=== PATIENT | male | born 1955 | race Caucasian/White ===

== ENCOUNTER → 2020-05-09 13:16 | Outpatient (BNVA) | payer MEDICARE, SELFPAY | PROVIDERS: Visit Provider Surgery Vascular Surgery | DX: L97.529 Non-pressure chronic ulcer of other part of left foot with unspecified severity (principal); Z89.412 Acquired absence of left great toe | CPT/HCPCS: 99213 ==

== ENCOUNTER → 2020-06-06 09:49 | Outpatient (BNVA) | payer MEDICARE, SELFPAY | PROVIDERS: PCP Internal Medicine Geriatric Medicine; Visit Provider Surgery Vascular Surgery | DX: L97.529 Non-pressure chronic ulcer of other part of left foot with unspecified severity (principal) | CPT/HCPCS: 99212 ==

== ENCOUNTER 2020-06-21 12:52 | Outpatient (RCR) | payer MEDICARE, SELFPAY | END 2020-08-01 15:04 | disposition home or self-care (01) | LOC: HO.WCC 12:52 | PROVIDERS: PCP Internal Medicine Geriatric Medicine; Visit Provider Physician Assistant | DX: E11.621 Type 2 diabetes mellitus with foot ulcer (principal); E11.51 Type 2 diabetes mellitus with diabetic peripheral angiopathy without gangrene; L97.522 Non-pressure chronic ulcer of other part of left foot with fat layer exposed; E11.69 Type 2 diabetes mellitus with other specified complication; E11.40 Type 2 diabetes mellitus with diabetic neuropathy, unspecified; M86.8X7 Other osteomyelitis, ankle and foot; R60.9 Edema, unspecified; L84 Corns and callosities; I10 Essential (primary) hypertension; F17.210 Nicotine dependence, cigarettes, uncomplicated; Z79.4 Long term (current) use of insulin; Z89.421 Acquired absence of other right toe(s); Z89.422 Acquired absence of other left toe(s) | CPT/HCPCS: 11042; 97597; 99212; 99213 ==

== ENCOUNTER 2020-07-23 09:00 | Outpatient (REF) | payer MEDICARE, SELFPAY ==
--- NOTE | 2020-07-23 09:21 | XR_ITS ---
EXAMINATION: XR FOOT, LEFT CLINICAL INFORMATION: Left foot wound COMPARISON: Previous x-ray November and January 2020 and MRI January 2020 TECHNIQUE: AP, lateral, and oblique views of the left foot. FINDINGS: There is loss of the first metatarsal head and distal shaft. It is uncertain whether this is post operative. There is osteopenia and cortical thickening and irregularity of the remaining most distal first metatarsal shaft questionable for osteomyelitis. No fracture or dislocation is seen. There is high attenuation seen in the soft tissues over the plantar medial foot, question related to overlying surgical dressing. No radiopaque soft tissue foreign body or air collection is seen. XR/XR foot LT min 3V IMPRESSION: Absent first metatarsal head being and osteopenia and irregularity of the remaining distal shaft of the first metatarsal bone questionable for osteomyelitis.
[2020-07-23 09:31] LABS: MANUAL DIFF FLAG NO
[2020-07-23 09:34] LABS: Basophils Absolute Auto 0.1 X10*3/uL (0.0-0.2); Basophils Percent Auto 0.5 % (0-2); Eosinophils Absolute Auto 0.2 X10*3/uL (0.0-0.4); Eosinophils Percent Auto 1.3 % (0-4); Hematocrit 41.4 % (42-52); Hemoglobin 12.8 g/dl (14.0-18.0); Imm Gran Abs Auto 0.24 X10*3/uL (0.00-0.03); Imm Gran Pct Auto 1.6 % (0.0-0.4); Lymphocytes Absolute Auto 2.1 X10*3/uL (1.2-4.9); Lymphocytes Percent Auto 13.8 % (20-40); Mean Corpuscular HGB Conc 30.9 g/dl (31.0-36.0); Mean Corpuscular Hemoglobin 25.8 pg (27.0-33.0); Mean Corpuscular Volume 83.5 fL (80-98); Mean Platelet Volume 10.9 fL (9.4-12.4); Monocytes Absolute Auto 0.7 X10*3/uL (0.1-1.2); Monocytes Percent Auto 4.4 % (2-11); Neutrophils Absolute Auto 11.9 X10*3/uL (2.0-8.3); Neutrophils Percent Auto 78.4 % (45-73); Platelet Count 327 X10*3/uL (160-400); Red Blood Count 4.96 X10*6/uL (4.60-5.80); Red Cell Distribution Width 14.7 % (11.0-16.0); White Blood Count 15.1 X10*3/uL (4.8-10.8)
[2020-07-23 10:08] LABS: Anion Gap 13 (12-20); Blood Urea Nitrogen 35 mg/dL (9-16); C Reactive Protein 0.17 mg/dL (< or = 0.50); Calcium 9.2 mg/dL (8.4-10.2); Carbon Dioxide 24 mmol/L (22-29); Chloride 104 mmol/L (96-108); Estimated Glomerular Filt Rate 56; Glucose Fasting 233 mg/dL (60-99); Potassium 5.2 mmol/l (3.3-5.1); Sodium 136 mmol/L (135-145)
[2020-07-23 10:30] LABS: Erythrocyte Sedimentation Rate 14 MM/HR (0-15)
== END 2020-07-23 09:01 | disposition home or self-care (01) ==
LOC: HO.LAB 09:00
PROVIDERS: PCP Internal Medicine Geriatric Medicine; Visit Provider Physician Assistant
DX: I73.9 Peripheral vascular disease, unspecified (principal); L97.529 Non-pressure chronic ulcer of other part of left foot with unspecified severity
CPT/HCPCS: 36415; 73630; 80048; 84134; 85025; 85652; 86140

== ENCOUNTER → 2020-07-30 13:03 | Outpatient (BNVA) | payer MEDICARE, SELFPAY | PROVIDERS: PCP Internal Medicine Geriatric Medicine; Visit Provider Surgery Vascular Surgery | DX: I73.9 Peripheral vascular disease, unspecified (principal); Z89.412 Acquired absence of left great toe | CPT/HCPCS: 99212 ==

== ENCOUNTER 2020-10-02 10:47 | Outpatient (REF) | payer MEDICARE, SELFPAY ==
--- NOTE | ~2020-10-02 | US_ITS ---
EXAMINATION: NONINVASIVE ASSESSMENT OF THE ARTERIES OF BOTH LOWER EXTREMITIES WITH PVR EXAM AND BILATERAL LOWER EXTREMITY DUPLE CLINICAL INFORMATION: Peripheral vascular disease. History of right iliac stent. TECHNIQUE: Ankle pulse volume recordings, ankle pressure measurements and ankle brachial indices were obtained of the lower extremity arterial system bilaterally in addition to duplex Doppler techniques with wave form analysis and measurement of velocities in the common femoral, profunda femoral, superficial femoral, popliteal and tibial arteries. The study was performed only at rest. COMPARISON: Previous exam most recent August 2017 FINDINGS: a) AT REST: RIGHT LE. The right ankle-brachial index is: 0.92 2. Right ankle pressure: Decreased. 3. Right ankle PVR waveform: Dampened 4. Right direct duplex Doppler findings: There is evidence of atherosclerotic disease with vessel wall calcification. * Common femoral artery: 131 cm/s, Diastolic flow reversal: Yes * Superficial femoral artery (proximal, mid, distal): 119, 156 and 219 cm/s, Diastolic flow reversal: Yes proximally and no intravenous and distal SFA with biphasic waveform. * Popliteal artery: 97 cm/s, Diastolic flow reversal: No. Biphasic. * Posterior tibial artery: 80 cm/s, Diastolic flow reversal: No. Biphasic. LEFT LE. The left ankle-brachial index is: 0.99 2. Left ankle pressure: Normal 3. Left ankle PVR waveform: Normal 4. Left direct duplex Doppler findings: There is evidence of atherosclerotic disease with vessel wall calcification. * Common femoral artery: 175 cm/s, Diastolic flow reversal: Yes * Superficial femoral artery (proximal, mid, distal): 186, 138 and 142 cm/s, Diastolic flow reversal: No. Biphasic. * Popliteal artery: 119 cm/s, Diastolic flow reversal: No. Biphasic. * Posterior tibial artery: 81 cm/s, Diastolic flow reversal: Yes JOSE ROBERTO Reference: * >0.97-1.25 = normal - no significant arterial disease * 0.75-0.96 = mild peripheral arterial disease * 0.5-0.74 = moderate peripheral arterial disease * <0.50 = severe peripheral arterial disease US/US JOSE ROBERTO complete IMPRESSION: Right: The right JOSE ROBERTO is 0.92 suggestive of mild obstructive atherosclerotic disease. There is no evidence of hemodynamically significant stenosis. There are biphasic waveform seen in the SFA, popliteal and posterior tibial arteries. There are decreased ankle pressures and dampened PVR waveforms. Left: The left JOSE ROBERTO is 0.99 which is normal. There is no evidence of hemodynamically significant stenosis. There are biphasic waveforms in the left superficial femoral and popliteal arteries.
--- NOTE | ~2020-10-02 | US_ITS ---
EXAMINATION: US RETROPERITONEAL LIMITED (AORTA) CLINICAL INFORMATION: Peripheral vascular disease. COMPARISON: None TECHNIQUE: Ponce-scale, color Doppler and spectral Doppler evaluation of the abdominal aorta. FINDINGS: The aorta is normal. The measurements of the aorta in maximum AP and transverse dimensions respectively are as follows: Proximal: 2.1 x 2.5 cm. Mid: 1.9 x 2.4 cm. Distal: 2.3 x 2.1 cm. PSV: 1 3 cm/s. The measurements of the common iliac arteries in maximum AP and TRV dimensions are as follows: Right Common Iliac Artery: 0.9 x 0.8 cm. Left Common Iliac Artery: 0.9 x 1.1 cm. US/US aorta IMPRESSION: Normal caliber abdominal aorta and common iliac arteries. No aneurysm seen..
== END 2020-10-02 10:48 | disposition home or self-care (01) ==
LOC: HO.US 10:47
PROVIDERS: Visit Provider Surgery Vascular Surgery
DX: I73.9 Peripheral vascular disease, unspecified (principal); I65.29 Occlusion and stenosis of unspecified carotid artery
CPT/HCPCS: 76775; 93923; 93925

== ENCOUNTER → 2020-10-15 14:04 | Outpatient (BNVA) | payer MEDICARE, SELFPAY | PROVIDERS: PCP Internal Medicine Geriatric Medicine; Visit Provider Surgery Vascular Surgery | DX: I73.9 Peripheral vascular disease, unspecified (principal) | CPT/HCPCS: 99212 ==

== ENCOUNTER 2020-12-28 11:01 | Emergency (ER) | payer MEDICARE, SELFPAY ==
[2020-12-28 11:11] VITALS: BP 167/88; PULSE 84; RESP 17; TEMP 36; O2SAT 99; BMI 30.2
--- NOTE | 2020-12-28 11:38 | ED_ITS ---
HPI - Extremity Problem General Chief complaint: Extremity Injury, Lower Stated complaint: BLISTER ON R FOOT Time Seen by Provider: 12/28/20 11:26 Source: patient Mode of arrival: ambulatory Limitations: no limitations History of Present Illness HPI Narrative: 65 y/o male with history of diabetes PAD, s/p left great tow amputtion 01/2020 and debridement 03/2020, s/p right TMA in 2004 who presents with a new blood blister to the stump of his right foot. He denies trauma. He noticed the blister this morning when he saw some dark red material draining from it. He denies picking at it himself. He denies any injuries. He denies redness, warmth, pain or fevers. He has not had any recent problems with his right foot and his left foot remains stable. He follows with Dr. Mc and is well known to the [facility]. Complaint: other (blister on right TMA site) Onset (ago): unknown Location: right and lower extremity Radiation: none Associated symptoms: denies other symptoms Related Data Home Medications Medication Instructions Recorded Confirmed aspirin 81 mg tablet,delayed 81 mg PO DAILY 04/27/20 release atorvastatin 80 mg tablet 80 mg PO DAILY 04/27/20 hydrochlorothiazide 25 mg tablet 25 mg PO QAM 04/27/20 insulin aspart U-100 100 unit/mL 1 sliding scale dose SUBCUT 04/27/20 subcutaneous cartridge USEASDIRECTD lisinopril 40 mg tablet 40 mg PO DAILY 04/27/20 metformin 1,000 mg tablet 1,000 mg PO DAILY 04/27/20 Allergies Allergy/AdvReac Type Severity Reaction Status Date / Time No Known Allergies Allergy Verified 10/15/20 14:05 [No Known Allergies*] Review of Systems Review of Systems: Constitutional: No Fever, No Chills Gastrointestinal: No Nausea, No Vomiting Musculoskeletal: No joint pain, No Myalgias Skin: No Skin Lesions, No rash Neuro: No Weakness, No Numbness Heme/Lymph: No Bruising, No Lymphadenopathy PMFSH Past Medical History Attestation statement: The following information was validated with the patient. Medical History (Updated 12/28/20 @ 11:47 by NAHED Ayala) Diabetes Surgical History Amputated great toe of left foot (01/09/20) History of transmetatarsal amputation of right foot (~2004) Status post debridement (03/04/20) Social History Social History Advance Directives: No Advance Directives Information Provided: No Physical Exam Vital Signs: Vital Signs: Last Vital Signs Temp 96.8 F 12/28/20 11:11 Pulse 84 12/28/20 11:11 Resp 17 12/28/20 11:11 BP 167/88 H 12/28/20 11:11 Pulse Ox 99 12/28/20 11:11 Body Mass Index 30.2 Appearance: Alert. Oriented X3. No acute distress. HEENT: normal inspection CVS: Normal heart rate and rhythm. Pulses normal. Respiratory: No respiratory distress. Skin: Skin warm and dry. Normal skin color. Normal skin turgor. No rashes. Extremities: right foot s/p TMS with 1.5 cm palpable blister, small open area without any drainage, no warmth, no erythema, no tenderness, no foul odor. callus formation on the stump. left foot s/p great toe and metatarsal amputation, no open areas, no erythema, warmth, tenderness. Neuro: Oriented X 3. No motor deficit. No sensory deficit. Course Course Course Narrative: 65 y/o male presenting with blood blister to right TMA site. No known trauma. No signs of infection at this time, no cellulitis on exam. Will treat topically with Bacitracin and local wound care. Patient counseled on signs and symptoms of infection and is encouraged to f/u at the [facility] for close monitoring. Case was d/w Dr. Alvarado. Patient is stable for discharge. Discharge Plan Discharge Clinical Impression: Blister Patient Disposition: Home, Self-Care Instructions: Blister (ED) Additional Instructions: There are no signs of infection at this time. Recommend topical wound care with Bacitracin ointment two times per day. Keep area clean and covered. Monitor closely for signs of infection including redness, warmth, swelling, pain or drainage of pus. If you develop any of these, come back to the ER right away for evaluation. Follow up wtih your doctor and Dr. Mc as scheduled. Recommend following up with the Wound Center. Referrals: [facility] [Outside] - 2 days
== END 2020-12-28 11:55 | disposition home or self-care (01) ==
PROVIDERS: Emergency Provider Emergency Medicine Emergency Medical Services; PCP Internal Medicine Geriatric Medicine
DX: S90.821A Blister (nonthermal), right foot, initial encounter (principal); M79.671 Pain in right foot; X58.XXXA Exposure to other specified factors, initial encounter; Y93.9 Activity, unspecified; Y92.9 Unspecified place or not applicable; Y99.9 Unspecified external cause status; Z79.899 Other long term (current) drug therapy; Z79.82 Long term (current) use of aspirin
CPT/HCPCS: 99283

== ENCOUNTER 2021-01-03 12:41 | Outpatient (RCR) | payer MEDICARE, SELFPAY | END 2021-01-22 13:20 | disposition home or self-care (01) | LOC: HO.WCC 12:41 | PROVIDERS: Visit Provider Physician Assistant | DX: E11.621 Type 2 diabetes mellitus with foot ulcer (principal); L97.511 Non-pressure chronic ulcer of other part of right foot limited to breakdown of skin; E11.51 Type 2 diabetes mellitus with diabetic peripheral angiopathy without gangrene; E11.40 Type 2 diabetes mellitus with diabetic neuropathy, unspecified; F17.210 Nicotine dependence, cigarettes, uncomplicated; Z89.421 Acquired absence of other right toe(s); Z71.6 Tobacco abuse counseling; Z79.4 Long term (current) use of insulin; L84 Corns and callosities | CPT/HCPCS: 97597; 99212 ==

== ENCOUNTER 2021-02-07 10:21 | Inpatient (IN) | payer MEDICARE, SELFPAY ==
--- NOTE | ~2021-02-07 | US_ITS ---
EXAMINATION: NONINVASIVE ASSESSMENT OF THE ARTERIES OF BOTH LOWER EXTREMITIES WITH PVR EXAM AND BILATERAL LOWER EXTREMITY DUPLEX CLINICAL INFORMATION: Nonhealing ulcer right foot or ankle TECHNIQUE: Ankle pulse volume recordings, ankle pressure measurements and ankle brachial indices were obtained of the lower extremity arterial system bilaterally in addition to duplex Doppler techniques with wave form analysis and measurement of velocities in the common femoral, profunda femoral, superficial femoral, popliteal and tibial arteries. The study was performed only at rest. COMPARISON: None previous exam September 2020 FINDINGS: a) AT REST: RIGHT LE. The right ankle-brachial index is: Not obtainable due to surgical dressing 2. Right ankle pressure: Slightly decreased 3. Right ankle PVR waveform: Slightly dampened 4. Right direct duplex Doppler findings: There is atherosclerotic disease with vessel wall calcification. * Common femoral artery: 147 cm/s, Diastolic flow reversal: Yes * Superficial femoral artery (proximal, mid, distal): 124, 143 and 149 cm/s, Diastolic flow reversal: No * Popliteal artery: 101 cm/s, Diastolic flow reversal: No * Posterior tibial artery: 147 cm/s, Diastolic flow reversal: Yes LEFT LE. The left ankle-brachial index is: 0.76 2. Left ankle pressure: Slightly decreased. 3. Left ankle PVR waveform: Slightly dampened. 4. Left direct duplex Doppler findings: There is atherosclerotic disease with vessel wall calcification. * Common femoral artery: 173 cm/s, Diastolic flow reversal: No * Superficial femoral artery (proximal, mid, distal): 136, 127 and 153 cm/s, Diastolic flow reversal: No * Popliteal artery: 163 cm/s, Diastolic flow reversal: Yes * Posterior tibial artery: 107 cm/s, Diastolic flow reversal: Yes JOSE ROBERTO Reference: * >0.97-1.25 = normal - no significant arterial disease * 0.75-0.96 = mild peripheral arterial disease * 0.5-0.74 = moderate peripheral arterial disease * <0.50 = severe peripheral arterial disease US/US JOSE ROBERTO complete IMPRESSION: Right: Ankle-brachial index could not be obtained. There is diffuse atherosclerotic disease, biphasic waveforms and increased peak systolic velocities suggestive of mild stenosis. Left: Diffuse atherosclerotic disease, borderline ankle brachial index, biphasic waveforms and increased peak systolic velocities suggestive of mild stenosis.
--- NOTE | ~2021-02-07 | MR_ITS ---
EXAMINATION: MR FOOT WITHOUT AND WITH CONTRAST, RIGHT CLINICAL INFORMATION: Diabetic foot infection, evaluate for osteomyelitis. COMPARISON: X-ray of the right foot 02/07/2021 TECHNIQUE: MRI of the right foot was performed before and after contrast. Contrast dose 10 mL of Gadavist given intravenously. FINDINGS: The examination is limited because of image-degrading motion artifact. As seen on radiographs are postoperative changes with amputation at the level of the metatarsals. SECOND, THIRD AND FOURTH DIGITS: There is abnormal decreased T1 and heterogeneous T2 signal without contrast enhancement in the soft tissues overlying the distal ends of the remaining 3rd and 4th metatarsals. The overlying surface/skin demonstrates irregularity probably reflecting ulceration. This area measures 3.2 cm transverse, 1.4 cm AP, and extends 3 cm proximal to distal. There is some very mild increased signal involving most of the 4th metatarsal on the T2-weighted sequences beginning at the proximal metaphysis and extending to the end of the bone. There is no corresponding abnormal signal on the T1-weighted sequence. There is only minimal enhancement of the very tip of the bone. There is no irregularity of the end of the bone. There is minimal increased T2 signal along the tip of the remaining 4th metatarsal without concomitant enhancement or abnormal signal on the T1-weighted sequence. No definite abnormal signal within the distal end of the 2nd metatarsal. The signal of the remaining bones and joints is unremarkable. ADDITIONAL FINDINGS: There is generalized abnormal signal with some enhancement in the dorsal subcutaneous soft tissues of the foot compatible with a combination of edema and cellulitis. There is mild abnormal signal with minimal enhancement of the muscles compatible with denervation myositis given the additional fatty atrophy and fatty infiltration of the muscles diffusely. The visualized tendons appear intact. MR/MR foot RT wo/w con IMPRESSION: Postsurgical changes related to amputation at the level of the metatarsals. Diffuse signal abnormality throughout the subcutaneous soft tissues of the foot compatible with a combination of edema and cellulitis. There is additional localized fluid surrounding the distal ends of the 2nd, 3rd and 4th metatarsals with some peripheral enhancement likely reflecting an abscess. There is also some mild abnormal signal and minimal enhancement within the 3rd metatarsal, nonspecific. This could reflect some reactive edema but remains suspicious for osteomyelitis given the overlying soft tissue abnormality and its overall appearance. Minimal abnormality of the distal end of the remaining 4th metatarsal equivocal for osteomyelitis. This may simply reflect some minimal reactive edema related to the overlying inflammatory process. However, subtle osteomyelitis of the very tip of the bone cannot be excluded. No evidence for osteomyelitis of the remaining 2nd metatarsal.
--- NOTE | ~2021-02-07 | XR_ITS ---
EXAMINATION: XR FOOT, RIGHT CLINICAL INFORMATION: Drainage and redness. Question osteomyelitis. COMPARISON: Previous right foot x-ray June 2019 and MRI June 2019 TECHNIQUE: AP, lateral, and oblique views of the right foot. FINDINGS: There are postsurgical changes following transmetatarsal amputation. This appears similar to 2019 exam. There is a cortical irregularity of the medial navicular bone. This is similar to June 2019 exam. No evidence of fracture, dislocation or osteomyelitis is seen. There is soft tissue swelling and air in the soft tissues at the amputation site. Soft tissues are otherwise unremarkable. XR/XR foot RT 2V IMPRESSION: Stable exam from June 2019. No fracture or x-ray evidence of osteomyelitis.
[2021-02-07 10:48] VITALS: BP 184/78; PULSE 80; RESP 20; TEMP 36.8; O2SAT 100; BMI 31.4
--- NOTE | 2021-02-07 10:55 | PC.NURSE ---
Pt alert and oriented x3, lscta. BP high 180s. Pt reports blister on r foot opened up, yellowish discharge with foul odor reported by pt. R toe amputation done approximately 1 year ago. Pt type 2 diabetic, dc'd from wound clinic 3 wks ago. Pt on baby aspirin.
[2021-02-07 11:00] VITALS: BP 184/78; PULSE 77; RESP 20; TEMP 36.8; O2SAT 100
--- NOTE | 2021-02-07 11:20 | ED.WOUNDLAC ---
HPI - Wound/Laceration General Chief Complaint: Wound/Laceration Stated Complaint: R FOOT INFECTION Time Seen by Provider: 02/07/21 10:46 Source: patient Mode of arrival: ambulatory Limitations: no limitations History of Present Illness HPI narrative: 65 yo male with past medical history of IDDM, PAD, h/o transmetatarsal amputation of right foot, left great toe amputation secondary to osteo here with complaints of right foot swelling, redness and drainage noted from an opened wound x 2 days. Patient tells me had had wound on the foot which closed after being followed at wound care. Had a blister that opened and was seen here 12/25 and then followed back up with wound care for several weeks till closure. Patient noted two days ago an open area on the foot. Since then increasing redness, swelling and drainage from the site. No fevers/chills. BG 150-160's which is normal per patient. Denies pain but has neuropathy at baseline so unable to quantify. Related Data Home Medications Medication Instructions Recorded Confirmed aspirin 81 mg tablet,delayed 81 mg PO DAILY 04/27/20 02/07/21 release atorvastatin 80 mg tablet 80 mg PO BEDTIME 04/27/20 02/07/21 hydrochlorothiazide 25 mg tablet 25 mg PO QAM 04/27/20 02/07/21 lisinopril 40 mg tablet 40 mg PO DAILY 04/27/20 02/07/21 aspirin 81 mg PO DAILY 02/07/21 02/07/21 atorvastatin 1 tab PO BEDTIME 02/07/21 02/07/21 hydrochlorothiazide 1 tab PO DAILY 02/07/21 02/07/21 insulin NPH and regular human 20 unit SUBCUT BEDTIME 02/07/21 02/07/21 [Novolin 70-30 FlexPen U-100] insulin NPH and regular human 30 unit SUBCUT DAILY 02/07/21 02/07/21 [Novolin 70-30 FlexPen U-100] lisinopril 1 tab PO DAILY 02/07/21 02/07/21 metformin 2 tab PO BID 02/07/21 02/07/21 Allergies Allergy/AdvReac Type Severity Reaction Status Date / Time No Known Allergies Allergy Verified 10/15/20 14:05 [No Known Allergies*] Review of Systems Review of Systems: Yes all other systems are reviewed and are negative Constitutional: Constitutional: Reports no additional constitutional complaints, Denies body ache(s), Denies chills, Denies fever(s), Denies headache(s) and Denies weakness Eyes: Eyes: Reports no additional eye complaints and Denies change in vision ENT: Reports system reviewed and no additional complaints, except as documented, Denies dizziness, Denies headache(s), Denies nasal congestion, Denies nasal discharge and Denies neck pain Cardiovascular: Cardiovascular: Reports no additional cardiovascular complaints, Denies chest pain, Denies leg edema and Denies dyspnea Respiratory: Respiratory: Reports no additional respiratory complaints, Denies cough and Denies dyspnea Gastrointestinal: Gastrointestinal: Reports no additional gastrointestinal complaints, Denies abdominal pain, Denies diarrhea, Denies nausea and Denies vomiting Genitourinary: Genitourinary: Denies urinary incontinence Musculoskeletal: Musculoskeletal: Reports no additional musculoskeletal complaints, Denies back pain, Denies arthralgias, Denies joint swelling, Denies neck pain, Denies numbness and Denies tingling Integumentary/Breasts: Skin/Breast: Reports system reviewed and no additional complaints, except as docu, Reports swelling, Reports erythema and Denies rash Neurologic: Reports system reviewed and no additional complaints, except as documented, Denies Abnormal speech present, Denies dizziness, Denies headache(s), Denies numbness, Denies tingling and Denies weakness PMFSH Past Medical History Attestation statement: The following information was validated with the patient. Source: old records reviewed and nursing notes reviewed Medical History Diabetes Surgical History Amputated great toe of left foot (01/09/20) History of transmetatarsal amputation of right foot (~2004) Status post debridement (03/04/20) Social History Social History Advance Directives: No Advance Directives Information Provided: No Physical Exam Vital Signs: Vital Signs: Last Vital Signs Temp 98.3 F 02/07/21 11:00 Pulse 77 02/07/21 11:00 Resp 20 02/07/21 11:00 BP 184/78 H 02/07/21 11:00 Pulse Ox 100 02/07/21 11:00 Body Mass Index 31.4 Const: General: cooperative, healthy appearing, comfortable and no acute distress Orientation/consciousness: patient oriented x3 Limitations: no limitations HENMT: Head: Yes normal to inspection Ears: hearing grossly normal bilaterally General nose exam: Normal external nose present Face and sinus: Yes normal facial exam Mouth: Normal oral and palatal mucosa present Throat: Yes posterior oropharynx normal Eyes: General: appearance normal, both eyes and all related structures Pupils: Equal, round and reactive pupils present Neck: Neck: Yes normal visual inspection Chest: Chest palpation & inspection: normal inspection of the chest Resp: Effort & Inspection: normal respiratory effort Auscultation: clear to auscultation bilaterally Cardio: Rate: regular rate Rhythm: regular rhythm Peripheral pulses: Peripheral pulses 2+ throughout GI: Inspection: Yes normal to inspection Palpation (GI): Soft to palpation and nontender Auscultation: normal bowel sounds Back/Spine/Pelvis: Thoracic/Lumbar Spine: thoracic and lumbar spine normal to inspection Skin: Other: No tenderness. Pitting edema over the dorsal foot. Doppler DP and PT pulses noted. Able to express some clear drainage from the wound site. General skin exam: no rashes or lesions noted Neuro: General: patient oriented x3, no focal motor deficits and normal sensation to monofilament Cranial nerves: Yes Equal, round and reactive pupils present Cognition (Neuro): normal cognition Speech: No Abnormal speech present Gait exam (Neuro): Normal gait present Motor exam (neuro): 5/5 motor strength present throughout Extrem: General: Yes normal to inspection Course Course Course Narrative: 65 yo male with past medical history of IDDM, PAD here with open wound to site with redness, swelling, clear drainage x several days. No fevers/chills. Will check labs blood including blood cultures, lactic acid, x-ray right foot, IV antibiotics. -elevated lactic acid with leukocytosis. Added vancomycin and normal saline bolus. Will need admission. X-ray does not show osteomyelitis. 1300-Discussed with Dr Toledo who accepted admission. MDM - Wound/Laceration Medical Records Attestation: I reviewed the patient's medical records. Lab Data Attestation: I reviewed the patient's lab results. Result diagrams: 02/07/21 11:32 02/07/21 11:32 Labs: Lab Results 07/04/2202/07/21 02/07/21 Range/Units 11:29 11:32 11:32 WBC 15.0 H (4.8-10.8) X10*3/uL RBC 4.59 L (4.60-5.80) X10*6/uL Hgb 12.0 L (14.0-18.0) g/dl Hct 37.5 L (42-52) % MCV 81.7 (80-98) fL MCH 26.1 L (27.0-33.0) pg MCHC 32.0 (31.0-36.0) g/dl RDW 15.4 (11.0-16.0) % Plt Count 246 (160-400) X10*3/uL MPV 11.2 (9.4-12.4) fL Immature Gran % (Auto) 1.1 H (0.0-0.4) % Neut % (Auto) 83.1 H (45-73) % Lymph % (Auto) 10.1 L (20-40) % [place] % (Auto) 4.5 (2-11) % Eos % (Auto) 0.9 (0-4) % Baso % (Auto) 0.3 (0-2) % Lymph # (Auto) 1.5 (1.2-4.9) X10*3/uL [place] # (Auto) 0.7 (0.1-1.2) X10*3/uL Eos # (Auto) 0.1 (0.0-0.4) X10*3/uL Baso # (Auto) 0.1 (0.0-0.2) X10*3/uL Abs Immat Gran (auto) 0.16 H (0.00-0.03) X10*3/uL Absolute Neuts (auto) 12.5 H (2.0-8.3) X10*3/uL Absolute Nucleated RBC 0.000 (0.0-0.012) X10*3/uL Nucleated RBC % (auto) 0.0 (0.0-0.2) /100WBC ESR 39 H (0-15) MM/HR Sodium (135-145) mmol/L Potassium (3.3-5.1) mmol/L Chloride (96-108) mmol/L Carbon Dioxide (22-29) mmol/L Anion Gap (12-20) BUN (9-16) mg/dL Creatinine (0.5-1.4) mg/dL Estim Creat Clear Calc Estimated GFR Random Glucose (60-115) mg/dL Lactic Acid (0.5-2.0) mmol/L Calcium (8.4-10.2) mg/dL Total Bilirubin (0.0-1.0) mg/dL Direct Bilirubin (0.0-0.5) mg/dL AST (5-37) U/L ALT (0-40) U/L Alkaline Phosphatase (39-117) U/L C-Reactive Protein (< or = 0.50) mg/dL Total Protein (6.5-8.0) g/dL Albumin (3.5-5.0) g/dL COVID-19 (CEFERINO) Negative (Negative) COVID-19 Clin Com See Note 02/07/21 02/07/21 Range/Units 11:32 11:32 WBC (4.8-10.8) X10*3/uL RBC (4.60-5.80) X10*6/uL Hgb (14.0-18.0) g/dl Hct (42-52) % MCV (80-98) fL MCH (27.0-33.0) pg MCHC (31.0-36.0) g/dl RDW (11.0-16.0) % Plt Count (160-400) X10*3/uL MPV (9.4-12.4) fL Immature Gran % (Auto) (0.0-0.4) % Neut % (Auto) (45-73) % Lymph % (Auto) (20-40) % [place] % (Auto) (2-11) % Eos % (Auto) (0-4) % Baso % (Auto) (0-2) % Lymph # (Auto) (1.2-4.9) X10*3/uL [place] # (Auto) (0.1-1.2) X10*3/uL Eos # (Auto) (0.0-0.4) X10*3/uL Baso # (Auto) (0.0-0.2) X10*3/uL Abs Immat Gran (auto) (0.00-0.03) X10*3/uL Absolute Neuts (auto) (2.0-8.3) X10*3/uL Absolute Nucleated RBC (0.0-0.012) X10*3/uL Nucleated RBC % (auto) (0.0-0.2) /100WBC ESR (0-15) MM/HR Sodium 134 L (135-145) mmol/L Potassium 4.7 (3.3-5.1) mmol/L Chloride 102 (96-108) mmol/L Carbon Dioxide 22 (22-29) mmol/L Anion Gap 15 (12-20) BUN 19 H (9-16) mg/dL Creatinine 1.28 (0.5-1.4) mg/dL Estim Creat Clear Calc 74.2 Estimated GFR 56 Random Glucose 368 H* (60-115) mg/dL Lactic Acid 2.4 H* (0.5-2.0) mmol/L Calcium 9.0 (8.4-10.2) mg/dL Total Bilirubin 0.6 (0.0-1.0) mg/dL Direct Bilirubin 0.3 (0.0-0.5) mg/dL AST 9 (5-37) U/L ALT 12 (0-40) U/L Alkaline Phosphatase 96 (39-117) U/L C-Reactive Protein 10.47 H (< or = 0.50) mg/dL Total Protein 7.0 (6.5-8.0) g/dL Albumin 3.9 (3.5-5.0) g/dL COVID-19 (CEFERINO) (Negative) COVID-19 Clin Com Imaging Data right foot xray: Attestation: I personally reviewed and interpreted this imaging study as follows: Radiologist's impression: EXAMINATION: XR FOOT, RIGHT CLINICAL INFORMATION: Drainage and redness. Question osteomyelitis. COMPARISON: Previous right foot x-ray June 2019 and MRI June 2019 TECHNIQUE: AP, lateral, and oblique views of the right foot. FINDINGS: There are postsurgical changes following transmetatarsal amputation. This appears similar to 2019 exam. There is a cortical irregularity of the medial navicular bone. This is similar to June 2019 exam. No evidence of fracture, dislocation or osteomyelitis is seen. There is soft tissue swelling and air in the soft tissues at the amputation site. Soft tissues are otherwise unremarkable. XR/XR foot RT 2V IMPRESSION: Stable exam from June 2019. No fracture or x-ray evidence of osteomyelitis. Discharge Plan Discharge Clinical Impression: Foot ulcer, right, Leukocytosis, Acute hyperglycemia, Elevated lactic acid level Patient Disposition: Admitted As Inpatient
[2021-02-07 11:41] LABS: MANUAL DIFF FLAG NO
[2021-02-07 11:44] LABS: Basophils Absolute Auto 0.1 X10*3/uL (0.0-0.2); Basophils Percent Auto 0.3 % (0-2); Eosinophils Absolute Auto 0.1 X10*3/uL (0.0-0.4); Eosinophils Percent Auto 0.9 % (0-4); Hematocrit 37.5 % (42-52); Imm Gran Abs Auto 0.16 X10*3/uL (0.00-0.03); Imm Gran Pct Auto 1.1 % (0.0-0.4); Lymphocytes Absolute Auto 1.5 X10*3/uL (1.2-4.9); Lymphocytes Percent Auto 10.1 % (20-40); Mean Corpuscular Hemoglobin 26.1 pg (27.0-33.0); Mean Corpuscular Volume 81.7 fL (80-98); Mean Platelet Volume 11.2 fL (9.4-12.4); Monocytes Absolute Auto 0.7 X10*3/uL (0.1-1.2); Monocytes Percent Auto 4.5 % (2-11); Neutrophils Absolute Auto 12.5 X10*3/uL (2.0-8.3); Neutrophils Percent Auto 83.1 % (45-73); Platelet Count 246 X10*3/uL (160-400); Red Blood Count 4.59 X10*6/uL (4.60-5.80); Red Cell Distribution Width 15.4 % (11.0-16.0)
[2021-02-07] MEDS: Piperacillin Sodium/Tazobactam 3.375 GM in 0.9 % Sodium Chloride 50 ML IV ×3 (11:45→23:37)
--- NOTE | 2021-02-07 11:55 | HE.PHANOTE ---
Pharmacy has completed the medication reconciliation. Patient reports taking Novolin 70/30, 30 units in the morning and 20 units in the evening, although no claim history and per pharmacy patient hasnt filled medication.
[2021-02-07 12:01] LABS: COVID-19 Test Negative (Negative); IDNOW Serial# 9DD0AD1C
[2021-02-07 12:05] LABS: Lactic Acid 2.4 mmol/L (0.5-2.0)
--- NOTE | 2021-02-07 12:08 | PC.NURSE ---
Pt to xray Lactic 2.4, provider notified.
[2021-02-07 12:31] LABS: Erythrocyte Sedimentation Rate 39 MM/HR (0-15)
[2021-02-07 12:45] LABS: Alanine Aminotransferase 12 U/L (0-40); Albumin Level 3.9 g/dL (3.5-5.0); Alkaline Phosphatase 96 U/L (39-117); Anion Gap 15 (12-20); Aspartate Amino Transferase 9 U/L (5-37); Bilirubin Direct 0.3 mg/dL (0.0-0.5); Bilirubin Total 0.6 mg/dL (0.0-1.0); Blood Urea Nitrogen 19 mg/dL (9-16); C Reactive Protein 10.47 mg/dL (< or = 0.50); Carbon Dioxide 22 mmol/L (22-29); Chloride 102 mmol/L (96-108); Creatinine Clr Calc Pharmacy 74.2; Estimated Glomerular Filt Rate 56; Glucose Random 368 mg/dL (60-115); Potassium 4.7 mmol/L (3.3-5.1); Sodium 134 mmol/L (135-145)
[2021-02-07] MEDS: Insulin Regular, Human 100 UNIT/ML 3 ML VIAL IVPUSH (13:15)
[2021-02-07] MEDS: 0.9 % Sodium Chloride 1,000 ML 999 ML IV (13:18)
--- NOTE | 2021-02-07 13:37 | P.HPHOSP_ITS ---
History of Present Illness Date of Service: 02/07/21 Chief Complaint: drainage from R foot This is a 65-year-old male with a past medical history of hypertension, diabetes, active smoker, PAD, prior diabetic foot infections with amputations in the bilateral lower extremities who presents to the hospital with a 1 day history of drainage from the amputation site of his right lower extremity. Patient reports that about 6 weeks ago he had a blood blister for which he followed up with wound care for the next several weeks at which point in that had healed. He reports that on the day of arrival to the emergency room, he noted that he had some drainage on his sock which was milky in color and foul smelling. He also noticed that his amputation site was slightly more red and so he presented to the emergency room. He denied any pain in the right lower extremity, although he reports a lack of sensation due to his known neuropathy. In regards to his amputation history, he reports that he had his right-sided TMA completed about 18 years ago with left-sided amputations more recently in 2019. he denies any fevers or chills. In the emergency room he underwent basic workup which included a CBC that re vealed a WBC count of 15,000 with 16 bands. Chemistry revealed hyperglycemia with sugar of 368 and a lactic acidosis of 2.4. CRP was elevated at 10.4 and ESR was 39. an x-ray of the foot was checked which did not show any acute fractures or x-ray evidence of osteomyelitis. He had blood cultures drawn and was given broad-spectrum IV antibiotics in the form of IV vancomycin and Zosyn along with intravenous fluids and subsequently admission was requested. Review of Systems Review of Systems: General - denies fevers or chills, denies weakness or fatigue HEENT -denies blurred vision, denies headache, denies sore throat Cardiovascular - denies chest pain or palpitations, denies edema Respiratory - denies shortness of breath, coughing, wheezing Gastrointestinal - denies abdominal pain, nausea, vomiting, diarrhea - denies flank pain, denies dysuria, denies frequency or urgency Musculoskeletal - +right foot drainage, +redness, +swelling Neurological - denies any focal weakness or numbness Skin, denies any bruising or redness Psychiatric - denies any suicidal ideation, hallucinations, homicidal ideation Endocrinology - denies intolerance to hot / cold temperatures [facility] Medical History (Updated 02/07/21 @ 13:49 by Miguel Angel Toledo MD) Diabetes Hyperlipidemia PAD (peripheral artery disease) Surgical History Amputated great toe of left foot (01/09/20) History of transmetatarsal amputation of right foot (~2004) Status post debridement (03/04/20) Social History (Updated 02/07/21 @ 13:50 by Miguel Angel Toledo MD) Alcohol intake: never Patient Tobacco Use Status: Current everyday Tobacco user Use of substances other than those prescribed or required for medical reasons: No Advance Directives: No Advance Directives Information Provided: No Meds Allergies Allergy/AdvReac Type Severity Reaction Status Date / Time No Known Allergies Allergy Verified 10/15/20 14:05 [No Known Allergies*] Active Medications: Current Medications Generic Name Dose Route Start Last Admin Trade Name Freq PRN Reason Stop Dose Admin Acetaminophen 650 mg 02/07/21 13:23 Acetaminophen 325 Mg Tablet PO Q6H PRN Pain, Mild (Pain Scale 1-3) Enoxaparin Sodium 40 mg 02/07/21 13:30 Enoxaparin Sodium 40 Mg/0.4 Ml Syringe SUBCUT Q24H CHET Vancomycin HCl 1,000 mg/ 535 mls @ 267.5 mls/hr 02/07/21 12:13 Vancomycin HCl 750 mg/ Sodium IV 02/07/21 14:12 Chloride ONCE ONE Pharmacy Consult 1 each 02/07/21 11:18 Consult Rx Perform Med Rec MISCELLANE ONCE PRN Consult order Pharmacy Consult 1 each 02/07/21 12:13 Consult Rx Vancomycin Dosing MISCELLANE DAILY PRN Consult order Sodium Chloride 3 ml 02/07/21 16:00 0.9 % Sodium Chloride Flush 3 Ml Syringe IVFLUSH QSHIFT [facility] Home Medications Medication Instructions Recorded Confirmed Last Taken Type aspirin 81 mg tablet,delayed 81 mg PO DAILY 04/27/20 02/07/21 02/06/21 History release atorvastatin 80 mg tablet 80 mg PO BEDTIME 04/27/20 02/07/21 02/06/21 History hydrochlorothiazide 25 mg tablet 25 mg PO QAM 04/27/20 02/07/21 02/06/21 History lisinopril 40 mg tablet 40 mg PO DAILY 04/27/20 02/07/2102/06/21 History aspirin 81 mg PO DAILY 02/07/21 02/07/21 02/06/21 History atorvastatin 1 tab PO BEDTIME 02/07/21 02/07/21 02/06/21 History hydrochlorothiazide 1 tab PO DAILY 02/07/21 02/07/21 02/06/21 History insulin NPH and regular human 20 unit SUBCUT BEDTIME 02/07/21 02/07/21 02/07/21 History [Novolin 70-30 FlexPen U-100] insulin NPH and regular human 30 unit SUBCUT DAILY 02/07/21 02/07/21 02/06/21 History [Novolin 70-30 FlexPen U-100] lisinopril 1 tab PO DAILY 02/07/21 02/07/21 02/06/21 History metformin 2 tab PO BID 02/07/21 02/07/21 02/06/21 History Physical Exam Vital Signs and Narrative: Vital Signs: Last Vital Signs Temp 98.3 F 02/07/21 11:00 Pulse 77 02/07/21 11:00 Resp 20 02/07/21 11:00 BP 184/78 H 02/07/21 11:00 Pulse Ox 100 02/07/21 11:00 Body Mass Index 31.4 Const: Other: Constitutional - Awake and Alert, No apparent distress Eyes - PERRLA, EOMI Cardiovascular - S1S2, RRR, No edema Respiratory - Normal lung expansion, Normal respiratory effort, No respiratory distress, CTA bilaterally Gastrointestinal - NT / ND; +BS; No rebound or guarding - No CVA tenderness Extremities - no calf tenderness bilaterally, no swelling Musculoskeletal - Normal inspection, normal ROM Skin - Warm/Dry, see pictures below Neurological - Alert & oriented x3, No focal deficit Psychological - Appropriate affect Skin: Other: Results Labs CBC and Chem 7: 02/07/21 11:32 02/07/21 11:32 Labs: Laboratory Results - last 24 hr 02/07/21 02/07/21 02/07/21 11:29 11:32 11:32 MCV 81.7 MCH 26.1 L MCHC 32.0 RDW 15.4 Plt Count 246 MPV 11.2 Immature Gran % (Auto) 1.1 H Neut % (Auto) 83.1 H Lymph % (Auto) 10.1 L [place] % (Auto) 4.5 Eos % (Auto) 0.9 Baso % (Auto) 0.3 Lymph # (Auto) 1.5 [place] # (Auto) 0.7 Eos # (Auto) 0.1 Baso # (Auto) 0.1 Abs Immat Gran (auto) 0.16 H Absolute Neuts (auto) 12.5 H Absolute Nucleated RBC 0.000 Nucleated RBC % (auto) 0.0 ESR 39 H Anion Gap Estim Creat Clear Calc Estimated GFR Random Glucose Lactic Acid Calcium Total Bilirubin Direct Bilirubin AST ALT Alkaline Phosphatase C-Reactive Protein Total Protein Albumin COVID-19 (CEFERINO) Negative COVID-19 Clin Com See Note 02/07/21 02/07/21 11:32 11:32 MCV MCH MCHC RDW Plt Count MPV Immature Gran % (Auto) Neut % (Auto) Lymph % (Auto) [place] % (Auto) Eos % (Auto) Baso % (Auto) Lymph # (Auto) [place] # (Auto) Eos # (Auto) Baso # (Auto) Abs Immat Gran (auto) Absolute Neuts (auto) Absolute Nucleated RBC Nucleated RBC % (auto) ESR Anion Gap 15 Estim Creat Clear Calc 74.2 Estimated GFR 56 Random Glucose 368 H* Lactic Acid 2.4 H* Calcium 9.0 Total Bilirubin 0.6 Direct Bilirubin 0.3 AST 9 ALT 12 Alkaline Phosphatase 96 C-Reactive Protein 10.47 H Total Protein 7.0 Albumin 3.9 COVID-19 (CEFERINO) COVID-19 Clin Com Imaging Radiologist's Impressions: Impressions Foot X-Ray 02/07/21 11:17 IMPRESSION: Stable exam from June 2019. No fracture or x-ray evidence of osteomyelitis. Assessment and Plan (1) HTN (hypertension) with goal to be determined: Status: Acute (2) PAD (peripheral artery disease): Status: Acute (3) Foot ulcer, right: Status: Acute (4) Diabetes: Status: Acute This is a 65 yo male with a past medical history of diabetes, PAD status post multiple amputations, hyperlipidemia, active tobacco use who presents to the hospital with a 1 day history of drainage from his right lower extremity, TMA amputation site. His presentation is consistent with cellulitis with concern over deeper infection at the TMA amputation site. He will be admitted f or IV antibiotics and further workup. 1. Diabetic foot infection at the site of right TMA amputation Small monitor drainage noted. The region is indurated but do not feel any definitive fluctuation. ESR and CRP are elevated, however x-ray without any bony abnormalities. Will check MRI of the foot Will involve vascular surgery who is familiar with him as well as Infectious Disease In the meantime continue IV vancomycin and Zosyn Monitor renal function while on antibiotics Patient does not have sepsis at this time 2. uncontrolled diabetes mellitus Patient is on Novolin 70/30 (50units total) at home, will convert to Lantus and sliding scale hold metformin 3. Uncontrolled htn missed his home meds this AM, will give him them now 4. Lactic acidosis not due to severe sepsis maybe related to metformin 5. HLD statin 6. PAD vascular surgery as above cotinue asa / statin smoking cessation has been encouraged 7. Tobacco Use Patch Full Code DVT pptx, Lovenox Quality Stroke Does the patient have a stroke diagnosis?: No VTE Prior VTE?: No VTE Risk Level:: Medical - moderate - high VTE Device Contraindication: Treatment Not Indicated VTE Drug Contraindication: N/A - Med Ordered
[2021-02-07 13:40] LABS: Reflex Lactate? Lactic Acid Added
[2021-02-07] MEDS: vancomycin HCL 1,000 MG, vancomycin HCL 750 MG in 0.9 % Sodium Chloride 500 ML 267.5 MG IV (13:48)
[2021-02-07] MEDS: Enoxaparin Sodium 40 MG/0.4 ML SYRINGE SUBCUT (13:48)
[2021-02-07] MEDS: hydroCHLOROthiazide 25 MG TABLET PO (13:59)
[2021-02-07] MEDS: Nicotine 14 MG PATCH.TD24 TRANSDERMA (13:59)
--- NOTE | 2021-02-07 14:40 | PC.NURSE ---
Meds given as documented, Pt pending admission. In MRI at this time.
--- NOTE | 2021-02-07 14:47 | ECG_ITS ---
Test Reason : WOUND Blood Pressure : / mmHG Vent. Rate : 068 BPM Atrial Rate : 068 BPM P-R Int : 158 ms QRS Dur : 122 ms QT Int : 408 ms P-R-T Axes : -09 -39 020 degrees QTc Int : 433 ms Sinus rhythm with Premature atrial complexes Left axis deviation Right bundle branch block Abnormal ECG When compared with ECG of 11-DEC-2019 13:20, Premature atrial complexes are now Present Referred By: Aubrie Black Electronically Signed By:NEREIDA WOLFF
--- NOTE | 2021-02-07 15:00 | PC.NURSE ---
Pt to MRI, Vancomysin infusion stopped.
--- NOTE | 2021-02-07 15:25 | PC.NURSE ---
Report given to receiving nurse DEVIN Hernández.
[2021-02-07 15:54] VITALS: BP 154/62; PULSE 63; RESP 15; TEMP 36.4; O2SAT 99
[2021-02-07] MEDS: lisinopriL 40 MG TABLET PO (16:04)
--- NOTE | 2021-02-07 16:23 | PC.NURSE ---
Wound assessment completed today. Patient has a chronic diabetic TMA ulcer measuring 0.9 x 0.5 x0.4. Silver alginate was placed into wound, covered with gauze and roll gauze. No other skin issues were noted.
[2021-02-07 16:41] LABS: Glucose, Whole Blood 177 mg/dL (60-115)
[2021-02-07] MEDS: Insulin Lispro 100 UNIT/ML 3 ML VIAL SUBCUT ×2 (16:45→20:35)
[2021-02-07] MEDS: Insulin Glargine,Hum.rec.anlog 100 UNIT/ML 10 ML VIAL 20 UNIT SUBCUT (16:45)
[2021-02-07] MEDS: 0.9 % Sodium Chloride Flush 3 ML SYRINGE IVFLUSH ×2 (17:34→23:38)
[2021-02-07 19:41] VITALS: BP 142/66; PULSE 58; RESP 15; TEMP 36.3; O2SAT 97
[2021-02-07 20:26] LABS: Glucose, Whole Blood 203 mg/dL (60-115)
[2021-02-07] MEDS: Atorvastatin Calcium 80 MG TABLET PO (20:35)
[2021-02-07 23:50] VITALS: BP 120/57; PULSE 61; RESP 18; TEMP 36.2; O2SAT 96
[2021-02-08 03:39] VITALS: BP 118/61; PULSE 69; RESP 18; TEMP 36.2; O2SAT 96
[2021-02-08] MEDS: Piperacillin Sodium/Tazobactam 3.375 GM in 0.9 % Sodium Chloride 50 ML IV ×4 (05:47→23:55)
[2021-02-08 07:36] LABS: Hematocrit 35.3 % (42-52); Hemoglobin 11.2 g/dl (14.0-18.0); Mean Corpuscular HGB Conc 31.7 g/dl (31.0-36.0); Mean Corpuscular Volume 82.1 fL (80-98); Mean Platelet Volume 11.3 fL (9.4-12.4); Platelet Count 243 X10*3/uL (160-400); Red Cell Distribution Width 15.2 % (11.0-16.0); White Blood Count 10.5 X10*3/uL (4.8-10.8)
[2021-02-08 07:37] LABS: Anion Gap 14 (12-20); Blood Urea Nitrogen 14 mg/dL (9-16); Calcium 8.7 mg/dL (8.4-10.2); Carbon Dioxide 23 mmol/L (22-29); Chloride 106 mmol/L (96-108); Creatinine Clr Calc Pharmacy 81.2; Estimated Glomerular Filt Rate > 60; Glucose Random 183 mg/dL (60-115); Potassium 5.1 mmol/L (3.3-5.1); Sodium 138 mmol/L (135-145)
[2021-02-08 07:51] VITALS: BP 153/68; PULSE 62; RESP 18; TEMP 36.6; O2SAT 98
[2021-02-08 07:57] LABS: Glucose, Whole Blood 198 mg/dL (60-115)
[2021-02-08] MEDS: Aspirin Enteric Coated 81 MG TABLET.DR PO (08:44)
[2021-02-08] MEDS: Insulin Lispro 100 UNIT/ML 3 ML VIAL SUBCUT ×4 (08:44→20:42)
[2021-02-08] MEDS: lisinopriL 40 MG TABLET PO (08:44)
[2021-02-08] MEDS: hydroCHLOROthiazide 25 MG TABLET PO (08:44)
[2021-02-08] MEDS: 0.9 % Sodium Chloride Flush 3 ML SYRINGE IVFLUSH ×3 (08:45→23:54)
--- NOTE | 2021-02-08 10:45 | MHC.CM.PN ---
CM MET WITH PT AND WHO WAS AT BEDSIDE. PT REPORTS HE LIVES WITH HIS , HIS DAUGHTER AND HIS GRAND DAUGHTER. PT REPORTS HE IS FULLY INDEPENDENT, USES NO DME AND HAS NO SERVICES. PT CONFIRMS HIS PCP IS SARBJIT CHANCE. PT DOES NOT HAVE A HCP AND DECLINES TO COMPLETE ONE TODAY. [facility] DELIVERED [facility] IS HOME WITH NO SERVICES TO TRANSPORT
[2021-02-08 11:21] VITALS: BP 149/69; PULSE 58; RESP 18; TEMP 36.2; O2SAT 96
[2021-02-08 11:38] LABS: Glucose, Whole Blood 281 mg/dL (60-115)
[2021-02-08] MEDS: Enoxaparin Sodium 40 MG/0.4 ML SYRINGE SUBCUT (11:55)
--- NOTE | 2021-02-08 13:43 | P.PNIM_ITS ---
Subjective Subjective Date of Service: 02/08/21 Interval History: Feeling better denies pain, no acute issues overnight no fevers, no chills. ROS General no headache, no dizziness, no fever chills. CVS no chest pain, no palpitation. Respiratory no cough, no sob. Gastrointestinal no nausea, no vomiting, no abdominal pain Physical Exam Vital Signs: Vital Signs: Last Vital Signs Temp 97.2 F 02/08/21 11:21 Pulse 58 02/08/21 11:21 Resp 18 02/08/21 11:21 BP 149/69 H 02/08/21 11:21 Pulse Ox 96 02/08/21 11:21 Body Mass Index 31.4 General resting comfortably in no acute distress. Neck no JVD. CVS regular rate rhythm, Respiratory lungs clear to auscultation, no respiratory distress, no wheeze, no rhonchi. Gastrointestinal abdomen soft, nontender, bowel sounds audible Extremities right foot BKA, thick callus below incision on plantar surface, no in duration no drainage noted, significant improvement in redness present on dorsum of foot Neuro nonfocal Skin no rash Objective Data Current Medications Generic Name Dose Route Start Last Admin Trade Name Freq PRN Reason Stop Dose Admin Acetaminophen 650 mg 02/07/21 13:23 Acetaminophen 325 Mg Tablet PO Q6H PRN Pain, Mild (Pain Scale 1-3) Aspirin 81 mg 02/08/21 09:00 02/08/21 08:44 Aspirin Enteric Coated 81 Mg Tablet. PO 81 mg DAILY CHET Administration Atorvastatin Calcium 80 mg 02/07/21 21:00 02/07/21 20:35 Atorvastatin Calcium 80 Mg Tablet PO 80 mg BEDTIME CHET Administration Enoxaparin Sodium 40 mg 02/07/21 13:30 02/08/21 11:55 Enoxaparin Sodium 40 Mg/0.4 Ml Syringe SUBCUT 40 mg Q24H CHET Administration Hydrochlorothiazide 25 mg 02/07/21 13:45 02/08/21 08:44 Hydrochlorothiazide 25 Mg Tablet PO 25 mg DAILY CHET Administration Protocol Piperacillin Sod/Tazobactam 50 mls @ 100 mls/hr 02/07/21 18:00 02/08/21 12:49 Sod 3.375 gm/ Sodium Chloride IV Infused Q6H CHET Infusion Vancomycin HCl 1,000 mg/ 535 mls @ 267.5 mls/hr 02/08/21 14:00 Vancomycin HCl 750 mg/ Sodium IV Chloride Q24H [facility] Insulin Human Lispro 0 unit 02/07/21 16:30 02/08/21 11:55 Insulin Lispro 100 Unit/Ml 3 Ml Vial SUBCUT 6 unit QIDACHS [facility] Administration Protocol Lisinopril 40 mg 02/07/21 14:00 02/08/21 08:44 Lisinopril 40 Mg Tablet PO 40 mg DAILY [facility] Administration Protocol Pharmacy Consult 1 each 02/07/21 11:18 Consult Rx Perform Med Rec MISCELLANE ONCE PRN Consult order Pharmacy Consult 1 each 02/07/21 13:34 Consult Rx Vancomycin Dosing MISCELLANE DAILY PRN Consult order Sodium Chloride 3 ml 02/07/21 16:00 02/08/21 08:45 0.9 % Sodium Chloride Flush 3 Ml Syringe IVFLUSH 3 ml QSHIFT [facility] Administration Labs CBC & Chem 7: 02/08/21 06:20 02/08/21 06:20 Labs: Laboratory Results - last 24 hr 02/07/21 02/07/21 02/07/21 16:33 16:51 20:21 WBC RBC Hgb Hct MCV MCH MCHC RDW Plt Count MPV Absolute Nucleated RBC Nucleated RBC % (auto) Sodium Potassium Chloride Carbon Dioxide Anion Gap BUN Creatinine Estim Creat Clear Calc Estimated GFR POC Glucose 177 H 203 H Random Glucose Lactic Acid Fup @ 2Hr 1.0 Calcium 02/08/21 02/08/21 02/08/21 06:20 06:20 07:50 WBC 10.5 RBC 4.30 L Hgb 11.2 L Hct 35.3 L MCV 82.1 MCH 26.0 L MCHC 31.7 RDW 15.2 Plt Count 243 MPV 11.3 Absolute Nucleated RBC 0.000 Nucleated RBC % (auto) 0.0 Sodium 138 Potassium 5.1 Chloride 106 Carbon Dioxide 23 Anion Gap 14 BUN 14 Creatinine 1.17 Estim Creat Clear Calc 81.2 Estimated GFR > 60 POC Glucose 198 H Random Glucose 183 H D Lactic Acid Fup @ 2Hr Calcium 8.7 02/08/21 11:20 WBC RBC Hgb Hct MCV MCH MCHC RDW Plt Count MPV Absolute Nucleated RBC Nucleated RBC % (auto) Sodium Potassium Chloride Carbon Dioxide Anion Gap BUN Creatinine Estim Creat Clear Calc Estimated GFR POC Glucose 281 H Random Glucose Lactic Acid Fup @ 2Hr Calcium Microbiology Microbiology Results: Microbiology 02/07/21 11:35 Blood Culture - Preliminary Blood - Venous No growth after 24 hours. 02/07/21 11:38 Blood Culture - Preliminary Blood - Venous No growth after 24 hours. Quality Stroke Does the patient have a stroke diagnosis?: No VTE Prior VTE?: No VTE Risk Level:: Medical - moderate - high VTE Device Contraindication: Treatment Not Indicated VTE Drug Contraindication: N/A - Med Ordered Assessment and Plan (1) Foot ulcer, right: Status: Acute (2) Leukocytosis: Status: Acute (3) HTN (hypertension) with goal to be determined: Status: Acute (4) PAD (peripheral artery disease): Status: Acute (5) Acute hyperglycemia: Status: Acute (6) Elevated lactic acid level: Status: Acute (7) Diabetes: Status: Acute Assessment and Plan: 65 yo male with a past medical history of diabetes, PAD status post multiple amputations, hyperlipidemia, active tobacco use who presents to the hospital with a 1 day history of drainage from his right lower extremity, TMA amputation site. His presentation is consistent with cellulitis with concern over deeper infection at the TMA amputation site. He will be admitted for IV antibiotics and further workup. 1. Diabetic foot infection at the site of right TMA amputation No pain, no fevers , WBC normalized , no drainage noted, no fluctuation noted to have dry thick callus. The region is indurated but do not feel any definitive fluctuation. ESR and CRP are elevated, MRI foot concerning for osteomyelitis and abscess but clinically no evidence of abscess Await vascular surgery and Infectious Disease input ,continue IV vancomycin and Zosyn day 2, blood cultures x2 preliminary report no growth, follow Vanco level Monitor renal function while on antibiotics 2. uncontrolled diabetes mellitus Blood sugar less than 200, continue Lantus and insulin sliding scale hold metformin, at home patient is on Novolin 70/30 (50units total) at home 3. Uncontrolled htn by BP better controlled continue home medication hydrochlorothiazide and lisinopril 4. Lactic acidosis not due to severe sepsis maybe related to metformin, resolved 5. HLD Continue statin 6. PAD cotinue asa / statin smoking cessation has been encouraged, await vascular surgery in 7. Tobacco Use Counseling done Full Code DVT pptx, Lovenox
[2021-02-08] MEDS: vancomycin HCL 1,000 MG, vancomycin HCL 750 MG in 0.9 % Sodium Chloride 500 ML 267.5 MG IV (15:25)
[2021-02-08 15:28] VITALS: BP 153/74; PULSE 63; RESP 17; TEMP 36.4; O2SAT 97
[2021-02-08 16:03] LABS: Glucose, Whole Blood 239 mg/dL (60-115)
[2021-02-08 19:18] VITALS: BP 105/56; PULSE 58; RESP 16; TEMP 36.2; O2SAT 97
[2021-02-08 20:24] LABS: Glucose, Whole Blood 255 mg/dL (60-115)
[2021-02-08] MEDS: Atorvastatin Calcium 80 MG TABLET PO (20:42)
--- NOTE | 2021-02-08 22:23 | W.PM.IDCN ---
History of Present Illness Data of Consult Service Date: 02/08/21 Requesting physician: Reza Ball Primary Care Provider: MD LA NENA Bryant Reason for consult: foot infection He presents to hospital with right foot discomfort. He mentions he had blood blister about a month ago on December 25 He did see [facility] and area closed. He has not seen Dr Mc but is seeing him. He has had IV antibiotics for foot infection about a year ago. He has had transmetataral amputation right foot and left great toe amputation. He has MRI right third and fourth metatarsal. He has no fever or chills Review of Systems Review of Systems: Yes all other systems are reviewed and are negative PMFSH Past Medical History Medical History Diabetes Hyperlipidemia PAD (peripheral artery disease) Family History Family history: reviewed and not pertinent Surgical History Surgical History Amputated great toe of left foot (01/09/20) History of transmetatarsal amputation of right foot (~2004) Status post debridement (03/04/20) Social History Social History Household Members: Spouse Housing: Apartment Do you presently have visiting nurse or other home services: No Alcohol intake: never Patient Tobacco Use Status: Current everyday Tobacco user Tobacco use type: Cigarette Cigarette Packs Per Day: 0.5 Cigarettes Per Day: 10.0 Years Smoked: 50 Second Hand Smoke Exposure: No Current occupational status: disabled Meds Allergies Allergy/AdvReac Type Severity Reaction Status Date / Time No Known Allergies Allergy Verified 10/15/20 14:05 [No Known Allergies*] Active Medications: Current Medications Generic Name Dose Route Start Last Admin Trade Name Freq PRN Reason Stop Dose Admin Acetaminophen 650 mg 02/07/21 13:23 Acetaminophen 325 Mg Tablet PO Q6H PRN Pain, Mild (Pain Scale 1-3) Aspirin 81 mg 02/08/21 09:00 02/08/21 08:44 Aspirin Enteric Coated 81 Mg Tablet. PO 81 mg DAILY CHET Administration Atorvastatin Calcium 80 mg 02/07/21 21:00 02/08/21 20:42 Atorvastatin Calcium 80 Mg Tablet PO 80 mg BEDTIME CHET Administration Enoxaparin Sodium 40 mg 02/07/21 13:30 02/08/21 11:55 Enoxaparin Sodium 40 Mg/0.4 Ml Syringe SUBCUT 40 mg Q24H CHET Administration Hydrochlorothiazide 25 mg 02/07/21 13:45 02/08/21 08:44 Hydrochlorothiazide 25 Mg Tablet PO 25 mg DAILY CHET Administration Protocol Piperacillin Sod/Tazobactam 50 mls @ 100 mls/hr 02/07/21 18:00 02/08/21 18:24 Sod 3.375 gm/ Sodium Chloride IV Infused Q6H CHET Infusion Vancomycin HCl 1,000 mg/ 535 mls @ 267.5 mls/hr 02/08/21 14:00 02/08/21 17:48 Vancomycin HCl 750 mg/ Sodium IV Infused Chloride Q24H CHET Infusion Insulin Human Lispro 0 unit 02/07/21 16:30 02/08/21 20:42 Insulin Lispro 100 Unit/Ml 3 Ml Vial SUBCUT 6 unit QIDACHS [facility] Administration Protocol Lisinopril 40 mg 02/07/21 14:00 02/08/21 08:44 Lisinopril 40 Mg Tablet PO 40 mg DAILY CHET Administration Protocol Pharmacy Consult 1 each 02/07/21 11:18 Consult Rx Perform Med Rec MISCELLANE ONCE PRN Consult order Pharmacy Consult 1 each 02/07/21 13:34 Consult Rx Vancomycin Dosing MISCELLANE DAILY PRN Consult order Sodium Chloride 3 ml 02/07/21 16:00 02/08/21 15:25 0.9 % Sodium Chloride Flush 3 Ml Syringe IVFLUSH 3 ml QSHIFT [facility] Administration Home Medications Medication Instructions Recorded Confirmed Last Taken Type aspirin 81 mg tablet,delayed 81 mg PO DAILY 04/27/20 02/07/21 02/06/21 History release atorvastatin 80 mg tablet 80 mg PO BEDTIME 04/27/20 02/07/21 02/06/21 History hydrochlorothiazide 25 mg tablet 25 mg PO QAM 04/27/20 02/07/21 02/06/21 History lisinopril 40 mg tablet 40 mg PO DAILY 04/27/20 02/07/21 02/06/21 History aspirin 81 mg PO DAILY 02/07/21 02/07/21 02/06/21 History atorvastatin 1 tab PO BEDTIME 02/07/21 02/07/21 02/06/21 History hydrochlorothiazide 1 tab PO DAILY 02/07/21 02/07/21 02/06/21 History insulin NPH and regular human 20 unit SUBCUT BEDTIME 02/07/21 02/07/21 02/07/21 History [Novolin 70-30 FlexPen U-100] insulin NPH and regular human 30 unit SUBCUT DAILY 02/07/21 02/07/21 02/06/21 History [Novolin 70-30 FlexPen U-100] lisinopril 1 tab PO DAILY 02/07/21 02/07/21 02/06/21 History metformin 2 tab PO BID 02/07/21 02/07/21 02/06/21 History Physical Exam Vital Signs: Vital Signs: Last Vital Signs Temp 97.1 F 02/08/21 19:18 Pulse 58 02/08/21 19:18 Resp 16 02/08/21 19:18 BP 105/56 L 02/08/21 19:18 Pulse Ox 97 02/08/21 19:18 Body Mass Index 31.4 Const: General: cooperative HENMT: Head: Yes normal to inspection Mouth: Normal oral and palatal mucosa present Resp: Effort & Inspection: normal respiratory effort Cardio: Rate: regular rate Rhythm: regular rhythm GI: Palpation (GI): Soft to palpation and nontender Skin: General skin exam: no rashes or lesions noted Extrem: Other: no drainage at this time,crusty area base foot Results Labs CBC & Chem 7: 02/08/21 06:20 02/08/21 06:20 Labs: Short CBC 02/08/21 Range/Units 06:20 WBC 10.5 (4.8-10.8) X10*3/uL Hgb 11.2 L (14.0-18.0) g/dl Hct 35.3 L (42-52) % Plt Count 243 (160-400) X10*3/uL BMP 02/08/21 06:20 Sodium 138 Potassium 5.1 Chloride 106 Carbon Dioxide 23 BUN 14 Creatinine 1.17 Calcium 8.7 Microbiology Microbiology Results: Microbiology 02/07/21 11:35 Blood - Venous Blood Culture - Preliminary No growth after 24 hours. 02/07/21 11:38 Blood - Venous Blood Culture - Preliminary No growth after 24 hours. Assessment and Plan (1) Foot ulcer, right: Status: Acute There is likely recrudescence of osteomyelitis Staph and strep may be common infections Would continue antibiotics Would give IV Ertapenem if no MRSA and Vancomycin if MRSA 4-6 weeks IV recurrent osteomyelitis If patient declines IV then po Doxycycline two to three months (2) Leukocytosis: Status: Acute
[2021-02-08 23:13] VITALS: BP 142/71; PULSE 57; RESP 15; TEMP 36.6; O2SAT 97
[2021-02-09 04:00] VITALS: BP 152/60; PULSE 70; RESP 18; TEMP 36.7; O2SAT 96
[2021-02-09] MEDS: Piperacillin Sodium/Tazobactam 3.375 GM in 0.9 % Sodium Chloride 50 ML IV ×4 (06:44→23:41)
[2021-02-09 07:11] VITALS: BP 168/77; PULSE 62; RESP 17; TEMP 36.4; O2SAT 95
[2021-02-09 07:18] LABS: Glucose, Whole Blood 269 mg/dL (60-115)
[2021-02-09] MEDS: Insulin Lispro 100 UNIT/ML 3 ML VIAL SUBCUT ×4 (08:00→21:45)
[2021-02-09] MEDS: lisinopriL 40 MG TABLET PO (08:01)
[2021-02-09] MEDS: Aspirin Enteric Coated 81 MG TABLET.DR PO (08:01)
[2021-02-09] MEDS: hydroCHLOROthiazide 25 MG TABLET PO (08:01)
[2021-02-09] MEDS: 0.9 % Sodium Chloride Flush 3 ML SYRINGE IVFLUSH ×3 (08:03→23:01)
[2021-02-09 11:25] LABS: Glucose, Whole Blood 279 mg/dL (60-115)
[2021-02-09 11:41] VITALS: BP 129/64; PULSE 52; TEMP 36; O2SAT 98
--- NOTE | 2021-02-09 11:59 | HO.PM.IMPN ---
Subjective Subjective Date of Service: 02/09/21 Interval History: Offers no acute complaints denies pain, no fever, no chills. ROS General no headache, no dizziness, no fever chills. CVS no chest pain, no palpitation. Respiratory no cough, no sob. Gastrointestinal no nausea, no vomiting, no abdominal pain Physical Exam Vital Signs: Vital Signs: Last Vital Signs Temp 96.8 F 02/09/21 11:41 Pulse 52 02/09/21 11:41 Resp 17 02/09/21 07:11 BP 129/64 02/09/21 11:41 Pulse Ox 98 02/09/21 11:41 Body Mass Index 31.4 General resting comfortably,no acute distress. Neck no JVD. CVS regular rate rhythm, Respiratory lungs clear to auscultation, no respiratory distress, no wheeze, no rhonchi. Gastrointestinal abdomen soft, nontender, bowel sounds audible Extremities right foot TMA, thick callus below incision on plantar surface, no induration, no drainage noted, significant improvement in redness present on dorsum of foot Neuro nonfocal Skin no rash Objective Data Current Medications Generic Name Dose Route Start Last Admin Trade Name Freq PRN Reason Stop Dose Admin Acetaminophen 650 mg 02/07/21 13:23 Acetaminophen 325 Mg Tablet PO Q6H PRN Pain, Mild (Pain Scale 1-3) Aspirin 81 mg 02/08/21 09:00 02/09/21 08:01 Aspirin Enteric Coated 81 Mg Tablet. PO 81 mg DAILY CHET Administration Atorvastatin Calcium 80 mg 02/07/21 21:00 02/08/21 20:42 Atorvastatin Calcium 80 Mg Tablet PO 80 mg BEDTIME CHET Administration Enoxaparin Sodium 40 mg 02/07/21 13:30 02/08/21 11:55 Enoxaparin Sodium 40 Mg/0.4 Ml Syringe SUBCUT 40 mg Q24H CHET Administration Hydrochlorothiazide 25 mg 02/07/21 13:45 02/09/21 08:01 Hydrochlorothiazide 25 Mg Tablet PO 25 mg DAILY CHET Administration Protocol Piperacillin Sod/Tazobactam 50 mls @ 100 mls/hr 02/07/21 18:00 02/09/21 11:56 Sod 3.375 gm/ Sodium Chloride IV Infused Q6H CHET Infusion Vancomycin HCl 1,000 mg/ 535 mls @ 267.5 mls/hr 02/08/21 14:00 02/08/21 17:48 Vancomycin HCl 750 mg/ Sodium IV Infused Chloride Q24H CHET Infusion Insulin Human Lispro 0 unit 02/07/21 16:30 02/09/21 11:44 Insulin Lispro 100 Unit/Ml 3 Ml Vial SUBCUT 6 unit QIDACHS COUNT [facility]CLUDES [facility] Administration Protocol Lisinopril 40 mg 02/07/21 14:00 02/09/21 08:01 Lisinopril 40 Mg Tablet PO 40 mg DAILY COUNT INCLUDES THE [facility] Administration Protocol Pharmacy Consult 1 each 02/07/21 11:18 Consult Rx Perform Med Rec MISCELLANE ONCE PRN Consult order Pharmacy Consult 1 each 02/07/21 13:34 Consult Rx Vancomycin Dosing MISCELLANE DAILY PRN Consult order Sodium Chloride 3 ml 02/07/21 16:00 02/09/21 08:03 0.9 % Sodium Chloride Flush 3 Ml Syringe IVFLUSH 3 ml QSHIFT COUNT INCLUDES THE [facility] Administration Labs CBC & Chem 7: 02/08/21 06:20 02/08/21 06:20 Labs: Laboratory Results - last 24 hr 02/08/21 02/08/21 02/09/21 15:57 20:09 07:06 POC Glucose 239 H 255 H 269 H 02/09/21 11:11 POC Glucose 279 H Microbiology Microbiology Results: Microbiology 02/07/21 11:35 Blood Culture - Preliminary Blood - Venous No growth after 24 hours. 02/07/21 11:38 Blood Culture - Preliminary Blood - Venous No growth after 24 hours. Quality Stroke Does the patient have a stroke diagnosis?: No VTE Prior VTE?: No VTE Risk Level:: Medical - moderate - high VTE Device Contraindication: Treatment Not Indicated VTE Drug Contraindication: N/A - Med Ordered Assessment and Plan (1) Cellulitis: Status: Acute (2) Foot ulcer, right: Status: Acute (3) Elevated lactic acid level: Status: Acute (4) HTN (hypertension) with goal to be determined: Status: Acute (5) PAD (peripheral artery disease): Status: Acute (6) Acute hyperglycemia: Status: Acute (7) Diabetes: Status: Acute Assessment and Plan: 65 yo male with a past medical history of diabetes, PAD status post multiple amputations, hyperlipidemia, active tobacco use who presents to the hospital with a 1 day history of drainage from his right lower extremity, TMA amputation site. His presentation is consistent with cellulitis with concern over deeper infection at the TMA amputation site. He will be admitted for IV antibiotics and further workup. 1. Diabetic foot infection at the site of right TMA amputation No pain, no fevers , WBC normalized , no drainage noted, no fluctuation noted, have dry thick callus. ESR and CRP are elevated, MRI foot concerning for osteomyelitis 3rd and 4th metatarsal and abscess but clinically no evidence of abscess Patient seen by ID she recommend IV ertapenem for 4-6 weeks if no MRSA and IV vancomycin if MRSA and if patient declines IV then she recommend by mouth doxycycline for 2-3 months Will continue IV vancomycin and Zosyn day 3, blood cultures x2 preliminary report no growth, Vanco level 8.6 dosage will be adjusted Monitor renal function while on antibiotics,Await vascular surgery input, repeat CRP and ESR at a.m. 2. uncontrolled diabetes mellitus Blood sugar elevated today 279, add Lantus and cont. insulin sliding scale,at home patient is on Novolin 70/30 (50units total) and metformin 3. Uncontrolled htn on admission, BP better controlled today continue home medication hydrochlorothiazide and lisinopril 4. Lactic acidosis not due to severe sepsis maybe related to metformin, resolved 5. HLD Continue statin 6. PAD cotinue asa / statin smoking cessation has been encouraged, 7. Tobacco Use Counseling done Full Code DVT pptx, Lovenox
[2021-02-09] MEDS: Enoxaparin Sodium 40 MG/0.4 ML SYRINGE SUBCUT (12:46)
[2021-02-09 13:58] LABS: Vancomycin Trough 8.6 mcg/mL (10.0-20.0)
[2021-02-09] MEDS: vancomycin HCL 1,000 MG, vancomycin HCL 750 MG in 0.9 % Sodium Chloride 500 ML 267.5 MG IV (14:14)
[2021-02-09 15:37] VITALS: BP 142/67; PULSE 53; RESP 16; TEMP 36.6; O2SAT 99
[2021-02-09 16:30] LABS: Glucose, Whole Blood 185 mg/dL (60-115)
[2021-02-09 19:17] VITALS: BP 149/72; PULSE 52; RESP 14; TEMP 36.6; O2SAT 98
[2021-02-09 20:35] LABS: Glucose, Whole Blood 265 mg/dL (60-115)
[2021-02-09] MEDS: Insulin Glargine,Hum.rec.anlog 100 UNIT/ML 10 ML VIAL 15 UNIT SUBCUT (21:45)
[2021-02-09] MEDS: Atorvastatin Calcium 80 MG TABLET PO (21:45)
[2021-02-09 23:25] VITALS: BP 168/73; PULSE 50; RESP 16; TEMP 36; O2SAT 96
[2021-02-10] MEDS: vancomycin HCL 1,000 MG in 0.9 % Sodium Chloride 250 ML 270 MG IV (02:04)
[2021-02-10 03:19] VITALS: BP 137/63; PULSE 58; RESP 18; TEMP 36.6; O2SAT 98
[2021-02-10] MEDS: Piperacillin Sodium/Tazobactam 3.375 GM in 0.9 % Sodium Chloride 50 ML IV (05:15)
[2021-02-10 07:15] LABS: Anion Gap 15 (12-20); Blood Urea Nitrogen 16 mg/dL (9-16); Carbon Dioxide 25 mmol/L (22-29); Chloride 104 mmol/L (96-108); Creatinine Clr Calc Pharmacy 77.2; Estimated Glomerular Filt Rate 59; Glucose Random 239 mg/dL (60-115); Potassium 5.2 mmol/L (3.3-5.1); Sodium 139 mmol/L (135-145)
[2021-02-10 07:21] VITALS: BP 156/79; PULSE 56; RESP 18; TEMP 36.1; O2SAT 98
[2021-02-10 07:30] LABS: Glucose, Whole Blood 246 mg/dL (60-115)
[2021-02-10 08:03] LABS: Erythrocyte Sedimentation Rate 34 MM/HR (0-15)
[2021-02-10] MEDS: Insulin Lispro 100 UNIT/ML 3 ML VIAL SUBCUT ×4 (09:03→21:08)
[2021-02-10] MEDS: hydroCHLOROthiazide 25 MG TABLET PO (09:04)
[2021-02-10] MEDS: lisinopriL 40 MG TABLET PO (09:04)
[2021-02-10] MEDS: 0.9 % Sodium Chloride Flush 3 ML SYRINGE IVFLUSH ×3 (09:05→21:09)
--- NOTE | 2021-02-10 10:16 | HO.PICC ---
PICC Line Insertion NPICC Diagnosis: LOWER EXTREMITY DIABETIC WOUND Indication: NURSING HOME IV ANTIBIOTICS Pertinent Labs: REVIEWED Technique: Following informed consent including risks, benefits and alternatives and using sterile technique including cap and mask, sterile gown, glove and drape, the RIGHT arm was prepped and draped in the usual sterile fashion of full barrier technique with CHG. Following completion of [place] Protocol the skin and soft tissues were anesthetized with 1% Lidocaine plain. Using ultrasound guidance, CEPHALIC vein access was obtained IN SINGLE ATTEMPT BY THIS RN. Over an 0.018 wire through peel-away sheath, a 4[employer], SINGLE LUMEN, PASV PICC line was positioned. Catheter length is 41 CM internal length, 0 CM external length, for a total trimmed length of 41 CM. The procedure was performed in [facility]. Tip verification was performed by Arnel Craven with Alexei 3CG. Tip located in SVC. Ultrasound was used to document vein patency and for needle entry. A formal ultrasound picture and cardiac rhythm strip was recorded. Vascular Quality Control Scientist has released the line for use and it is currently dressed with a StatLock, Tegaderm, and CHG disc. Verification has been performed for blood return and line patency. Arm Circumference: 34 CM Equipment: TransLattice POWERPICC SOLO Catheter Type: SINGLE LUMEN, 4-[employer], PASV Lot #: [id number]
[2021-02-10 11:03] VITALS: BP 155/70; PULSE 66; RESP 20; TEMP 36.6; O2SAT 97
--- NOTE | 2021-02-10 11:11 | PC.NURSE ---
Skin/Wound assessment completed today. Right foot diabetic foot ulcer with small purulent drainage. Cleaned with Normal saline, silver alginate tucked into wound, covered with gauze and gauze roll.
[2021-02-10 11:24] LABS: Glucose, Whole Blood 308 mg/dL (60-115)
--- NOTE | 2021-02-10 11:27 | MHC.CM.PN ---
PER PHYSICIAN ROUNDS, PATIENT WILL REQUIRE 6 WEEKS OF IV ERTAPENEM. PATIENT AGREEABLE TO [facility] (HE HAD IN THE PAST AND LIKED THIS AGENCY) ONCE PRESCRIPTION IS RECEIVED, INFUSION AGENCY TO BE REFERRED TO. PATIENT AND FAMILY AGREEABLE TO PLAN.
[2021-02-10] MEDS: 0.9 % Sodium Chloride Flush 10 ML SYRINGE 5 ML IVFLUSH ×3 (12:08→21:09)
[2021-02-10] MEDS: Enoxaparin Sodium 40 MG/0.4 ML SYRINGE SUBCUT (12:09)
[2021-02-10 13:01] LABS: Estimated Average Glucose 223 mg/dL; Hemoglobin A1c % 9.4 %
[2021-02-10] MEDS: Ertapenem Sodium 1 GM in 0.9 % Sodium Chloride 50 ML IV (13:02)
--- NOTE | 2021-02-10 13:08 | PM.CNGS ---
History of Present Illness Consult details Consult date: 02/10/21 Reason for consult: wound care Narrative: Very pleasant 65-year-old gentleman well known to me for an prior right-sided transmetatarsal amputation. It had gone on to heal. He had developed a significant callus. He had actually [facility]. It became somewhat painful and there was some drainage which brought him into the hospital. Was subsequently worked up. He now presents to us for vascular evaluation. Review of Systems Review of Systems: Yes all other systems are reviewed and are negative Constitutional: Constitutional: Reports no additional constitutional complaints ENT: Reports Normal hearing present Cardiovascular: Cardiovascular: Denies chest pain, Denies chest pain at rest, Denies chest pain with activity and Denies pedal edema Respiratory: Respiratory: Denies cough Gastrointestinal: Gastrointestinal: Denies abdominal pain Musculoskeletal: Musculoskeletal: Denies abnormal gait, Denies muscle cramps and Denies radiating pain into limb Integumentary/Breasts: Skin/Breast: Denies skin ulcer and Denies wounds Neurologic: Reports Normal hearing present and Denies abnormal gait Psychiatric: Psychiatric: Reports no additional psychiatric complaints [facility] Past Medical History Medical History Diabetes Hyperlipidemia PAD (peripheral artery disease) Family History Family history: reviewed and not pertinent Surgical History Surgical History Amputated great toe of left foot (01/09/20) History of transmetatarsal amputation of right foot (~2004) Status post debridement (03/04/20) Social History Social History Household Members: Spouse Housing: Apartment Do you presently have visiting nurse or other home services: No Alcohol intake: never Patient Tobacco Use Status: Current everyday Tobacco user Tobacco use type: Cigarette Cigarette Packs Per Day: 0.5 Cigarettes Per Day: 10.0 Years Smoked: 50 Second Hand Smoke Exposure: No Current occupational status: disabled Meds Allergies Allergy/AdvReac Type Severity Reaction Status Date / Time No Known Allergies Allergy Verified 10/15/20 14:05 [No Known Allergies*] Active Medications: Current Medications Generic Name Dose Route Start Last Admin Trade Name Freq PRN Reason Stop Dose Admin Acetaminophen 650 mg 02/07/21 13:23 Acetaminophen 325 Mg Tablet PO Q6H PRN Pain, Mild (Pain Scale 1-3) Aspirin 81 mg 02/08/21 09:00 02/10/21 09:05 Aspirin Enteric Coated 81 Mg Tablet. PO Not Given DAILY CHET Atorvastatin Calcium 80 mg 02/07/21 21:00 02/09/21 21:45 Atorvastatin Calcium 80 Mg Tablet PO 80 mg BEDTIME CHET Administration Enoxaparin Sodium 40 mg 02/07/21 13:30 02/10/21 12:09 Enoxaparin Sodium 40 Mg/0.4 Ml Syringe SUBCUT 40 mg Q24H CHET Administration Hydrochlorothiazide 25 mg 02/07/21 13:45 02/10/21 09:04 Hydrochlorothiazide 25 Mg Tablet PO 25 mg DAILY [facility] Administration Protocol Ertapenem 1 gm/ Sodium 50 mls @ 100 mls/hr 02/10/21 13:00 02/10/21 13:02 Chloride IV 02/10/21 13:29 100 mls/hr ONCE ONE Administration Insulin Glargine 20 unit 02/10/21 21:00 Insulin Glargine,Hum.Rec.Anlog 100 Unit/Ml 10 Ml Vial SUBCUT BEDTIME [facility] Insulin Human Lispro 0 unit 02/07/21 16:30 02/10/21 12:08 Insulin Lispro 100 Unit/Ml 3 Ml Vial SUBCUT 8 unit QIDACHS [facility] Administration Protocol Lisinopril 40 mg 02/07/21 14:00 02/10/21 09:04 Lisinopril 40 Mg Tablet PO 40 mg DAILY [facility] Administration Protocol Pharmacy Consult 1 each 02/07/21 11:18 Consult Rx Perform Med Rec MISCELLANE ONCE PRN Consult order Pharmacy Consult 1 each 02/07/21 13:34 Consult Rx Vancomycin Dosing MISCELLANE DAILY PRN Consult order Sodium Chloride 3 ml 02/07/21 16:00 02/10/21 09:05 0.9 % Sodium Chloride Flush 3 Ml Syringe IVFLUSH 3 ml QSHIFT [facility]T Administration Sodium Chloride 5 ml 02/10/21 10:45 02/10/21 12:08 0.9 % Sodium Chloride Flush 10 Ml Syringe IVFLUSH 5 ml TID [facility] Administration Home Medications Medication Instructions Recorded Confirmed Last Taken Type aspirin 81 mg tablet,delayed 81 mg PO DAILY 04/27/20 02/07/21 02/06/21 History release atorvastatin 80 mg tablet 80 mg PO BEDTIME 04/27/20 02/07/21 02/06/21 History hydrochlorothiazide 25 mg tablet 25 mg PO QAM 04/27/20 02/07/21 02/06/21 History lisinopril 40 mg tablet 40 mg PO DAILY 04/27/20 02/07/21 02/06/21 History aspirin 81 mg PO DAILY 02/07/21 02/07/21 02/06/21 History atorvastatin 1 tab PO BEDTIME 02/07/21 02/07/21 02/06/21 History hydrochlorothiazide 1 tab PO DAILY 02/07/21 02/07/21 02/06/21 History insulin NPH and regular human 20 unit SUBCUT BEDTIME 02/07/21 02/07/21 02/07/21 History [Novolin 70-30 FlexPen U-100] insulin NPH and regular human 30 unit SUBCUT DAILY 02/07/21 02/07/21 02/06/21 History [Novolin 70-30 FlexPen U-100] lisinopril 1 tab PO DAILY 02/07/21 02/07/21 02/06/21 History metformin 2 tab PO BID 02/07/21 02/07/21 02/06/21 History Physical Exam Vital Signs: Vital Signs: Last Vital Signs Temp 97.8 F 02/10/21 11:03 Pulse 66 02/10/21 11:03 Resp 20 02/10/21 11:03 BP 155/70 H 02/10/21 11:03 Pulse Ox 97 02/10/21 11:03 Body Mass Index 31.4 Const: General: cooperative, healthy appearing and comfortable Orientation/consciousness: oriented to person, oriented to place and oriented to time HENMT: Head: Yes normal to inspection Neck: Neck: Yes normal visual inspection Carotids: no bruits Chest: Chest palpation & inspection: normal inspection of the chest Resp: Effort & Inspection: normal respiratory effort and able to speak in complete sentences Auscultation: clear to auscultation bilaterally, no crackles, no rales, no rhonchi and no wheezes Cardio: Rate: regular rate Rhythm: regular rhythm Heart sounds: S1 normal heart sound present and S2 normal heart sound present Bruits: no carotid bruits Peripheral pulses: Peripheral pulses 2+ throughout GI: Inspection: Yes normal to inspection Skin: Wounds: amputation site (Healed) and wounds noted (Plantar aspect trans met amp opening with dry callus.) Hair: normal Neuro: General: oriented to person, oriented to place and oriented to time Cranial nerves: Yes CN's II-XII intact bilaterally and Yes Normal hearing present Cognition (Neuro): normal cognition Motor exam (neuro): 5/5 motor strength present throughout Extrem: Other: venous exam: No significant superficial varicosities or spider telangiectasias, minimal edema General: No clubbing, No cyanosis and No edema Psych: Appearance: grossly normal Mental Status: mental status grossly normal Speech and movement: Normal speech and movement present Results Labs Result diagrams: 02/08/21 06:20 02/10/21 06:15 Labs: Abnormal lab results 02/09/21 02/09/21 02/09/21 Range/Units 13:03 16:25 20:24 ESR (0-15) MM/HR Potassium (3.3-5.1) mmol/L POC Glucose 185 H 265 H (60-115) mg/dL Random Glucose (60-115) mg/dL C-Reactive Protein (< or = 0.50) mg/dL Vancomycin Trough 8.6 L (10.0-20.0) mcg/mL 02/10/21 02/10/21 02/10/21 Range/Units 06:15 06:15 07:22 ESR 34 H (0-15) MM/HR Potassium 5.2 H (3.3-5.1) mmol/L POC Glucose 246 H (60-115) mg/dL Random Glucose 239 H (60-115) mg/dL C-Reactive Protein 3.10 H (< or = 0.50) mg/dL Vancomycin Trough (10.0-20.0) mcg/mL 02/10/21 Range/Units 11:06 ESR (0-15) MM/HR Potassium (3.3-5.1) mmol/L POC Glucose 308 H (60-115) mg/dL Random Glucose (60-115) mg/dL C-Reactive Protein (< or = 0.50) mg/dL Vancomycin Trough (10.0-20.0) mcg/mL BMP 02/10/21 06:15 Sodium 139 Potassium 5.2 H Chloride 104 Carbon Dioxide 25 BUN 16 Creatinine 1.23 Calcium 9.0 All other labs normal. Assessment and Plan (1) PAD (peripheral artery disease): Status: Acute In short Giovanni has a nonhealing right foot diabetic ulcer. Callus was removed. It appears that he has a pretty good granulation bed. Prior noninvasive arterial testing demonstrated reasonable blood flow all the way down to the foot. Most recent testing has not been performed as of yet. PICC line has been inserted. Stable my from my perspective for discharge. He can follow up with me as an outpatient in approximately 2 weeks time. Procedures Date of Service Date of Service: 02/10/21
--- NOTE | 2021-02-10 14:43 | P.PNIM_ITS ---
Subjective Subjective Date of Service: 02/10/21 Interval History: no pain at site of osteomyelitis but he has dense neuropathy no fever no abd discomfort had PICC line today Physical Exam Vital Signs: Vital Signs: Last Vital Signs Temp 97.8 F 02/10/21 11:03 Pulse 66 02/10/21 11:03 Resp 20 02/10/21 11:03 BP 155/70 H 02/10/21 11:03 Pulse Ox 97 02/10/21 11:03 Body Mass Index 31.4 Gen: in no acute distress HEENT: sclera anicteric, moist mucus membranes Neck: supple Lungs: clear to auscultation bilaterally Heart: regular rate and rhythm, no murmurs Abd: soft, non-tender, non-distended Ext: no edema, s/p R TMA with moderate erythema on dorsum Skin: warm/well-perfused Neuro: alert and oriented x3, dense neuropathy below knees Psych: appropriate affect Objective Data Current Medications Generic Name Dose Route Start Last Admin Trade Name Freq PRN Reason Stop Dose Admin Acetaminophen 650 mg 02/07/21 13:23 Acetaminophen 325 Mg Tablet PO Q6H PRN Pain, Mild (Pain Scale 1-3) Aspirin 81 mg 02/08/21 09:00 02/10/21 09:05 Aspirin Enteric Coated 81 Mg Tablet. PO Not Given DAILY [facility] Atorvastatin Calcium 80 mg 02/07/21 21:00 02/09/21 21:45 Atorvastatin Calcium 80 Mg Tablet PO 80 mg BEDTIME [facility] Administration Enoxaparin Sodium 40 mg 02/07/21 13:30 02/10/21 12:09 Enoxaparin Sodium 40 Mg/0.4 Ml Syringe SUBCUT 40 mg Q24H [facility]T Administration Hydrochlorothiazide 25 mg 02/07/21 13:45 02/10/21 09:04 Hydrochlorothiazide 25 Mg Tablet PO 25 mg DAILY [facility] Administration Protocol Insulin Glargine 20 unit 02/10/21 21:00 Insulin Glargine,Hum.Rec.Anlog 100 Unit/Ml 10 Ml Vial SUBCUT BEDTIME [facility] Insulin Human Lispro 0 unit 02/07/21 16:30 02/10/21 12:08 Insulin Lispro 100 Unit/Ml 3 Ml Vial SUBCUT 8 unit QIDACHS [facility] Administration Protocol Lisinopril 40 mg 02/07/21 14:00 02/10/21 09:04 Lisinopril 40 Mg Tablet PO 40 mg DAILY [facility] Administration Protocol Pharmacy Consult 1 each 02/07/21 11:18 Consult Rx Perform Med Rec MISCELLANE ONCE PRN Consult order Pharmacy Consult 1 each 02/07/21 13:34 Consult Rx Vancomycin Dosing MISCELLANE DAILY PRN Consult order Sodium Chloride 3 ml 02/07/21 16:00 02/10/21 13:47 0.9 % Sodium Chloride Flush 3 Ml Syringe IVFLUSH 3 ml QSHIFT [facility] Administration Sodium Chloride 5 ml 02/10/21 10:45 02/10/21 13:44 0.9 % Sodium Chloride Flush 10 Ml Syringe IVFLUSH 5 ml TID CHET Administration Labs CBC & Chem 7: 02/08/21 06:20 02/10/21 06:15 Labs: Laboratory Results - last 24 hr 02/09/21 02/09/21 02/10/21 16:25 20:24 06:15 ESR 34 H Sodium Potassium Chloride Carbon Dioxide Anion Gap BUN Creatinine Estim Creat Clear Calc Estimated GFR POC Glucose 185 H 265 H Random Glucose Estimat Average Glucose Hemoglobin A1c % Calcium C-Reactive Protein 02/10/21 02/10/21 02/10/21 06:15 06:15 07:22 ESR Sodium 139 Potassium 5.2 H Chloride 104 Carbon Dioxide 25 Anion Gap 15 BUN 16 Creatinine 1.23 Estim Creat Clear Calc 77.2 Estimated GFR 59 POC Glucose 246 H Random Glucose 239 H Estimat Average Glucose 223 Hemoglobin A1c % 9.4 Calcium 9.0 C-Reactive Protein 3.10 H 02/10/21 11:06 ESR Sodium Potassium Chloride Carbon Dioxide Anion Gap BUN Creatinine Estim Creat Clear Calc Estimated GFR POC Glucose 308 H Random Glucose Estimat Average Glucose Hemoglobin A1c % Calcium C-Reactive Protein Microbiology Microbiology Results: Microbiology 02/07/21 11:35 Blood Culture - Preliminary Blood - Venous No growth after 48 hours. 02/07/21 11:38 Blood Culture - Preliminary Blood - Venous No growth after 48 hours. Quality Stroke Does the patient have a stroke diagnosis?: No VTE Prior VTE?: No VTE Risk Level:: Medical - moderate - high VTE Device Contraindication: Treatment Not Indicated VTE Drug Contraindication: N/A - Med Ordered Assessment and Plan (1) Cellulitis: Status: Acute (2) Foot ulcer, right: Status: Acute (3) Elevated lactic acid level: Status: Acute (4) HTN (hypertension) with goal to be determined: Status: Acute (5) PAD (peripheral artery disease): Status: Acute (6) Acute hyperglycemia: Status: Acute (7) Diabetes: Status: Acute Assessment and Plan: hospital d#4 65yo M with DM2, PAD, multiple amputations, HLD, tobacco abuse p/w 1d of drainage from R TMA amputation site admitted for DM foot infection, found to have osteomyelitis # DM foot infection/osteomyelitis - MRI concerning for osteomyelitis 3rd and 4th metatarsal and abscess but clinically no evidence of abscess - ID consulted- IV ertapenem x6wk (no MRSA from blood culture) end date 03/19/21 - Vasc Surg consulted- callus removed, good granulation bed present, prior noninvasive arterial testing demonstrated reasonable blood flow all the way down to the foot, f/u in 2 wk, repeat Dppler pending # DM2, A1c 9.4 - increase basal/bolus insulin, on 70/30 + MTF at home # lactic acidosis - not due to sepsis, may be due to MTF [discontinued] # HTN - continue lisinopril/HCTZ # hyperK - very mild, recheck BMP in am, continue lisinopril for now # HLD - continue statin # PAD - continue statin + ASA # tobacco abuse - cessation encouraged # VTE ppx - LMWH # dispo - anticipate home with [facility] tomorrow
--- NOTE | 2021-02-10 15:02 | MHC.CM.PN ---
PRESCRIPTION FAXED TO [facility] WITH [facility] OF Wednesday02/11/21
[2021-02-10 15:29] VITALS: BP 115/61; PULSE 55; RESP 14; TEMP 36.1; O2SAT 98
[2021-02-10 18:15] LABS: Glucose, Whole Blood 293 mg/dL (60-115)
[2021-02-10 19:27] VITALS: BP 148/65; PULSE 58; RESP 20; TEMP 36.1; O2SAT 96
[2021-02-10 20:47] LABS: Glucose, Whole Blood 291 mg/dL (60-115)
[2021-02-10] MEDS: Atorvastatin Calcium 80 MG TABLET PO (21:05)
[2021-02-10] MEDS: Insulin Glargine,Hum.rec.anlog 100 UNIT/ML 10 ML VIAL 20 UNIT SUBCUT (21:08)
[2021-02-11] VITALS: BP 125/62; PULSE 62; RESP 15; TEMP 36.9; O2SAT 97
[2021-02-11 01:25] LABS: Vancomycin Trough 10.3 mcg/mL (10.0-20.0)
[2021-02-11 04:00] VITALS: BP 151/72; PULSE 66; RESP 16; TEMP 36.1; O2SAT 98
[2021-02-11 06:45] LABS: Anion Gap 15 (12-20); Blood Urea Nitrogen 17 mg/dL (9-16); Calcium 8.8 mg/dL (8.4-10.2); Carbon Dioxide 24 mmol/L (22-29); Chloride 103 mmol/L (96-108); Creatinine Clr Calc Pharmacy 81.2; Estimated Glomerular Filt Rate > 60; Glucose Random 253 mg/dL (60-115); Potassium 4.6 mmol/L (3.3-5.1); Sodium 137 mmol/L (135-145)
[2021-02-11 07:32] VITALS: BP 144/71; PULSE 56; RESP 16; TEMP 36.3; O2SAT 97
[2021-02-11 07:40] LABS: Glucose, Whole Blood 250 mg/dL (60-115)
[2021-02-11] MEDS: Insulin Lispro 100 UNIT/ML 3 ML VIAL SUBCUT ×2 (08:29→12:10)
[2021-02-11] MEDS: Aspirin Enteric Coated 81 MG TABLET.DR PO (08:30)
[2021-02-11] MEDS: lisinopriL 40 MG TABLET PO (08:30)
[2021-02-11] MEDS: hydroCHLOROthiazide 25 MG TABLET PO (08:30)
[2021-02-11] MEDS: 0.9 % Sodium Chloride Flush 10 ML SYRINGE 5 ML IVFLUSH ×3 (08:30→16:04)
[2021-02-11] MEDS: 0.9 % Sodium Chloride Flush 3 ML SYRINGE IVFLUSH (08:30)
[2021-02-11 11:25] LABS: Glucose, Whole Blood 341 mg/dL (60-115)
[2021-02-11 11:54] VITALS: BP 118/65; PULSE 65; RESP 19; TEMP 36.2; O2SAT 98
[2021-02-11] MEDS: levoFLOXacin 500 MG TABLET PO (13:27)
[2021-02-11] MEDS: Ertapenem Sodium 1 GM in 0.9 % Sodium Chloride 50 ML IV (13:27)
--- NOTE | 2021-02-11 13:51 | MHC.CM.PN ---
NEW PLAN: IV VANCO 750 MG Q12H FOR 38 DAYS. [facility] REFERRALS UPDATED
--- NOTE | 2021-02-11 14:07 | HO.VASCPN ---
Subjective Subjective Date of Service: 02/11/21 Patient reports: no new complaints and feels better Interval history: Very pleasant 65-year-old gentleman for follow-up for nonhealing right lower extremity ulcer. He has been doing relatively well. No issues overnight. He has been receiving IV antibiotics in the hospital. He has had his noninvasive arterial testing yesterday. Physical Exam Vital Signs: Vital Signs: Last Vital Signs Temp 97.1 F 02/11/21 11:54 Pulse 65 02/11/21 11:54 Resp 19 02/11/21 11:54 BP 118/65 02/11/21 11:54 Pulse Ox 98 02/11/21 11:54 Body Mass Index 31.4 Const: General: cooperative, healthy appearing and no acute distress Orientation/consciousness: oriented to person, oriented to place and oriented to time HENMT: Head: Yes normal to inspection Neck: Carotids: no bruits Chest: Chest palpation & inspection: normal inspection of the chest Resp: Effort & Inspection: normal respiratory effort and able to speak in complete sentences Auscultation: clear to auscultation bilaterally Cardio: Rate: regular rate Heart sounds: S1 normal heart sound present and S2 normal heart sound present GI: Inspection: Yes normal to inspection Skin: General skin exam: no rashes or lesions noted Wounds: wounds noted (Right foot plantar aspect) Neuro: General: oriented to person, oriented to place, oriented to time and CN's II-XI intact bilaterally Extrem: General: Yes normal to inspection, Yes full ROM and Yes no clubbing, cyanosis or edema Psych: Appearance: grossly normal and well kempt Speech and movement: Normal speech and movement present Affect: normal affect Progress Note: A&P Assessment and plan (1) Foot ulcer, right: Status: Acute Assessment and Plan: In short patient has nonhealing right lower extremity ulcer. From an arterial perspective it appears that he has reasonable flow. Callus was removed from the wound yesterday continue with local wound care. Once the antibiotics situation is sorted out the patient is stable from my perspective for discharge. Thank you for allowing us to assist in this patient's care. If there are any questions or concerns please do not hesitate to contact us. Fall Risk Details Current Medications: Current Medications Generic Name Dose Route Start Last Admin Trade Name Freq PRN Reason Stop Dose Admin Acetaminophen 650 mg 02/07/21 13:23 Acetaminophen 325 Mg Tablet PO Q6H PRN Pain, Mild (Pain Scale 1-3) Aspirin 81 mg 02/08/21 09:00 02/11/21 08:30 Aspirin Enteric Coated 81 Mg Tablet.Dr PO 81 mg DAILY [facility] Administration Atorvastatin Calcium 80 mg 02/07/21 21:00 02/10/21 21:05 Atorvastatin Calcium 80 Mg Tablet PO 80 mg BEDTIME [facility] Administration Enoxaparin Sodium 40 mg 02/07/21 13:30 02/11/21 12:11 Enoxaparin Sodium 40 Mg/0.4 Ml Syringe SUBCUT Not Given Q24H [facility] Hydrochlorothiazide 25 mg 02/07/21 13:45 02/11/21 08:30 Hydrochlorothiazide 25 Mg Tablet PO 25 mg DAILY REPLACED BY [facility] Administration Protocol Vancomycin HCl 750 mg/ Sodium 265 mls @ 265 mls/hr 02/11/21 14:00 Chloride IV Q12H [facility]T Insulin Glargine 20 unit 02/10/21 21:00 02/10/21 21:08 Insulin Glargine,Hum.Rec.Anlog 100 Unit/Ml 10 Ml Vial SUBCUT 20 unit BEDTIME [facility] Administration Insulin Human Lispro 0 unit 02/07/21 16:30 02/11/21 12:10 Insulin Lispro 100 Unit/Ml 3 Ml Vial SUBCUT 8 unit QIDACHS REPLACED BY [facility] Administration Protocol Levofloxacin 500 mg 02/11/21 13:15 02/11/21 13:27 Levofloxacin 500 Mg Tablet PO 500 mg Q24H [facility]T Administration Lisinopril 40 mg 02/07/21 14:00 02/11/21 08:30 Lisinopril 40 Mg Tablet PO 40 mg DAILY [facility] Administration Protocol Pharmacy Consult 1 each 02/07/21 11:18 Consult Rx Perform Med Rec MISCELLANE ONCE PRN Consult order Pharmacy Consult 1 each 02/07/21 13:34 Consult Rx Vancomycin Dosing MISCELLANE DAILY PRN Consult order Pharmacy Consult 1 each 02/11/21 13:03 Consult Rx Vancomycin Dosing MISCELLANE DAILY PRN Consult order Sodium Chloride 3 ml 02/07/21 16:00 02/11/21 08:30 0.9 % Sodium Chloride Flush 3 Ml Syringe IVFLUSH 3 ml QSHIFT [facility] Administration Sodium Chloride 5 ml 02/10/21 10:45 02/11/21 08:30 0.9 % Sodium Chloride Flush 10 Ml Syringe IVFLUSH 5 ml TID CHET Administration Time Spent With Patient Time: Total time spent is greater than 50% in coordination of care (as documented) at patient's floor/unit and/or counseling patient: Time with patient: 15 - 24 minutes Procedures Date of Service Date of Service: 02/11/21 Quality Stroke Does the patient have a stroke diagnosis?: No VTE Prior VTE?: No VTE Risk Level:: Medical - moderate - high VTE Device Contraindication: Treatment Not Indicated VTE Drug Contraindication: N/A - Med Ordered
--- NOTE | 2021-02-11 14:15 | MHC.CM.PN ---
PATIENT IS DC TO HOME TODAY. HE WILL BE FOLLOWED BY [facility] HAS INFORMED PATIENT AND OF [id number] COSTS. PATIENT STATES THAT HE DOES NOT QUALIFY FOR [employer] AND HE DOES NOT KNOW HOW MUCH HE WILL HAVE TO PAY FOR MEDICARE PART D.
[2021-02-11] MEDS: vancomycin HCL 750 MG in 0.9 % Sodium Chloride 250 ML 265 MG IV (14:19)
--- NOTE | 2021-02-11 14:24 | PM.IDPN ---
Subjective Subjective Date of Service: 02/11/21 Critical Care Time (minutes): 15 Comment: Ertapenem is not covered by insurance, He has no complaints Objective Data Labs CBC & Chem 7: 02/08/21 06:20 02/11/21 05:48 Labs: Laboratory Results - last 24 hr 02/10/21 02/10/21 02/11/21 18:11 20:41 00:50 Sodium Potassium Chloride Carbon Dioxide Anion Gap BUN Creatinine Estim Creat Clear Calc Estimated GFR POC Glucose 293 H 291 H Random Glucose Calcium Vancomycin Trough 10.3 02/11/21 02/11/21 02/11/21 05:48 07:34 11:05 Sodium 137 Potassium 4.6 Chloride 103 Carbon Dioxide 24 Anion Gap 15 BUN 17 H Creatinine 1.17 Estim Creat Clear Calc 81.2 Estimated GFR > 60 POC Glucose 250 H 341 H Random Glucose 253 H Calcium 8.8 Vancomycin Trough Microbiology Microbiology Results: Microbiology 02/07/21 11:35 Blood - Venous Blood Culture - Preliminary No growth after 48 hours. 02/07/21 11:38 Blood - Venous Blood Culture - Preliminary No growth after 48 hours. Physical Exam Vital Signs: Vital Signs: Last Vital Signs Temp 97.1 F 02/11/21 11:54 Pulse 65 02/11/21 11:54 Resp 19 02/11/21 11:54 BP 118/65 02/11/21 11:54 Pulse Ox 98 02/11/21 11:54 Body Mass Index 31.4 Const: General: cooperative HENMT: Head: Yes normal to inspection Mouth: Normal oral and palatal mucosa present Resp: Effort & Inspection: normal respiratory effort Cardio: Rate: regular rate Rhythm: regular rhythm GI: Palpation (GI): Soft to palpation and nontender Extrem: Other: no cellulitis General: Yes normal to inspection Assessment and Plan Assessment and plan (1) Ulcer of left foot: Problem details: He has osteomyelitis,no organism Status: Acute (2) Diabetes: Problem details: Would give IV Vancomycin for six weeks,trough and creatinine weekly Can give po Levaquin as well Status: Acute Time Spent With Patient Time: Total time spent is greater than 50% in coordination of care (as documented) at patient's floor/unit and/or counseling patient: Time with patient: 15 - 24 minutes
--- NOTE | 2021-02-11 14:29 | W.MHC.F2F ---
Service Date Service Date: 02/11/21 Encounter Date of encounter: 02/11/21 Reasons for Services Signs and symptoms assessed: administration of IV antibiotics med management WOUND CARE Reason for detention: wound care, administration of IV, SQ, or IM injection, central line care, diabetic teaching, medication management and teach disease management Reason for physical therapy: home safety and mobility, therapeutic exercises, restore joint function, gait/transfer training, ADL training and energy conservation MD Overseeing Care: Noel Name Homebound: Leaving the home is medically contraindicated at this time without the asist of a device and/or another person due th the listed conditions above and below. Reason homebound: unsteady gait / fall risk, immunosuppression / infection risk, weakness related to hospital stay and other (long-term IV ABX) Homebound supporting statement: Wound care instructions: Alginate to right amputation wound, Cover with 4x4 and kerlix To be changed daily Certification: Based on the above findings, I certify that this patient is confined to the home and needs intermittent detention care, physical therapy and/or speech therapy, or continues to need occupational therapy. The patient is under my care, and I have initiated the establishment of the plan of care. The patient will be followed by a physician who will periodically review the plan of care.
--- NOTE | 2021-02-11 14:41 | MHC.CM.PN ---
IMM 02/11 IN CHART.
--- NOTE | 2021-02-11 15:07 | P.DS_ITS ---
DS: Providers Provider Date of Service: 02/11/21 Date of admission: 02/07/21 13:13 Primary care physician: Noel Cedeno MD Consults: 02/07/21 13:24 Consult to Infectious Diseases Routine Consulting Provider: Melissa Florence Reason for consultation: diabetic foot infection Consult to Vascular Surgery Routine Consulting Provider: Michel Mc Reason for consultation: diabetic foot infection, PAD DS: Diagnosis Discharge Diagnosis (1) Diabetic foot ulcer with osteomyelitis: Status: Acute (2) PAD (peripheral artery disease): Status: Acute (3) Elevated lactic acid level: Status: Acute (4) Tobacco use disorder: Status: Acute (5) Type 2 diabetes mellitus: Status: Acute DS: Medications Discharge Medications Home Medications: Home Medications Medication Instructions Recorded Confirmed aspirin 81 mg tablet,delayed 81 mg PO DAILY 04/27/20 02/07/21 release atorvastatin 80 mg tablet 80 mg PO BEDTIME 04/27/20 02/07/21 hydrochlorothiazide 25 mg tablet 25 mg PO QAM 04/27/20 02/07/21 lisinopril 40 mg tablet 40 mg PO DAILY 04/27/20 02/07/21 Novolin 70-30 FlexPen U-100 20 unit SUBCUT BEDTIME 02/07/21 02/07/21 Novolin 70-30 FlexPen U-100 30 unit SUBCUT DAILY 02/07/21 02/07/21 atorvastatin 1 tab PO BEDTIME 02/07/21 02/07/21 lisinopril 1 tab PO DAILY 02/07/21 02/07/21 Previous Rx's Medication Instructions Recorded sodium chloride 0.9 % (flush) 5 ml IVFLUSH TID #114 ea 02/10/21 [Normal Saline Flush] aspirin 81 mg PO DAILY #1 tab 02/11/21 hydrochlorothiazide 25 mg PO DAILY #1 tab 02/11/21 levofloxacin 500 mg PO Q24H #38 tab 02/11/21 vancomycin in 0.9 % sodium chl 750 mg IV Q12H #76 ea 02/11/21 DS: Summary Hospital Course Hospital Course: from admission H+P by hospitalist Miguel Angel Toledo, 02/07/21: This is a 65-year-old male with a past medical history of hypertension, diabetes, active smoker, PAD, prior diabetic foot infections with amputations in the bilateral lower extremities who presents to the hospital with a 1 day history of drainage from the amputation site of his right lower extremity. Patient reports that about 6 weeks ago he had a blood blister for which he followed up with wound care for the next several weeks at which point in that had healed. He reports that on the day of arrival to the emergency room, he no elida that he had some drainage on his sock which was milky in color and foul smelling. He also noticed that his amputation site was slightly more red and so he presented to the emergency room. He denied any pain in the right lower extremity, although he reports a lack of sensation due to his known neuropathy. In regards to his amputation history, he reports that he had his right-sided TMA completed about 18 years ago with left-sided amputations more recently in 2019. he denies any fevers or chills. In the emergency room he underwent basic workup which included a CBC that revealed a WBC count of 15,000 with 16 bands. Chemistry revealed hyperglycemia with sugar of 368 and a lactic acidosis of 2.4. CRP was elevated at 10.4 and ESR was 39. an x-ray of the foot was checked which did not show any acute fractures or x-ray evidence of osteomyelitis. He had blood cultures drawn and was given broad-spectrum IV antibiotics in the form of IV vancomycin and Zosyn along with intravenous fluids and subsequently admission was requested. The patient was admitted to the medical/surgical floor and started on broad- spectrum IV antibiotic therapy with vancomycin and piperacillin/tazobactam. MRI demonstrated osteomyelitis of the 3rd and 4th metatarsal with concern for abscess, but clinically there was no evidence of an abscess. Rather, there was large overlying callus that was removed with drainage of serous fluid; underlying this was healthy granulation tissue. Blood cultures were negative. A PICC line was placed. Initial plan was for discharge home with 6 weeks of IV ertapenem; however, the [id number] cost to the patient was prohibitive. Instead, he was sent home on 6 weeks of IV vancomycin with oral levofloxacin. Noninvasive arterial testing demonstrated mild stenosis but reasonable blood flow all the way down to the foot. He was discharged home with VNA services for antibiotic administration and PT and should follow up with his primary care doctor in 1 week and with the vascular surgeon and the infectious disease specialist in 2 weeks. Weekly labs while on IV vancomycin are to be drawn (CBCd, CRP, ESR, BMP, and vancomycin trough with goal of 10-20). Lactic acidosis was possibly due to metformin, as he was not septic; metformin was discontinued. The importance of good glycemic control and tobacco cessation was counseled, though the patient declined pharmacotherapy for tobacco abuse. Time spent discussing smoking cessation with patient: 3 to 10 minutes Time Spent with Patient Time attestation: Total time spent providing and/or coordinating discharge services: 50 Discharge coordination time: Greater than 30 minutes Quality: Stroke Does the patient have a stroke diagnosis?: No Physical Exam Vital Signs: Vital Signs: Last Vital Signs Temp 97.1 F 02/11/21 11:54 Pulse 65 02/11/21 11:54 Resp 19 02/11/21 11:54 BP 118/65 02/11/21 11:54 Pulse Ox 98 02/11/21 11:54 Body Mass Index 31.4 Gen: in no acute distress HEENT: sclera anicteric, moist mucus membranes Neck: supple Lungs: clear to auscultation bilaterally Heart: regular rate and rhythm, no murmurs Abd: soft, non-tender, non-distended Ext: no edema, s/p R TMA with moderate erythema on dorsum, plantar ulcer with callus removed with healthy granulation tissue exposed, RUE PICC with no signs of infection Skin: warm/well-perfused Neuro: alert and oriented x3, dense neuropathy below knees Psych: appropriate affect DS: Data Data Completed and Pending Completed studies during hospitalization [Text1]: Laboratory Results WBC 10.5 X10*3/uL (4.8-10.8) 02/08/21 06:20 RBC 4.30 X10*6/uL (4.60-5.80) L 02/08/21 06:20 Hgb 11.2 g/dl (14.0-18.0) L 02/08/21 06:20 Hct 35.3 % (42-52) L 02/08/21 06:20 MCV 82.1 fL (80-98) 02/08/21 06:20 MCH 26.0 pg (27.0-33.0) L 02/08/21 06:20 MCHC 31.7 g/dl (31.0-36.0) 02/08/21 06:20 RDW 15.2 % (11.0-16.0) 02/08/21 06:20 Plt Count 243 X10*3/uL (160-400) 02/08/21 06:20 MPV 11.3 fL (9.4-12.4) 02/08/21 06:20 Immature Gran % (Auto) 1.1 % (0.0-0.4) H 02/07/21 11:32 Neut % (Auto) 83.1 % (45-73) H 02/07/21 11:32 Lymph % (Auto) 10.1 % (20-40) L 02/07/21 11:32 Mccone % (Auto) 4.5 % (2-11) 02/07/21 11:32 Eos % (Auto) 0.9 % (0-4) 02/07/21 11:32 Baso % (Auto) 0.3 % (0-2) 02/07/21 11:32 Lymph # (Auto) 1.5 X10*3/uL (1.2-4.9) 02/07/21 11:32 Mccone # (Auto) 0.7 X10*3/uL (0.1-1.2) 02/07/21 11:32 Eos # (Auto) 0.1 X10*3/uL (0.0-0.4) 02/07/21 11:32 Baso # (Auto) 0.1 X10*3/uL (0.0-0.2) 02/07/21 11:32 Abs Immat Gran (auto) 0.16 X10*3/uL (0.00-0.03) H 02/07/21 11:32 Absolute Neuts (auto) 12.5 X10*3/uL (2.0-8.3) H 02/07/21 11:32 Absolute Nucleated RBC 0.000 X10*3/uL (0.0-0.012) 02/08/21 06:20 Nucleated RBC % (auto) 0.0 /100WBC (0.0-0.2) 02/08/21 06:20 ESR 34 MM/HR (0-15) H 02/10/21 06:15 Sodium 137 mmol/L (135-145) 02/11/21 05:48 Potassium 4.6 mmol/L (3.3-5.1) 02/11/21 05:48 Chloride 103 mmol/L (96-108) 02/11/21 05:48 Carbon Dioxide 24 mmol/L (22-29) 02/11/21 05:48 Anion Gap 15 (12-20) 02/11/21 05:48 BUN 17 mg/dL (9-16) H 02/11/21 05:48 Creatinine 1.17 mg/dL (0.5-1.4) 02/11/21 05:48 Estim Creat Clear Calc 81.2 02/11/21 05:48 Estimated GFR > 60 02/11/21 05:48 POC Glucose 341 mg/dL (60-115) H 02/11/21 11:05 Random Glucose 253 mg/dL (60-115) H 02/11/21 05:48 Estimat Average Glucose 223 mg/dL 02/10/21 06:15 Hemoglobin A1c % 9.4 % 02/10/21 06:15 Lactic Acid 2.4 mmol/L (0.5-2.0) H* 02/07/21 11:32 Lactic Acid Fup @ 2Hr 1.0 mmol/L (0.5-2.0) 02/07/21 16:51 Calcium 8.8 mg/dL (8.4-10.2) 02/11/21 05:48 Total Bilirubin 0.6 mg/dL (0.0-1.0) 02/07/21 11:32 Direct Bilirubin 0.3 mg/dL (0.0-0.5) 02/07/21 11:32 AST 9 U/L (5-37) 02/07/21 11:32 ALT 12 U/L (0-40) 02/07/21 11:32 Alkaline Phosphatase 96 U/L (39-117) 02/07/21 11:32 C-Reactive Protein 3.10 mg/dL (< or = 0.50) H 02/10/21 06:15 Total Protein 7.0 g/dL (6.5-8.0) 02/07/21 11:32 Albumin 3.9 g/dL (3.5-5.0) 02/07/21 11:32 Vancomycin Trough 10.3 mcg/mL (10.0-20.0) 02/11/21 00:50 COVID-19 (CEFERINO) Negative (Negative) 02/07/21 11:29 COVID-19 Clin Com See Note 02/07/21 11:29 Impressions Foot X-Ray 02/07/21 11:17 IMPRESSION: Stable exam from June 2019. No fracture or x-ray evidence of osteomyelitis. Foot MRI 02/07/21 15:30 IMPRESSION: Postsurgical changes related to amputation at the level of the metatarsals. Diffuse signal abnormality throughout the subcutaneous soft tissues of the foot compatible with a combination of edema and cellulitis. There is additional localized fluid surrounding the distal ends of the 2nd, 3rd and 4th metatarsals with some peripheral enhancement likely reflecting an abscess. There is also some mild abnormal signal and minimal enhancement within the 3rd metatarsal, nonspecific. This could reflect some reactive edema but remains suspicious for osteomyelitis given the overlying soft tissue abnormality and its overall appearance. Minimal abnormality of the distal end of the remaining 4th metatarsal equivocal for osteomyelitis. This may simply reflect some minimal reactive edema related to the overlying inflammatory process. However, subtle osteomyelitis of the very tip of the bone cannot be excluded. No evidence for osteomyelitis of the remaining 2nd metatarsal. Duplex Scan Lower Extremity Artery 02/10/21 07:55 IMPRESSION: Right: Ankle-brachial index could not be obtained. There is diffuse atherosclerotic disease, biphasic waveforms and increased peak systolic velocities suggestive of mild stenosis. Left: Diffuse atherosclerotic disease, borderline ankle brachial index, biphasic waveforms and increased peak systolic velocities suggestive of mild stenosis. Abd US [id number] 02/10/21 16:48 IMPRESSION: Right: Ankle-brachial index could not be obtained. There is diffuse atherosclerotic disease, biphasic waveforms and increased peak systolic velocities suggestive of mild stenosis. Left: Diffuse atherosclerotic disease, borderline ankle brachial index, biphasic waveforms and increased peak systolic velocities suggestive of mild stenosis. Discharge Plan Discharge Patient Disposition: Home Health Service Discharge Diagnosis: DM foot infection/osteomyelitis peripheral arterial disease lactic acidosis possibly due to metformin type 2 diabetes mellitus, A1c 9.4 tobacco abuse Referrals: [facility] [Outside] - 1 Week Melissa Florence MD [Physician] - 1 Week Michel Mc MD [Physician] - 1 Week Noel Cedeno MD [Primary Care Provider] - 1 Week Discharge Medications: New sodium chloride 0.9 % (flush) [Normal Saline Flush] Syringe 5 ml IVFLUSH TID Qty: 114 RF: 0 levofloxacin 500 mg Tablet 500 mg PO Q24H Qty: 38 RF: 0 vancomycin in 0.9 % sodium chl 750 mg/150 mL piggyback 750 mg IV Q12H Qty: 76 RF: 0 aspirin 81 mg Tablet,Delayed Release (Dr/Ec) 81 mg PO DAILY Qty: 1 RF: 0 hydrochlorothiazide 25 mg Tablet 25 mg PO DAILY Qty: 1 RF: 0 Continued Novolin 70-30 FlexPen U-100 100 unit/mL (70-30) Insulin Pen 20 unit SUBCUT BEDTIME RF: 0 Novolin 70-30 FlexPen U-100 100 unit/mL (70-30) Insulin Pen 30 unit SUBCUT DAILY RF: 0 atorvastatin 80 mg tablet 1 tab PO BEDTIME RF: 0 lisinopril 40 mg tablet 1 tab PO DAILY RF: 0 Discontinued metformin 500 mg tablet extended release 24 hr 2 tab PO BID RF: 0 aspirin 81 mg Tablet,Delayed Release (Dr/Ec) 81 mg PO DAILY RF: 0 hydrochlorothiazide 25 mg tablet 1 tab PO DAILY RF: 0 Discharge Orders: Discharge Order (Routine); Ordered 02/11/21 Ordered By: Juan Pablo Chan Diet: diabetic diet Activity on Discharge: As tolerated Stand Alone Forms: Patient Portal Discharge page Activity Restrictions/Additional Instructions: Please place alginate to right amputation wound cover with 4 x 4 and Kerlix. To be changed daily. Weekly labs while on IV vancomycin: CBC with differential BMP CRP ESR vancomycin trough level, goal 10-20 Care Plan Goals: cure of osteomyelitis avoidance of further complications of diabetes Health Concerns: DM foot infection/osteomyelitis peripheral arterial disease lactic acidosis possibly due to metformin type 2 diabetes mellitus, A1c 9.4 tobacco abuse Plan of Treatment: IV vancomycin 750 mg q12h until 03/21/21 (dose adjusted to trough 10-20) PO levofloxacin 500 mg daily until 03/21/21 follow up with Collin Mc and Ludivina in 2 weeks; follow up with your primary care doctor in 1 week stop metformin, as it may have caused lactic acidosis stop smoking; it may take multiple attempts to succesfully quit Assessment: as above Patient Instructions: Osteomyelitis (DC), How to Care for Your PICC (Peripherally Inserted Central Catheter) (DC)
[2021-02-11 15:27] VITALS: BP 125/63; PULSE 55; RESP 16; TEMP 36.1; O2SAT 97
== END 2021-02-11 16:48 | disposition home health service (06) | DRG 565 ==
LOC: HO.ED 13:09 → HO.EDOVER 14:12 → HO.S3 14:55
PROVIDERS: Hospitalist; Nurse Practitioner Family; Admitting Provider Family Medicine; Emergency Provider Emergency Medicine; PCP Internal Medicine Geriatric Medicine; Visit Provider Family Medicine
DX: T87.43 Infection of amputation stump, right lower extremity (principal); E87.2 Acidosis; M86.9 Osteomyelitis, unspecified; I10 Essential (primary) hypertension; F17.210 Nicotine dependence, cigarettes, uncomplicated; E11.65 Type 2 diabetes mellitus with hyperglycemia; Z71.6 Tobacco abuse counseling; E78.5 Hyperlipidemia, unspecified; E11.51 Type 2 diabetes mellitus with diabetic peripheral angiopathy without gangrene; E11.69 Type 2 diabetes mellitus with other specified complication; E87.5 Hyperkalemia; E11.621 Type 2 diabetes mellitus with foot ulcer; L97.519 Non-pressure chronic ulcer of other part of right foot with unspecified severity; Z20.822 Contact with and (suspected) exposure to COVID-19; Z79.4 Long term (current) use of insulin; Z79.82 Long term (current) use of aspirin; Z79.899 Other long term (current) drug therapy
CPT/HCPCS: 36415; 36573; 73620; 73720; 80048; 80076; 80202; 82947; 83036; 83605; 85025; 85027; 85652; 86140; 87040; 87635; 93005; 93923; 93925; 99284; A9585; C1751; J1335; J1650; J2543; J3370

== ENCOUNTER → 2021-02-25 14:15 | Outpatient (BNVA) | payer MEDICARE, SELFPAY | PROVIDERS: PCP Internal Medicine Geriatric Medicine; Visit Provider Surgery Vascular Surgery | DX: I73.9 Peripheral vascular disease, unspecified (principal) | CPT/HCPCS: 99212 ==

== ENCOUNTER → 2021-03-20 11:28 | Outpatient (BNVA) | payer MEDICARE, SELFPAY | PROVIDERS: PCP Internal Medicine Geriatric Medicine; Visit Provider Surgery Vascular Surgery | DX: I73.9 Peripheral vascular disease, unspecified (principal); L97.519 Non-pressure chronic ulcer of other part of right foot with unspecified severity; E11.65 Type 2 diabetes mellitus with hyperglycemia; E11.69 Type 2 diabetes mellitus with other specified complication; E11.621 Type 2 diabetes mellitus with foot ulcer; M86.9 Osteomyelitis, unspecified; I10 Essential (primary) hypertension; E78.5 Hyperlipidemia, unspecified; D72.829 Elevated white blood cell count, unspecified; F17.210 Nicotine dependence, cigarettes, uncomplicated; Z89.412 Acquired absence of left great toe; Z89.431 Acquired absence of right foot | CPT/HCPCS: 99212 ==

== ENCOUNTER → 2021-04-17 10:43 | Outpatient (BNVA) | payer MEDICARE, SELFPAY | PROVIDERS: PCP Internal Medicine Geriatric Medicine; Visit Provider Surgery Vascular Surgery | DX: E11.621 Type 2 diabetes mellitus with foot ulcer (principal); L97.429 Non-pressure chronic ulcer of left heel and midfoot with unspecified severity; E11.65 Type 2 diabetes mellitus with hyperglycemia; E11.69 Type 2 diabetes mellitus with other specified complication; M86.9 Osteomyelitis, unspecified; F17.210 Nicotine dependence, cigarettes, uncomplicated; Z89.412 Acquired absence of left great toe; Z89.431 Acquired absence of right foot | CPT/HCPCS: 99212 ==

== ENCOUNTER → 2021-05-06 09:33 | Outpatient (BNVA) | payer MEDICARE, SELFPAY | PROVIDERS: PCP Internal Medicine Geriatric Medicine; Visit Provider Surgery Vascular Surgery | DX: I73.9 Peripheral vascular disease, unspecified (principal) | CPT/HCPCS: 99212 ==

== ENCOUNTER → 2021-07-01 10:02 | Outpatient (BNVA) | payer MEDICARE, SELFPAY | PROVIDERS: PCP Internal Medicine Geriatric Medicine; Visit Provider Surgery Vascular Surgery | DX: I73.9 Peripheral vascular disease, unspecified (principal); E11.65 Type 2 diabetes mellitus with hyperglycemia; F17.210 Nicotine dependence, cigarettes, uncomplicated; Z89.412 Acquired absence of left great toe; Z89.431 Acquired absence of right foot | CPT/HCPCS: 99212 ==

== ENCOUNTER → 2021-07-22 09:07 | Outpatient (BNVA) | payer MEDICARE, SELFPAY | PROVIDERS: PCP Internal Medicine Geriatric Medicine; Visit Provider Surgery Vascular Surgery | DX: E11.22 Type 2 diabetes mellitus with diabetic chronic kidney disease (principal); I73.9 Peripheral vascular disease, unspecified; L97.519 Non-pressure chronic ulcer of other part of right foot with unspecified severity; F17.210 Nicotine dependence, cigarettes, uncomplicated | CPT/HCPCS: 99212 ==

== ENCOUNTER → 2021-08-26 09:20 | Outpatient (BNVA) | payer MEDICARE, SELFPAY | PROVIDERS: PCP Internal Medicine Geriatric Medicine; Visit Provider Surgery Vascular Surgery | DX: Z47.81 Encounter for orthopedic aftercare following surgical amputation (principal); E11.51 Type 2 diabetes mellitus with diabetic peripheral angiopathy without gangrene; L84 Corns and callosities; Z89.412 Acquired absence of left great toe | CPT/HCPCS: 99212 ==

== ENCOUNTER 2021-11-03 12:39 | Outpatient (REF) | payer MEDICARE, SELFPAY ==
--- NOTE | ~2021-11-03 | US_ITS ---
EXAMINATION: US NONINVASIVE ASSESSMENT OF THE ARTERIES OF BOTH LOWER EXTREMITIES WITH PVR EXAM AND BILATERAL LOWER EXTREMITY DUPLEX CLINICAL INFORMATION: Peripheral vascular disease. TECHNIQUE: Ankle pulse volume recordings, ankle pressure measurements and ankle brachial indices were obtained of the lower extremity arterial system bilaterally. Additionally, duplex Doppler techniques were used with wave form analysis and measurement of velocities in the common femoral, profunda femoral, superficial femoral, popliteal and tibial arteries. The study was performed only at rest. COMPARISON: JOSE ROBERTO and duplex on 10/02/2020. FINDINGS: ANKLE-BRACHIAL INDEX: Right: 0.91 Left: 0.96. PVR WAVEFORM: Right: normal. Left: normal. DIRECT DUPLEX DOPPLER FINDINGS: RIGHT LEG: Common femoral artery: 150 cm/s, diastolic flow reversal: Yes. Profunda femoris artery: 118 cm/s, diastolic flow reversal: Yes. Superficial femoral artery (proximal): 167 cm/s, diastolic flow reversal: Yes. Superficial femoral artery (mid): 160 cm/s, diastolic flow reversal: Yes. Superficial femoral artery (distal): 190 cm/s, diastolic flow reversal: Yes. Popliteal artery: 85 cm/s, diastolic flow reversal: Yes. Posterior tibial artery: 82.1cm/s, diastolic flow reversal: Yes. Peroneal artery: 106cm/s, diastolic flow reversal: Yes. LEFT LEG: Common femoral artery: 173 cm/s, diastolic flow reversal: Yes. Profunda femoris artery: 99.8 cm/s, diastolic flow reversal: No. Superficial femoral artery (proximal): 116 cm/s, diastolic flow reversal: Yes. Superficial femoral artery (mid): 144 cm/s, diastolic flow reversal: Yes. Superficial femoral artery (distal): 112 cm/s, diastolic flow reversal: Yes. Popliteal artery: 112 cm/s, diastolic flow reversal: Yes. Posterior tibial artery: 100cm/s, diastolic flow reversal: No. Peroneal artery: 114cm/s, diastolic flow reversal: Yes. US/US JOSE ROBERTO complete IMPRESSION: RIGHT LEG: JOSE ROBERTO is 0.91 consistent with mild peripheral arterial disease. No hemodynamically significant lesions identified on duplex. LEFT LEG: JOSE ROBERTO 0.96 consistent with mild peripheral arterial disease. No hemodynamically significant lesions identified on duplex.
--- NOTE | ~2021-11-03 | US_ITS ---
EXAMINATION: US NONINVASIVE ASSESSMENT OF THE ARTERIES OF BOTH LOWER EXTREMITIES WITH PVR EXAM AND BILATERAL LOWER EXTREMITY DUPLEX CLINICAL INFORMATION: Peripheral vascular disease. TECHNIQUE: Ankle pulse volume recordings, ankle pressure measurements and ankle brachial indices were obtained of the lower extremity arterial system bilaterally. Additionally, duplex Doppler techniques were used with wave form analysis and measurement of velocities in the common femoral, profunda femoral, superficial femoral, popliteal and tibial arteries. The study was performed only at rest. COMPARISON: JOSE ROBERTO and duplex on 10/02/2020. FINDINGS: ANKLE-BRACHIAL INDEX: Right: 0.91 Left: 0.96. PVR WAVEFORM: Right: normal. Left: normal. DIRECT DUPLEX DOPPLER FINDINGS: RIGHT LEG: Common femoral artery: 150 cm/s, diastolic flow reversal: Yes. Profunda femoris artery: 118 cm/s, diastolic flow reversal: Yes. Superficial femoral artery (proximal): 167 cm/s, diastolic flow reversal: Yes. Superficial femoral artery (mid): 160 cm/s, diastolic flow reversal: Yes. Superficial femoral artery (distal): 190 cm/s, diastolic flow reversal: Yes. Popliteal artery: 85 cm/s, diastolic flow reversal: Yes. Posterior tibial artery: 82.1cm/s, diastolic flow reversal: Yes. Peroneal artery: 106cm/s, diastolic flow reversal: Yes. LEFT LEG: Common femoral artery: 173 cm/s, diastolic flow reversal: Yes. Profunda femoris artery: 99.8 cm/s, diastolic flow reversal: No. Superficial femoral artery (proximal): 116 cm/s, diastolic flow reversal: Yes. Superficial femoral artery (mid): 144 cm/s, diastolic flow reversal: Yes. Superficial femoral artery (distal): 112 cm/s, diastolic flow reversal: Yes. Popliteal artery: 112 cm/s, diastolic flow reversal: Yes. Posterior tibial artery: 100cm/s, diastolic flow reversal: No. Peroneal artery: 114cm/s, diastolic flow reversal: Yes. US/US arterial duplex LE BI IMPRESSION: RIGHT LEG: JOSE ROBERTO is 0.91 consistent with mild peripheral arterial disease. No hemodynamically significant lesions identified on duplex. LEFT LEG: JOSE ROBERTO 0.96 consistent with mild peripheral arterial disease. No hemodynamically significant lesions identified on duplex.
== END 2021-11-03 12:40 | disposition home or self-care (01) ==
LOC: HO.US 12:39
PROVIDERS: PCP Internal Medicine Geriatric Medicine; Visit Provider Surgery Vascular Surgery
DX: I73.9 Peripheral vascular disease, unspecified (principal)
CPT/HCPCS: 93923; 93925

== ENCOUNTER → 2021-11-11 10:47 | Outpatient (BNVA) | payer MEDICARE, SELFPAY | PROVIDERS: PCP Internal Medicine Geriatric Medicine; Visit Provider Surgery Vascular Surgery | DX: I73.9 Peripheral vascular disease, unspecified (principal) | CPT/HCPCS: 99212 ==

== ENCOUNTER 2022-02-26 12:02 | Emergency (ER) | payer MEDICARE, SELFPAY ==
--- NOTE | ~2022-02-26 | XR_ITS ---
EXAMINATION: XR FOOT, LEFT CLINICAL INFORMATION: Nonhealing ulcer. COMPARISON: 07/23/2020 TECHNIQUE: 3 views of the left foot. FINDINGS: There appears to be superficial tissue ulceration plantar to region of first tarsometatarsal joint. The lateral view shows no evidence of deep soft tissue gas. Compared to 07/23/2020, interval development of findings of Charcot arthropathy with collapse of the midfoot arch and displacement of bones. The 1st - 3rd metatarsals are laterally dislocated. Also, the fourth and fifth metatarsals appear to be laterally displaced. There is subarticular sclerosis and ossific debris along the disorganized Lisfranc joint. There is osseous spurring at the base of the great toe metatarsal. There are likely a few subchondral cysts along the tarsometatarsal joints. No suspicious bone erosion or aggressive periostitis. There is a relatively smooth tapering of the distal first metatarsal, status post amputation of the digit distal to the level of metatarsal neck. Alignment is normal at 2nd - 5th metatarsophalangeal and interphalangeal joints. XR/XR foot LT min 3V IMPRESSION: * Soft tissue ulcer is seen in plantar tissues (plantar to the region of the first tarsometatarsal joint). * No overt radiographic evidence of osteomyelitis. * Interval development of Charcot arthropathy along the disorganized Lisfranc joint. There is a homolateral pattern of lateral displacement of metatarsals along this joint.
[2022-02-26 13:06] VITALS: BP 181/92; PULSE 91; RESP 18; TEMP 36.9; O2SAT 99; BMI 30.2
[2022-02-26 13:16] LABS: MANUAL DIFF FLAG NO
[2022-02-26 13:18] LABS: Basophils Absolute Auto 0.1 X10*3/uL (0.0-0.2); Basophils Percent Auto 0.4 % (0-2); Eosinophils Absolute Auto 0.1 X10*3/uL (0.0-0.4); Eosinophils Percent Auto 0.6 % (0-4); Hematocrit 44.5 % (42.0-52.0); Hemoglobin 14.2 g/dl (14.0-18.0); Imm Gran Abs Auto 0.12 X10*3/uL (0.00-0.03); Imm Gran Pct Auto 0.9 % (0.0-0.4); Lymphocytes Absolute Auto 1.7 X10*3/uL (1.2-4.9); Lymphocytes Percent Auto 12.7 % (20-40); Mean Corpuscular HGB Conc 31.9 g/dl (31.0-36.0); Mean Corpuscular Hemoglobin 26.5 pg (27.0-33.0); Mean Corpuscular Volume 83.2 fL (80.0-98.0); Mean Platelet Volume 11.2 fL (9.4-12.4); Monocytes Absolute Auto 0.8 X10*3/uL (0.1-1.2); Monocytes Percent Auto 5.6 % (2-11); Neutrophils Absolute Auto 10.7 x10*3/uL (2.0-8.3); Neutrophils Percent Auto 79.8 % (45-73); Platelet Count 280 X10*3/uL (160-400); Red Blood Count 5.35 X10*6/uL (4.60-5.80); Red Cell Distribution Width 14.6 % (11.0-16.0); White Blood Count 13.4 X10*3/uL (4.8-10.8)
[2022-02-26 13:38] LABS: Anion Gap 17 (12-20); Blood Urea Nitrogen 17 mg/dL (9-16); Calcium 9.2 mg/dL (8.4-10.2); Carbon Dioxide 22 mmol/L (22-29); Chloride 104 mmol/L (96-108); Creatinine Clr Calc Pharmacy 77.5; Estimated Glomerular Filt Rate > 60; Glucose Random 219 mg/dL (60-115); Potassium 4.7 mmol/L (3.3-5.1); Sodium 138 mmol/L (135-145)
--- NOTE | 2022-02-26 16:27 | ED.EXTPRO ---
HPI - Extremity Problem General Chief complaint: Skin/Abscess/Foreign Body Stated complaint: sore on bottom of l foot Time Seen by Provider: 02/26/22 15:27 Source: patient Mode of arrival: ambulatory History of Present Illness HPI Narrative: 67-year-old male with history of diabetes presents with nonhealing ulcer with a foul odor to the left plantar area of his foot he denies any associated fever, chills. Related Data Home Medications Medication Instructions Recorded Confirmed aspirin 81 mg tablet,delayed 81 mg PO DAILY 04/27/20 02/07/21 release (Adult Aspirin Regimen) atorvastatin 80 mg tablet 80 mg PO BEDTIME 04/27/20 02/07/21 hydrochlorothiazide 25 mg tablet 25 mg PO QAM 04/27/20 02/07/21 lisinopril 40 mg tablet 40 mg PO DAILY 04/27/20 02/07/21 atorvastatin 80 mg tablet 1 tab PO BEDTIME 02/07/21 02/07/21 insulin NPH-regular 70-30 U-100 20 unit subcut BEDTIME 02/07/21 02/07/21 insulin 100 unit/mL subcutaneous pen (Novolin 70-30 FlexPen U-100 Insulin) insulin NPH-regular 70-30 U-100 30 unit subcut DAILY 02/07/21 02/07/21 insulin 100 unit/mL subcutaneous pen (Novolin 70-30 FlexPen U-100 Insulin) lisinopril 40 mg tablet 1 tab PO DAILY 02/07/21 02/07/21 amlodipine 5 mg tablet 5 mg PO DAILY 08/26/21 Previous Rx's Medication Instructions Recorded sodium chloride 0.9 % (flush) 5 ml IVFLUSH TID #114 ea 02/10/21 (Normal Saline Flush 0.9 % injection syringe) aspirin 81 mg tablet,delayed 81 mg PO DAILY #1 tab 02/11/21 release hydrochlorothiazide 25 mg tablet 25 mg PO DAILY #1 tab 02/11/21 levofloxacin 500 mg tablet 500 mg PO Q24H #38 tabs 02/11/21 vancomycin 750 mg/150 mL in 0.9% 750 mg (150 mL) IV Q12H #76 ea 02/11/21 sodium chloride intravenous piggyback cephalexin 500 mg capsule 500 mg PO BID 7 days #14 caps 02/26/22 doxycycline hyclate 100 mg tablet 100 mg PO BID 7 days #14 tabs 02/26/22 Allergies Allergy/AdvReac Type Severity Reaction Status Date / Time No Known Allergies Allergy Verified 11/11/21 10:55 [No Known Allergies*] Review of Systems Review of Systems: Pertinent positives and negatives as stated in HPI 10 point review of systems is otherwise negative. [facility] Past Medical History Source: nursing notes reviewed Medical History Acute hyperglycemia Cellulitis Diabetes Elevated lactic acid level Foot ulcer, right HTN (hypertension) with goal to be determined Hyperlipidemia Leukocytosis PAD (peripheral artery disease) Ulcer of left foot Surgical History Amputated great toe of left foot (01/09/20) History of transmetatarsal amputation of right foot (~2004) Status post debridement (03/04/20) Social History Social History Household Members: Spouse Housing: Apartment Do you presently have visiting nurse or other home services: No Alcohol intake: never Patient Tobacco Use Status: Current everyday Tobacco user Tobacco use type: Cigarette Cigarette Packs Per Day: 0.5 Cigarettes Per Day: 10.0 Years Smoked: 50 Second Hand Smoke Exposure: No Advance Directives: No Advance Directives Information Provided: No Current occupational status: disabled Physical Exam Vital Signs: Vital Signs: Last Vital Signs Temp 98.4 F 02/26/22 13:06 Pulse 91 02/26/22 13:06 Resp 18 02/26/22 13:06 BP 181/92 H 02/26/22 13:06 Pulse Ox 99 02/26/22 13:06 O2 Del Method 02/26/22 13:06 BMI result Body Mass Index 30.2 VITAL SIGNS: Reviewed. GENERAL: Well developed, well nourished, in no acute distress. HEAD: Normocephalic/atraumatic EYES: PERRLA, EOMI \ EARS: Ext canals without abnormality\ OROPHARYNX: no oral lesions noted, posterior pharynx clear\ LUNGS: Normal breath sounds. No adventitious sounds or accessory muscle use. SpO2<99> CARDIOVASCULAR: Regular rate and rhythm without noted murmurs, no JVD or lower extremity edema. ABDOMEN: Soft, non-tender, non-distended with bowel sounds. MUSCULOSKELETAL: No tenderness, deformities, or effusions noted on gross inspection. EXTREMITIES: No cyanosis, clubbing or edema; LEFT FOOT: Well-circumscribed 2 cm nonhealing ulcer to the plantar surface of the left foot, stigmata of prior surgery, minimal drainage from the wound without surrounding erythema or induration. SKIN: Inspection of the skin reveals no rashes NEUROLOGIC: Alert and oriented x 4. Strength and sensation to light touch were grossly intact x 4. Course Course Course Narrative: 67-year-old male with history and clinical presentation concerning for possible OM even though patient does not have fever chills on review of all investigations there is a leukocytosis. Review of all investigations consistent with left foot infection and imaging in CRP not consistent with OM. Patient has no systemic symptoms and was provided with antibiotics as well as a referral to follow-up with the [facility]. All results discussed with him at bedside and he fully acknowledges the plan for follow-up with the wound care center as well as the course of antibiotics. MDM - Extremity (Nontraumatic) Lab Data Result diagrams: 02/26/22 13:11 02/26/22 13:11 Labs: Lab Results 02/26/22 02/26/22 02/26/22 Range/Units 13:11 13:11 16:43 WBC 13.4 H (4.8-10.8) X10*3/uL RBC 5.35 (4.60-5.80) X10*6/uL Hgb 14.2 (14.0-18.0) g/dl Hct 44.5 (42.0-52.0) % MCV 83.2 (80.0-98.0) fL MCH 26.5 L (27.0-33.0) pg MCHC 31.9 (31.0-36.0) g/dl RDW 14.6 (11.0-16.0) % Plt Count 280 (160-400) X10*3/uL MPV 11.2 (9.4-12.4) fL Immature Gran % (Auto) 0.9 H (0.0-0.4) % Neut % (Auto) 79.8 H (45-73) % Lymph % (Auto) 12.7 L (20-40) % Taylor % (Auto) 5.6 (2-11) % Eos % (Auto) 0.6 (0-4) % Baso % (Auto) 0.4 (0-2) % Lymph # (Auto) 1.7 (1.2-4.9) X10*3/uL Taylor # (Auto) 0.8 (0.1-1.2) X10*3/uL Eos # (Auto) 0.1 (0.0-0.4) X10*3/uL Baso # (Auto) 0.1 (0.0-0.2) X10*3/uL Abs Immat Gran (auto) 0.12 H (0.00-0.03) X10*3/uL Absolute Neuts (auto) 10.7 H (2.0-8.3) x10*3/uL Absolute Nucleated RBC 0.000 (0.0-0.012) X10*3/uL Nucleated RBC % (auto) 0.0 (0.0-0.2) /100WBC Sodium 138 (135-145) mmol/L Potassium 4.7 (3.3-5.1) mmol/L Chloride 104 (96-108) mmol/L Carbon Dioxide 22 (22-29) mmol/L Anion Gap 17 (12-20) BUN 17 H (9-16) mg/dL Creatinine 1.17 (0.5-1.4) mg/dL Estim Creat Clear Calc 77.5 Estimated GFR > 60 Random Glucose 219 H (60-115) mg/dL Lactic Acid 1.1 (0.5-2.0) mmol/L Calcium 9.2 (8.4-10.2) mg/dL C-Reactive Protein 1.62 H (< or = 0.50) mg/dL Discharge Plan Discharge Clinical Impression: Diabetic foot ulcer Patient Disposition: Home, Self-Care Instructions: Diabetic Foot Ulcers (ED), Chronic Wounds (ED) Additional Instructions: 1. Resume all home medications. 2. Complete the entire course of antibiotics as prescribed. 3. You have been provided with a referral to follow-up with [place] [facility] 4. Follow-up with your primary care provider. Return to the ER for worsening symptoms. Prescriptions: New doxycycline hyclate 100 mg tablet 100 mg PO BID 7 Days Qty: 14 0RF cephalexin 500 mg capsule 500 mg PO BID 7 Days Qty: 14 0RF No Action Novolin 70-30 FlexPen U-100 100 unit/mL (70-30) Insulin Pen 20 unit SUBCUT BEDTIME Novolin 70-30 FlexPen U-100 100 unit/mL (70-30) Insulin Pen 30 unit SUBCUT DAILY atorvastatin 80 mg tablet 1 tab PO BEDTIME lisinopril 40 mg tablet 1 tab PO DAILY sodium chloride 0.9 % (flush) [Normal Saline Flush] Syringe 5 ml IVFLUSH TID Qty: 114 0RF levofloxacin 500 mg Tablet 500 mg PO Q24H Qty: 38 0RF Rx Instructions: end date 03/21/21 vancomycin in 0.9 % sodium chl 750 mg/150 mL piggyback 750 mg IV Q12H Qty: 76 0RF Rx Instructions: end date 03/21/21 aspirin 81 mg Tablet,Delayed Release (Dr/Ec) 81 mg PO DAILY Qty: 1 0RF hydrochlorothiazide 25 mg Tablet 25 mg PO DAILY Qty: 1 0RF Protocol: Hold for SBP< HOLD for SBP < : 90 aspirin [Adult Aspirin Regimen] 81 mg tablet,delayed release (DR/EC) 81 mg PO DAILY atorvastatin 80 mg tablet 80 mg PO BEDTIME hydrochlorothiazide 25 mg tablet 25 mg PO QAM lisinopril 40 mg tablet 40 mg PO DAILY amlodipine 5 mg tablet 5 mg PO DAILY Referrals: Name,MD Noel [Primary Care Provider] - [facility] [place] [facility] [Outside]
[2022-02-26 17:18] LABS: Lactic Acid 1.1 mmol/L (0.5-2.0)
[2022-02-26 18:17] LABS: C Reactive Protein 1.62 mg/dL (< or = 0.50)
[2022-02-26] MEDS: cephALEXin 500 MG CAPSULE PO (18:47)
== END 2022-02-26 19:03 | disposition home or self-care (01) ==
PROVIDERS: Emergency Provider Student in an Organized Health Care Education/Training Program; PCP Internal Medicine Geriatric Medicine
DX: E11.621 Type 2 diabetes mellitus with foot ulcer (principal); Z79.4 Long term (current) use of insulin; Z79.899 Other long term (current) drug therapy; F17.210 Nicotine dependence, cigarettes, uncomplicated; Z71.6 Tobacco abuse counseling
CPT/HCPCS: 36415; 73630; 80048; 83605; 85025; 86140; 87040; 87147; 87205; 99282

== ENCOUNTER 2022-03-05 08:45 | Outpatient (RCR) | payer MEDICARE, SELFPAY ==
--- NOTE | ~2022-03-05 | XR_ITS ---
EXAMINATION: XR CHEST CLINICAL INFORMATION: Preprocedure COMPARISON: June 21, 2022 TECHNIQUE: PA and lateral views of the chest FINDINGS: No significant abnormality is noted involving the heart, lungs, mediastinum, bony thorax or soft tissues. Left upper extremity PICC line in place. XR/XR chest 2V IMPRESSION: No acute disease.
[2022-07-16 10:33] LABS: Erythrocyte Sedimentation Rate 27 MM/HR (0-15)
[2022-07-16 11:54] LABS: Estimated Average Glucose 160 mg/dL; Hemoglobin A1c % 7.2 %
[2022-07-16 13:01] LABS: Anion Gap 14 (12-20); Blood Urea Nitrogen 12 mg/dL (9-16); C Reactive Protein 1.55 mg/dL (< or = 0.50); Calcium 8.7 mg/dL (8.4-10.2); Carbon Dioxide 27 mmol/L (22-29); Chloride 103 mmol/L (96-108); Estimated Glomerular Filt Rate > 60; Glucose Random 244 mg/dL (60-115); Potassium 4.7 mmol/L (3.3-5.1); Sodium 139 mmol/L (135-145)
== END 2022-09-02 16:00 | disposition home or self-care (01) ==
LOC: HO.WCC 08:45
PROVIDERS: PCP Internal Medicine Geriatric Medicine; Visit Provider Surgery
DX: E11.621 Type 2 diabetes mellitus with foot ulcer (principal); L97.425 Non-pressure chronic ulcer of left heel and midfoot with muscle involvement without evidence of necrosis; E11.610 Type 2 diabetes mellitus with diabetic neuropathic arthropathy; Z89.421 Acquired absence of other right toe(s)
CPT/HCPCS: 11042; 11043; 36415; 71046; 80048; 83036; 84134; 85652; 86140; 87071; 87077; 87186; 87205; 97597; 99212

== ENCOUNTER 2022-03-05 09:59 | Outpatient (REF) | payer MEDICARE, SELFPAY ==
[2022-03-05 10:13] LABS: MANUAL DIFF FLAG NO
[2022-03-05 10:19] LABS: Basophils Absolute Auto 0.1 X10*3/uL (0.0-0.2); Basophils Percent Auto 0.5 % (0-2); Eosinophils Absolute Auto 0.2 X10*3/uL (0.0-0.4); Hematocrit 43.7 % (42.0-52.0); Hemoglobin 13.7 g/dl (14.0-18.0); Imm Gran Abs Auto 0.21 X10*3/uL (0.00-0.03); Imm Gran Pct Auto 1.4 % (0.0-0.4); Lymphocytes Absolute Auto 2.2 X10*3/uL (1.2-4.9); Lymphocytes Percent Auto 14.1 % (20-40); Mean Corpuscular HGB Conc 31.4 g/dl (31.0-36.0); Mean Corpuscular Hemoglobin 26.3 pg (27.0-33.0); Mean Platelet Volume 10.6 fL (9.4-12.4); Monocytes Absolute Auto 0.6 X10*3/uL (0.1-1.2); Monocytes Percent Auto 3.8 % (2-11); Neutrophils Absolute Auto 12.1 x10*3/uL (2.0-8.3); Neutrophils Percent Auto 79.2 % (45-73); Platelet Count 342 X10*3/uL (160-400); Red Cell Distribution Width 14.5 % (11.0-16.0); White Blood Count 15.3 X10*3/uL (4.8-10.8)
[2022-03-05 10:46] LABS: C Reactive Protein 0.52 mg/dL (< or = 0.50)
[2022-03-05 10:47] LABS: Estimated Average Glucose 177 mg/dL; Hemoglobin A1c % 7.8 %
[2022-03-05 11:04] LABS: Erythrocyte Sedimentation Rate 19 MM/HR (0-15)
== END 2022-03-05 10:00 | disposition home or self-care (01) ==
LOC: HO.LAB 09:59
PROVIDERS: PCP Internal Medicine Geriatric Medicine; Visit Provider Surgery
DX: L97.511 Non-pressure chronic ulcer of other part of right foot limited to breakdown of skin (principal)
CPT/HCPCS: 36415; 83036; 84134; 85025; 85652; 86140

== ENCOUNTER 2022-06-21 15:10 | Inpatient (IN) | payer MEDICARE, SELFPAY ==
[2022-06-21] VITALS (8 sets, daily range): BP systolic 97–121; BP diastolic 47–59; PULSE 61–110; RESP 13–20; TEMP 36.4–36.6; O2SAT 93–99; BMI 30.2
--- NOTE | ~2022-06-21 | XR_ITS ---
EXAMINATION: XR FOOT, LEFT CLINICAL INFORMATION: Wound, rule out osteomyelitis COMPARISON: Left foot radiographs 02/26/2022 TECHNIQUE: AP, lateral, and oblique views of the left foot. FINDINGS: Status post prior partial amputation of the first ray, unchanged. Deep soft tissue ulcer underlying the medial plantar aspect of the midfoot approximating the underlying bone. No definite interval osseous destruction or periosteal reaction. There is unchanged malalignment dislocation of the tarsometatarsal joints with some fragmentation of bone sclerosis consistent with sequela of neuropathic arthropathy. Pronounced soft tissue swelling containing bubbles of gas along the medial dorsal aspect of the foot and ankle. XR/XR foot LT 2V IMPRESSION: 1. Deep soft tissue ulcer along the medial plantar aspect of the midfoot approximating the underlying bone. No definite radiographic evidence of advanced acute osteomyelitis. 2. Marked soft tissue swelling with bubbles of gas along the medial aspect of the mid foot and ankle suspicious for gas-forming infection and possible fluid collection/abscess. Correlate clinically. 3. 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 4. Status post partial amputation of the first ray, unchanged.
--- NOTE | ~2022-06-21 | XR_ITS ---
EXAMINATION: XR CHEST CLINICAL INFORMATION: Dizziness. COMPARISON: 01/11/2020 chest radiograph. TECHNIQUE: Single view of the chest was obtained. FINDINGS: Mild linear markings are seen in the lower lung alvarez. The upper lung alvarez are clear. The heart and mediastinal structures are unremarkable. XR/XR chest 1V IMPRESSION: Mild bilateral lower lung linear atelectasis versus scarring. No acute cardiopulmonary process.
--- NOTE | ~2022-06-21 | CT_ITS ---
EXAMINATION: CT HEAD WITHOUT CONTRAST CLINICAL INFORMATION: Off balance. Dizziness. COMPARISON: None. TECHNIQUE: Contiguous axial imaging was performed from the skull base to vertex without intravenous administration of contrast. Coronal and sagittal reformatted images are performed at the CT scanner. [This CT examination was performed using dose optimization techniques as appropriate, variously including the following: *Automated exposure control *Adjustment of mA and/or kV according to patient size (this includes techniques or standardized protocols for targeted exams where dose is matched to indication/reason for exam; i.e. extremities or head) *Use of iterative reconstruction technique] DLP: 649 mGy-cm. FINDINGS: There is no evidence of acute intracranial hemorrhage or territorial infarction. No abnormal mass-effect or midline shift is seen. [place] to white matter differentiation is well preserved. No extra-axial fluid collections are identified. There is generalized global volume loss. There is mild prominence of the ventricles and the sulci . There is mild hypodensity of the periventricular white matter due to chronic small vessel ischemic disease. There are vascular calcifications of the internal carotid arteries bilaterally. There is no osseous abnormality. The mastoid air cells and visualized portions of the paranasal sinuses are well-aerated. CT/CT head/brain wo IV con IMPRESSION: No acute intracranial pathology.
--- NOTE | 2022-06-21 15:12 | ECG_ITS ---
Test Reason : DIZZINESS Blood Pressure : / mmHG Vent. Rate : 093 BPM Atrial Rate : 093 BPM P-R Int : 124 ms QRS Dur : 126 ms QT Int : 406 ms P-R-T Axes : -11 -35 016 degrees QTc Int : 504 ms Sinus rhythm with Premature atrial complexes Left axis deviation Right bundle branch block Abnormal ECG When compared with ECG of 07-FEB-2021 11:28, Heart rate has increased Referred By: Silvia Jacobsen Electronically Signed By:ALEKSANDRA GONZALEZ MD
--- NOTE | 2022-06-21 15:12 | ED.DIZZY ---
HPI - Dizziness General Chief Complaint: Dizziness Stated Complaint: dizziness, unable to walk Time Seen by Provider: 06/21/22 15:35 Related Data Home Medications Medication Instructions Recorded Confirmed atorvastatin 80 mg tablet 80 mg PO BEDTIME 04/27/20 06/21/22 lisinopril 40 mg tablet 40 mg PO DAILY 04/27/20 06/21/22 insulin NPH-regular 70-30 U-100 20 unit subcut BEDTIME 02/07/21 06/21/22 insulin 100 unit/mL subcutaneous pen (Novolin 70-30 FlexPen U-100 Insulin) insulin NPH-regular 70-30 U-100 30 unit subcut DAILY 02/07/21 06/21/22 insulin 100 unit/mL subcutaneous pen (Novolin 70-30 FlexPen U-100 Insulin) metformin 500 mg tablet,extended 2 tab PO BID 06/21/22 06/21/22 release 24 hr verapamil 40 mg tablet 1 tab PO TID 06/21/22 06/21/22 Previous Rx's Medication Instructions Recorded aspirin 81 mg tablet,delayed 81 mg PO DAILY #1 tab 02/11/21 release Allergies Allergy/AdvReac Type Severity Reaction Status Date / Time No Known Allergies Allergy Verified 06/21/22 15:16 [No Known Allergies*] [facility] Past Medical History Medical History Acute hyperglycemia Cellulitis Diabetes Elevated lactic acid level Foot ulcer, right HTN (hypertension) with goal to be determined Hyperlipidemia Leukocytosis PAD (peripheral artery disease) Ulcer of left foot Surgical History Amputated great toe of left foot (01/09/20) History of transmetatarsal amputation of right foot (~2004) Status post debridement (03/04/20) Social History Social History Household Members: Spouse Housing: Apartment Do you presently have visiting nurse or other home services: No Alcohol intake: never Patient Tobacco Use Status: Current everyday Tobacco user Tobacco use type: Cigarette Cigarette Packs Per Day: 0.5 Cigarettes Per Day: 10.0 Years Smoked: 50 Smoked in Last 30 Days: Yes Second Hand Smoke Exposure: No Use of substances other than those prescribed or required for medical reasons: No Advance Directives: No Advance Directives Information Provided: No Current occupational status: disabled Physical Exam Vital Signs: Vital Signs: Last Vital Signs Temp 97.8 F 06/21/22 15:16 Pulse 64 06/21/22 20:26 Resp 13 06/21/22 20:26 BP 103/48 L 06/21/22 20:29 Pulse Ox 93 06/21/22 20:26 O2 Del Method 06/21/22 20:26 BMI result Body Mass Index 30.2 Medications Administered Generic Name Dose Route Start Last Admin Trade Name Kurt PRN Reason Stop Dose Admin Heparin Sodium/Sodium Chloride 25,000 unit in 250 mls @ 0 mls/hr 06/21/22 18:45 06/21/22 20:21 Heparin Sodium,Porcine/1/2ns IVCONT 10 units/kg/hr .Q0M CHET 10.66 mls/hr Administration Protocol Per Protocol Piperacillin Sod/Tazobactam 50 mls @ 100 mls/hr 06/21/22 22:00 06/21/22 20:59 Sod 3.375 gm/ Sodium Chloride IV 100 mls/hr Q6H CHET Administration Insulin Human Lispro 0 unit 06/21/22 21:00 06/21/22 20:48 Insulin Lispro 100 Unit/Ml 3 Ml Vial SUBCUT 4 unit QIDACHS [facility] Administration Protocol Discontinued Medications Generic Name Dose Route Start Last Admin Trade Name Kurt PRN Reason Stop Dose Admin Aspirin 324 mg 06/21/22 18:28 06/21/22 18:38 Aspirin 81 Mg Tab.Chew PO 06/21/22 18:29 324 mg ONCE ONE Administration Heparin Sodium (Porcine) 4,000 unit 06/21/22 18:32 06/21/22 20:34 Heparin Sodium,Porcine 5,000 Unit/Ml Vial IVPUSH 06/21/22 18:33 4,000 unit ONCE ONE Administration Sodium Chloride 1,000 mls @ 999 mls/hr 06/21/22 15:15 06/21/22 17:15 Ns IV 06/21/22 16:15 Infused .Q1H1M CHET Infusion Piperacillin Sod/Tazobactam 50 mls @ 100 mls/hr 06/21/22 15:56 06/21/22 17:15 Sod 3.375 gm/ Sodium Chloride IV 06/21/22 16:25 Infused ONCE ONE Infusion Vancomycin HCl 2,000 mg in 520 mls @ 260 mls/hr 06/21/22 15:56 06/21/22 18:55 Vancomycin/Ns IV 06/21/22 17:55 Infused ONCE ONE Infusion Sodium Chloride 2,340 mls @ 2,340 mls/hr 06/21/22 16:08 06/21/22 18:37 Ns 30 ml/kg infuse over 1 hr (2340 ml) 06/21/22 17:07 Infused IV Infusion .Q1H STA Insulin Human Regular 10 unit 06/21/22 17:22 06/21/22 18:36 Insulin Regular, Human 100 Unit/Ml 3 Ml Vial IVPUSH 06/21/22 17:23 10 unit ONCE ONE Administration MDM - Dizziness MDM Narrative Medical decision making narrative: RME--67-year-old male with a past medical history of diabetes on insulin, ulcer, HTN, HLD, PAD, presenting to the ED complaining of feeling dizzy / off-balance, unable to ambulate x 3 days. States just returned from hunting in [place], has been incontinent due to being unable to get to the bathroom. Reports decreased p.o. intake. Admits to similar symptoms in the past with hypoglycemia. Patient pulled out of vehicle in triage, diaphoretic, abdomen soft/nontender, no focal deficits EKG, labs, UA, CXR, head CT, IVF ordered in triage POC 364 Medical Records Attestation: I reviewed the patient's medical records. Lab Data Attestation: I reviewed the patient's lab results. Result diagrams: 06/21/22 15:43 06/21/22 15:43 Labs: Lab Results 06/21/22 06/21/22 06/21/22 Range/Units 15:21 15:43 15:43 WBC 10.6 (4.8-10.8) X10*3/uL RBC 4.52 L (4.60-5.80) X10*6/uL Hgb 11.2 L (14.0-18.0) g/dl Hct 35.5 L (42.0-52.0) % MCV 78.5 L (80.0-98.0) fL MCH 24.8 L (27.0-33.0) pg MCHC 31.5 (31.0-36.0) g/dl RDW 15.4 (11.0-16.0) % Plt Count 326 (160-400) X10*3/uL MPV 10.8 (9.4-12.4) fL Immature Gran % (Auto) 0.6 H (0.0-0.4) % Neut % (Auto) 89.7 H (45-73) % Lymph % (Auto) 4.6 L (20-40) % Rains % (Auto) 4.9 (2-11) % Eos % (Auto) 0.0 (0-4) % Baso % (Auto) 0.2 (0-2) % Lymph # (Auto) 0.5 L (1.2-4.9) X10*3/uL Rains # (Auto) 0.5 (0.1-1.2) X10*3/uL Eos # (Auto) 0.0 (0.0-0.4) X10*3/uL Baso # (Auto) 0.0 (0.0-0.2) X10*3/uL Abs Immat Gran (auto) 0.06 H (0.00-0.03) X10*3/uL Absolute Neuts (auto) 9.5 H (2.0-8.3) x10*3/uL Absolute Nucleated RBC 0.000 (0.0-0.012) X10*3/uL Nucleated RBC % (auto) 0.0 (0.0-0.2) /100WBC PT (10.0-13.1) SEC INR (0.9-1.1) APTT (26.0-36.4) SEC Sodium 132 L (135-145) mmol/L Potassium 4.5 (3.3-5.1) mmol/L Chloride 99 (96-108) mmol/L Carbon Dioxide 19 L (22-29) mmol/L Anion Gap 19 (12-20) BUN 28 H (9-16) mg/dL Creatinine 1.75 H (0.5-1.4) mg/dL Estim Creat Clear Calc 51.8 Estimated GFR 39 POC Glucose 364 H* (60-115) mg/dL Random Glucose 446 H* (60-115) mg/dL Lactic Acid (0.5-2.0) mmol/L Lactic Acid F/U @ 2Hr (0.5-2.0) mmol/L Calcium 8.7 (8.4-10.2) mg/dL Magnesium 1.6 (1.6-2.6) mg/dL Total Bilirubin 0.8 (0.0-1.0) mg/dL Direct Bilirubin 0.4 (0.0-0.5) mg/dL AST 76 H (5-37) U/L ALT 52 H (0-40) U/L Alkaline Phosphatase 136 H (39-117) U/L Total Creatine Kinase (38-174) U/L Troponin I High Sens (<3.5-35.0) ng/L Total Protein 6.7 (6.5-8.0) g/dL Albumin 3.1 L (3.5-5.0) g/dL Ethyl Alcohol mg/dL Acetone, Qual (Negative) Influenza Type A (PCR) (Negative) Influenza Type B (PCR) (Negative) RSV RNA Qual (PCR) (Negative) SARS-CoV-2 RNA (RT-PCR) (Negative) 06/21/22 06/21/22 06/21/22 Range/Units 15:43 15:43 15:43 WBC (4.8-10.8) X10*3/uL RBC (4.60-5.80) X10*6/uL Hgb (14.0-18.0) g/dl Hct (42.0-52.0) % MCV (80.0-98.0) fL MCH (27.0-33.0) pg MCHC (31.0-36.0) g/dl RDW (11.0-16.0) % Plt Count (160-400) X10*3/uL MPV (9.4-12.4) fL Immature Gran % (Auto) (0.0-0.4) % Neut % (Auto) (45-73) % Lymph % (Auto) (20-40) % Rains % (Auto) (2-11) % Eos % (Auto) (0-4) % Baso % (Auto) (0-2) % Lymph # (Auto) (1.2-4.9) X10*3/uL Rains # (Auto) (0.1-1.2) X10*3/uL Eos # (Auto) (0.0-0.4) X10*3/uL Baso # (Auto) (0.0-0.2) X10*3/uL Abs Immat Gran (auto) (0.00-0.03) X10*3/uL Absolute Neuts (auto) (2.0-8.3) x10*3/uL Absolute Nucleated RBC (0.0-0.012) X10*3/uL Nucleated RBC % (auto) (0.0-0.2) /100WBC PT (10.0-13.1) SEC INR (0.9-1.1) APTT (26.0-36.4) SEC Sodium (135-145) mmol/L Potassium (3.3-5.1) mmol/L Chloride (96-108) mmol/L Carbon Dioxide (22-29) mmol/L Anion Gap (12-20) BUN (9-16) mg/dL Creatinine (0.5-1.4) mg/dL Estim Creat Clear Calc Estimated GFR POC Glucose (60-115) mg/dL Random Glucose (60-115) mg/dL Lactic Acid 4.1 H* (0.5-2.0) mmol/L Lactic Acid F/U @ 2Hr (0.5-2.0) mmol/L Calcium (8.4-10.2) mg/dL Magnesium (1.6-2.6) mg/dL Total Bilirubin (0.0-1.0) mg/dL Direct Bilirubin (0.0-0.5) mg/dL AST (5-37) U/L ALT (0-40) U/L Alkaline Phosphatase (39-117) U/L Total Creatine Kinase 598 H (38-174) U/L Troponin I High Sens > 3600.0 H* (<3.5-35.0) ng/L Total Protein (6.5-8.0) g/dL Albumin (3.5-5.0) g/dL Ethyl Alcohol < 10 mg/dL Acetone, Qual (Negative) Influenza Type A (PCR) (Negative) Influenza Type B (PCR) (Negative) RSV RNA Qual (PCR) (Negative) SARS-CoV-2 RNA (RT-PCR) (Negative) 06/21/22 06/21/2222 Range/Units 15:57 16:00 18:27 WBC (4.8-10.8) X10*3/uL RBC (4.60-5.80) X10*6/uL Hgb (14.0-18.0) g/dl Hct (42.0-52.0) % MCV (80.0-98.0) fL MCH (27.0-33.0) pg MCHC (31.0-36.0) g/dl RDW (11.0-16.0) % Plt Count (160-400) X10*3/uL MPV (9.4-12.4) fL Immature Gran % (Auto) (0.0-0.4) % Neut % (Auto) (45-73) % Lymph % (Auto) (20-40) % Rains % (Auto) (2-11) % Eos % (Auto) (0-4) % Baso % (Auto) (0-2) % Lymph # (Auto) (1.2-4.9) X10*3/uL Rains # (Auto) (0.1-1.2) X10*3/uL Eos # (Auto) (0.0-0.4) X10*3/uL Baso # (Auto) (0.0-0.2) X10*3/uL Abs Immat Gran (auto) (0.00-0.03) X10*3/uL Absolute Neuts (auto) (2.0-8.3) x10*3/uL Absolute Nucleated RBC (0.0-0.012) X10*3/uL Nucleated RBC % (auto) (0.0-0.2) /100WBC PT (10.0-13.1) SEC INR (0.9-1.1) APTT (26.0-36.4) SEC Sodium (135-145) mmol/L Potassium (3.3-5.1) mmol/L Chloride (96-108) mmol/L Carbon Dioxide (22-29) mmol/L Anion Gap (12-20) BUN (9-16) mg/dL Creatinine (0.5-1.4) mg/dL Estim Creat Clear Calc Estimated GFR POC Glucose (60-115) mg/dL Random Glucose (60-115) mg/dL Lactic Acid (0.5-2.0) mmol/L Lactic Acid F/U @ 2Hr 1.0 (0.5-2.0) mmol/L Calcium (8.4-10.2) mg/dL Magnesium (1.6-2.6) mg/dL Total Bilirubin (0.0-1.0) mg/dL Direct Bilirubin (0.0-0.5) mg/dL AST (5-37) U/L ALT (0-40) U/L Alkaline Phosphatase (39-117) U/L Total Creatine Kinase (38-174) U/L Troponin I High Sens (<3.5-35.0) ng/L Total Protein (6.5-8.0) g/dL Albumin (3.5-5.0) g/dL Ethyl Alcohol mg/dL Acetone, Qual Negative (Negative) Influenza Type A (PCR) NEGATIVE (Negative) Influenza Type B (PCR) NEGATIVE (Negative) RSV RNA Qual (PCR) NEGATIVE (Negative) SARS-CoV-2 RNA (RT-PCR) NEGATIVE (Negative) 06/21/22 06/21/22 06/21/22 Range/Units 18:27 18:31 18:40 WBC (4.8-10.8) X10*3/uL RBC (4.60-5.80) X10*6/uL Hgb (14.0-18.0) g/dl Hct (42.0-52.0) % MCV (80.0-98.0) fL MCH (27.0-33.0) pg MCHC (31.0-36.0) g/dl RDW (11.0-16.0) % Plt Count (160-400) X10*3/uL MPV (9.4-12.4) fL Immature Gran % (Auto) (0.0-0.4) % Neut % (Auto) (45-73) % Lymph % (Auto) (20-40) % Rains % (Auto) (2-11) % Eos % (Auto) (0-4) % Baso % (Auto) (0-2) % Lymph # (Auto) (1.2-4.9) X10*3/uL Rains # (Auto) (0.1-1.2) X10*3/uL Eos # (Auto) (0.0-0.4) X10*3/uL Baso # (Auto) (0.0-0.2) X10*3/uL Abs Immat Gran (auto) (0.00-0.03) X10*3/uL Absolute Neuts (auto) (2.0-8.3) x10*3/uL Absolute Nucleated RBC (0.0-0.012) X10*3/uL Nucleated RBC % (auto) (0.0-0.2) /100WBC PT 13.4 H (10.0-13.1) SEC INR 1.2 H (0.9-1.1) APTT 27.3 (26.0-36.4) SEC Sodium (135-145) mmol/L Potassium (3.3-5.1) mmol/L Chloride (96-108) mmol/L Carbon Dioxide (22-29) mmol/L Anion Gap (12-20) BUN (9-16) mg/dL Creatinine (0.5-1.4) mg/dL Estim Creat Clear Calc Estimated GFR POC Glucose 359 H* (60-115) mg/dL Random Glucose (60-115) mg/dL Lactic Acid (0.5-2.0) mmol/L Lactic Acid F/U @ 2Hr (0.5-2.0) mmol/L Calcium (8.4-10.2) mg/dL Magnesium (1.6-2.6) mg/dL Total Bilirubin (0.0-1.0) mg/dL Direct Bilirubin (0.0-0.5) mg/dL AST (5-37) U/L ALT (0-40) U/L Alkaline Phosphatase (39-117) U/L Total Creatine Kinase (38-174) U/L Troponin I High Sens > 3600.0 H* (<3.5-35.0) ng/L Total Protein (6.5-8.0) g/dL Albumin (3.5-5.0) g/dL Ethyl Alcohol mg/dL Acetone, Qual (Negative) Influenza Type A (PCR) (Negative) Influenza Type B (PCR) (Negative) RSV RNA Qual (PCR) (Negative) SARS-CoV-2 RNA (RT-PCR) (Negative) Discharge Plan Discharge Clinical Impression: Diabetic foot ulcer with osteomyelitis, Microcytic anemia, Acute hyperglycemia, SUMIT (acute kidney injury), Elevated lactic acid level, Non-ST elevation [place] (NSTEMI), Rhabdomyolysis Patient Disposition: Admitted As Inpatient
[2022-06-21 15:27] LABS: Glucose, Whole Blood 364 mg/dL (60-115)
[2022-06-21 15:50] LABS: MANUAL DIFF FLAG NO
[2022-06-21 15:53] LABS: Basophils Percent Auto 0.2 % (0-2); Hematocrit 35.5 % (42.0-52.0); Hemoglobin 11.2 g/dl (14.0-18.0); Imm Gran Abs Auto 0.06 X10*3/uL (0.00-0.03); Imm Gran Pct Auto 0.6 % (0.0-0.4); Lymphocytes Absolute Auto 0.5 X10*3/uL (1.2-4.9); Lymphocytes Percent Auto 4.6 % (20-40); Mean Corpuscular HGB Conc 31.5 g/dl (31.0-36.0); Mean Corpuscular Hemoglobin 24.8 pg (27.0-33.0); Mean Corpuscular Volume 78.5 fL (80.0-98.0); Mean Platelet Volume 10.8 fL (9.4-12.4); Monocytes Absolute Auto 0.5 X10*3/uL (0.1-1.2); Monocytes Percent Auto 4.9 % (2-11); Neutrophils Absolute Auto 9.5 x10*3/uL (2.0-8.3); Neutrophils Percent Auto 89.7 % (45-73); Platelet Count 326 X10*3/uL (160-400); Red Blood Count 4.52 X10*6/uL (4.60-5.80); Red Cell Distribution Width 15.4 % (11.0-16.0); White Blood Count 10.6 X10*3/uL (4.8-10.8)
--- NOTE | 2022-06-21 16:08 | ED_ITS ---
HPI - Dizziness General Chief Complaint: Dizziness Stated Complaint: dizziness, unable to walk Time Seen by Provider: 06/21/22 15:35 Source: patient Mode of arrival: wheelchair Limitations: no limitations History of Present Illness HPI Narrative: 67-year-old male with history of type 2 diabetes, peripheral artery disease, chronic left foot wound with osteomyelitis in the past here with complaints of feeling lightheaded for the last 3 days with chills and tactile temps. No shortness of breath, chest pain, abdominal pain, vomiting, diarrhea, urinary symptoms, abdominal pain. Patient does report left foot wound which he has been seen by wound care. Patient reports he has chronic neuropathy and so has no sensation on left foot. Related Data Home Medications Medication Instructions Recorded Confirmed atorvastatin 80 mg tablet 80 mg PO BEDTIME 04/27/20 06/21/22 lisinopril 40 mg tablet 40 mg PO DAILY 04/27/20 06/21/22 insulin NPH-regular 70-30 U-100 20 unit subcut BEDTIME 02/07/21 06/21/22 insulin 100 unit/mL subcutaneous pen (Novolin 70-30 FlexPen U-100 Insulin) insulin NPH-regular 70-30 U-100 30 unit subcut DAILY 02/07/21 06/21/22 insulin 100 unit/mL subcutaneous pen (Novolin 70-30 FlexPen U-100 Insulin) metformin 500 mg tablet,extended 2 tab PO BID 06/21/22 06/21/22 release 24 hr verapamil 40 mg tablet 1 tab PO TID 06/21/22 06/21/22 Previous Rx's Medication Instructions Recorded aspirin 81 mg tablet,delayed 81 mg PO DAILY #1 tab 02/11/21 release Allergies Allergy/AdvReac Type Severity Reaction Status Date / Time No Known Allergies Allergy Verified 06/21/22 15:16 [No Known Allergies*] Review of Systems Review of Systems: Yes all other systems are reviewed and are negative Constitutional: Constitutional: Reports no additional constitutional complaints, Denies body ache(s), Reports chills, Reports fever(s), Denies headache(s) and Denies weakness Eyes: Eyes: Reports no additional eye complaints and Denies change in vision ENT: Reports system reviewed and no additional complaints, except as documented, Reports dizziness, Denies headache(s), Denies nasal congestion, Denies nasal discharge and Denies neck pain Cardiovascular: Cardiovascular: Reports no additional cardiovascular complaints, Denies chest pain, Denies leg edema and Denies dyspnea Respiratory: Respiratory: Reports no additional respiratory complaints, Denies cough and Denies dyspnea Gastrointestinal: Gastrointestinal: Reports no additional gastrointestinal complaints, Denies abdominal pain, Denies diarrhea, Denies nausea and Denies vomiting Genitourinary: Genitourinary: Denies urinary incontinence Musculoskeletal: Musculoskeletal: Reports no additional musculoskeletal complaints, Denies back pain, Denies arthralgias, Denies joint swelling, Denies neck pain, Denies numbness and Denies tingling Integumentary/Breasts: Skin/Breast: Reports system reviewed and no additional complaints, except as docu and Denies rash Neurologic: Reports system reviewed and no additional complaints, except as documented, Denies Abnormal speech present, Reports dizziness, Denies headache(s), Denies numbness, Denies tingling and Denies weakness PMFSH Past Medical History Attestation statement: The following information was validated with the patient. Source: old records reviewed and nursing notes reviewed Medical History Acute hyperglycemia Cellulitis Diabetes Elevated lactic acid level Foot ulcer, right HTN (hypertension) with goal to be determined Hyperlipidemia Leukocytosis PAD (peripheral artery disease) Ulcer of left foot Surgical History Amputated great toe of left foot (01/09/20) History of transmetatarsal amputation of right foot (~2004) Status post debridement (03/04/20) Social History Social History Household Members: Spouse Housing: Apartment Do you presently have visiting nurse or other home services: No Alcohol intake: never Patient Tobacco Use Status: Current everyday Tobacco user Tobacco use type: Cigarette Cigarette Packs Per Day: 0.5 Cigarettes Per Day: 10.0 Years Smoked: 50 Smoked in Last 30 Days: Yes Second Hand Smoke Exposure: No Use of substances other than those prescribed or required for medical reasons: No Advance Directives: No Advance Directives Information Provided: No Current occupational status: disabled Physical Exam Vital Signs: Vital Signs: Last Vital Signs Temp 97.8 F 06/21/22 15:16 Pulse 77 06/21/22 18:40 Resp 18 11/20/22 18:40 BP 121/49 L 06/21/22 18:40 Pulse Ox 99 06/21/22 18:40 O2 Del Method 06/21/22 18:40 BMI result Body Mass Index 30.2 Const: General: cooperative, healthy appearing, comfortable and no acute distress Orientation/consciousness: patient oriented x3 Limitations: no limitations HEENT: Head: Yes normal to inspection Ears: hearing grossly normal bilaterally General nose exam: Normal external nose present Face and sinus: Yes normal facial exam Mouth: Normal oral and palatal mucosa present Throat: Yes posterior oropharynx normal Eyes: General: appearance normal, both eyes and all related structures Pupils: Equal, round and reactive pupils present Neck: Neck: Yes normal visual inspection Chest: Chest palpation & inspection: normal inspection of the chest Resp: Effort & Inspection: normal respiratory effort Auscultation: clear to auscultation bilaterally Cardio: Rate: regular rate Rhythm: regular rhythm Peripheral pulses: Peripheral pulses 2+ throughout GI: Inspection: Yes normal to inspection Palpation (GI): Soft to palpation and nontender Auscultation: normal bowel sounds Back/Spine/Pelvis: Thoracic/Lumbar Spine: thoracic and lumbar spine normal to inspection Skin: General skin exam: no rashes or lesions noted Neuro: General: patient oriented x3, moves all extremities, no focal motor deficits and normal sensation to monofilament Cranial nerves: Yes CN's II-XII intact bilaterally, Yes Equal, round and reactive pupils present, Yes Bilaterally intact EOM present, Yes Nystagmus not present, Yes Normal facial strength present and Yes Midline tongue present Cognition (Neuro): normal cognition Speech: No Abnormal speech present Gait exam (Neuro): Normal gait present Motor exam (neuro): 5/5 motor strength present throughout Sensory Exam: Normal double simultaneous stimulation for sensation Extrem: Other: General: Yes normal to inspection Course Course Course Narrative: 1611-lactic 4.1. BP with MAPs >65. Patient is obese. [place] body weight of 78 kg use. Normal saline 30 cc/kilos ordered Reevaluation(s) Reevaluation #1: Patient's troponin is greater than 3000. His EKG shows no ischemic changes. He has no chest pain. He is complaining of feeling dizzy and lightheaded his blood pressure is 100/50. ?secondary to hypotension. Will add cpk. d/w with cards. Reviewed labs which showed microcytic anemia, SUMIT, hyperglycemia, mild rhabdomyolysis. X-ray of chest is negative for pneumonia. X-ray of left foot shows no clear osteomyelitis but marked soft tissue swelling with bubbles of gas along the medial aspect of the mid foot and ankle. Did consider nec fasc infection but less likely with chronic wound which is when gradually getting worse over the last few weeks. CT head shows no acute finding. Patient likely has osteomyelitis and will need admission for IV antibiotics an MRI to confirm. Reevaluation #2: 1900-Spoke to medicine who accepted admission Consultations Consultation #1: 1840-spoke to Cardiology Dr García who reviewed EKGs. Likely secondary to sepsis. Recommend trend troponins and EKGs. Will initiate heparin gtt Medications Administered Discontinued Medications Generic Name Dose Route Start Last Admin Trade Name Freq PRN Reason Stop Dose Admin Aspirin 324 mg 06/21/22 18:28 06/21/22 18:38 Aspirin 81 Mg Tab.Chew PO 06/21/22 18:29 324 mg ONCE ONE Administration Sodium Chloride 1,000 mls @ 999 mls/hr 06/21/22 15:15 06/21/22 17:15 Ns IV 06/21/22 16:15 Infused .Q1H1M CHET Infusion Piperacillin Sod/Tazobactam 50 mls @ 100 mls/hr 06/21/22 15:56 06/21/22 17:15 Sod 3.375 gm/ Sodium Chloride IV 06/21/22 16:25 Infused ONCE ONE Infusion Vancomycin HCl 2,000 mg in 520 mls @ 260 mls/hr 06/21/22 15:56 06/21/22 16:55 Vancomycin/Ns IV 06/21/22 17:55 260 mls/hr ONCE ONE Administration Sodium Chloride 2,340 mls @ 2,340 mls/hr 06/21/22 16:08 06/21/22 18:37 Ns 30 ml/kg infuse over 1 hr (2340 ml) 06/21/22 17:07 Infused IV Infusion .Q1H STA Insulin Human Regular 10 unit 06/21/22 17:22 06/21/22 18:36 Insulin Regular, Human 100 Unit/Ml 3 Ml Vial IVPUSH 06/21/22 17:23 10 unit ONCE ONE Administration MDM - Dizziness MDM Narrative Medical decision making narrative: 67-year-old male with history of diabetes, peripheral artery disease, previous osteomyelitis of the left foot here with complaints dizziness for the last 3 days described as feeling lightheaded with tactile temps and chills. Patient also with chronic left foot wound. On arrival patient has a left foot wound with significant drainage, erythema, warmth. Will need labs, blood cultures and lactic acid, x-ray, COVID screen At this time infection suspected. Antibiotics ordered. Medical Records Attestation: I reviewed the patient's medical records. Lab Data Attestation: I reviewed the patient's lab results. Result diagrams: 06/21/22 15:43 06/21/22 15:43 Labs: Lab Results 06/21/22 06/21/22 06/21/22 Range/Units 15:21 15:43 15:43 WBC 10.6 (4.8-10.8) X10*3/uL RBC 4.52 L (4.60-5.80) X10*6/uL Hgb 11.2 L (14.0-18.0) g/dl Hct 35.5 L (42.0-52.0) % MCV 78.5 L (80.0-98.0) fL MCH 24.8 L (27.0-33.0) pg MCHC 31.5 (31.0-36.0) g/dl RDW 15.4 (11.0-16.0) % Plt Count 326 (160-400) X10*3/uL MPV 10.8 (9.4-12.4) fL Immature Gran % (Auto) 0.6 H (0.0-0.4) % Neut % (Auto) 89.7 H (45-73) % Lymph % (Auto) 4.6 L (20-40) % [place] % (Auto) 4.9 (2-11) % Eos % (Auto) 0.0 (0-4) % Baso % (Auto) 0.2 (0-2) % Lymph # (Auto) 0.5 L (1.2-4.9) X10*3/uL [place] # (Auto) 0.5 (0.1-1.2) X10*3/uL Eos # (Auto) 0.0 (0.0-0.4) X10*3/uL Baso # (Auto) 0.0 (0.0-0.2) X10*3/uL Abs Immat Gran (auto) 0.06 H (0.00-0.03) X10*3/uL Absolute Neuts (auto) 9.5 H (2.0-8.3) x10*3/uL Absolute Nucleated RBC 0.000 (0.0-0.012) X10*3/uL Nucleated RBC % (auto) 0.0 (0.0-0.2) /100WBC PT (10.0-13.1) SEC INR (0.9-1.1) APTT (26.0-36.4) SEC Sodium 132 L (135-145) mmol/L Potassium 4.5 (3.3-5.1) mmol/L Chloride 99 (96-108) mmol/L Carbon Dioxide 19 L (22-29) mmol/L Anion Gap 19 (12-20) BUN 28 H (9-16) mg/dL Creatinine 1.75 H (0.5-1.4) mg/dL Estim Creat Clear Calc 51.8 Estimated GFR 39 POC Glucose 364 H* (60-115) mg/dL Random Glucose 446 H* (60-115) mg/dL Lactic Acid (0.5-2.0) mmol/L Lactic Acid F/U @ 2Hr (0.5-2.0) mmol/L Calcium 8.7 (8.4-10.2) mg/dL Magnesium 1.6 (1.6-2.6) mg/dL Total Bilirubin 0.8 (0.0-1.0) mg/dL Direct Bilirubin 0.4 (0.0-0.5) mg/dL AST 76 H (5-37) U/L ALT 52 H (0-40) U/L Alkaline Phosphatase 136 H (39-117) U/L Total Creatine Kinase (38-174) U/L Troponin I High Sens (<3.5-35.0) ng/L Total Protein 6.7 (6.5-8.0) g/dL Albumin 3.1 L (3.5-5.0) g/dL Ethyl Alcohol mg/dL Acetone, Qual (Negative) Influenza Type A (PCR) (Negative) Influenza Type B (PCR) (Negative) RSV RNA Qual (PCR) (Negative) SARS-CoV-2 RNA (RT-PCR) (Negative) 06/21/22 06/21/22 06/21/22 Range/Units 15:43 15:43 15:43 WBC (4.8-10.8) X10*3/uL RBC (4.60-5.80) X10*6/uL Hgb (14.0-18.0) g/dl Hct (42.0-52.0) % MCV (80.0-98.0) fL MCH (27.0-33.0) pg MCHC (31.0-36.0) g/dl RDW (11.0-16.0) % Plt Count (160-400) X10*3/uL MPV (9.4-12.4) fL Immature Gran % (Auto) (0.0-0.4) % Neut % (Auto) (45-73) % Lymph % (Auto) (20-40) % [place] % (Auto) (2-11) % Eos % (Auto) (0-4) % Baso % (Auto) (0-2) % Lymph # (Auto) (1.2-4.9) X10*3/uL [place] # (Auto) (0.1-1.2) X10*3/uL Eos # (Auto) (0.0-0.4) X10*3/uL Baso # (Auto) (0.0-0.2) X10*3/uL Abs Immat Gran (auto) (0.00-0.03) X10*3/uL Absolute Neuts (auto) (2.0-8.3) x10*3/uL Absolute Nucleated RBC (0.0-0.012) X10*3/uL Nucleated RBC % (auto) (0.0-0.2) /100WBC PT (10.0-13.1) SEC INR (0.9-1.1) APTT (26.0-36.4) SEC Sodium (135-145) mmol/L Potassium (3.3-5.1) mmol/L Chloride (96-108) mmol/L Carbon Dioxide (22-29) mmol/L Anion Gap (12-20) BUN (9-16) mg/dL Creatinine (0.5-1.4) mg/dL Estim Creat Clear Calc Estimated GFR POC Glucose (60-115) mg/dL Random Glucose (60-115) mg/dL Lactic Acid 4.1 H* (0.5-2.0) mmol/L Lactic Acid F/U @ 2Hr (0.5-2.0) mmol/L Calcium (8.4-10.2) mg/dL Magnesium (1.6-2.6) mg/dL Total Bilirubin (0.0-1.0) mg/dL Direct Bilirubin (0.0-0.5) mg/dL AST (5-37) U/L ALT (0-40) U/L Alkaline Phosphatase (39-117) U/L Total Creatine Kinase 598 H (38-174) U/L Troponin I High Sens > 3600.0 H* (<3.5-35.0) ng/L Total Protein (6.5-8.0) g/dL Albumin (3.5-5.0) g/dL Ethyl Alcohol < 10 mg/dL Acetone, Qual (Negative) Influenza Type A (PCR) (Negative) Influenza Type B (PCR) (Negative) RSV RNA Qual (PCR) (Negative) SARS-CoV-2 RNA (RT-PCR) (Negative) 06/21/22 06/21/22 06/21/22 Range/Units 15:57 16:00 18:27 WBC (4.8-10.8) X10*3/uL RBC (4.60-5.80) X10*6/uL Hgb (14.0-18.0) g/dl Hct (42.0-52.0) % MCV (80.0-98.0) fL MCH (27.0-33.0) pg MCHC (31.0-36.0) g/dl RDW (11.0-16.0) % Plt Count (160-400) X10*3/uL MPV (9.4-12.4) fL Immature Gran % (Auto) (0.0-0.4) % Neut % (Auto) (45-73) % Lymph % (Auto) (20-40) % [place] % (Auto) (2-11) % Eos % (Auto) (0-4) % Baso % (Auto) (0-2) % Lymph # (Auto) (1.2-4.9) X10*3/uL [place] # (Auto) (0.1-1.2) X10*3/uL Eos # (Auto) (0.0-0.4) X10*3/uL Baso # (Auto) (0.0-0.2) X10*3/uL Abs Immat Gran (auto) (0.00-0.03) X10*3/uL Absolute Neuts (auto) (2.0-8.3) x10*3/uL Absolute Nucleated RBC (0.0-0.012) X10*3/uL Nucleated RBC % (auto) (0.0-0.2) /100WBC PT (10.0-13.1) SEC INR (0.9-1.1) APTT (26.0-36.4) SEC Sodium (135-145) mmol/L Potassium (3.3-5.1) mmol/L Chloride (96-108) mmol/L Carbon Dioxide (22-29) mmol/L Anion Gap (12-20) BUN (9-16) mg/dL Creatinine (0.5-1.4) mg/dL Estim Creat Clear Calc Estimated GFR POC Glucose (60-115) mg/dL Random Glucose (60-115) mg/dL Lactic Acid (0.5-2.0) mmol/L Lactic Acid F/U @ 2Hr 1.0 (0.5-2.0) mmol/L Calcium (8.4-10.2) mg/dL Magnesium (1.6-2.6) mg/dL Total Bilirubin (0.0-1.0) mg/dL Direct Bilirubin (0.0-0.5) mg/dL AST (5-37) U/L ALT (0-40) U/L Alkaline Phosphatase (39-117) U/L Total Creatine Kinase (38-174) U/L Troponin I High Sens (<3.5-35.0) ng/L Total Protein (6.5-8.0) g/dL Albumin (3.5-5.0) g/dL Ethyl Alcohol mg/dL Acetone, Qual Negative (Negative) Influenza Type A (PCR) NEGATIVE (Negative) Influenza Type B (PCR) NEGATIVE (Negative) RSV RNA Qual (PCR) NEGATIVE (Negative) SARS-CoV-2 RNA (RT-PCR) NEGATIVE (Negative) 06/21/22 06/21/22 06/21/22 Range/Units 18:27 18:31 18:40 WBC (4.8-10.8) X10*3/uL RBC (4.60-5.80) X10*6/uL Hgb (14.0-18.0) g/dl Hct (42.0-52.0) % MCV (80.0-98.0) fL MCH (27.0-33.0) pg MCHC (31.0-36.0) g/dl RDW (11.0-16.0) % Plt Count (160-400) X10*3/uL MPV (9.4-12.4) fL Immature Gran % (Auto) (0.0-0.4) % Neut % (Auto) (45-73) % Lymph % (Auto) (20-40) % [place] % (Auto) (2-11) % Eos % (Auto) (0-4) % Baso % (Auto) (0-2) % Lymph # (Auto) (1.2-4.9) X10*3/uL [place] # (Auto) (0.1-1.2) X10*3/uL Eos # (Auto) (0.0-0.4) X10*3/uL Baso # (Auto) (0.0-0.2) X10*3/uL Abs Immat Gran (auto) (0.00-0.03) X10*3/uL Absolute Neuts (auto) (2.0-8.3) x10*3/uL Absolute Nucleated RBC (0.0-0.012) X10*3/uL Nucleated RBC % (auto) (0.0-0.2) /100WBC PT 13.4 H (10.0-13.1) SEC INR 1.2 H (0.9-1.1) APTT 27.3 (26.0-36.4) SEC Sodium (135-145) mmol/L Potassium (3.3-5.1) mmol/L Chloride (96-108) mmol/L Carbon Dioxide (22-29) mmol/L Anion Gap (12-20) BUN (9-16) mg/dL Creatinine (0.5-1.4) mg/dL Estim Creat Clear Calc Estimated GFR POC Glucose 359 H* (60-115) mg/dL Random Glucose (60-115) mg/dL Lactic Acid (0.5-2.0) mmol/L Lactic Acid F/U @ 2Hr (0.5-2.0) mmol/L Calcium (8.4-10.2) mg/dL Magnesium (1.6-2.6) mg/dL Total Bilirubin (0.0-1.0) mg/dL Direct Bilirubin (0.0-0.5) mg/dL AST (5-37) U/L ALT (0-40) U/L Alkaline Phosphatase (39-117) U/L Total Creatine Kinase (38-174) U/L Troponin I High Sens > 3600.0 H* (<3.5-35.0) ng/L Total Protein (6.5-8.0) g/dL Albumin (3.5-5.0) g/dL Ethyl Alcohol mg/dL Acetone, Qual (Negative) Influenza Type A (PCR) (Negative) Influenza Type B (PCR) (Negative) RSV RNA Qual (PCR) (Negative) SARS-CoV-2 RNA (RT-PCR) (Negative) Imaging Data Chest x-ray: Attestation: I personally reviewed and interpreted this imaging study as follows: Radiologist's impression: [address] [address] XRay Report Signed Patient: Giovanni Harper MR#: [id number] : 1955 Acct:[id number] Age/Sex: 67 / M ADM Date: 06/21/22 Loc: .ED Attending Dr: Ordering Physician: Silvia Jacobsen Date of Service: 06/21/22 Procedure(s): XR chest 1V Accession Number(s): [id number] cc: Silvia Jacobsen~ EXAMINATION: XR CHEST CLINICAL INFORMATION: Dizziness. COMPARISON: 01/11/2020 chest radiograph. TECHNIQUE: Single view of the chest was obtained. FINDINGS: Mild linear markings are seen in the lower lung alvarez. The upper lung alvarez are clear. The heart and mediastinal structures are unremarkable. XR/XR chest 1V IMPRESSION: Mild bilateral lower lung linear atelectasis versus scarring. No acute cardiopulmonary process. ? foot x-ray: Attestation: I personally reviewed and interpreted this imaging study as follows: Radiologist's impression: Launch?Image [address] [address] XRay Report Signed Patient: Giovanni Harper MR#: [id number] : 1955 Acct:[id number] Age/Sex: 67 / M ADM Date: 06/21/22 Loc: HO.ED Attending Dr: Ordering Physician: Aubrie Black NP Date of Service: 06/21/22 Procedure(s): XR foot LT 2V Accession Number(s): [id number] cc: Aubrie Black NP~ EXAMINATION: XR FOOT, LEFT CLINICAL INFORMATION: Wound, rule out osteomyelitis? COMPARISON: Left foot radiographs 02/26/2022? TECHNIQUE: AP, lateral, and oblique views of the left foot. FINDINGS: Status post prior partial amputation of the first ray, unchanged. Deep soft tissue ulcer underlying the medial plantar aspect of the midfoot approximating the underlying bone. No definite interval osseous destruction or periosteal reaction. There is unchanged malalignment dislocation of the tarsometatarsal joints with some fragmentation of bone sclerosis consistent with sequela of neuropathic arthropathy. Pronounced soft tissue swelling containing bubbles of gas along the medial dorsal aspect of the foot and ankle. XR/XR foot LT 2V IMPRESSION: 1.? Deep soft tissue ulcer along the medial plantar aspect of the midfoot approximating the underlying bone. No definite radiographic evidence of advanced acute osteomyelitis. 2.? Marked soft tissue swelling with bubbles of gas along the medial aspect of the mid foot and ankle suspicious for gas-forming infection and possible fluid collection/abscess. Correlate clinically. 3.? 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 4.? Status post partial amputation of the first ray, unchanged. ? CT scan - head: Attestation: I personally reviewed and interpreted this imaging study as follows: Radiologist's impression: [address] [address] [address] Scan Report Signed Patient: Giovanni Harper MR#: [id number] : 1955 Acct:[id number] Age/Sex: 67 / M ADM Date: 06/21/22 Loc: HO.ED Attending Dr: Ordering Physician: Silvia Jacobsen Date of Service: 06/21/22 Procedure(s): CT head/brain wo IV con Accession Number(s): [id number] cc: Silvia Jacobsen~ EXAMINATION: CT HEAD WITHOUT CONTRAST CLINICAL INFORMATION: Off balance. Dizziness. COMPARISON: None. TECHNIQUE: Contiguous axial imaging was performed from the skull base to vertex without intravenous administration of contrast. Coronal and sagittal reformatted images are performed at the CT scanner. [This CT examination was performed using dose optimization techniques as appropriate, variously including the following: *Automated exposure control *Adjustment of mA and/or kV according to patient size (this includes techniques or standardized protocols for targeted exams where dose is matched to indication/reason for exam; i.e. extremities or head) *Use of iterative reconstruction technique] DLP: 649 mGy-cm. FINDINGS: There is no evidence of acute intracranial hemorrhage or territorial infarction. No abnormal mass-effect or midline shift is seen. [place] to white matter differentiation is well preserved. No extra-axial fluid collections are identified. There is generalized global volume loss. There is mild prominence of the ventricles and the sulci . There is mild hypodensity of the periventricular white matter due to chronic small vessel ischemic disease. There are vascular calcifications of the internal carotid arteries bilaterally. There is no osseous abnormality. The mastoid air cells and visualized portions of the paranasal sinuses are well-aerated. ? CT/CT head/brain wo IV con IMPRESSION: No acute intracranial pathology. ? ECG Data Attestation: I personally reviewed and interpreted this ECG as follows: ECG interpretation date: 06/21/22 ECG interpretation time: 15:40 Interpretation: Sinus rhythm with PACs with rate 93, normal AK, normal QRS, QTC Discharge Plan Discharge Clinical Impression: Diabetic foot ulcer with osteomyelitis, Microcytic anemia, Acute hyperglycemia, SUMIT (acute kidney injury), Elevated lactic acid level, Non-ST elevation [place] (NSTEMI), Rhabdomyolysis Patient Disposition: Admitted As Inpatient
[2022-06-21 16:09] LABS: Lactic Acid 4.1 mmol/L (0.5-2.0)
[2022-06-21 16:10] LABS: Ethanol < 10 mg/dL
[2022-06-21] MEDS: 0.9 % Sodium Chloride 1,000 ML 999 ML IV (16:13)
[2022-06-21] MEDS: Piperacillin Sodium/Tazobactam 3.375 GM in 0.9 % Sodium Chloride 50 ML IV ×2 (16:13→20:59)
[2022-06-21 16:33] LABS: Acetone, serum QL Negative (Negative)
[2022-06-21 16:48] LABS: Influenza A PCR NEGATIVE (Negative); Influenza B PCR NEGATIVE (Negative); Resp Syncy Virus RNA Qual PCR NEGATIVE (Negative); SARS COV2 PCR INHOUSE NEGATIVE (Negative)
[2022-06-21 17:04] LABS: Troponin-I High Sensitivity > 3600.0 ng/L (<3.5-35.0)
[2022-06-21 17:05] LABS: Alanine Aminotransferase 52 U/L (0-40); Albumin Level 3.1 g/dL (3.5-5.0); Alkaline Phosphatase 136 U/L (39-117); Anion Gap 19 (12-20); Aspartate Amino Transferase 76 U/L (5-37); Bilirubin Direct 0.4 mg/dL (0.0-0.5); Bilirubin Total 0.8 mg/dL (0.0-1.0); Blood Urea Nitrogen 28 mg/dL (9-16); Calcium 8.7 mg/dL (8.4-10.2); Carbon Dioxide 19 mmol/L (22-29); Chloride 99 mmol/L (96-108); Creatinine Clr Calc Pharmacy 51.8; Estimated Glomerular Filt Rate 39; Glucose Random 446 mg/dL (60-115); Magnesium 1.6 mg/dL (1.6-2.6); Potassium 4.5 mmol/L (3.3-5.1); Sodium 132 mmol/L (135-145); Total Protein 6.7 g/dL (6.5-8.0)
--- NOTE | 2022-06-21 17:10 | PC.NURSE ---
pt alert and oriented. resting comfortably. denies pain. fluids running and vanco. spouse at bedside. pt has chronic left foot wound with hx of osteaomyelitis. see provider report for photograph
[2022-06-21 17:48] LABS: Reflex Lactate? Lactic Acid Added
--- NOTE | 2022-06-21 18:04 | PHA.MEDREC ---
Pharmacy Consult ? Medication Reconciliation Pharmacy has completed the medication reconciliation Patient states they take Novolin 70-30, although no claim history available. .
[2022-06-21] MEDS: Insulin Regular, Human 100 UNIT/ML 3 ML VIAL 10 UNIT IVPUSH (18:36)
[2022-06-21] MEDS: Aspirin 81 MG TAB.CHEW 324 MG PO (18:38)
--- NOTE | 2022-06-21 18:41 | PC.NURSE ---
pt alert and oriented. gave him aspirin and 10U of regular insulin IV. heparin drip on hold awaiting coags.
[2022-06-21 18:43] LABS: Glucose, Whole Blood 359 mg/dL (60-115)
[2022-06-21 19:08] LABS: INTERNATIONAL NORM RATIO 1.2 (0.9-1.1); Prothrombin Time 13.4 SEC (10.0-13.1)
[2022-06-21 19:09] LABS: Troponin-I High Sensitivity > 3600.0 ng/L (<3.5-35.0)
[2022-06-21 19:11] LABS: Partial Thromboplastin Time 27.3 SEC (26.0-36.4)
[2022-06-21] MEDS: Heparin Sodium,Porcine/1/2NS 25,000 UNIT/250 ML IV.SOLN 10.66 UNIT IVCONT (20:21)
[2022-06-21] MEDS: Heparin Sodium,Porcine 5,000 UNIT/ML VIAL 4000 UNIT IVPUSH (20:34)
[2022-06-21 20:36] LABS: Glucose, Whole Blood 212 mg/dL (60-115)
[2022-06-21] MEDS: Insulin Lispro 100 UNIT/ML 3 ML VIAL SUBCUT (20:48)
--- NOTE | 2022-06-21 21:22 | PM.IMHP ---
History of Present Illness Date of Service: 06/21/22 Chief Complaint: Left foot wound 67-year-old male with past medical history of diabetes, history of osteomyelitis status post amputation of right metatarsals, as well as 1st left metatarsal, HTN, HLD, peripheral vascular disease presents to the hospital with complaints of left foot infection. Patient reports that he has an ulcer at the base of his foot for many months being followed by wound clinic, was seen about 3 weeks ago was told that he is doing well, so [place], he reports that he noticed worsening drainage, and the wound appearing to be infected therefore decided to come to the hospital for evaluation. Patient denies any pain due to neuropathy, he reports clear drainage, reports no fever or chills, no chest pain, no abdominal pain nausea or vomiting, no diarrhea constipation, no urinary symptoms and no lower extremity edema otherwise. On arrival to the ED patient hemodynamically stable with no significant abnormal vitals Labs are significant for WBC count of 10.6, hemoglobin of 11.2, hematocrit 35.5, ESR 74, sodium of 132, creatinine of 1.75 with a baseline of around 1.17, hyperglycemic, and troponin of more than 3600, CRP of 31.38, influenza COVID and RSV negative. Patient denies any chest pain. There is no EKG suggestive of ACS. X-ray shows deep soft tissue ulcer along with medial plantar specks of the midfoot approximating the underlying bone, marked soft tissue swelling and bubbles of gas along the medial aspect of the midfoot and ankle suspicious for gas-forming infection possible fluid collection/abscess Patient was started on IV antibiotics and given heparin GGT and will be admitted for further management Review of Systems Review of Systems: Yes all other systems are reviewed and are negative [facility] Medical History Acute hyperglycemia Cellulitis Diabetes Elevated lactic acid level Foot ulcer, right HTN (hypertension) with goal to be determined Hyperlipidemia Leukocytosis PAD (peripheral artery disease) Ulcer of left foot Surgical History Amputated great toe of left foot (01/09/20) History of transmetatarsal amputation of right foot (~2004) Status post debridement (03/04/20) Social History Household Members: Family Housing: Apartment Do you presently have visiting nurse or other home services: No Alcohol intake: never Patient Tobacco Use Status: Current everyday Tobacco user Tobacco use type: Cigarette Cigarette Packs Per Day: 0.5 Cigarettes Per Day: 10.0 Years Smoked: 50 Smoked in Last 30 Days: Yes Second Hand Smoke Exposure: No Use of substances other than those prescribed or required for medical reasons: No Currently Displaying Signs/Symptoms of Drug Intoxication Withdrawal: No Have you been hit, kicked, punched, or otherwise hurt by someone within the past year? If so, by whom?: No Do you feel safe in your current relationship?: Yes Is there a partner from a previous relationship who is making you feel unsafe now?: No Are you made to feel afraid or neglected: No Advance Directives: No Advance Directives Information Provided: No Do you have thoughts of harming others: None Do you have a plan to hurt others: No Plan Recently lost weight without trying: No Nutrition Risks: No Nutritional Risk Poor oral hygiene: No Current occupational status: disabled [employer] Allergies Allergy/AdvReac Type Severity Reaction Status Date / Time No Known Allergies Allergy Verified 06/21/22 15:16 [No Known Allergies*] Active Medications: Current Medications Acetaminophen (Acetaminophen 325 Mg Tablet) 650 mg PO Q6H PRN PRN Reason: Pain, Mild (Pain Scale 1-3) Dextrose (Dextrose 50 % 25 Gm/50 Ml Syringe) 25 gm IVPUSH Q15M PRN; Protocol PRN Reason: per Hypoglycemia Standing Ord. Docusate Sodium (Docusate Sodium 100 Mg Capsule) 100 mg PO DAILY PRN PRN Reason: Constipation Glucose (Glucose Gel 15 Gm Gel..Gram.) 15 gm PO Q15M PRN; Protocol PRN Reason: per Hypoglycemia Standing Ord. Heparin Sodium (Porcine) (Heparin Sodium,Porcine 5,000 Unit/Ml Vial) 4,300 unit 40 unit/kg (4300 unit) IVPUSH PROTOCOL BOLUS PRN; Protocol PRN Reason: 40 unit/kg - Heparin Protocol Heparin Sodium (Porcine) (Heparin Sodium,Porcine 5,000 Unit/Ml Vial) 8,500 unit 80 unit/kg (8500 unit) IVPUSH PROTOCOL BOLUS PRN; Protocol PRN Reason: 80 unit/kg - Heparin Protocol Heparin Sodium/Sodium Chloride (Heparin Sodium,Porcine/1/2ns) 25,000 unit in 250 mls @ 0 mls/hr IVCONT .Q0M [facility]; Protocol Last Admin: 06/21/22 20:21 Dose: 10 units/kg/hr, 10.66 mls/hr Piperacillin Sod/Tazobactam (Sod 3.375 gm/ Sodium Chloride) 50 mls @ 100 mls/hr IV Q6H [facility] Last Admin: 06/21/22 20:59 Dose: 100 mls/hr Sodium Chloride (Ns) 1,000 mls @ 100 mls/hr IVCONT .Q10H [facility] Vancomycin HCl 1,500 mg/ (Sodium Chloride) 500 mls @ 333.333 mls/hr IV Q24H [facility] Insulin Human Lispro (Insulin Lispro 100 Unit/Ml 3 Ml Vial) 0 unit SUBCUT QIDACHS [facility]; Protocol Last Admin: 06/21/22 20:48 Dose: 4 unit Morphine Sulfate (Morphine Sulfate 2 Mg/Ml Cartridge) 4 mg IVPUSH Q4H PRN; Protocol PRN Reason: Pain, Severe (Pain Scale 7-10) Ondansetron HCl (Ondansetron Hcl 4 Mg/2 Ml Vial) 4 mg IVPUSH Q8H PRN PRN Reason: Nausea and Vomiting Pharmacy Consult (Consult Rx Perform Med Rec) 1 each MISCELLANE ONCE PRN PRN Reason: Consult order Pharmacy Consult (Consult Rx Perform Med Rec) 1 each MISCELLANE ONCE PRN PRN Reason: Consult order Pharmacy Consult (Consult Rx Vancomycin Dosing) 1 each MISCELLANE DAILY PRN PRN Reason: Consult order Sodium Chloride (0.9 % Sodium Chloride Flush 3 Ml Syringe) 3 ml IVFLUSH QSHIFT [facility] Home Medications Medication Instructions Recorded Confirmed Last Taken Type atorvastatin 80 mg tablet 80 mg PO BEDTIME 04/27/20 06/21/22 02/06/21 History lisinopril 40 mg tablet 40 mg PO DAILY 04/27/20 06/21/22 06/21/22 History insulin NPH-regular 70-30 U-100 20 unit subcut BEDTIME 02/07/21 06/21/22 02/07/21 History insulin 100 unit/mL subcutaneous pen (Novolin 70-30 FlexPen U-100 Insulin) insulin NPH-regular 70-30 U-100 30 unit subcut DAILY 02/07/21 06/21/2206/21/22 History insulin 100 unit/mL subcutaneous pen (Novolin 70-30 FlexPen U-100 Insulin) metformin 500 mg tablet,extended 2 tab PO BID 06/21/22 06/21/22 06/21/22 09:00 History release 24 hr verapamil 40 mg tablet 1 tab PO TID 06/21/22 06/21/22 06/21/22 09:00 History Physical Exam Vital Signs and Narrative: Vital Signs: Last Vital Signs Temp 97.8 F 06/21/22 15:16 Pulse 64 06/21/22 20:26 Resp 13 06/21/22 20:26 BP 103/48 L 06/21/22 20:29 Pulse Ox 93 06/21/22 20:26 O2 Del Method 06/21/22 20:26 BMI result Body Mass Index 30.2 Const: General: cooperative and no acute distress Orientation/consciousness: patient oriented x3 Eyes: General: appearance normal, both eyes and all related structures Pupils: Equal, round and reactive pupils present Resp: Effort & Inspection: normal respiratory effort Auscultation: clear to auscultation bilaterally Cardio: Rate: regular rate Rhythm: regular rhythm GI: Palpation (GI): Soft to palpation Auscultation: normal bowel sounds Neuro: General: patient oriented x3 Cranial nerves: Yes Equal, round and reactive pupils present Cognition (Neuro): normal cognition Extrem: Other: Left leg edema, the foot is is in dressing, dressing appears clean, erythema, edema, warmth, as well Amputation of left great toe Right foot amputation of all metatarsals Results Labs CBC and Chem 7: 06/21/22 15:43 06/21/22 15:43 Labs: Laboratory Results - last 24 hr 06/21/22 06/21/22 06/21/22 15:21 15:43 15:43 MCV 78.5 L MCH 24.8 L MCHC 31.5 RDW 15.4 Plt Count 326 MPV 10.8 Immature Gran % (Auto) 0.6 H Neut % (Auto) 89.7 H Lymph % (Auto) 4.6 L [place] % (Auto) 4.9 Eos % (Auto) 0.0 Baso % (Auto) 0.2 Lymph # (Auto) 0.5 L [place] # (Auto) 0.5 Eos # (Auto) 0.0 Baso # (Auto) 0.0 Abs Immat Gran (auto) 0.06 H Absolute Neuts (auto) 9.5 H Absolute Nucleated RBC 0.000 Nucleated RBC % (auto) 0.0 PT INR APTT Anion Gap 19 Estim Creat Clear Calc 51.8 Estimated GFR 39 POC Glucose 364 H* Random Glucose 446 H* Lactic Acid Lactic Acid F/U @ 2Hr Calcium 8.7 Magnesium 1.6 Total Bilirubin 0.8 Direct Bilirubin 0.4 AST 76 H ALT 52 H Alkaline Phosphatase 136 H Total Creatine Kinase Troponin I High Sens Total Protein 6.7 Albumin 3.1 L Ethyl Alcohol Acetone, Qual Influenza Type A (PCR) Influenza Type B (PCR) RSV RNA Qual (PCR) SARS-CoV-2 RNA (RT-PCR) 06/21/22 06/21/22 06/21/22 15:43 15:43 15:43 MCV MCH MCHC RDW Plt Count MPV Immature Gran % (Auto) Neut % (Auto) Lymph % (Auto) [place] % (Auto) Eos % (Auto) Baso % (Auto) Lymph # (Auto) [place] # (Auto) Eos # (Auto) Baso # (Auto) Abs Immat Gran (auto) Absolute Neuts (auto) Absolute Nucleated RBC Nucleated RBC % (auto) PT INR APTT Anion Gap Estim Creat Clear Calc Estimated GFR POC Glucose Random Glucose Lactic Acid 4.1 H* Lactic Acid F/U @ 2Hr Calcium Magnesium Total Bilirubin Direct Bilirubin AST ALT Alkaline Phosphatase Total Creatine Kinase 598 H Troponin I High Sens > 3600.0 H* Total Protein Albumin Ethyl Alcohol < 10 Acetone, Qual Influenza Type A (PCR) Influenza Type B (PCR) RSV RNA Qual (PCR) SARS-CoV-2 RNA (RT-PCR) 06/21/22 06/21/22 06/21/22 15:57 16:00 18:27 MCV MCH MCHC RDW Plt Count MPV Immature Gran % (Auto) Neut % (Auto) Lymph % (Auto) [place] % (Auto) Eos % (Auto) Baso % (Auto) Lymph # (Auto) [place] # (Auto) Eos # (Auto) Baso # (Auto) Abs Immat Gran (auto) Absolute Neuts (auto) Absolute Nucleated RBC Nucleated RBC % (auto) PT INR APTT Anion Gap Estim Creat Clear Calc Estimated GFR POC Glucose Random Glucose Lactic Acid Lactic Acid F/U @ 2Hr 1.0 Calcium Magnesium Total Bilirubin Direct Bilirubin AST ALT Alkaline Phosphatase Total Creatine Kinase Troponin I High Sens Total Protein Albumin Ethyl Alcohol Acetone, Qual Negative Influenza Type A (PCR) NEGATIVE Influenza Type B (PCR) NEGATIVE RSV RNA Qual (PCR) NEGATIVE SARS-CoV-2 RNA (RT-PCR) NEGATIVE 06/21/22 06/21/22 06/21/22 18:27 18:31 18:40 MCV MCH MCHC RDW Plt Count MPV Immature Gran % (Auto) Neut % (Auto) Lymph % (Auto) [place] % (Auto) Eos % (Auto) Baso % (Auto) Lymph # (Auto) [place] # (Auto) Eos # (Auto) Baso # (Auto) Abs Immat Gran (auto) Absolute Neuts (auto) Absolute Nucleated RBC Nucleated RBC % (auto) PT 13.4 H INR 1.2 H APTT 27.3 Anion Gap Estim Creat Clear Calc Estimated GFR POC Glucose 359 H* Random Glucose Lactic Acid Lactic Acid F/U @ 2Hr Calcium Magnesium Total Bilirubin Direct Bilirubin AST ALT Alkaline Phosphatase Total Creatine Kinase Troponin I High Sens > 3600.0 H* Total Protein Albumin Ethyl Alcohol Acetone, Qual Influenza Type A (PCR) Influenza Type B (PCR) RSV RNA Qual (PCR) SARS-CoV-2 RNA (RT-PCR) 06/21/22 20:31 MCV MCH MCHC RDW Plt Count MPV Immature Gran % (Auto) Neut % (Auto) Lymph % (Auto) [place] % (Auto) Eos % (Auto) Baso % (Auto) Lymph # (Auto) [place] # (Auto) Eos # (Auto) Baso # (Auto) Abs Immat Gran (auto) Absolute Neuts (auto) Absolute Nucleated RBC Nucleated RBC % (auto) PT INR APTT Anion Gap Estim Creat Clear Calc Estimated GFR POC Glucose 212 H Random Glucose Lactic Acid Lactic Acid F/U @ 2Hr Calcium Magnesium Total Bilirubin Direct Bilirubin AST ALT Alkaline Phosphatase Total Creatine Kinase Troponin I High Sens Total Protein Albumin Ethyl Alcohol Acetone, Qual Influenza Type A (PCR) Influenza Type B (PCR) RSV RNA Qual (PCR) SARS-CoV-2 RNA (RT-PCR) Imaging Radiologist's Impressions: Impressions Chest X-Ray 06/21/22 15:45 IMPRESSION: Mild bilateral lower lung linear atelectasis versus scarring. No acute cardiopulmonary process. Foot X-Ray 06/21/22 16:45 IMPRESSION: 1. Deep soft tissue ulcer along the medial plantar aspect of the midfoot approximating the underlying bone. No definite radiographic evidence of advanced acute osteomyelitis. 2. Marked soft tissue swelling with bubbles of gas along the medial aspect of the mid foot and ankle suspicious for gas-forming infection and possible fluid collection/abscess. Correlate clinically. 3. 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 4. Status post partial amputation of the first ray, unchanged. Head CT 06/21/22 16:53 IMPRESSION: No acute intracranial pathology. Assessment and Plan (1) Diabetic foot ulcer with osteomyelitis: Status: Acute (2) SUMIT (acute kidney injury): Status: Acute (3) Non-ST elevation CT (NSTEMI): Status: Acute (4) PAD (peripheral artery disease): Status: Acute (5) Type 2 diabetes mellitus: Status: Acute (6) Elevated lactic acid level: Status: Acute (7) Acute hyperglycemia: Status: Acute Plan This is a 67-year-old male with past medical history of diabetes and peripheral vascular disease with history of osteomyelitis presents to the hospital with complaints of left lower extremity wound # left lower extremity diabetic wound infection with possible osteomyelitis - has elevated ESR and CRP, leukocytosis - will treat with IV antibiotics - follow cultures - general surgery as well as Infectious Disease consulted - will obtain MRI for further evaluation of osteomyelitis # elevated troponin - significantly elevated troponin of more than 3600 - no chest pain, no EKG changes - cardiology was consulted felt to be type 2 secondary to above - patient treated with heparin but started having bleeding from the foot, at this time will stop heparin ggt as patient has no chest pain and no EKG changes and has bleeding from the wound, with anticipation possible surgical intervention - further Cardiology recommendation is appreciated # hyperglycemia - likely secondary to poorly controlled diabetes - continue home insulin low-dose sliding scale insulin, diabetic diet # SUMIT - likely prerenal in the setting of acute infection - will treat with IV fluids - follow BMP # hypertension - slightly low BP - hold antihypertensive - vitals q.4 hours DVT prophylaxis: SCDs in anticipation of possible surgical intervention Given patient's [place] for IV antibiotics for diabetic foot ulcer with osteomyelitis patient require minimum 2 night inpatient hospital stay Quality Stroke Does the patient have a stroke diagnosis?: No VTE Prior VTE?: No VTE Risk Level:: Medical - moderate - high VTE Device Contraindication: Treatment Not Indicated VTE Drug Contraindication: N/A - Med Ordered
[2022-06-21 21:48] LABS: C Reactive Protein 31.38 mg/dL (< or = 0.50)
--- NOTE | 2022-06-21 21:53 | PC.NURSE ---
Addendum entered by Mary Kate Begum 06/21/22 22:03: Pt is connected to the monitor and it shows NSR and normal BP. Original Note: Pt is a/o x4, pt has bilateral strength on his hands. Pt has pitting edema +4 on his left foot is red and his toes were amputated. Vanco was given, and heparin drip is running at a 10ml/hr, Aptt was obtain. Pt POC was 212 and 4 u humolog was given. Pt is not able to ambulate and utilizes the urinal.+ skin turgor.
[2022-06-21 22:22] LABS: Erythrocyte Sedimentation Rate 74 MM/HR (0-15)
[2022-06-21 23:50] LABS: Glucose, Whole Blood 186 mg/dL (60-115)
[2022-06-22] VITALS (7 sets, daily range): BP systolic 125–145; BP diastolic 58–74; PULSE 71–77; RESP 18–20; TEMP 36.6–37.3; O2SAT 94–96; BMI 28.0
[2022-06-22] MEDS: 0.9 % Sodium Chloride 1,000 ML 100 ML IVCONT
[2022-06-22 02:41] LABS: PTT Heparin Drip 41.7 SEC (53-77.9)
[2022-06-22] MEDS: Heparin Sodium,Porcine 5,000 UNIT/ML VIAL 4300 UNIT IVPUSH (02:51)
[2022-06-22] MEDS: Piperacillin Sodium/Tazobactam 3.375 GM in 0.9 % Sodium Chloride 50 ML IV ×4 (03:01→21:33)
[2022-06-22] MEDS: Lactated Ringers 1,000 ML 100 ML IVCONT ×2 (06:40→16:56)
--- NOTE | 2022-06-22 07:00 | CA_ITS ---
Transthoracic Echocardiogram Patient (Last, First, Middle): Giovanni Harper P Gender: Male Date of : 1955 Age: 67 Procedure Date: 06/22/2022 Procedure Type: Transthoracic Echocardiogram [place] [facility] [place]: 187.96 cm Weight: 98.88 kg BSA: 2.25 m2 Heart Rate: 77 bpm BP: 140 / 65 mmHg Hotel Server: SB Referring MD: Campbell Quintanilla MD Symptoms: elevated trop Study Quality: Adequate w contrast ECG Rhythm: Sinus Conclusions: - The left ventricular systolic function is mild to moderately decreased. The visually estimated ejection fraction is between 40-45%. - The basal anterior, mid anterior, basal inferoseptal, and basal anteroseptal segments are hypokinetic. - The basal inferior, mid inferior, mid inferoseptal, and mid anteroseptal segments are akinetic. - No obvious valvular pathology seen on this study. Findings Procedure Information Contrast agent, definity, is being given per protocol without apparent complications. Left Ventricle Normal left ventricular cavity size. There is normal left ventricular wall thickness. The left ventricular systolic function is mild to moderately decreased. The visually estimated ejection fraction is between 40-45%. There is evidence of regional wall motion abnormalities. Diastolic function is normal for age. Wall Motion Rest Echo Findings The basal anterior, mid anterior, basal inferoseptal, and basal anteroseptal segments are hypokinetic. The basal inferior, mid inferior, mid inferoseptal, and mid anteroseptal segments are akinetic. Right Ventricle Mildly increased right ventricular cavity size. There is normal right ventricular systolic function. Atria Both atria are normal in size. Aortic Valve The aortic valve was not well visualized. There is no aortic valve stenosis. There is no aortic valve regurgitation. Mitral Valve The mitral valve appears normal. There is no mitral valve regurgitation. There is no mitral valve stenosis. Pulmonic Valve The pulmonic valve is likely normal. Tricuspid Valve There is no tricuspid valve regurgitation. Tricuspid regurgitation envelope is inadequate for calculation of right ventricular systolic pressure. Great Vessels The aortic annulus and sinuses of valsalva are normal in size. Venous The inferior vena cava is normal in size and collapses greater than 50% with inspiration. Pericardium/Pleural There is no evidence of pericardial effusion. Prior Study Comparison No prior study available for comparison. Recommendations, Care & Conclusions No obvious valvular pathology seen on this study. Measurements 2D Linear Measurements IVSd: 0.68 0.6-0.9/0.6-1.0 cm LVIDd: 5.71 3.9-5.3/4.2-5.9 cm LVIDd Index: 2.54 2.4-3.2/2.2-3.1 cm/m2 LVIDs: 4.59 2.0-3.6 cm LVPWd: 0.67 0.7-1.1 cm LA Diam: 4.00 2.7-3.8/3.0-4.0 cm LAIDs Index: 1.78 1.5-2.3 cm/m2 LV Mass: 172.82 67-162/88-224 g LV Mass Index: 76.81 43-95/49-115 g/m2 LVOT Diam: 2.40 3.0+(-)1.3 cm 2D Systolic Function EF 4C: 53.10 >55% EF 2C: 46.90 >55% EF BiP: 48.80 >55% Mitral Valve MV Pk E: 0.76 MV PK A: 0.50 MV Decel Time: 178.00 E/A: 1.50 E'Lateral: 11.10 E'Medial: 5.98 E/E' Med: 12.70 E/E' Lat: 6.80 PHT: 52.00 MVA PHT: 4.23 Decel [place]: 4.26 Aortic Valve AoV Pk [place]ofer: 1.35 AoV Mn Kristofer: 1.08 AoV VTI: 0.32 AoV Pk Grad: 7.00 Aov Mn Grad: 5.00 COURT Cont.VTI: 3.34 LVOT LVOT Pk [place]ofer: 1.15 LVOT Mn Kristofer: 0.74 LVOT VTI: 0.24 LVOT Pk Grad: 5.00 LVOT Mn Grad: 3.00 LVOT Diam: 2.40 LVOT Area: 4.52 Diastolic Function MV Pk E: 0.76 MV Pk A: 0.50 E/A: 1.50 E'Medial: 5.98 E/E' Med: 12.70 E' Laterial: 11.10 E/E' Lat: 6.80 Right Ventricle TAPSE (mm): 24.40 TVS' Kristofer: 11.10 Tricuspid Valve RA Press: 3.00 Great Vessels Aorta Sinus of Valsalva: 3.50 2.0-3.5 cm Updated in Other Vendor System with Status of Final Gab Matamoros MD electronically signed on 06/22/2022 11:19:13 AM with status of Final
[2022-06-22 07:22] LABS: Glucose, Whole Blood 222 mg/dL (60-115)
[2022-06-22 08:23] LABS: Appearance Urine Cloudy; Color Urine Dark Yellow; Glucose Urine UA >=1000 mg/dL (Negative); Leukocyte Esterase Urine Small (1+) (Negative); Nitrite Urine Negative (Negative); PH 5.5 (5.0-9.0); Specific Gravity - Urine >= 1.030 (1.005-1.025); UMIC TRIGGER UA YES; Urine Blood Moderate (2+) (Negative); Urine Ketones Trace mg/dL (Negative); Urine Protein >=1000 (4+) mg/dL (Neg-Trace)
[2022-06-22 08:37] LABS: MANUAL DIFF FLAG NO
[2022-06-22 08:41] LABS: Basophils Percent Auto 0.3 % (0-2); Eosinophils Absolute Auto 0.1 X10*3/uL (0.0-0.4); Eosinophils Percent Auto 0.6 % (0-4); Hematocrit 35.6 % (42.0-52.0); Hemoglobin 10.8 g/dl (14.0-18.0); Lymphocytes Absolute Auto 0.8 X10*3/uL (1.2-4.9); Lymphocytes Percent Auto 8.5 % (20-40); Mean Corpuscular HGB Conc 30.3 g/dl (31.0-36.0); Mean Corpuscular Hemoglobin 24.5 pg (27.0-33.0); Mean Corpuscular Volume 80.7 fL (80.0-98.0); Monocytes Absolute Auto 0.7 X10*3/uL (0.1-1.2); Monocytes Percent Auto 7.5 % (2-11); Neutrophils Absolute Auto 8.1 x10*3/uL (2.0-8.3); Neutrophils Percent Auto 82.1 % (45-73); Platelet Count 303 X10*3/uL (160-400); Red Blood Count 4.41 X10*6/uL (4.60-5.80); Red Cell Distribution Width 15.6 % (11.0-16.0); White Blood Count 9.9 X10*3/uL (4.8-10.8)
[2022-06-22] MEDS: Insulin Lispro 100 UNIT/ML 3 ML VIAL SUBCUT ×4 (08:48→21:34)
[2022-06-22] MEDS: 0.9 % Sodium Chloride Flush 3 ML SYRINGE IVFLUSH ×2 (08:48→16:59)
[2022-06-22] MEDS: Aspirin Enteric Coated 81 MG TABLET.DR PO (08:48)
[2022-06-22 08:49] LABS: Prothrombin Time 11.7 SEC (10.0-13.1)
[2022-06-22 08:50] LABS: Bacteria Urine 1+ (None Seen); Epith (RTE) Cast Present; Granular Casts Urine Present; Hyaline Casts Urine >20 /LPF (0-2); RBC Urine >20 /HPF (0-2); WBC Urine 21-50 /HPF (0-5)
[2022-06-22 08:52] LABS: PTT Heparin Drip 25.1 SEC (53-77.9)
--- NOTE | 2022-06-22 09:00 | P.CONGS_ITS ---
History of Present Illness Consult details Consult date: 06/22/22 Narrative: 67-year-old male with a long history of diabetes and prefer ulcer disease, referred because of a wound infection of the foot. He has had a history of amputation of the big toe in the past. He says he is being followed by Dr. Mc because of peripheral vascular disease. He had some worsening edema and drainag e from the left foot for the past 2-3 weeks so he was brought to the emergency room last night He says he has had no open wound on the area of the medial and plantar aspect of this foot. He has had history of amputation of his the tarsals met right foot as well. He denies any fever or chills. Review of Systems Constitutional: Constitutional: Denies chills and Denies fever(s) Cardiovascular: Cardiovascular: Denies chest pain, Denies dyspnea and Denies dyspnea on exertion Respiratory: Respiratory: Denies cough, Denies dyspnea and Denies dyspnea on exertion Gastrointestinal: Gastrointestinal: Denies hematochezia and Denies change in bowel habits Genitourinary: Genitourinary: Denies hematuria and Denies difficulty urinating Musculoskeletal: Musculoskeletal: Denies back pain and Denies limited range of motion Neurologic: Denies focal weakness and Denies convulsions Psychiatric: Psychiatric: Denies depression and Denies mood swings PMFSH Past Medical History Medical History (Updated 06/25/22 @ 12:01 by James Mendoza DO) Acute hyperglycemia Cellulitis Diabetes Elevated lactic acid level Foot ulcer, right HTN (hypertension) with goal to be determined Hyperlipidemia Leukocytosis PAD (peripheral artery disease) Ulcer of left foot Family History Family History Mother No problems noted. Father No problems noted. Surgical History Surgical History Amputated great toe of left foot (01/09/20) History of transmetatarsal amputation of right foot (~2004) Status post debridement (03/04/20) Social History Social History Household Members: Family Housing: Apartment Do you presently have visiting nurse or other home services: No Alcohol intake: never Patient Tobacco Use Status: Current everyday Tobacco user Tobacco use type: Cigarette Cigarette Packs Per Day: 0.5 Cigarettes Per Day: 10.0 Years Smoked: 50 Smoked in Last 30 Days: Yes Second Hand Smoke Exposure: No Use of substances other than those prescribed or required for medical reasons: No Currently Displaying Signs/Symptoms of Drug Intoxication Withdrawal: No Have you been hit, kicked, punched, or otherwise hurt by someone within the past year? If so, by whom?: No Do you feel safe in your current relationship?: Yes Is there a partner from a previous relationship who is making you feel unsafe now?: No Are you made to feel afraid or neglected: No Advance Directives: No Advance Directives Information Provided: No Do you have thoughts of harming others: None Do you have a plan to hurt others: No Plan Recently lost weight without trying: No Nutrition Risks: No Nutritional Risk Poor oral hygiene: No service: No Current occupational status: retired and disabled Meds Allergies Allergy/AdvReac Type Severity Reaction Status Date / Time No Known Allergies Allergy Verified 06/21/22 15:16 [No Known Allergies*] Active Medications: Current Medications Acetaminophen (Acetaminophen 325 Mg Tablet) 650 mg PO Q6H PRN PRN Reason: Pain, Mild (Pain Scale 1-3) Aspirin (Aspirin Enteric Coated 81 Mg Tablet.Dr) 81 mg PO DAILY [facility] Last Admin: 06/22/22 08:48 Dose: 81 mg Atorvastatin Calcium (Atorvastatin Calcium 80 Mg Tablet) 80 mg PO BEDTIME CHET Dextrose (Dextrose 50 % 25 Gm/50 Ml Syringe) 25 gm IVPUSH Q15M PRN; Protocol PRN Reason: per Hypoglycemia Standing Ord. Docusate Sodium (Docusate Sodium 100 Mg Capsule) 100 mg PO DAILY PRN PRN Reason: Constipation Glucose (Glucose Gel 15 Gm Gel..Gram.) 15 gm PO Q15M PRN; Protocol PRN Reason: per Hypoglycemia Standing Ord. Piperacillin Sod/Tazobactam (Sod 3.375 gm/ Sodium Chloride) 50 mls @ 100 mls/hr IV Q6H [facility] Last Infusion: 06/22/22 04:00 Dose: Infused Vancomycin HCl 1,500 mg/ (Sodium Chloride) 500 mls @ 333.333 mls/hr IV Q24H CHET Lactated Ringer's (Lr) 1,000 mls @ 100 mls/hr IVCONT .Q10H [facility] Last Admin: 06/22/22 06:40 Dose: 100 mls/hr Insulin Glargine (Insulin Glargine,Hum.Rec.Anlog 100 Unit/Ml 10 Ml Vial) 25 unit SUBCUT BEDTIME [facility] Insulin Human Lispro (Insulin Lispro 100 Unit/Ml 3 Ml Vial) 0 unit SUBCUT Q IDACHS [facility]; Protocol Last Admin: 06/22/22 08:48 Dose: 4 unit Insulin Human Lispro (Insulin Lispro 100 Unit/Ml 3 Ml Vial) 0 unit SUBCUT QIDACHS [facility]; Protocol Morphine Sulfate (Morphine Sulfate 2 Mg/Ml Cartridge) 4 mg IVPUSH Q4H PRN; Protocol PRN Reason: Pain, Severe (Pain Scale 7-10) Ondansetron HCl (Ondansetron Hcl 4 Mg/2 Ml Vial) 4 mg IVPUSH Q8H PRN PRN Reason: Nausea and Vomiting Pharmacy Consult (Consult Rx Perform Med Rec) 1 each MISCELLANE ONCE PRN PRN Reason: Consult order Pharmacy Consult (Consult Rx Perform Med Rec) 1 each MISCELLANE ONCE PRN PRN Reason: Consult order Pharmacy Consult (Consult Rx Vancomycin Dosing) 1 each MISCELLANE DAILY PRN PRN Reason: Consult order Sodium Chloride (0.9 % Sodium Chloride Flush 3 Ml Syringe) [facility] Last Admin: 06/22/22 08:48 Dose: 3 ml Home Medications Medication Instructions Recorded Confirmed Last Taken Type atorvastatin 80 mg tablet 80 mg PO BEDTIME 04/27/20 06/21/22 02/06/21 History lisinopril 40 mg tablet 40 mg PO DAILY 04/27/20 06/21/22 06/21/22 History insulin NPH-regular 70-30 U-100 20 unit subcut BEDTIME 02/07/21 06/21/22 02/07/21 History insulin 100 unit/mL subcutaneous pen (Novolin 70-30 FlexPen U-100 Insulin) insulin NPH-regular 70-30 U-100 30 unit subcut DAILY 02/07/21 06/21/22 06/21/22 History insulin 100 unit/mL subcutaneous pen (Novolin 70-30 FlexPen U-100 Insulin) metformin 500 mg tablet,extended 2 tab PO BID 06/21/22 06/21/22 06/21/22 09:00 History release 24 hr verapamil 40 mg tablet 1 tab PO TID 06/21/22 06/21/22 06/21/22 09:00 History Physical Exam Vital Signs: Vital Signs: Last Vital Signs Temp 98.4 F 06/22/22 07:08 Pulse 74 06/22/22 07:08 Resp 20 06/22/22 07:08 BP 140/65 H 06/22/22 07:08 Pulse Ox 96 06/22/22 07:08 O2 Del Method 06/22/22 07:08 BMI result Body Mass Index 28.0 Const: Other: Not toxic looking General: comfortable and no acute distress Orientation/consciousness: patient oriented x3 Neck: Neck: Yes no lymphadenopathy Resp: Auscultation: clear to auscultation bilaterally Cardio: Rhythm: regular rhythm GI: Palpation (GI): Soft to palpation, nontender and no guarding Neuro: General: patient oriented x3 Extrem: Other: Left foot with amputated toe, with swelling and edema of the medial aspect and dorsal aspect, bogginess, and an open wound on the medial aspect measuring about 3 cm in widest diameter, serosanguineous drainage Results Labs Result diagrams: 06/26/22 06:06 06/26/22 06:06 Labs: Abnormal lab results 06/21/22 06/21/22 06/21/22 Range/Units 15:21 15:43 15:43 RBC 4.52 L (4.60-5.80) X10*6/uL Hgb 11.2 L (14.0-18.0) g/dl Hct 35.5 L (42.0-52.0) % MCV 78.5 L (80.0-98.0) fL MCH 24.8 L (27.0-33.0) pg MCHC (31.0-36.0) g/dl Immature Gran % (Auto) 0.6 H (0.0-0.4) % Neut % (Auto) 89.7 H (45-73) % Lymph % (Auto) 4.6 L (20-40) % Lymph # (Auto) 0.5 L (1.2-4.9) X10*3/uL Abs Immat Gran (auto) 0.06 H (0.00-0.03) X10*3/uL Absolute Neuts (auto) 9.5 H (2.0-8.3) x10*3/uL ESR (0-15) MM/HR PT (10.0-13.1) SEC INR (0.9-1.1) aPTT Heparin Protocol (53-77.9) SEC Sodium 132 L (135-145) mmol/L Carbon Dioxide 19 L (22-29) mmol/L BUN 28 H (9-16) mg/dL Creatinine 1.75 H (0.5-1.4) mg/dL POC Glucose 364 H* (60-115) mg/dL Random Glucose 446 H* (60-115) mg/dL Lactic Acid (0.5-2.0) mmol/L AST 76 H (5-37) U/L ALT 52 H (0-40) U/L Alkaline Phosphatase 136 H (39-117) U/L Total Creatine Kinase (38-174) U/L Troponin I High Sens (<3.5-35.0) ng/L C-Reactive Protein 31.38 H (< or = 0.50) mg/dL Albumin 3.1 L (3.5-5.0) g/dL Ur Specific [place] (1.005-1.025) Urine Protein (Neg-Trace) mg/dL Urine Glucose (UA) (Negative) mg/dL Urine Blood (Negative) Ur Leukocyte Esterase (Negative) Urine RBC (0-2) /HPF Urine WBC (0-5) /HPF 06/21/22 06/21/22 06/21/22 Range/Units 15:43 15:43 15:43 RBC (4.60-5.80) X10*6/uL Hgb (14.0-18.0) g/dl Hct (42.0-52.0) % MCV (80.0-98.0) fL MCH (27.0-33.0) pg MCHC (31.0-36.0) g/dl Immature Gran % (Auto) (0.0-0.4) % Neut % (Auto) (45-73) % Lymph % (Auto) (20-40) % Lymph # (Auto) (1.2-4.9) X10*3/uL Abs Immat Gran (auto) (0.00-0.03) X10*3/uL Absolute Neuts (auto) (2.0-8.3) x10*3/uL ESR (0-15) MM/HR PT (10.0-13.1) SEC INR (0.9-1.1) aPTT Heparin Protocol (53-77.9) SEC Sodium (135-145) mmol/L Carbon Dioxide (22-29) mmol/L BUN (9-16) mg/dL Creatinine (0.5-1.4) mg/dL POC Glucose (60-115) mg/dL Random Glucose (60-115) mg/dL Lactic Acid 4.1 H* (0.5-2.0) mmol/L AST (5-37) U/L ALT (0-40) U/L Alkaline Phosphatase (39-117) U/L Total Creatine Kinase 598 H (38-174) U/L Troponin I High Sens > 3600.0 H* (<3.5-35.0) ng/L C-Reactive Protein (< or = 0.50) mg/dL Albumin (3.5-5.0) g/dL Ur Specific [place] (1.005-1.025) Urine Protein (Neg-Trace) mg/dL Urine Glucose (UA) (Negative) mg/dL Urine Blood (Negative) Ur Leukocyte Esterase (Negative) Urine RBC (0-2) /HPF Urine WBC (0-5) /HPF 06/21/22 06/21/22 06/21/22 Range/Units 15:43 18:27 18:31 RBC (4.60-5.80) X10*6/uL Hgb (14.0-18.0) g/dl Hct (42.0-52.0) % MCV (80.0-98.0) fL MCH (27.0-33.0) pg MCHC (31.0-36.0) g/dl Immature Gran % (Auto) (0.0-0.4) % Neut % (Auto) (45-73) % Lymph % (Auto) (20-40) % Lymph # (Auto) (1.2-4.9) X10*3/uL Abs Immat Gran (auto) (0.00-0.03) X10*3/uL Absolute Neuts (auto) (2.0-8.3) x10*3/uL ESR 74 H (0-15) MM/HR PT (10.0-13.1) SEC INR (0.9-1.1) aPTT Heparin Protocol (53-77.9) SEC Sodium (135-145) mmol/L Carbon Dioxide (22-29) mmol/L BUN (9-16) mg/dL Creatinine (0.5-1.4) mg/dL POC Glucose 359 H* (60-115) mg/dL Random Glucose (60-115) mg/dL Lactic Acid (0.5-2.0) mmol/L AST (5-37) U/L ALT (0-40) U/L Alkaline Phosphatase (39-117) U/L Total Creatine Kinase (38-174) U/L Troponin I High Sens > 3600.0 H* (<3.5-35.0) ng/L C-Reactive Protein (< or = 0.50) mg/dL Albumin (3.5-5.0) g/dL Ur Specific [place] (1.005-1.025) Urine Protein (Neg-Trace) mg/dL Urine Glucose (UA) (Negative) mg/dL Urine Blood (Negative) Ur Leukocyte Esterase (Negative) Urine RBC (0-2) /HPF Urine WBC (0-5) /HPF 06/21/22 06/21/22 06/21/22 Range/Units 18:40 20:31 23:36 RBC (4.60-5.80) X10*6/uL Hgb (14.0-18.0) g/dl Hct (42.0-52.0) % MCV (80.0-98.0) fL MCH (27.0-33.0) pg MCHC (31.0-36.0) g/dl Immature Gran % (Auto) (0.0-0.4) % Neut % (Auto) (45-73) % Lymph % (Auto) (20-40) % Lymph # (Auto) (1.2-4.9) X10*3/uL Abs Immat Gran (auto) (0.00-0.03) X10*3/uL Absolute Neuts (auto) (2.0-8.3) x10*3/uL ESR (0-15) MM/HR PT 13.4 H (10.0-13.1) SEC INR 1.2 H (0.9-1.1) aPTT Heparin Protocol (53-77.9) SEC Sodium (135-145) mmol/L Carbon Dioxide (22-29) mmol/L BUN (9-16) mg/dL Creatinine (0.5-1.4) mg/dL POC Glucose 212 H 186 H (60-115) mg/dL Random Glucose (60-115) mg/dL Lactic Acid (0.5-2.0) mmol/L AST (5-37) U/L ALT (0-40) U/L Alkaline Phosphatase (39-117) U/L Total Creatine Kinase (38-174) U/L Troponin I High Sens (<3.5-35.0) ng/L C-Reactive Protein (< or = 0.50) mg/dL Albumin (3.5-5.0) g/dL Ur Specific [place] (1.005-1.025) Urine Protein (Neg-Trace) mg/dL Urine Glucose (UA) (Negative) mg/dL Urine Blood (Negative) Ur Leukocyte Esterase (Negative) Urine RBC (0-2) /HPF Urine WBC (0-5) /HPF 06/22/22 06/22/22 06/22/22 Range/Units 02:23 07:00 07:07 RBC (4.60-5.80) X10*6/uL Hgb (14.0-18.0) g/dl Hct (42.0-52.0) % MCV (80.0-98.0) fL MCH (27.0-33.0) pg MCHC (31.0-36.0) g/dl Immature Gran % (Auto) (0.0-0.4) % Neut % (Auto) (45-73) % Lymph % (Auto) (20-40) % Lymph # (Auto) (1.2-4.9) X10*3/uL Abs Immat Gran (auto) (0.00-0.03) X10*3/uL Absolute Neuts (auto) (2.0-8.3) x10*3/uL ESR (0-15) MM/HR PT (10.0-13.1) SEC INR (0.9-1.1) aPTT Heparin Protocol 41.7 L (53-77.9) SEC Sodium (135-145) mmol/L Carbon Dioxide (22-29) mmol/L BUN (9-16) mg/dL Creatinine (0.5-1.4) mg/dL POC Glucose 222 H (60-115) mg/dL Random Glucose (60-115) mg/dL Lactic Acid (0.5-2.0) mmol/L AST (5-37) U/L ALT (0-40) U/L Alkaline Phosphatase (39-117) U/L Total Creatine Kinase (38-174) U/L Troponin I High Sens (<3.5-35.0) ng/L C-Reactive Protein (< or = 0.50) mg/dL Albumin (3.5-5.0) g/dL Ur Specific [place] >= 1.030 H (1.005-1.025) Urine Protein >=1000 (4+) H (Neg-Trace) mg/dL Urine Glucose (UA) >=1000 H (Negative) mg/dL Urine Blood Moderate (2+) H (Negative) Ur Leukocyte Esterase Small (1+) H (Negative) Urine RBC >20 H (0-2) /HPF Urine WBC 21-50 H (0-5) /HPF 06/22/22 06/22/22 Range/Units 08:09 08:09 RBC 4.41 L (4.60-5.80) X10*6/uL Hgb 10.8 L (14.0-18.0) g/dl Hct 35.6 L (42.0-52.0) % MCV (80.0-98.0) fL MCH 24.5 L (27.0-33.0) pg MCHC 30.3 L (31.0-36.0) g/dl Immature Gran % (Auto) 1.0 H (0.0-0.4) % Neut % (Auto) 82.1 H (45-73) % Lymph % (Auto) 8.5 L (20-40) % Lymph # (Auto) 0.8 L (1.2-4.9) X10*3/uL Abs Immat Gran (auto) 0.10 H (0.00-0.03) X10*3/uL Absolute Neuts (auto) (2.0-8.3) x10*3/uL ESR (0-15) MM/HR PT (10.0-13.1) SEC INR (0.9-1.1) aPTT Heparin Protocol 25.1 L D (53-77.9) SEC Sodium (135-145) mmol/L Carbon Dioxide (22-29) mmol/L BUN (9-16) mg/dL Creatinine (0.5-1.4) mg/dL POC Glucose (60-115) mg/dL Random Glucose (60-115) mg/dL Lactic Acid (0.5-2.0) mmol/L AST (5-37) U/L ALT (0-40) U/L Alkaline Phosphatase (39-117) U/L Total Creatine Kinase (38-174) U/L Troponin I High Sens (<3.5-35.0) ng/L C-Reactive Protein (< or = 0.50) mg/dL Albumin (3.5-5.0) g/dL Ur Specific [place] (1.005-1.025) Urine Protein (Neg-Trace) mg/dL Urine Glucose (UA) (Negative) mg/dL Urine Blood (Negative) Ur Leukocyte Esterase (Negative) Urine RBC (0-2) /HPF Urine WBC (0-5) /HPF Short CBC 06/21/22 06/22/22 Range/Units 15:43 08:09 WBC 10.6 9.9 (4.8-10.8) X10*3/uL Hgb 11.2 L 10.8 L (14.0-18.0) g/dl Hct 35.5 L 35.6 L (42.0-52.0) % Plt Count 326 303 (160-400) X10*3/uL BMP 06/21/22 15:43 Sodium 132 L Potassium 4.5 Chloride 99 Carbon Dioxide 19 L BUN 28 H Creatinine 1.75 H Calcium 8.7 Cardiac Enzymes 06/21/22 Range/Units 15:43 Total Creatine Kinase 598 H (38-174) U/L Liver Function 06/21/22 Range/Units 15:43 Total Bilirubin 0.8 (0.0-1.0) mg/dL Direct Bilirubin 0.4 (0.0-0.5) mg/dL AST 76 H (5-37) U/L ALT 52 H (0-40) U/L Alkaline Phosphatase 136 H (39-117) U/L Albumin 3.1 L (3.5-5.0) g/dL Urine 06/22/22 Range/Units 07:00 Urine Color Dark Yellow Urine Appearance Cloudy Urine pH 5.5 (5.0-9.0) Ur Specific [place] >= 1.030 H (1.005-1.025) Urine Protein >=1000 (4+) H (Neg-Trace) mg/dL Urine Glucose (UA) >=1000 H (Negative) mg/dL All other labs normal. Imaging Additional studies: Laboratory Results WBC 9.9 X10*3/uL (4.8-10.8) 06/22/22 08:09 RBC 4.41 X10*6/uL (4.60-5.80) L 06/22/22 08:09 Hgb 10.8 g/dl (14.0-18.0) L 06/22/22 08:09 Hct 35.6 % (42.0-52.0) L 06/22/22 08:09 MCV 80.7 fL (80.0-98.0) 06/22/22 08:09 MCH 24.5 pg (27.0-33.0) L 06/22/22 08:09 MCHC 30.3 g/dl (31.0-36.0) L 06/22/22 08:09 RDW 15.6 % (11.0-16.0) 06/22/22 08:09 Plt Count 303 X10*3/uL (160-400) 06/22/22 08:09 MPV 11.0 fL (9.4-12.4) 06/22/22 08:09 Immature Gran % (Auto) 1.0 % (0.0-0.4) H 06/22/22 08:09 Neut % (Auto) 82.1 % (45-73) H 06/22/22 08:09 Lymph % (Auto) 8.5 % (20-40) L 06/22/22 08:09 [place] % (Auto) 7.5 % (2-11) 06/22/22 08:09 Eos % (Auto) 0.6 % (0-4) 06/22/22 08:09 Baso % (Auto) 0.3 % (0-2) 06/22/22 08:09 Lymph # (Auto) 0.8 X10*3/uL (1.2-4.9) L 06/22/22 08:09 [place] # (Auto) 0.7 X10*3/uL (0.1-1.2) 06/22/22 08:09 Eos # (Auto) 0.1 X10*3/uL (0.0-0.4) 06/22/22 08:09 Baso # (Auto) 0.0 X10*3/uL (0.0-0.2) 06/22/22 08:09 Abs Immat Gran (auto) 0.10 X10*3/uL (0.00-0.03) H 06/22/22 08:09 Absolute Neuts (auto) 8.1 x10*3/uL (2.0-8.3) 06/22/22 08:09 Absolute Nucleated RBC 0.000 X10*3/uL (0.0-0.012) 06/22/22 08:09 Nucleated RBC % (auto) 0.0 /100WBC (0.0-0.2) 06/22/22 08:09 ESR 74 MM/HR (0-15) H 06/21/22 15:43 PT 11.7 SEC (10.0-13.1) 06/22/22 08:09 PT Cancelled 06/22/22 08:09 INR 1.0 (0.9-1.1) 06/22/22 08:09 INR Cancelled 06/22/22 08:09 APTT 27.3 SEC (26.0-36.4) 06/21/22 18:40 aPTT Heparin Protocol 25.1 SEC (53-77.9) L D 06/22/22 08:09 Sodium 132 mmol/L (135-145) L 06/21/22 15:43 Potassium 4.5 mmol/L (3.3-5.1) 06/21/22 15:43 Chloride 99 mmol/L (96-108) 06/21/22 15:43 Carbon Dioxide 19 mmol/L (22-29) L 06/21/22 15:43 Anion Gap 19 (12-20) 06/21/22 15:43 BUN 28 mg/dL (9-16) H 06/21/22 15:43 Creatinine 1.75 mg/dL (0.5-1.4) H 06/21/22 15:43 Estim Creat Clear Calc 51.8 06/21/22 15:43 Estimated GFR 39 06/21/22 15:43 POC Glucose 222 mg/dL (60-115) H 06/22/22 07:07 Random Glucose 446 mg/dL (60-115) H* 06/21/22 15:43 Lactic Acid 4.1 mmol/L (0.5-2.0) H* 06/21/22 15:43 Lactic Acid F/U @ 2Hr 1.0 mmol/L (0.5-2.0) 06/21/22 18:27 Calcium 8.7 mg/dL (8.4-10.2) 06/21/22 15:43 Magnesium 1.6 mg/dL (1.6-2.6) 06/21/22 15:43 Total Bilirubin 0.8 mg/dL (0.0-1.0) 06/21/22 15:43 Direct Bilirubin 0.4 mg/dL (0.0-0.5) 06/21/22 15:43 AST 76 U/L (5-37) H 06/21/22 15:43 ALT 52 U/L (0-40) H 06/21/22 15:43 Alkaline Phosphatase 136 U/L (39-117) H 06/21/22 15:43 Total Creatine Kinase 598 U/L (38-174) H 06/21/22 15:43 Troponin I High Sens > 3600.0 ng/L (<3.5-35.0) H* 06/21/22 18:27 C-Reactive Protein 31.38 mg/dL (< or = 0.50) H 06/21/22 15:43 Total Protein 6.7 g/dL (6.5-8.0) 06/21/22 15:43 Albumin 3.1 g/dL (3.5-5.0) L 06/21/22 15:43 Urine Color Dark Yellow 06/22/22 07:00 Urine Appearance Cloudy 06/22/22 07:00 Urine pH 5.5 (5.0-9.0) 06/22/22 07:00 Ur Specific [place] >= 1.030 (1.005-1.025) H 06/22/22 07:00 Urine Protein >=1000 (4+) mg/dL (Neg-Trace) H 06/22/22 07:00 Urine Glucose (UA) >=1000 mg/dL (Negative) H 06/22/22 07:00 Urine Ketones Trace mg/dL (Negative) 06/22/22 07:00 Urine Blood Moderate (2+) (Negative) H 06/22/22 07:00 Urine Nitrite Negative (Negative) 06/22/22 07:00 Ur Leukocyte Esterase Small (1+) (Negative) H 06/22/22 07:00 Urine RBC >20 /HPF (0-2) H 06/22/22 07:00 Urine WBC 21-50 /HPF (0-5) H 06/22/22 07:00 Ur Squamous Epith Cells 11-20 /HPF (0-2) 06/22/22 07:00 Urine Bacteria 1+ (None Seen) 06/22/22 07:00 Epithelial Casts Present 06/22/22 07:00 Hyaline Casts >20 /LPF (0-2) 06/22/22 07:00 Granular Casts Present 06/22/22 07:00 Urine Yeast Present 06/22/22 07:00 Ethyl Alcohol < 10 mg/dL 06/21/22 15:43 Acetone, Qual Negative (Negative) 06/21/22 16:00 Influenza Type A (PCR) NEGATIVE (Negative) 06/21/22 15:57 Influenza Type B (PCR) NEGATIVE (Negative) 06/21/22 15:57 RSV RNA Qual (PCR) NEGATIVE (Negative) 06/21/22 15:57 SARS-CoV-2 RNA (RT-PCR) NEGATIVE (Negative) 06/21/22 15:57 Impressions Chest X-Ray 06/21/22 15:45 IMPRESSION: Mild bilateral lower lung linear atelectasis versus scarring. No acute cardiopulmonary process. Foot X-Ray 06/21/22 16:45 IMPRESSION: 1. Deep soft tissue ulcer along the medial plantar aspect of the midfoot approximating the underlying bone. No definite radiographic evidence of advanced acute osteomyelitis. 2. Marked soft tissue swelling with bubbles of gas along the medial aspect of the mid foot and ankle suspicious for gas-forming infection and possible fluid collection/abscess. Correlate clinically. 3. 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 4. Status post partial amputation of the first ray, unchanged. Head CT 06/21/22 16:53 IMPRESSION: No acute intracranial pathology. Assessment and Plan (1) Diabetic foot ulcer with osteomyelitis: Status: Acute He has an open wound on the left foot with swelling on an area adjacent to this dorsally. His x-ray shows a tissue defect on this area along with bubbles of gas but this is likely due to tracking within the planes of the soft tissue rather than an active necrotizing process. I have changes dressings and wrapped the foot with Kerlix roll. I recommend him to be seen by Dr. Mc was been following him over the years.He does have diagnosis of peripheral vascular disease. He is also waiting for an MRI. He is already on empiric IV antibiotics. He looks well and comfortable and is not toxic looking at this time. Procedures Date of Service Date of Service: 06/22/22
--- NOTE | 2022-06-22 09:02 | MHC.CM.PN ---
CM met with Patient at bedside and addressed IMM with him, providing him with the original and placing a copy on the chart. 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 Patient is active with [facility] and weekly visits to [facility]. Home/resume said services is the goal and CM has initiated and will follow for dc planning. PCP is Dr. Noel Cedeno and Patient has received 3 Covid vax.
[2022-06-22 09:12] LABS: Anion Gap 18 (12-20); Blood Urea Nitrogen 25 mg/dL (9-16); Calcium 8.2 mg/dL (8.4-10.2); Carbon Dioxide 19 mmol/L (22-29); Chloride 105 mmol/L (96-108); Estimated Glomerular Filt Rate 52; Glucose Random 226 mg/dL (60-115); Potassium 4.3 mmol/L (3.3-5.1); Sodium 138 mmol/L (135-145)
--- NOTE | 2022-06-22 10:07 | P.CONCA_ITS ---
History of Present Illness History of Present Illness Date of Service: 06/22/22 Chief complaint: Osteomyelitis, elevated trop Narrative: This is a cardiology consultation regarding elevated troponins. Patient denies any history of cardiac issues like coronary artery disease or myocardial infarction or cardiomyopathy or in fact anything cardiac at all. 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 Current admission is for left foot infection. From the cardiac standpoint, routine troponins were checked and they were high and hence we have been consulted. Patient denies any previous cardiac issues like myocardial infarction or coronary disease. He states that he actually walks regularly without issues. He can walk as much as a mi and still does not get chest pains. Not having any cardiac symptoms at this time. Review of Systems Review of Systems: Yes all other systems are reviewed and are negative Constitutional: Constitutional: Reports as per HPI Eyes: Eyes: Reports as per HPI ENT: Reports as per HPI Cardiovascular: Cardiovascular: Reports as per HPI, Denies acrocyanosis, Denies cool extremities, Denies chest pain, Denies leg edema, Denies lightheadedness, Denies palpitations and Denies dyspnea Respiratory: Respiratory: Reports as per HPI, Reports no additional respiratory complaints and Denies dyspnea Gastrointestinal: Gastrointestinal: Reports as per HPI and Reports no additional gastrointestinal complaints Genitourinary: Genitourinary: Reports no additional male genitourinary complaints and Reports as per HPI Musculoskeletal: Musculoskeletal: Reports no additional musculoskeletal complaints and Reports as per HPI Integumentary/Breasts: Skin/Breast: Reports system reviewed and no additional complaints, except as docu Neurologic: Reports system reviewed and no additional complaints, except as documented and Reports as per HPI Psychiatric: Psychiatric: Reports no additional psychiatric complaints and Reports as per HPI Endocrine: Endocrine: Reports no additional endocrine complaints, Reports as per HPI and Denies palpitations Hematologic/Lymphatic: Hematologic/Lymphatic: Reports no additional hematologic/lymphatic complaints and Reports as per HPI Allergic/Immunologic: Allergic/Immunologic: Reports no additional allergic/immunologic complaints and Reports as per HPI [facility] Past Medical History Medical History Acute hyperglycemia Cellulitis Diabetes Elevated lactic acid level Foot ulcer, right HTN (hypertension) with goal to be determined Hyperlipidemia Leukocytosis PAD (peripheral artery disease) Ulcer of left foot Family History Family History Mother No problems noted. Father No problems noted. Surgical History Surgical History Amputated great toe of left foot (01/09/20) History of transmetatarsal amputation of right foot (~2004) Status post debridement (03/04/20) Social History Social History Household Members: Family Housing: Apartment Do you presently have visiting nurse or other home services: No Alcohol intake: never Patient Tobacco Use Status: Current everyday Tobacco user Tobacco use type: Cigarette Cigarette Packs Per Day: 0.5 Cigarettes Per Day: 10.0 Years Smoked: 50 Smoked in Last 30 Days: Yes Second Hand Smoke Exposure: No Use of substances other than those prescribed or required for medical reasons: No Currently Displaying Signs/Symptoms of Drug Intoxication Withdrawal: No Have you been hit, kicked, punched, or otherwise hurt by someone within the past year? If so, by whom?: No Do you feel safe in your current relationship?: Yes Is there a partner from a previous relationship who is making you feel unsafe now?: No Are you made to feel afraid or neglected: No Advance Directives: No Advance Directives Information Provided: No Do you have thoughts of harming others: None Do you have a plan to hurt others: No Plan Recently lost weight without trying: No Nutrition Risks: No Nutritional Risk Poor oral hygiene: No service: No Current occupational status: retired and disabled Meds Allergies Allergy/AdvReac Type Severity Reaction Status Date / Time No Known Allergies Allergy Verified 06/21/22 15:16 [No Known Allergies*] Active Medications: Current Medications Acetaminophen (Acetaminophen 325 Mg Tablet) 650 mg PO Q6H PRN PRN Reason: Pain, Mild (Pain Scale 1-3) Aspirin (Aspirin Enteric Coated 81 Mg Tablet.) 81 mg PO DAILY CHET Last Admin: 06/22/22 08:48 Dose: 81 mg Atorvastatin Calcium (Atorvastatin Calcium 80 Mg Tablet) 80 mg PO BEDTIME CHET Dextrose (Dextrose 50 % 25 Gm/50 Ml Syringe) 25 gm IVPUSH Q15M PRN; Protocol PRN Reason: per Hypoglycemia Standing Ord. Docusate Sodium (Docusate Sodium 100 Mg Capsule) 100 mg PO DAILY PRN PRN Reason: Constipation Glucose (Glucose Gel 15 Gm Gel..Gram.) 15 gm PO Q15M PRN; Protocol PRN Reason: per Hypoglycemia Standing Ord. Piperacillin Sod/Tazobactam (Sod 3.375 gm/ Sodium Chloride) 50 mls @ 100 mls/hr IV Q6H ON LICENSE OF [facility] Last Infusion: 06/22/22 04:00 Dose: Infused Vancomycin HCl 1,500 mg/ (Sodium Chloride) 500 mls @ 333.333 mls/hr IV Q24H ON LICENSE OF [facility] Lactated Ringer's (Lr) 1,000 mls @ 100 mls/hr IVCONT .Q10H ON LICENSE OF [facility] Last Admin: 06/22/22 06:40 Dose: 100 mls/hr Insulin Glargine (Insulin Glargine,Hum.Rec.Anlog 100 Unit/Ml 10 Ml Vial) 25 unit SUBCUT BEDTIME ON LICENSE OF [facility] Insulin Human Lispro (Insulin Lispro 100 Unit/Ml 3 Ml Vial) 0 unit SUBCUT QIDACHS ON LICENSE OF [facility]; Protocol Last Admin: 06/22/22 08:48 Dose: 4 unit Insulin Human Lispro (Insulin Lispro 100 Unit/Ml 3 Ml Vial) 0 unit SUBCUT QIDACHS ON LICENSE OF [facility]; Protocol Morphine Sulfate (Morphine Sulfate 2 Mg/Ml Cartridge) 4 mg IVPUSH Q4H PRN; Protocol PRN Reason: Pain, Severe (Pain Scale 7-10) Ondansetron HCl (Ondansetron Hcl 4 Mg/2 Ml Vial) 4 mg IVPUSH Q8H PRN PRN Reason: Nausea and Vomiting Pharmacy Consult (Consult Rx Perform Med Rec) 1 each MISCELLANE ONCE PRN PRN Reason: Consult order Pharmacy Consult (Consult Rx Perform Med Rec) 1 each MISCELLANE ONCE PRN PRN Reason: Consult order Pharmacy Consult (Consult Rx Vancomycin Dosing) 1 each MISCELLANE DAILY PRN PRN Reason: Consult order Sodium Chloride (0.9 % Sodium Chloride Flush 3 Ml Syringe) [facility] Last Admin: 06/22/22 08:48 Dose: 3 ml Home Medications Medication Instructions Recorded Confirmed Last Taken Type atorvastatin 80 mg tablet 80 mg PO BEDTIME 04/27/20 06/21/22 02/06/21 History lisinopril 40 mg tablet 40 mg PO DAILY 09/06/21/22 06/21/22 History insulin NPH-regular 70-30 U-100 20 unit subcut BEDTIME 02/07/21 06/21/22 02/07/21 History insulin 100 unit/mL subcutaneous pen (Novolin 70-30 FlexPen U-100 Insulin) insulin NPH-regular 70-30 U-100 30 unit subcut DAILY 02/07/21 06/21/22 06/21/22 History insulin 100 unit/mL subcutaneous pen (Novolin 70-30 FlexPen U-100 Insulin) metformin 500 mg tablet,extended 2 tab PO BID 06/21/22 06/21/22 06/21/22 09:00 History release 24 hr verapamil 40 mg tablet 1 tab PO TID 06/21/22 06/21/22 06/21/22 09:00 History Physical Exam Vital Signs: Vital Signs: Last Vital Signs Temp 98.4 F 06/22/22 07:08 Pulse 74 06/22/22 07:08 Resp 20 06/22/22 07:08 BP 140/65 H 06/22/22 07:08 Pulse Ox 96 06/22/22 07:08 O2 Del Method 06/22/22 07:08 BMI result Body Mass Index 28.0 Const: General: comfortable and no acute distress Orientation/consciou sness: patient oriented x3 HEENT: Other: Unremarkable Head: Yes normal to inspection Neck: Neck: Yes normal visual inspection Chest: Chest palpation & inspection: normal inspection of the chest Resp: Auscultation: rhonchi Cardio: Other: Heart sounds are distant. No clear murmurs audible. Palpation: normal PMI GI: Palpation (GI): Soft to palpation Back/Spine/Pelvis: Other: unremarkable Skin: General skin exam: no rashes or lesions noted Neuro: General: patient oriented x3 Extrem: Other: Upper extremities unremarkable. Lower extremities have dressing in feet. Psych: Mental Status: mental status grossly normal Objective Labs and Meds Result diagrams: 06/22/22 08:09 06/22/22 08:09 Lab results: Laboratory Results - last 24 hr 06/21/22 06/21/22 06/21/22 15:21 15:43 15:43 WBC 10.6 RBC 4.52 L Hgb 11.2 L Hct 35.5 L MCV 78.5 L MCH 24.8 L MCHC 31.5 RDW 15.4 Plt Count 326 MPV 10.8 Immature Gran % (Auto) 0.6 H Neut % (Auto) 89.7 H Lymph % (Auto) 4.6 L [place] % (Auto) 4.9 Eos % (Auto) 0.0 Baso % (Auto) 0.2 Lymph # (Auto) 0.5 L [place] # (Auto) 0.5 Eos # (Auto) 0.0 Baso # (Auto) 0.0 Abs Immat Gran (auto) 0.06 H Absolute Neuts (auto) 9.5 H Absolute Nucleated RBC 0.000 Nucleated RBC % (auto) 0.0 ESR PT INR APTT aPTT Heparin Protocol Sodium 132 L Potassium 4.5 Chloride 99 Carbon Dioxide 19 L Anion Gap 19 BUN 28 H Creatinine 1.75 H Estim Creat Clear Calc 51.8 Estimated GFR 39 POC Glucose 364 H* Random Glucose 446 H* Lactic Acid Lactic Acid F/U @ 2Hr Calcium 8.7 Magnesium 1.6 Total Bilirubin 0.8 Direct Bilirubin 0.4 AST 76 H ALT 52 H Alkaline Phosphatase 136 H Total Creatine Kinase Troponin I High Sens C-Reactive Protein 31.38 H Total Protein 6.7 Albumin 3.1 L Urine Color Urine Appearance Urine pH Ur Specific Star Urine Protein Urine Glucose (UA) Urine Ketones Urine Blood Urine Nitrite Ur Leukocyte Esterase Urine RBC Urine WBC Ur Squamous Epith Cells Urine Bacteria Epithelial Casts Hyaline Casts Granular Casts Urine Yeast Ethyl Alcohol Acetone, Qual Influenza Type A (PCR) Influenza Type B (PCR) RSV RNA Qual (PCR) SARS-CoV-2 RNA (RT-PCR) 06/21/22 06/21/22 06/21/22 15:43 15:43 15:43 WBC RBC Hgb Hct MCV MCH MCHC RDW Plt Count MPV Immature Gran % (Auto) Neut % (Auto) Lymph % (Auto) [place] % (Auto) Eos % (Auto) Baso % (Auto) Lymph # (Auto) [place] # (Auto) Eos # (Auto) Baso # (Auto) Abs Immat Gran (auto) Absolute Neuts (auto) Absolute Nucleated RBC Nucleated RBC % (auto) ESR PT INR APTT aPTT Heparin Protocol Sodium Potassium Chloride Carbon Dioxide Anion Gap BUN Creatinine Estim Creat Clear Calc Estimated GFR POC Glucose Random Glucose Lactic Acid 4.1 H* Lactic Acid F/U @ 2Hr Calcium Magnesium Total Bilirubin Direct Bilirubin AST ALT Alkaline Phosphatase Total Creatine Kinase 598 H Troponin I High Sens > 3600.0 H* C-Reactive Protein Total Protein Albumin Urine Color Urine Appearance Urine pH Ur Specific Star Urine Protein Urine Glucose (UA) Urine Ketones Urine Blood Urine Nitrite Ur Leukocyte Esterase Urine RBC Urine WBC Ur Squamous Epith Cells Urine Bacteria Epithelial Casts Hyaline Casts Granular Casts Urine Yeast Ethyl Alcohol < 10 Acetone, Qual Influenza Type A (PCR) Influenza Type B (PCR) RSV RNA Qual (PCR) SARS-CoV-2 RNA (RT-PCR) 06/21/22 06/21/22 06/21/22 15:43 15:57 16:00 WBC RBC Hgb Hct MCV MCH MCHC RDW Plt Count MPV Immature Gran % (Auto) Neut % (Auto) Lymph % (Auto) [place] % (Auto) Eos % (Auto) Baso % (Auto) Lymph # (Auto) [place] # (Auto) Eos # (Auto) Baso # (Auto) Abs Immat Gran (auto) Absolute Neuts (auto) Absolute Nucleated RBC Nucleated RBC % (auto) ESR 74 H PT INR APTT aPTT Heparin Protocol Sodium Potassium Chloride Carbon Dioxide Anion Gap BUN Creatinine Estim Creat Clear Calc Estimated GFR POC Glucose Random Glucose Lactic Acid Lactic Acid F/U @ 2Hr Calcium Magnesium Total Bilirubin Direct Bilirubin AST ALT Alkaline Phosphatase Total Creatine Kinase Troponin I High Sens C-Reactive Protein Total Protein Albumin Urine Color Urine Appearance Urine pH Ur Specific Star Urine Protein Urine Glucose (UA) Urine Ketones Urine Blood Urine Nitrite Ur Leukocyte Esterase Urine RBC Urine WBC Ur Squamous Epith Cells Urine Bacteria Epithelial Casts Hyaline Casts Granular Casts Urine Yeast Ethyl Alcohol Acetone, Qual Negative Influenza Type A (PCR) NEGATIVE Influenza Type B (PCR) NEGATIVE RSV RNA Qual (PCR) NEGATIVE SARS-CoV-2 RNA (RT-PCR) NEGATIVE 06/21/22 06/21/22 06/21/22 18:27 18:27 18:31 WBC RBC Hgb Hct MCV MCH MCHC RDW Plt Count MPV Immature Gran % (Auto) Neut % (Auto) Lymph % (Auto) [place] % (Auto) Eos % (Auto) Baso % (Auto) Lymph # (Auto) [place] # (Auto) Eos # (Auto) Baso # (Auto) Abs Immat Gran (auto) Absolute Neuts (auto) Absolute Nucleated RBC Nucleated RBC % (auto) ESR PT INR APTT aPTT Heparin Protocol Sodium Potassium Chloride Carbon Dioxide Anion Gap BUN Creatinine Estim Creat Clear Calc Estimated GFR POC Glucose 359 H* Random Glucose Lactic Acid Lactic Acid F/U @ 2Hr 1.0 Calcium Magnesium Total Bilirubin Direct Bilirubin AST ALT Alkaline Phosphatase Total Creatine Kinase Troponin I High Sens > 3600.0 H* C-Reactive Protein Total Protein Albumin Urine Color Urine Appearance Urine pH Ur Specific Star Urine Protein Urine Glucose (UA) Urine Ketones Urine Blood Urine Nitrite Ur Leukocyte Esterase Urine RBC Urine WBC Ur Squamous Epith Cells Urine Bacteria Epithelial Casts Hyaline Casts Granular Casts Urine Yeast Ethyl Alcohol Acetone, Qual Influenza Type A (PCR) Influenza Type B (PCR) RSV RNA Qual (PCR) SARS-CoV-2 RNA (RT-PCR) 06/21/22 06/21/22 06/21/22 18:40 20:31 23:36 WBC RBC Hgb Hct MCV MCH MCHC RDW Plt Count MPV Immature Gran % (Auto) Neut % (Auto) Lymph % (Auto) [place] % (Auto) Eos % (Auto) Baso % (Auto) Lymph # (Auto) [place] # (Auto) Eos # (Auto) Baso # (Auto) Abs Immat Gran (auto) Absolute Neuts (auto) Absolute Nucleated RBC Nucleated RBC % (auto) ESR PT 13.4 H INR 1.2 H APTT 27.3 aPTT Heparin Protocol Sodium Potassium Chloride Carbon Dioxide Anion Gap BUN Creatinine Estim Creat Clear Calc Estimated GFR POC Glucose 212 H 186 H Random Glucose Lactic Acid Lactic Acid F/U @ 2Hr Calcium Magnesium Total Bilirubin Direct Bilirubin AST ALT Alkaline Phosphatase Total Creatine Kinase Troponin I High Sens C-Reactive Protein Total Protein Albumin Urine Color Urine Appearance Urine pH Ur Specific Star Urine Protein Urine Glucose (UA) Urine Ketones Urine Blood Urine Nitrite Ur Leukocyte Esterase Urine RBC Urine WBC Ur Squamous Epith Cells Urine Bacteria Epithelial Casts Hyaline Casts Granular Casts Urine Yeast Ethyl Alcohol Acetone, Qual Influenza Type A (PCR) Influenza Type B (PCR) RSV RNA Qual (PCR) SARS-CoV-2 RNA (RT-PCR) 06/22/22 06/22/22 06/22/22 02:23 07:00 07:07 WBC RBC Hgb Hct MCV MCH MCHC RDW Plt Count MPV Immature Gran % (Auto) Neut % (Auto) Lymph % (Auto) [place] % (Auto) Eos % (Auto) Baso % (Auto) Lymph # (Auto) [place] # (Auto) Eos # (Auto) Baso # (Auto) Abs Immat Gran (auto) Absolute Neuts (auto) Absolute Nucleated RBC Nucleated RBC % (auto) ESR PT INR APTT aPTT Heparin Protocol 41.7 L Sodium Potassium Chloride Carbon Dioxide Anion Gap BUN Creatinine Estim Creat Clear Calc Estimated GFR POC Glucose 222 H Random Glucose Lactic Acid Lactic Acid F/U @ 2Hr Calcium Magnesium Total Bilirubin Direct Bilirubin AST ALT Alkaline Phosphatase Total Creatine Kinase Troponin I High Sens C-Reactive Protein Total Protein Albumin Urine Color Dark Yellow Urine Appearance Cloudy Urine pH 5.5 Ur Specific Star >= 1.030 H Urine Protein >=1000 (4+) H Urine Glucose (UA) >=1000 H Urine Ketones Trace Urine Blood Moderate (2+) H Urine Nitrite Negative Ur Leukocyte Esterase Small (1+) H Urine RBC >20 H Urine WBC 21-50 H Ur Squamous Epith Cells 11-20 Urine Bacteria 1+ Epithelial Casts Present Hyaline Casts >20 Granular Casts Present Urine Yeast Present Ethyl Alcohol Acetone, Qual Influenza Type A (PCR) Influenza Type B (PCR) RSV RNA Qual (PCR) SARS-CoV-2 RNA (RT-PCR) 06/22/22 06/22/22 06/22/22 08:09 08:09 08:09 WBC 9.9 RBC 4.41 L Hgb 10.8 L Hct 35.6 L MCV 80.7 MCH 24.5 L MCHC 30.3 L RDW 15.6 Plt Count 303 MPV 11.0 Immature Gran % (Auto) 1.0 H Neut % (Auto) 82.1 H Lymph % (Auto) 8.5 L [place] % (Auto) 7.5 Eos % (Auto) 0.6 Baso % (Auto) 0.3 Lymph # (Auto) 0.8 L [place] # (Auto) 0.7 Eos # (Auto) 0.1 Baso # (Auto) 0.0 Abs Immat Gran (auto) 0.10 H Absolute Neuts (auto) 8.1 Absolute Nucleated RBC 0.000 Nucleated RBC % (auto) 0.0 ESR PT Cancelled 11.7 INR Cancelled 1.0 APTT aPTT Heparin Protocol 25.1 L D Sodium Potassium Chloride Carbon Dioxide Anion Gap BUN Creatinine Estim Creat Clear Calc Estimated GFR POC Glucose Random Glucose Lactic Acid Lactic Acid F/U @ 2Hr Calcium Magnesium Total Bilirubin Direct Bilirubin AST ALT Alkaline Phosphatase Total Creatine Kinase Troponin I High Sens C-Reactive Protein Total Protein Albumin Urine Color Urine Appearance Urine pH Ur Specific Star Urine Protein Urine Glucose (UA) Urine Ketones Urine Blood Urine Nitrite Ur Leukocyte Esterase Urine RBC Urine WBC Ur Squamous Epith Cells Urine Bacteria Epithelial Casts Hyaline Casts Granular Casts Urine Yeast Ethyl Alcohol Acetone, Qual Influenza Type A (PCR) Influenza Type B (PCR) RSV RNA Qual (PCR) SARS-CoV-2 RNA (RT-PCR) 06/22/22 08:09 WBC RBC Hgb Hct MCV MCH MCHC RDW Plt Count MPV Immature Gran % (Auto) Neut % (Auto) Lymph % (Auto) [place] % (Auto) Eos % (Auto) Baso % (Auto) Lymph # (Auto) [place] # (Auto) Eos # (Auto) Baso # (Auto) Abs Immat Gran (auto) Absolute Neuts (auto) Absolute Nucleated RBC Nucleated RBC % (auto) ESR PT INR APTT aPTT Heparin Protocol Sodium 138 Potassium 4.3 Chloride 105 Carbon Dioxide 19 L Anion Gap 18 BUN 25 H Creatinine 1.35 Estim Creat Clear Calc 65.0 Estimated GFR 52 POC Glucose Random Glucose 226 H Lactic Acid Lactic Acid F/U @ 2Hr Calcium 8.2 L Magnesium Total Bilirubin Direct Bilirubin AST ALT Alkaline Phosphatase Total Creatine Kinase Troponin I High Sens C-Reactive Protein Total Protein Albumin Urine Color Urine Appearance Urine pH Ur Specific Star Urine Protein Urine Glucose (UA) Urine Ketones Urine Blood Urine Nitrite Ur Leukocyte Esterase Urine RBC Urine WBC Ur Squamous Epith Cells Urine Bacteria Epithelial Casts Hyaline Casts Granular Casts Urine Yeast Ethyl Alcohol Acetone, Qual Influenza Type A (PCR) Influenza Type B (PCR) RSV RNA Qual (PCR) SARS-CoV-2 RNA (RT-PCR) ECG Interpretation: EKG with sinus rhythm at 93/Min; right bundle-branch block pattern; leftward axis. Similar to prior. Imaging Radiologist's impression: Impressions Chest X-Ray 06/21/22 15:45 IMPRESSION: Mild bilateral lower lung linear atelectasis versus scarring. No acute cardiopulmonary process. Foot X-Ray 06/21/22 16:45 IMPRESSION: 1. Deep soft tissue ulcer along the medial plantar aspect of the midfoot approximating the underlying bone. No definite radiographic evidence of advanced acute osteomyelitis. 2. Marked soft tissue swelling with bubbles of gas along the medial aspect of the mid foot and ankle suspicious for gas-forming infection and possible fluid collection/abscess. Correlate clinically. 3. 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 4. Status post partial amputation of the first ray, unchanged. Head CT 06/21/22 16:53 IMPRESSION: No acute intracranial pathology. Assessment and Plan (1) Non-ST elevation IN (NSTEMI): Status: Acute Plan Clinically, he does not have any anginal-type symptoms. EKG shows chronic right bundle-branch block but nothing acute. Troponins are more than 3600 x2; 3rd set pending. For management, would treat this as NSTEMI. Continue IV heparin drip. Aspirin, statins. He does have some LFT abnormalities that will need to be followed. Echocardiogram. Eventually, diagnostic catheterization. Discussed with . Procedures Date of Service Date of Service: 06/22/22
[2022-06-22 10:14] LABS: Troponin-I High Sensitivity > 3600.0 ng/L (<3.5-35.0)
[2022-06-22] MEDS: Heparin Sodium,Porcine/1/2NS 25,000 UNIT/250 ML IV.SOLN 11.9 UNIT IVCONT (10:27)
[2022-06-22 10:56] LABS: Glucose, Whole Blood 265 mg/dL (60-115)
--- NOTE | 2022-06-22 10:56 | PC.NURSE ---
Heparin gtt restarted per Dr Ball, vascular surgery and cardiologists. Heparin gtt started at 12units/kg/hr despite weight of 99.2kgs. Per Dr Ball and pharmacy. Second RN present for verification. PTT HD order in for [id number].
--- NOTE | 2022-06-22 10:58 | P.CONGS_ITS ---
History of Present Illness Consult details Consult date: 06/22/22 Reason for consult: wound care Narrative: Very pleasant 67-year-old gentleman well known to me for prior wound issues presents for follow-up. The developed some swelling and discomfort of the right foot. It progressively gotten worse. Was subsequently admitted yesterday. Upon workup he was discovered to have an IA. He was originally started on heparin but it was discontinued because there was bleeding from the wound bed. He now presents to us for vascular evaluation. Review of Systems Review of Systems: Yes all other systems are reviewed and are negative Constitutional: Constitutional: Reports no additional constitutional complaints ENT: Reports Normal hearing present Cardiovascular: Cardiovascular: Denies chest pain, Denies chest pain at rest, Denies chest pain with activity and Denies pedal edema Respiratory: Respiratory: Denies cough Gastrointestinal: Gastrointestinal: Denies abdominal pain Musculoskeletal: Musculoskeletal: Denies abnormal gait, Denies muscle cramps and Denies radiating pain into limb Integumentary/Breasts: Skin/Breast: Denies skin ulcer and Denies wounds Neurologic: Reports Normal hearing present and Denies abnormal gait Psychiatric: Psychiatric: Reports no additional psychiatric complaints [facility] Past Medical History Medical History Acute hyperglycemia Cellulitis Diabetes Elevated lactic acid level Foot ulcer, right HTN (hypertension) with goal to be determined Hyperlipidemia Leukocytosis PAD (peripheral artery disease) Ulcer of left foot Family History Family History (Updated 06/22/22 @ 10:09 by Gab Matamoros MD) Mother No problems noted. Father No problems noted. Surgical History Surgical History Amputated great toe of left foot (01/09/20) History of transmetatarsal amputation of right foot (~2004) Status post debridement (03/04/20) Social History Social History Household Members: Family Housing: Apartment Do you presently have visiting nurse or other home services: No Alcohol intake: never Patient Tobacco Use Status: Current everyday Tobacco user Tobacco use type: Cigarette Cigarette Packs Per Day: 0.5 Cigarettes Per Day: 10.0 Years Smoked: 50 Smoked in Last 30 Days: Yes Second Hand Smoke Exposure: No Use of substances other than those prescribed or required for medical reasons: No Currently Displaying Signs/Symptoms of Drug Intoxication Withdrawal: No Have you been hit, kicked, punched, or otherwise hurt by someone within the past year? If so, by whom?: No Do you feel safe in your current relationship?: Yes Is there a partner from a previous relationship who is making you feel unsafe now?: No Are you made to feel afraid or neglected: No Advance Directives: No Advance Directives Information Provided: No Do you have thoughts of harming others: None Do you have a plan to hurt others: No Plan Recently lost weight without trying: No Nutrition Risks: No Nutritional Risk Poor oral hygiene: No service: No Current occupational status: retired and disabled Meds Allergies Allergy/AdvReac Type Severity Reaction Status Date / Time No Known Allergies Allergy Verified 06/21/22 15:16 [No Known Allergies*] Active Medications: Current Medications Acetaminophen (Acetaminophen 325 Mg Tablet) 650 mg PO Q6H PRN PRN Reason: Pain, Mild (Pain Scale 1-3) Aspirin (Aspirin Enteric Coated 81 Mg Tablet.Dr) 81 mg PO DAILY [facility] Last Admin: 06/22/22 08:48 Dose: 81 mg Atorvastatin Calcium (Atorvastatin Calcium 80 Mg Tablet) 80 mg PO BEDTIME [facility] Dextrose (Dextrose 50 % 25 Gm/50 Ml Syringe) 25 gm IVPUSH Q15M PRN; Protocol PRN Reason: per Hypoglycemia Standing Ord. Docusate Sodium (Docusate Sodium 100 Mg Capsule) 100 mg PO DAILY PRN PRN Reason: Constipation Glucose (Glucose Gel 15 Gm Gel..Gram.) 15 gm PO Q15M PRN; Protocol PRN Reason: per Hypoglycemia Standing Ord. Heparin Sodium (Porcine) (Heparin Sodium,Porcine 5,000 Unit/Ml Vial) 4,000 unit 40 unit/kg (4000 unit) IVPUSH PROTOCOL BOLUS PRN; Protocol PRN Reason: 40 unit/kg - Heparin Protocol Heparin Sodium (Porcine) (Heparin Sodium,Porcine 5,000 Unit/Ml Vial) 7,900 unit 80 unit/kg (7900 unit) IVPUSH PROTOCOL BOLUS PRN; Protocol PRN Reason: 80 unit/kg - Heparin Protocol Piperacillin Sod/Tazobactam (Sod 3.375 gm/ Sodium Chloride) 50 mls @ 100 mls/hr IV Q6H [facility] Last Admin: 06/22/22 10:33 Dose: 100 mls/hr Vancomycin HCl 1,500 mg/ (Sodium Chloride) 500 mls @ 333.333 mls/hr IV Q24H [facility] Lactated Ringer's (Lr) 1,000 mls @ 100 mls/hr IVCONT .Q10H [facility] Last Admin: 06/22/22 06:40 Dose: 100 mls/hr Heparin Sodium/Sodium Chloride (Heparin Sodium,Porcine/1/2ns) 25,000 unit in 250 mls @ 0 mls/hr IVCONT .Q0M [facility]; Protocol Last Admin: 06/22/22 10:27 Dose: 12 units/kg/hr, 11.9 mls/hr Insulin Glargine (Insulin Glargine,Hum.Rec.Anlog 100 Unit/Ml 10 Ml Vial) 25 unit SUBCUT BEDTIME [facility] Insulin Human Lispro (Insulin Lispro 100 Unit/Ml 3 Ml Vial) 0 unit SUBCUT QIDACHS [facility]; Protocol Last Admin: 06/22/22 08:48 Dose: 4 unit Insulin Human Lispro (Insulin Lispro 100 Unit/Ml 3 Ml Vial) 0 unit SUBCUT QIDACHS [facility]; Protocol Morphine Sulfate (Morphine Sulfate 2 Mg/Ml Cartridge) 4 mg IVPUSH Q4H PRN; Protocol PRN Reason: Pain, Severe (Pain Scale 7-10) Ondansetron HCl (Ondansetron Hcl 4 Mg/2 Ml Vial) 4 mg IVPUSH Q8H PRN PRN Reason: Nausea and Vomiting Pharmacy Consult (Consult Rx Perform Med Rec) 1 each MISCELLANE ONCE PRN PRN Reason: Consult order Pharmacy Consult (Consult Rx Perform Med Rec) 1 each MISCELLANE ONCE PRN PRN Reason: Consult order Pharmacy Consult (Consult Rx Vancomycin Dosing) 1 each MISCELLANE DAILY PRN PRN Reason: Consult order Sodium Chloride (0.9 % Sodium Chloride Flush 3 Ml Syringe) 3 ml IVFLUSH QSHIFT [facility] Last Admin: 06/22/22 08:48 Dose: 3 ml Home Medications Medication Instructions Recorded Confirmed Last Taken Type atorvastatin 80 mg tablet 80 mg PO BEDTIME 04/27/20 06/21/22 02/06/21 History lisinopril 40 mg tablet 40 mg PO DAILY 04/27/20 06/21/22 06/21/22 History insulin NPH-regular 70-30 U-100 20 unit subcut BEDTIME 02/07/21 06/21/22 02/07/21 History insulin 100 unit/mL subcutaneous pen (Novolin 70-30 FlexPen U-100 Insulin) insulin NPH-regular 70-30 U-100 30 unit subcut DAILY 02/07/21 06/21/22 06/21/22 History insulin 100 unit/mL subcutaneous pen (Novolin 70-30 FlexPen U-100 Insulin) metformin 500 mg tablet,extended 2 tab PO BID 06/21/22 06/21/22 06/21/22 09:00 History release 24 hr verapamil 40 mg tablet 1 tab PO TID 06/21/22 06/21/22 06/21/22 09:00 History Physical Exam Vital Signs: Vital Signs: Last Vital Signs Temp 98.4 F 06/22/22 07:08 Pulse 74 06/22/22 07:08 Resp 20 06/22/22 07:08 BP 140/65 H 06/22/22 07:08 Pulse Ox 96 06/22/22 07:08 O2 Del Method 06/22/22 07:08 BMI result Body Mass Index 28.0 Const: General: cooperative, healthy appearing and comfortable Orientation/consciousness: oriented to person, oriented to place and oriented to time HEENT: Head: Yes normal to inspection Neck: Neck: Yes normal visual inspection Carotids: no bruits Chest: Chest palpation & inspection: normal inspection of the chest Resp: Effort & Inspection: normal respiratory effort and able to speak in complete sentences Auscultation: clear to auscultation bilaterally, no crackles, no rales, no rhonchi and no wheezes Cardio: Rate: regular rate Rhythm: regular rhythm Heart sounds: S1 normal heart sound present and S2 normal heart sound present Bruits: no carotid bruits Peripheral pulses: dorsalis pedis present (Bilateral DP signals) GI: Inspection: Yes normal to inspection Skin: Other: Left foot plantar aspect 3 cm in diameter ulcer penetrating to bone. Dorsum fluctuant collection. This was open. A copious amount of purulent material was cleared. Wound was open and packed on the dorsum of the foot. Wounds: wounds noted Hair: normal Neuro: General: oriented to person, oriented to place and oriented to time Cranial nerves: Yes CN's II-XII intact bilaterally and Yes Normal hearing prese nt Cognition (Neuro): normal cognition Motor exam (neuro): 5/5 motor strength present throughout Extrem: Other: venous exam: No significant superficial varicosities or spider mayr ngiectasias, minimal edema General: No clubbing, No cyanosis and No edema Psych: Appearance: grossly normal Mental Status: mental status grossly normal Speech and movement: Normal speech and movement present Results Labs Result diagrams: 06/22/22 08:09 06/22/22 08:09 Labs: Abnormal lab results 06/21/22 06/21/22 06/21/22 Range/Units 15:21 15:43 15:43 RBC 4.52 L (4.60-5.80) X10*6/uL Hgb 11.2 L (14.0-18.0) g/dl Hct 35.5 L (42.0-52.0) % MCV 78.5 L (80.0-98.0) fL MCH 24.8 L (27.0-33.0) pg MCHC (31.0-36.0) g/dl Immature Gran % (Auto) 0.6 H (0.0-0.4) % Neut % (Auto) 89.7 H (45-73) % Lymph % (Auto) 4.6 L (20-40) % Lymph # (Auto) 0.5 L (1.2-4.9) X10*3/uL Abs Immat Gran (auto) 0.06 H (0.00-0.03) X10*3/uL Absolute Neuts (auto) 9.5 H (2.0-8.3) x10*3/uL ESR (0-15) MM/HR PT (10.0-13.1) SEC INR (0.9-1.1) aPTT Heparin Protocol (53-77.9) SEC Sodium 132 L (135-145) mmol/L Carbon Dioxide 19 L (22-29) mmol/L BUN 28 H (9-16) mg/dL Creatinine 1.75 H (0.5-1.4) mg/dL POC Glucose 364 H* (60-115) mg/dL Random Glucose 446 H* (60-115) mg/dL Lactic Acid (0.5-2.0) mmol/L Calcium (8.4-10.2) mg/dL AST 76 H (5-37) U/L ALT 52 H (0-40) U/L Alkaline Phosphatase 136 H (39-117) U/L Total Creatine Kinase (38-174) U/L Troponin I High Sens (<3.5-35.0) ng/L C-Reactive Protein 31.38 H (< or = 0.50) mg/dL Albumin 3.1 L (3.5-5.0) g/dL Ur Specific L[place] (1.005-1.025) Urine Protein (Neg-Trace) mg/dL Urine Glucose (UA) (Negative) mg/dL Urine Blood (Negative) Ur Leukocyte Esterase (Negative) Urine RBC (0-2) /HPF Urine WBC (0-5) /HPF 06/21/22 06/21/22 06/21/22 Range/Units 15:43 15:43 15:43 RBC (4.60-5.80) X10*6/uL Hgb (14.0-18.0) g/dl Hct (42.0-52.0) % MCV (80.0-98.0) fL MCH (27.0-33.0) pg MCHC (31.0-36.0) g/dl Immature Gran % (Auto) (0.0-0.4) % Neut % (Auto) (45-73) % Lymph % (Auto) (20-40) % Lymph # (Auto) (1.2-4.9) X10*3/uL Abs Immat Gran (auto) (0.00-0.03) X10*3/uL Absolute Neuts (auto) (2.0-8.3) x10*3/uL ESR (0-15) MM/HR PT (10.0-13.1) SEC INR (0.9-1.1) aPTT Heparin Protocol (53-77.9) SEC Sodium (135-145) mmol/L Carbon Dioxide (22-29) mmol/L BUN (9-16) mg/dL Creatinine (0.5-1.4) mg/dL POC Glucose (60-115) mg/dL Random Glucose (60-115) mg/dL Lactic Acid 4.1 H* (0.5-2.0) mmol/L Calcium (8.4-10.2) mg/dL AST (5-37) U/L ALT (0-40) U/L Alkaline Phosphatase (39-117) U/L Total Creatine Kinase 598 H (38-174) U/L Troponin I High Sens > 3600.0 H* (<3.5-35.0) ng/L C-Reactive Protein (< or = 0.50) mg/dL Albumin (3.5-5.0) g/dL Ur Specific Lannon (1.005-1.025) Urine Protein (Neg-Trace) mg/dL Urine Glucose (UA) (Negative) mg/dL Urine Blood (Negative) Ur Leukocyte Esterase (Negative) Urine RBC (0-2) /HPF Urine WBC (0-5) /HPF 06/21/22 06/21/22 06/21/22 Range/Units 15:43 18:27 18:31 RBC (4.60-5.80) X10*6/uL Hgb (14.0-18.0) g/dl Hct (42.0-52.0) % MCV (80.0-98.0) fL MCH (27.0-33.0) pg MCHC (31.0-36.0) g/dl Immature Gran % (Auto) (0.0-0.4) % Neut % (Auto) (45-73) % Lymph % (Auto) (20-40) % Lymph # (Auto) (1.2-4.9) X10*3/uL Abs Immat Gran (auto) (0.00-0.03) X10*3/uL Absolute Neuts (auto) (2.0-8.3) x10*3/uL ESR 74 H (0-15) MM/HR PT (10.0-13.1) SEC INR (0.9-1.1) aPTT Heparin Protocol (53-77.9) SEC Sodium (135-145) mmol/L Carbon Dioxide (22-29) mmol/L BUN (9-16) mg/dL Creatinine (0.5-1.4) mg/dL POC Glucose 359 H* (60-115) mg/dL Random Glucose (60-115) mg/dL Lactic Acid (0.5-2.0) mmol/L Calcium (8.4-10.2) mg/dL AST (5-37) U/L ALT (0-40) U/L Alkaline Phosphatase (39-117) U/L Total Creatine Kinase (38-174) U/L Troponin I High Sens > 3600.0 H* (<3.5-35.0) ng/L C-Reactive Protein (< or = 0.50) mg/dL Albumin (3.5-5.0) g/dL Ur Specific L[place] (1.005-1.025) Urine Protein (Neg-Trace) mg/dL Urine Glucose (UA) (Negative) mg/dL Urine Blood (Negative) Ur Leukocyte Esterase (Negative) Urine RBC (0-2) /HPF Urine WBC (0-5) /HPF 06/21/22 06/21/22 06/21/22 Range/Units 18:40 20:31 23:36 RBC (4.60-5.80) X10*6/uL Hgb (14.0-18.0) g/dl Hct (42.0-52.0) % MCV (80.0-98.0) fL MCH (27.0-33.0) pg MCHC (31.0-36.0) g/dl Immature Gran % (Auto) (0.0-0.4) % Neut % (Auto) (45-73) % Lymph % (Auto) (20-40) % Lymph # (Auto) (1.2-4.9) X10*3/uL Abs Immat Gran (auto) (0.00-0.03) X10*3/uL Absolute Neuts (auto) (2.0-8.3) x10*3/uL ESR (0-15) MM/HR PT 13.4 H (10.0-13.1) SEC INR 1.2 H (0.9-1.1) aPTT Heparin Protocol (53-77.9) SEC Sodium (135-145) mmol/L Carbon Dioxide (22-29) mmol/L BUN (9-16) mg/dL Creatinine (0.5-1.4) mg/dL POC Glucose 212 H 186 H (60-115) mg/dL Random Glucose (60-115) mg/dL Lactic Acid (0.5-2.0) mmol/L Calcium (8.4-10.2) mg/dL AST (5-37) U/L ALT (0-40) U/L Alkaline Phosphatase (39-117) U/L Total Creatine Kinase (38-174) U/L Troponin I High Sens (<3.5-35.0) ng/L C-Reactive Protein (< or = 0.50) mg/dL Albumin (3.5-5.0) g/dL Ur Specific L[place] (1.005-1.025) Urine Protein (Neg-Trace) mg/dL Urine Glucose (UA) (Negative) mg/dL Urine Blood (Negative) Ur Leukocyte Esterase (Negative) Urine RBC (0-2) /HPF Urine WBC (0-5) /HPF 06/22/22 06/22/22 06/22/22 Range/Units 02:23 07:00 07:07 RBC (4.60-5.80) X10*6/uL Hgb (14.0-18.0) g/dl Hct (42.0-52.0) % MCV (80.0-98.0) fL MCH (27.0-33.0) pg MCHC (31.0-36.0) g/dl Immature Gran % (Auto) (0.0-0.4) % Neut % (Auto) (45-73) % Lymph % (Auto) (20-40) % Lymph # (Auto) (1.2-4.9) X10*3/uL Abs Immat Gran (auto) (0.00-0.03) X10*3/uL Absolute Neuts (auto) (2.0-8.3) x10*3/uL ESR (0-15) MM/HR PT (10.0-13.1) SEC INR (0.9-1.1) aPTT Heparin Protocol 41.7 L (53-77.9) SEC Sodium (135-145) mmol/L Carbon Dioxide (22-29) mmol/L BUN (9-16) mg/dL Creatinine (0.5-1.4) mg/dL POC Glucose 222 H (60-115) mg/dL Random Glucose (60-115) mg/dL Lactic Acid (0.5-2.0) mmol/L Calcium (8.4-10.2) mg/dL AST (5-37) U/L ALT (0-40) U/L Alkaline Phosphatase (39-117) U/L Total Creatine Kinase (38-174) U/L Troponin I High Sens (<3.5-35.0) ng/L C-Reactive Protein (< or = 0.50) mg/dL Albumin (3.5-5.0) g/dL Ur Specific L[place] >= 1.030 H (1.005-1.025) Urine Protein >=1000 (4+) H (Neg-Trace) mg/dL Urine Glucose (UA) >=1000 H (Negative) mg/dL Urine Blood Moderate (2+) H (Negative) Ur Leukocyte Esterase Small (1+) H (Negative) Urine RBC >20 H (0-2) /HPF Urine WBC 21-50 H (0-5) /HPF 06/22/22 06/22/22 06/22/22 Range/Units 08:09 08:09 08:09 RBC 4.41 L (4.60-5.80) X10*6/uL Hgb 10.8 L (14.0-18.0) g/dl Hct 35.6 L (42.0-52.0) % MCV (80.0-98.0) fL MCH 24.5 L (27.0-33.0) pg MCHC 30.3 L (31.0-36.0) g/dl Immature Gran % (Auto) 1.0 H (0.0-0.4) % Neut % (Auto) 82.1 H (45-73) % Lymph % (Auto) 8.5 L (20-40) % Lymph # (Auto) 0.8 L (1.2-4.9) X10*3/uL Abs Immat Gran (auto) 0.10 H (0.00-0.03) X10*3/uL Absolute Neuts (auto) (2.0-8.3) x10*3/uL ESR (0-15) MM/HR PT (10.0-13.1) SEC INR (0.9-1.1) aPTT Heparin Protocol 25.1 L D (53-77.9) SEC Sodium (135-145) mmol/L Carbon Dioxide 19 L (22-29) mmol/L BUN 25 H (9-16) mg/dL Creatinine (0.5-1.4) mg/dL POC Glucose (60-115) mg/dL Random Glucose 226 H (60-115) mg/dL Lactic Acid (0.5-2.0) mmol/L Calcium 8.2 L (8.4-10.2) mg/dL AST (5-37) U/L ALT (0-40) U/L Alkaline Phosphatase (39-117) U/L Total Creatine Kinase (38-174) U/L Troponin I High Sens (<3.5-35.0) ng/L C-Reactive Protein (< or = 0.50) mg/dL Albumin (3.5-5.0) g/dL Ur Specific [place] (1.005-1.025) Urine Protein (Neg-Trace) mg/dL Urine Glucose (UA) (Negative) mg/dL Urine Blood (Negative) Ur Leukocyte Esterase (Negative) Urine RBC (0-2) /HPF Urine WBC (0-5) /HPF 06/22/22 06/22/22 Range/Units 08:09 10:50 RBC (4.60-5.80) X10*6/uL Hgb (14.0-18.0) g/dl Hct (42.0-52.0) % MCV (80.0-98.0) fL MCH (27.0-33.0) pg MCHC (31.0-36.0) g/dl Immature Gran % (Auto) (0.0-0.4) % Neut % (Auto) (45-73) % Lymph % (Auto) (20-40) % Lymph # (Auto) (1.2-4.9) X10*3/uL Abs Immat Gran (auto) (0.00-0.03) X10*3/uL Absolute Neuts (auto) (2.0-8.3) x10*3/uL ESR (0-15) MM/HR PT (10.0-13.1) SEC INR (0.9-1.1) aPTT Heparin Protocol (53-77.9) SEC Sodium (135-145) mmol/L Carbon Dioxide (22-29) mmol/L BUN (9-16) mg/dL Creatinine (0.5-1.4) mg/dL POC Glucose 265 H (60-115) mg/dL Random Glucose (60-115) mg/dL Lactic Acid (0.5-2.0) mmol/L Calcium (8.4-10.2) mg/dL AST (5-37) U/L ALT (0-40) U/L Alkaline Phosphatase (39-117) U/L Total Creatine Kinase (38-174) U/L Troponin I High Sens > 3600.0 H* (<3.5-35.0) ng/L C-Reactive Protein (< or = 0.50) mg/dL Albumin (3.5-5.0) g/dL Ur Specific [place] (1.005-1.025) Urine Protein (Neg-Trace) mg/dL Urine Glucose (UA) (Negative) mg/dL Urine Blood (Negative) Ur Leukocyte Esterase (Negative) Urine RBC (0-2) /HPF Urine WBC (0-5) /HPF Short CBC 06/21/22 06/22/22 Range/Units 15:43 08:09 WBC 10.6 9.9 (4.8-10.8) X10*3/uL Hgb 11.2 L 10.8 L (14.0-18.0) g/dl Hct 35.5 L 35.6 L (42.0-52.0) % Plt Count 326 303 (160-400) X10*3/uL BMP 06/21/22 06/22/22 15:43 08:09 Sodium 132 L 138 Potassium 4.5 4.3 Chloride 99 105 Carbon Dioxide 19 L 19 L BUN 28 H 25 H Creatinine 1.75 H 1.35 Calcium 8.7 8.2 L Cardiac Enzymes 06/21/22 Range/Units 15:43 Total Creatine Kinase 598 H (38-174) U/L Liver Function 06/21/22 Range/Units 15:43 Total Bilirubin 0.8 (0.0-1.0) mg/dL Direct Bilirubin 0.4 (0.0-0.5) mg/dL AST 76 H (5-37) U/L ALT 52 H (0-40) U/L Alkaline Phosphatase 136 H (39-117) U/L Albumin 3.1 L (3.5-5.0) g/dL Urine 06/22/22 Range/Units 07:00 Urine Color Dark Yellow Urine Appearance Cloudy Urine pH 5.5 (5.0-9.0) Ur Specific L[place] >= 1.030 H (1.005-1.025) Urine Protein >=1000 (4+) H (Neg-Trace) mg/dL Urine Glucose (UA) >=1000 H (Negative) mg/dL All other labs normal. Assessment and Plan (1) PAD (peripheral artery disease): Status: Acute Plan In short patient has a nonhealing left foot ulcer. The problem is that the patient has underlying Charcot foot. He has a pressure ulcer where it is penetrating to bone. On the dorsum it was a purulence collection which was drained. This was opened up and I think the foot is stable at the current time. The bigger issue is that he has an IA. I do believe that some of the drainage was serosanguineous and some of this purulent material. Now that it has been cleared out and wrapped I do think it is safe to restart heparin. Will manage this as conservatively as possible at the current time. He is at risk for a BKA on that leg. This was discussed with the patient. We will continue to monitor with you. Wound care instructions were written. Procedures Date of Service Date of Service: 06/22/22
--- NOTE | 2022-06-22 11:06 | HE.PHANOTE ---
VANCO DOSING BASED ON SCR OF 1.35 DOSE CONTINUED AT [id number] WITH NEXT TROUGH BEING AT 06/23 @ 1500
--- NOTE | 2022-06-22 12:11 | P.PNIM_ITS ---
Subjective Subjective Date of Service: 06/22/22 Interval History: offers no acute complaints of chest pain, no shortness of breath, denies left foot pain, no fevers, no chills no acute issues since arrival to floor. Review of Systems General no headache no dizziness no fever chills. CVS no chest pain, no palpitation. Respiratory no cough no sob. Gastrointestinal no nausea no vomiting, no abdominal pain Review of Systems: Yes all other systems are reviewed and are negative Physical Exam Vital Signs: Vital Signs: Last Vital Signs Temp 99.2 F 06/22/22 11:00 Pulse 77 06/22/22 11:00 Resp 20 06/22/22 11:00 BP 145/74 H 06/22/22 11:00 Pulse Ox 94 06/22/22 11:00 O2 Del Method 06/22/22 11:00 BMI result Body Mass Index 28.0 Const: Other: General? resting comfortably,no acute distress. Neck no JVD. CVS? regular rate rhythm, Respiratory lungs clear to auscultation, no respiratory distress, no wheeze, no rhonchi. Gastrointestinal abdomen soft, nontender, bowel sounds audible Extremities right foot TMA, left foot dressing in place applied by vascular surgery after drainage Neuro nonfocal Skin no rash Objective Data Active Medications Acetaminophen (Acetaminophen 325 Mg Tablet) 650 mg PO Q6H PRN PRN Reason: Pain, Mild (Pain Scale 1-3) Aspirin (Aspirin Enteric Coated 81 Mg Tablet.) 81 mg PO DAILY [facility] Last Admin: 06/22/22 08:48 Dose: 81 mg Documented By: JACKIE Atorvastatin Calcium (Atorvastatin Calcium 80 Mg Tablet) 80 mg PO BEDTIME [facility] Dextrose (Dextrose 50 % 25 Gm/50 Ml Syringe) 25 gm IVPUSH Q15M PRN; Protocol PRN Reason: per Hypoglycemia Standing Ord. Docusate Sodium (Docusate Sodium 100 Mg Capsule) 100 mg PO DAILY PRN PRN Reason: Constipation Glucose (Glucose Gel 15 Gm Gel..Gram.) 15 gm PO Q15M PRN; Protocol PRN Reason: per Hypoglycemia Standing Ord. Heparin Sodium (Porcine) (Heparin Sodium,Porcine 5,000 Unit/Ml Vial) 4,000 unit 40 unit/kg (4000 unit) IVPUSH PROTOCOL BOLUS PRN; Protocol PRN Reason: 40 unit/kg - Heparin Protocol Heparin Sodium (Porcine) (Heparin Sodium,Porcine 5,000 Unit/Ml Vial) 7,900 unit 80 unit/kg (7900 unit) IVPUSH PROTOCOL BOLUS PRN; Protocol PRN Reason: 80 unit/kg - Heparin Protocol Piperacillin Sod/Tazobactam (Sod 3.375 gm/ Sodium Chloride) 50 mls @ 100 mls/hr IV Q6H [facility] Last Infusion: 06/22/22 12:01 Dose: 0 mls/hr Documented By: JACKIE Vancomycin HCl 1,500 mg/ (Sodium Chloride) 500 mls @ 333.333 mls/hr IV Q24H [facility] Lactated Ringer's (Lr) 1,000 mls @ 100 mls/hr IVCONT .Q10H [facility] Last Admin: 06/22/22 06:40 Dose: 100 mls/hr Documented By: MINDY Heparin Sodium/Sodium Chloride (Heparin Sodium,Porcine/1/2ns) 25,000 unit in 250 mls @ 0 mls/hr IVCONT .Q0M [facility]; Protocol Last Admin: 06/22/22 10:27 Dose: 12 units/kg/hr, 11.9 mls/hr Documented By: JACKIE Co-signed By: RACHEL Insulin Glargine (Insulin Glargine,Hum.Rec.Anlog 100 Unit/Ml 10 Ml Vial) 25 unit SUBCUT BEDTIME [facility] Insulin Human Lispro (Insulin Lispro 100 Unit/Ml 3 Ml Vial) 0 unit SUBCUT QIDACHS [facility]; Protocol Morphine Sulfate (Morphine Sulfate 2 Mg/Ml Cartridge) 4 mg IVPUSH Q4H PRN; Protocol PRN Reason: Pain, Severe (Pain Scale 7-10) Ondansetron HCl (Ondansetron Hcl 4 Mg/2 Ml Vial) 4 mg IVPUSH Q8H PRN PRN Reason: Nausea and Vomiting Pharmacy Consult (Consult Rx Perform Med Rec) 1 each MISCELLANE ONCE PRN PRN Reason: Consult order Pharmacy Consult (Consult Rx Perform Med Rec) 1 each MISCELLANE ONCE PRN PRN Reason: Consult order Pharmacy Consult (Consult Rx Vancomycin Dosing) 1 each MISCELLANE DAILY PRN PRN Reason: Consult order Sodium Chloride (0.9 % Sodium Chloride Flush 3 Ml Syringe) 3 ml IVFLUSH QSHIFT [facility] Last Admin: 11/21/22 08:48 Dose: 3 ml Documented By: JACKIE Labs CBC & Chem 7: 06/22/22 08:09 06/22/22 08:09 Labs: Laboratory Results - last 24 hr 06/21/22 06/21/22 06/21/22 15:21 15:43 15:43 MCV 78.5 L MCH 24.8 L MCHC 31.5 RDW 15.4 Plt Count 326 MPV 10.8 Immature Gran % (Auto) 0.6 H Neut % (Auto) 89.7 H Lymph % (Auto) 4.6 L [place] % (Auto) 4.9 Eos % (Auto) 0.0 Baso % (Auto) 0.2 Lymph # (Auto) 0.5 L [place] # (Auto) 0.5 Eos # (Auto) 0.0 Baso # (Auto) 0.0 Abs Immat Gran (auto) 0.06 H Absolute Neuts (auto) 9.5 H Absolute Nucleated RBC 0.000 Nucleated RBC % (auto) 0.0 ESR PT INR APTT aPTT Heparin Protocol Anion Gap 19 Estim Creat Clear Calc 51.8 Estimated GFR 39 POC Glucose 364 H* Random Glucose 446 H* Lactic Acid Lactic Acid F/U @ 2Hr Calcium 8.7 Magnesium 1.6 Total Bilirubin 0.8 Direct Bilirubin 0.4 AST 76 H ALT 52 H Alkaline Phosphatase 136 H Total Creatine Kinase Troponin I High Sens C-Reactive Protein 31.38 H Total Protein 6.7 Albumin 3.1 L Urine Color Urine Appearance Urine pH Ur Specific [place] Urine Protein Urine Glucose (UA) Urine Ketones Urine Blood Urine Nitrite Ur Leukocyte Esterase Urine RBC Urine WBC Ur Squamous Epith Cells Urine Bacteria Epithelial Casts Hyaline Casts Granular Casts Urine Yeast Ethyl Alcohol Acetone, Qual Influenza Type A (PCR) Influenza Type B (PCR) RSV RNA Qual (PCR) SARS-CoV-2 RNA (RT-PCR) 06/21/22 06/21/22 06/21/22 15:43 15:43 15:43 MCV MCH MCHC RDW Plt Count MPV Immature Gran % (Auto) Neut % (Auto) Lymph % (Auto) [place] % (Auto) Eos % (Auto) Baso % (Auto) Lymph # (Auto) [place] # (Auto) Eos # (Auto) Baso # (Auto) Abs Immat Gran (auto) Absolute Neuts (auto) Absolute Nucleated RBC Nucleated RBC % (auto) ESR PT INR APTT aPTT Heparin Protocol Anion Gap Estim Creat Clear Calc Estimated GFR POC Glucose Random Glucose Lactic Acid 4.1 H* Lactic Acid F/U @ 2Hr Calcium Magnesium Total Bilirubin Direct Bilirubin AST ALT Alkaline Phosphatase Total Creatine Kinase 598 H Troponin I High Sens > 3600.0 H* C-Reactive Protein Total Protein Albumin Urine Color Urine Appearance Urine pH Ur Specific [place] Urine Protein Urine Glucose (UA) Urine Ketones Urine Blood Urine Nitrite Ur Leukocyte Esterase Urine RBC Urine WBC Ur Squamous Epith Cells Urine Bacteria Epithelial Casts Hyaline Casts Granular Casts Urine Yeast Ethyl Alcohol < 10 Acetone, Qual Influenza Type A (PCR) Influenza Type B (PCR) RSV RNA Qual (PCR) SARS-CoV-2 RNA (RT-PCR) 06/21/22 06/21/22 06/21/22 15:43 15:57 16:00 MCV MCH MCHC RDW Plt Count MPV Immature Gran % (Auto) Neut % (Auto) Lymph % (Auto) [place] % (Auto) Eos % (Auto) Baso % (Auto) Lymph # (Auto) [place] # (Auto) Eos # (Auto) Baso # (Auto) Abs Immat Gran (auto) Absolute Neuts (auto) Absolute Nucleated RBC Nucleated RBC % (auto) ESR 74 H PT INR APTT aPTT Heparin Protocol Anion Gap Estim Creat Clear Calc Estimated GFR POC Glucose Random Glucose Lactic Acid Lactic Acid F/U @ 2Hr Calcium Magnesium Total Bilirubin Direct Bilirubin AST ALT Alkaline Phosphatase Total Creatine Kinase Troponin I High Sens C-Reactive Protein Total Protein Albumin Urine Color Urine Appearance Urine pH Ur Specific [place] Urine Protein Urine Glucose (UA) Urine Ketones Urine Blood Urine Nitrite Ur Leukocyte Esterase Urine RBC Urine WBC Ur Squamous Epith Cells Urine Bacteria Epithelial Casts Hyaline Casts Granular Casts Urine Yeast Ethyl Alcohol Acetone, Qual Negative Influenza Type A (PCR) NEGATIVE Influenza Type B (PCR) NEGATIVE RSV RNA Qual (PCR) NEGATIVE SARS-CoV-2 RNA (RT-PCR) NEGATIVE 06/21/22 06/21/22 06/21/22 18:27 18:27 18:31 MCV MCH MCHC RDW Plt Count MPV Immature Gran % (Auto) Neut % (Auto) Lymph % (Auto) [place] % (Auto) Eos % (Auto) Baso % (Auto) Lymph # (Auto) [place] # (Auto) Eos # (Auto) Baso # (Auto) Abs Immat Gran (auto) Absolute Neuts (auto) Absolute Nucleated RBC Nucleated RBC % (auto) ESR PT INR APTT aPTT Heparin Protocol Anion Gap Estim Creat Clear Calc Estimated GFR POC Glucose 359 H* Random Glucose Lactic Acid Lactic Acid F/U @ 2Hr 1.0 Calcium Magnesium Total Bilirubin Direct Bilirubin AST ALT Alkaline Phosphatase Total Creatine Kinase Troponin I High Sens > 3600.0 H* C-Reactive Protein Total Protein Albumin Urine Color Urine Appearance Urine pH Ur Specific [place] Urine Protein Urine Glucose (UA) Urine Ketones Urine Blood Urine Nitrite Ur Leukocyte Esterase Urine RBC Urine WBC Ur Squamous Epith Cells Urine Bacteria Epithelial Casts Hyaline Casts Granular Casts Urine Yeast Ethyl Alcohol Acetone, Qual Influenza Type A (PCR) Influenza Type B (PCR) RSV RNA Qual (PCR) SARS-CoV-2 RNA (RT-PCR) 06/21/22 06/21/22 06/21/22 18:40 20:31 23:36 MCV MCH MCHC RDW Plt Count MPV Immature Gran % (Auto) Neut % (Auto) Lymph % (Auto) [place] % (Auto) Eos % (Auto) Baso % (Auto) Lymph # (Auto) [place] # (Auto) Eos # (Auto) Baso # (Auto) Abs Immat Gran (auto) Absolute Neuts (auto) Absolute Nucleated RBC Nucleated RBC % (auto) ESR PT 13.4 H INR 1.2 H APTT 27.3 aPTT Heparin Protocol Anion Gap Estim Creat Clear Calc Estimated GFR POC Glucose 212 H 186 H Random Glucose Lactic Acid Lactic Acid F/U @ 2Hr Calcium Magnesium Total Bilirubin Direct Bilirubin AST ALT Alkaline Phosphatase Total Creatine Kinase Troponin I High Sens C-Reactive Protein Total Protein Albumin Urine Color Urine Appearance Urine pH Ur Specific [place] Urine Protein Urine Glucose (UA) Urine Ketones Urine Blood Urine Nitrite Ur Leukocyte Esterase Urine RBC Urine WBC Ur Squamous Epith Cells Urine Bacteria Epithelial Casts Hyaline Casts Granular Casts Urine Yeast Ethyl Alcohol Acetone, Qual Influenza Type A (PCR) Influenza Type B (PCR) RSV RNA Qual (PCR) SARS-CoV-2 RNA (RT-PCR) 06/22/22 06/22/22 06/22/22 02:23 07:00 07:07 MCV MCH MCHC RDW Plt Count MPV Immature Gran % (Auto) Neut % (Auto) Lymph % (Auto) [place] % (Auto) Eos % (Auto) Baso % (Auto) Lymph # (Auto) [place] # (Auto) Eos # (Auto) Baso # (Auto) Abs Immat Gran (auto) Absolute Neuts (auto) Absolute Nucleated RBC Nucleated RBC % (auto) ESR PT INR APTT aPTT Heparin Protocol 41.7 L Anion Gap Estim Creat Clear Calc Estimated GFR POC Glucose 222 H Random Glucose Lactic Acid Lactic Acid F/U @ 2Hr Calcium Magnesium Total Bilirubin Direct Bilirubin AST ALT Alkaline Phosphatase Total Creatine Kinase Troponin I High Sens C-Reactive Protein Total Protein Albumin Urine Color Dark Yellow Urine Appearance Cloudy Urine pH 5.5 Ur Specific [place] >= 1.030 H Urine Protein >=1000 (4+) H Urine Glucose (UA) >=1000 H Urine Ketones Trace Urine Blood Moderate (2+) H Urine Nitrite Negative Ur Leukocyte Esterase Small (1+) H Urine RBC >20 H Urine WBC 21-50 H Ur Squamous Epith Cells 11-20 Urine Bacteria 1+ Epithelial Casts Present Hyaline Casts >20 Granular Casts Present Urine Yeast Present Ethyl Alcohol Acetone, Qual Influenza Type A (PCR) Influenza Type B (PCR) RSV RNA Qual (PCR) SARS-CoV-2 RNA (RT-PCR) 06/22/22 06/22/22 06/22/22 08:09 08:09 08:09 MCV 80.7 MCH 24.5 L MCHC 30.3 L RDW 15.6 Plt Count 303 MPV 11.0 Immature Gran % (Auto) 1.0 H Neut % (Auto) 82.1 H Lymph % (Auto) 8.5 L [place] % (Auto) 7.5 Eos % (Auto) 0.6 Baso % (Auto) 0.3 Lymph # (Auto) 0.8 L [place] # (Auto) 0.7 Eos # (Auto) 0.1 Baso # (Auto) 0.0 Abs Immat Gran (auto) 0.10 H Absolute Neuts (auto) 8.1 Absolute Nucleated RBC 0.000 Nucleated RBC % (auto) 0.0 ESR PT Cancelled 11.7 INR Cancelled 1.0 APTT aPTT Heparin Protocol 25.1 L D Anion Gap Estim Creat Clear Calc Estimated GFR POC Glucose Random Glucose Lactic Acid Lactic Acid F/U @ 2Hr Calcium Magnesium Total Bilirubin Direct Bilirubin AST ALT Alkaline Phosphatase Total Creatine Kinase Troponin I High Sens C-Reactive Protein Total Protein Albumin Urine Color Urine Appearance Urine pH Ur Specific [place] Urine Protein Urine Glucose (UA) Urine Ketones Urine Blood Urine Nitrite Ur Leukocyte Esterase Urine RBC Urine WBC Ur Squamous Epith Cells Urine Bacteria Epithelial Casts Hyaline Casts Granular Casts Urine Yeast Ethyl Alcohol Acetone, Qual Influenza Type A (PCR) Influenza Type B (PCR) RSV RNA Qual (PCR) SARS-CoV-2 RNA (RT-PCR) 06/22/22 06/22/22 06/22/22 08:09 08:09 10:50 MCV MCH MCHC RDW Plt Count MPV Immature Gran % (Auto) Neut % (Auto) Lymph % (Auto) [place] % (Auto) Eos % (Auto) Baso % (Auto) Lymph # (Auto) [place] # (Auto) Eos # (Auto) Baso # (Auto) Abs Immat Gran (auto) Absolute Neuts (auto) Absolute Nucleated RBC Nucleated RBC % (auto) ESR PT INR APTT aPTT Heparin Protocol Anion Gap 18 Estim Creat Clear Calc 65.0 Estimated GFR 52 POC Glucose 265 H Random Glucose 226 H Lactic Acid Lactic Acid F/U @ 2Hr Calcium 8.2 L Magnesium Total Bilirubin Direct Bilirubin AST ALT Alkaline Phosphatase Total Creatine Kinase Troponin I High Sens > 3600.0 H* C-Reactive Protein Total Protein Albumin Urine Color Urine Appearance Urine pH Ur Specific [place] Urine Protein Urine Glucose (UA) Urine Ketones Urine Blood Urine Nitrite Ur Leukocyte Esterase Urine RBC Urine WBC Ur Squamous Epith Cells Urine Bacteria Epithelial Casts Hyaline Casts Granular Casts Urine Yeast Ethyl Alcohol Acetone, Qual Influenza Type A (PCR) Influenza Type B (PCR) RSV RNA Qual (PCR) SARS-CoV-2 RNA (RT-PCR) Microbiology Microbiology Results: Microbiology 06/21/22 15:43 Blood Culture - Preliminary Blood - Venous Prelim: GPC Gram Stain only 06/21/22 16:00 Blood Culture - Preliminary Blood - Venous Prelim: GPC Gram Stain only Prelim: GNR Gram Stain only Assessment and Plan (1) Acute hyperglycemia: Status: Acute (2) SUMIT (acute kidney injury): Status: Acute (3) Non-ST elevation NE (NSTEMI): Status: Acute (4) Rhabdomyolysis: Status: Acute Plan 67-year-old male with past medical history of diabetes and peripheral vascular disease with history of osteomyelitis presents to the hospital with complaints of left lower extremity wound swelling and drainage # left foot non healing diabetic ulcer with possible osteomyelitis x-ray foot did not show osteomyelitis but showed conteh of tissue swelling with bubbles of gas seen by General surgery he feels it is related to infection and no necrotizing process - has elevated ESR and CRP, leukocytosis continue IV vancomycin and Zosyn will likely need 6 weeks of IV antibiotics, will treat as osteomyelitis , DC MRI - patient seen by Dr. Mc underwent debridement of wound significant pus and serosanguineous drainage was noted, will likely need BKA - blood cultures growing Gram-positive cocci and Gram-negative rods follow final report no pain due to neuropathy # non ST elevation NE type B - significantly elevated troponin of more than 3600 x 3 - no chest pain, no EKG changes - continue IV heparin, aspirin and statins , heparin was discontinued earlier since was noted to have bleeding from left foot wound but resumed after vascular surgery evaluation - seen by Dr. Matamoros he agree with above treatment plan, echo showed wall motion abnormality due to positive blood cultures Cardio recommend to continue above treatment # elevated LFTs likely due to acute infection follow labs # mild rhabdo follow CPK likely due to muscle injury with foot infection # diabetes mellitus, with hyperglycemia - likely secondary to poorly controlled diabetes - continue home insulin low-dose sliding scale insulin, diabetic diet, will place on Lantus 20 units at home was on 70 30 Novolin 20 units at bedtime and 30 units daily # SUMIT - likely prerenal in the setting of acute infection, creatinine improved to 1.35 DC IVF after current bag # hypertension hold lisinopril due to SUMIT on verapamil 40 mg t.i.d. will resume DVT prophylaxis:? IV heparin need continued inpatient hospitalization for IV antibiotics for diabetic foot ulcer on IV heparin for non ST-elevation NE Quality Stroke Does the patient have a stroke diagnosis?: No VTE Prior VTE?: No VTE Risk Level:: Medical - moderate - high VTE Device Contraindication: Treatment Not Indicated VTE Drug Contraindication: N/A - Med Ordered
[2022-06-22 16:00] LABS: Glucose, Whole Blood 206 mg/dL (60-115)
[2022-06-22] MEDS: VerapamiL HCL 40 MG TABLET PO ×2 (16:59→21:33)
[2022-06-22 17:03] LABS: PTT Heparin Drip 33.7 SEC (53-77.9)
[2022-06-22] MEDS: Heparin Sodium,Porcine 5,000 UNIT/ML VIAL 7900 UNIT IVPUSH (17:18)
[2022-06-22] MEDS: vancomycin HCL 1,500 MG in 0.9 % Sodium Chloride 500 ML 333.33 MG IV (17:40)
[2022-06-22 20:17] LABS: Glucose, Whole Blood 233 mg/dL (60-115)
[2022-06-22] MEDS: Atorvastatin Calcium 80 MG TABLET PO (21:33)
[2022-06-22] MEDS: Insulin Glargine,Hum.rec.anlog 100 UNIT/ML 10 ML VIAL 25 UNIT SUBCUT (21:34)
--- NOTE | 2022-06-22 23:07 | W.PM.IDCN ---
History of Present Illness Data of Consult Service Date: 06/22/22 Requesting physician: Reza Ball Primary Care Provider: Unknown Physician HPI Reason for consult: left foot ulcer He presents with left foot ulcer and redness. He has had symptoms for a week. He went to [place] [employer] [employer] last two weeks and feet were unremarkable before left. He had IV antibiotics 7-8 weeks ago for infection right foot. Now he is seeing Wound Care for left foot infection. [facility] Past Medical History Medical History Acute hyperglycemia Cellulitis Diabetes Elevated lactic acid level Foot ulcer, right HTN (hypertension) with goal to be determined Hyperlipidemia Leukocytosis PAD (peripheral artery disease) Ulcer of left foot Family History Family History Mother No problems noted. Father No problems noted. Family history: reviewed and not pertinent Surgical History Surgical History Amputated great toe of left foot (01/09/20) History of transmetatarsal amputation of right foot (~2004) Status post debridement (03/04/20) Social History Social History Household Members: Family Housing: Apartment Do you presently have visiting nurse or other home services: No Alcohol intake: never Patient Tobacco Use Status: Current everyday Tobacco user Tobacco use type: Cigarette Cigarette Packs Per Day: 0.5 Cigarettes Per Day: 10.0 Years Smoked: 50 Smoked in Last 30 Days: Yes Second Hand Smoke Exposure: No Use of substances other than those prescribed or required for medical reasons: No Currently Displaying Signs/Symptoms of Drug Intoxication Withdrawal: No Have you been hit, kicked, punched, or otherwise hurt by someone within the past year? If so, by whom?: No Do you feel safe in your current relationship?: Yes Is there a partner from a previous relationship who is making you feel unsafe now?: No Are you made to feel afraid or neglected: No Advance Directives: No Advance Directives Information Provided: No Do you have thoughts of harming others: None Do you have a plan to hurt others: No Plan Recently lost weight without trying: No Nutrition Risks: No Nutritional Risk Poor oral hygiene: No service: No Current occupational status: retired and disabled Meds Allergies Allergy/AdvReac Type Severity Reaction Status Date / Time No Known Allergies Allergy Verified 06/21/22 15:16 [No Known Allergies*] Active Medications: Current Medications Acetaminophen (Acetaminophen 325 Mg Tablet) 650 mg PO Q6H PRN PRN Reason: Pain, Mild (Pain Scale 1-3) Aspirin (Aspirin Enteric Coated 81 Mg Tablet.Dr) 81 mg PO DAILY [facility] Last Admin: 06/22/22 08:48 Dose: 81 mg Atorvastatin Calcium (Atorvastatin Calcium 80 Mg Tablet) 80 mg PO BEDTIME [facility] Last Admin: 06/22/22 21:33 Dose: 80 mg Dextrose (Dextrose 50 % 25 Gm/50 Ml Syringe) 25 gm IVPUSH Q15M PRN; Protocol PRN Reason: per Hypoglycemia Standing Ord. Docusate Sodium (Docusate Sodium 100 Mg Capsule) 100 mg PO DAILY PRN PRN Reason: Constipation Glucose (Glucose Gel 15 Gm Gel..Gram.) 15 gm PO Q15M PRN; Protocol PRN Reason: per Hypoglycemia Standing Ord. Heparin Sodium (Porcine) (Heparin Sodium,Porcine 5,000 Unit/Ml Vial) 4,000 unit 40 unit/kg (4000 unit) IVPUSH PROTOCOL BOLUS PRN; Protocol PRN Reason: 40 unit/kg - Heparin Protocol Heparin Sodium (Porcine) (Heparin Sodium,Porcine 5,000 Unit/Ml Vial) 7,900 unit 80 unit/kg (7900 unit) IVPUSH PROTOCOL BOLUS PRN; Protocol PRN Reason: 80 unit/kg - Heparin Protocol Last Admin: 06/22/22 17:18 Dose: 7,900 unit Piperacillin Sod/Tazobactam (Sod 3.375 gm/ Sodium Chloride) 50 mls @ 100 mls/hr IV Q6H [facility] Last Infusion: 06/22/22 22:13 Dose: Infused Vancomycin HCl 1,500 mg/ (Sodium Chloride) 500 mls @ 333.333 mls/hr IV Q24H [facility] Last Infusion: 06/22/22 19:40 Dose: Infused Lactated Ringer's (Lr) 1,000 mls @ 100 mls/hr IVCONT .Q10H [facility] Last Admin: 06/22/22 16:56 Dose: 100 mls/hr Heparin Sodium/Sodium Chloride (Heparin Sodium,Porcine/1/2ns) 25,000 unit in 250 mls @ 0 mls/hr IVCONT .Q0M [facility]; Protocol Last Titration: 06/22/22 17:19 Dose: 16 units/kg/hr, 15.87 mls/hr Insulin Glargine (Insulin Glargine,Hum.Rec.Anlog 100 Unit/Ml 10 Ml Vial) 25 unit SUBCUT BEDTIME [facility] Last Admin: 06/22/22 21:34 Dose: 25 unit Insulin Human Lispro (Insulin Lispro 100 Unit/Ml 3 Ml Vial) 0 unit SUBCUT QIDACHS [facility]; Protocol Last Admin: 06/22/22 21:34 Dose: 4 unit Morphine Sulfate (Morphine Sulfate 2 Mg/Ml Cartridge) 4 mg IVPUSH Q4H PRN; Protocol PRN Reason: Pain, Severe (Pain Scale 7-10) Ondansetron HCl (Ondansetron Hcl 4 Mg/2 Ml Vial) 4 mg IVPUSH Q8H PRN PRN Reason: Nausea and Vomiting Pharmacy Consult (Consult Rx Perform Med Rec) 1 each MISCELLANE ONCE PRN PRN Reason: Consult order Pharmacy Consult (Consult Rx Perform Med Rec) 1 each MISCELLANE ONCE PRN PRN Reason: Consult order Pharmacy Consult (Consult Rx Vancomycin Dosing) 1 each MISCELLANE DAILY PRN PRN Reason: Consult order Sodium Chloride (0.9 % Sodium Chloride Flush 3 Ml Syringe) 3 ml IVFLUSH QSHIFT [facility] Last Admin: 06/22/22 16:59 Dose: 3 ml Verapamil HCl (Verapamil Hcl 40 Mg Tablet) 40 mg PO TID [facility]; Protocol Last Admin: 06/22/22 21:33 Dose: 40 mg Home Medications Medication Instructions Recorded Confirmed Last Taken Type atorvastatin 80 mg tablet 80 mg PO BEDTIME 04/27/20 06/21/22 02/06/21 History lisinopril 40 mg tablet 40 mg PO DAILY 04/27/20 06/21/22 06/21/22 History insulin NPH-regular 70-30 U-100 20 unit subcut BEDTIME 02/07/21 06/21/22 02/07/21 History insulin 100 unit/mL subcutaneous pen (Novolin 70-30 FlexPen U-100 Insulin) insulin NPH-regular 70-30 U-100 30 unit subcut DAILY 02/07/21 06/21/22 06/21/22 History insulin 100 unit/mL subcutaneous pen (Novolin 70-30 FlexPen U-100 Insulin) metformin 500 mg tablet,extended 2 tab PO BID 06/21/22 06/21/22 06/21/22 09:00 History release 24 hr verapamil 40 mg tablet 1 tab PO TID 06/21/22 06/21/22 06/21/22 09:00 History Physical Exam Vital Signs: Vital Signs: Last Vital Signs Temp 97.8 F 06/22/22 20:00 Pulse 72 06/22/22 21:42 Resp 18 06/22/22 21:42 BP 126/58 L 06/22/22 21:42 Pulse Ox 94 06/22/22 20:00 O2 Del Method 06/22/22 20:00 BMI result Body Mass Index 28.0 Const: General: cooperative HEENT: Head: Yes normal to inspection Face and sinus: Yes normal facial exam Mouth: Normal oral and palatal mucosa present Teeth and gingiva: dentition normal Eyes: General: appearance normal, both eyes and all related structures Pupils: Equal, round and reactive pupils present Resp: Effort & Inspection: normal respiratory effort Cardio: Rate: regular rate Rhythm: regular rhythm GI: Palpation (GI): Soft to palpation and nontender : General: Yes no CVA tenderness Back/Spine/Pelvis: Back: no CVA tenderness Skin: General skin exam: no rashes or lesions noted Neuro: General: moves all extremities Cranial nerves: Yes Equal, round and reactive pupils present Extrem: Other: left foot plantar wound open1 cm Psych: Appearance: grossly normal Results Labs CBC & Chem 7: 06/22/22 08:09 06/22/22 08:09 Labs: Short CBC 06/22/22 Range/Units 08:09 WBC 9.9 (4.8-10.8) X10*3/uL Hgb 10.8 L (14.0-18.0) g/dl Hct 35.6 L (42.0-52.0) % Plt Count 303 (160-400) X10*3/uL BMP 06/22/22 08:09 Sodium 138 Potassium 4.3 Chloride 105 Carbon Dioxide 19 L BUN 25 H Creatinine 1.35 Calcium 8.2 L Urine 06/22/22 Range/Units 07:00 Urine Color Dark Yellow Urine Appearance Cloudy Urine pH 5.5 (5.0-9.0) Ur Specific [place] >= 1.030 H (1.005-1.025) Urine Protein >=1000 (4+) H (Neg-Trace) mg/dL Urine Glucose (UA) >=1000 H (Negative) mg/dL Microbiology Microbiology Results: Microbiology 06/21/22 15:43 Blood - Venous Blood Culture - Preliminary Prelim: GPC Gram Stain only 06/21/22 16:00 Blood - Venous Blood Culture - Preliminary Prelim: GPC Gram Stain only Prelim: GNR Gram Stain only Assessment and Plan (1) Diabetic foot ulcer with osteomyelitis: Status: Acute He has left foot infection He has gram negative and gram positive bacteremia Plan Continue Vancomycin and Zosyn Would give six weeks IV antibiotics See Dr Mc
[2022-06-23 00:27] LABS: PTT Heparin Drip 57.2 SEC (53-77.9)
[2022-06-23] MEDS: Heparin Sodium,Porcine/1/2NS 25,000 UNIT/250 ML IV.SOLN 15.87 UNIT IVCONT ×2 (01:59→17:32)
[2022-06-23 03:09] VITALS: BP 129/63; PULSE 66; RESP 18; TEMP 36.7; O2SAT 98
[2022-06-23] MEDS: Piperacillin Sodium/Tazobactam 3.375 GM in 0.9 % Sodium Chloride 50 ML IV ×4 (05:19→22:18)
[2022-06-23] MEDS: Lactated Ringers 1,000 ML 100 ML IVCONT ×2 (05:19→12:44)
[2022-06-23 06:00] VITALS: BMI 29.0
[2022-06-23 07:10] LABS: PTT Heparin Drip 45.7 SEC (53-77.9)
[2022-06-23 07:16] LABS: Glucose, Whole Blood 178 mg/dL (60-115)
[2022-06-23 07:21] LABS: Alanine Aminotransferase 55 U/L (0-40); Albumin Level 2.3 g/dL (3.5-5.0); Alkaline Phosphatase 105 U/L (39-117); Anion Gap 12 (12-20); Aspartate Amino Transferase 88 U/L (5-37); Bilirubin Direct 0.3 mg/dL (0.0-0.5); Bilirubin Total 0.4 mg/dL (0.0-1.0); Blood Urea Nitrogen 19 mg/dL (9-16); Calcium 7.5 mg/dL (8.4-10.2); Carbon Dioxide 22 mmol/L (22-29); Chloride 105 mmol/L (96-108); Creatinine Clr Calc Pharmacy 83.2; Estimated Glomerular Filt Rate > 60; Glucose Random 181 mg/dL (60-115); Potassium 3.5 mmol/L (3.3-5.1); Sodium 135 mmol/L (135-145); Total Protein 4.9 g/dL (6.5-8.0)
[2022-06-23 07:42] VITALS: BP 143/65; PULSE 63; RESP 20; TEMP 36.7; O2SAT 97
[2022-06-23] MEDS: Aspirin Enteric Coated 81 MG TABLET.DR PO (08:00)
[2022-06-23] MEDS: Insulin Lispro 100 UNIT/ML 3 ML VIAL SUBCUT ×4 (08:01→22:19)
[2022-06-23] MEDS: VerapamiL HCL 40 MG TABLET PO ×3 (08:03→22:19)
[2022-06-23] MEDS: Heparin Sodium,Porcine 5,000 UNIT/ML VIAL 4000 UNIT IVPUSH (08:06)
--- NOTE | 2022-06-23 09:09 | HO.VASCPN ---
Subjective Subjective Date of Service: 06/23/22 Patient reports: no new complaints and feels better Interval history: Patient seen and examined. No significant events overnight. Reports that the left leg is doing significantly better. Now for routine dressing change. He was seen with Cardiology at bedside. Physical Exam Vital Signs: Vital Signs: Last Vital Signs Temp 98.1 F 06/23/22 07:42 Pulse 63 06/23/22 07:42 Resp 20 06/23/22 07:42 BP 143/65 H 06/23/22 07:42 Pulse Ox 97 06/23/22 07:42 O2 Del Method 06/23/22 07:42 BMI result Body Mass Index 29.0 Const: General: cooperative, healthy appearing and no acute distress Orientation/consciousness: oriented to person, oriented to place and oriented to time HEENT: Head: Yes normal to inspection Neck: Carotids: no bruits Chest: Chest palpation & inspection: normal inspection of the chest Resp: Effort & Inspection: normal respiratory effort and able to speak in complete sentences Auscultation: clear to auscultation bilaterally Cardio: Rate: regular rate Heart sounds: S1 normal heart sound present and S2 normal heart sound present GI: Inspection: Yes normal to inspection Skin: Other: Left foot dorsum packing removed in changed. Still with some purulent drainage. Plantar aspect dressing changed as well. Penetrating to bone. General skin exam: no rashes or lesions noted Wounds: wounds noted Neuro: General: oriented to person, oriented to place, oriented to time and CN's II-XI intact bilaterally Extrem: General: Yes normal to inspection, Yes full ROM and Yes no clubbing, cyanosis or edema Psych: Appearance: grossly normal and well kempt Speech and movement: Normal speech and movement present Affect: normal affect Progress Note: A&P Assessment and plan (1) Diabetic foot ulcer with osteomyelitis: Status: Acute Assessment and Plan: Patient has multiple complex issues. At the current time will try to get infection under control. Once he does clear his sepsis and bacteremia and will require cardiac catheterization. The patient was seen in conjunction with Cardiology in we will try to sort this out. The left limb is critical. He does have a Charcot foot with exposed bone in addition to a large abscess. I am hoping that we can clear some of this to see how this progresses. My fear is that we are headed towards an amputation on this leg. This was all related to the patient and he is well aware of all this. He was requested to discuss this with his family as well. We will continue to monitor his status with you. Wound care instructions will be ordered to nursing. Time Spent With Patient Time: Total time spent is greater than 50% in coordination of care (as documented) at patient's floor/unit and/or counseling patient: Procedures Date of Service Date of Service: 06/23/22 Quality Stroke Does the patient have a stroke diagnosis?: No VTE Prior VTE?: No VTE Risk Level:: Medical - moderate - high VTE Device Contraindication: Treatment Not Indicated VTE Drug Contraindication: N/A - Med Ordered
[2022-06-23 09:21] LABS: Hematocrit 28.7 % (42.0-52.0); Mean Corpuscular HGB Conc 31.4 g/dl (31.0-36.0); Mean Corpuscular Hemoglobin 24.9 pg (27.0-33.0); Mean Corpuscular Volume 79.3 fL (80.0-98.0); Mean Platelet Volume 11.4 fL (9.4-12.4); Platelet Count 265 X10*3/uL (160-400); Red Blood Count 3.62 X10*6/uL (4.60-5.80); Red Cell Distribution Width 15.7 % (11.0-16.0); White Blood Count 9.8 X10*3/uL (4.8-10.8)
--- NOTE | 2022-06-23 10:03 | P.PNCA_ITS ---
Subjective Subjective Date of Service: 06/23/22 Interval history: He states he feels fine. Does not have any cardiac symptoms at all. Review of Systems Review of Systems Yes all other systems are reviewed and are negative Constitutional: Reports as per HPI Eyes: Reports as per HPI Reports as per HPI Cardiovascular: Reports as per HPI, Denies acrocyanosis, Denies cool extremities, Denies chest pain, Denies leg edema, Denies lightheadedness, Denies palpitations and Denies dyspnea Respiratory: Reports as per HPI, Reports no additional respiratory complaints and Denies dyspnea Gastrointestinal: Reports as per HPI and Reports no additional gastrointestinal complaints Genitourinary: Reports no additional male genitourinary complaints and Reports as per HPI Musculoskeletal: Reports no additional musculoskeletal complaints and Reports as per HPI Skin/Breast: Reports system reviewed and no additional complaints, except as docu Reports system reviewed and no additional complaints, except as documented and Reports as per HPI Psychiatric: Reports no additional psychiatric complaints and Reports as per HPI Endocrine: Reports no additional endocrine complaints, Reports as per HPI and Denies palpitations Hematologic/Lymphatic: Reports no additional hematologic/lymphatic complaints and Reports as per HPI Allergic/Immunologic: Reports no additional allergic/immunologic complaints and Reports as per HPI Physical Exam Vital Signs: Last Vital Signs Temp 98.1 F 06/23/22 07:42 Pulse 63 06/23/22 07:42 Resp 20 06/23/22 07:42 BP 143/65 H 06/23/22 07:42 Pulse Ox 97 06/23/22 07:42 O2 Del Method 06/23/22 07:42 BMI result Body Mass Index 29.0 Const General: comfortable and no acute distress Orientation/consciousness: patient oriented x3 HEENT Other: Unremarkable Head: Yes normal to inspection Neck Neck: Yes normal visual inspection Chest Chest palpation & inspection: normal inspection of the chest Resp Auscultation: rhonchi Cardio Other: Heart sounds are distant. No clear murmurs audible. Palpation: normal PMI GI Palpation (GI): Soft to palpation Back/Spine/Pelvis Other: unremarkable Skin General skin exam: no rashes or lesions noted Neuro General: patient oriented x3 Extrem Other: Lower extremities have wounds that are being actively dressed by vascular surgeon, at the same time of exam. Psych Mental Status: mental status grossly normal Objective Labs and Meds Result diagrams: 06/23/22 09:06 06/23/22 05:52 Lab results: Laboratory Results - last 24 hr 06/22/22 06/22/22 06/22/22 08:09 10:50 15:54 WBC RBC Hgb Hct MCV MCH MCHC RDW Plt Count MPV Absolute Nucleated RBC Nucleated RBC % (auto) aPTT Heparin Protocol Sodium Potassium Chloride Carbon Dioxide Anion Gap BUN Creatinine Estim Creat Clear Calc Estimated GFR POC Glucose 265 H 206 H Random Glucose Calcium Total Bilirubin Direct Bilirubin AST ALT Alkaline Phosphatase Troponin I High Sens > 3600.0 H* Total Protein Albumin 06/22/22 06/22/22 06/22/22 16:40 20:10 23:34 WBC RBC Hgb Hct MCV MCH MCHC RDW Plt Count MPV Absolute Nucleated RBC Nucleated RBC % (auto) aPTT Heparin Protocol 33.7 L D 57.2 D Sodium Potassium Chloride Carbon Dioxide Anion Gap BUN Creatinine Estim Creat Clear Calc Estimated GFR POC Glucose 233 H Random Glucose Calcium Total Bilirubin Direct Bilirubin AST ALT Alkaline Phosphatase Troponin I High Sens Total Protein Albumin 06/23/22 06/23/22 06/23/22 05:44 05:45 05:52 WBC Cancelled RBC Cancelled Hgb Cancelled Hct Cancelled MCV Cancelled MCH Cancelled MCHC Cancelled RDW Cancelled Plt Count Cancelled MPV Cancelled Absolute Nucleated RBC Cancelled Nucleated RBC % (auto) Cancelled aPTT Heparin Protocol 45.7 L D Sodium 135 Potassium 3.5 Chloride 105 Carbon Dioxide 22 Anion Gap 12 BUN 19 H Creatinine 1.07 Estim Creat Clear Calc 83.2 Estimated GFR > 60 POC Glucose Random Glucose 181 H Calcium 7.5 L D Total Bilirubin 0.4 Direct Bilirubin 0.3 AST 88 H ALT 55 H Alkaline Phosphatase 105 Troponin I High Sens Total Protein 4.9 L D Albumin 2.3 L D 06/23/22 06/23/22 07:12 09:06 WBC 9.8 RBC 3.62 L Hgb 9.0 L Hct 28.7 L MCV 79.3 L MCH 24.9 L MCHC 31.4 RDW 15.7 Plt Count 265 MPV 11.4 Absolute Nucleated RBC 0.000 Nucleated RBC % (auto) 0.0 aPTT Heparin Protocol Sodium Potassium Chloride Carbon Dioxide Anion Gap BUN Creatinine Estim Creat Clear Calc Estimated GFR POC Glucose 178 H Random Glucose Calcium Total Bilirubin Direct Bilirubin AST ALT Alkaline Phosphatase Troponin I High Sens Total Protein Albumin Progress Note: A&P Assessment and plan (1) Non-ST elevation [place] (NSTEMI): Status: Acute Plan Echocardiogram with LVEF of 40-45% with wall motion abnormalities consistent wi th underlying coronary artery disease. Clinically, he does not have any active symptoms like chest pain. He has got however infection issues in the foot and also has bacteremia. At this time, need to aggressively treat the infection. Also discussed about this with vascular surgeon/Dr. Mendoza. From cardiac, IV heparin drip, aspirin, statins. Once infection is controlled, cardiac catheterization. Time Spent With Patient Time: Total time spent is greater than 50% in coordination of care (as documented) at patient's floor/unit and/or counseling patient: 35min Progress Note: Quality Stroke Does the patient have a stroke diagnosis?: No Procedures Date of Service Date of Service: 06/23/22
[2022-06-23 11:03] LABS: Glucose, Whole Blood 214 mg/dL (60-115)
[2022-06-23 11:41] VITALS: BP 141/71; PULSE 65; RESP 20; TEMP 36.8; O2SAT 97
[2022-06-23 12:20] LABS: PTT Heparin Drip 79.6 SEC (53-77.9)
[2022-06-23 15:07] VITALS: BP 139/67; PULSE 62; RESP 18; TEMP 37.1; O2SAT 97
--- NOTE | 2022-06-23 15:50 | P.PNIM_ITS ---
Subjective Subjective Date of Service: 06/23/22 Interval History: No acute issues overnight; resting comfortably Review of Systems Denies chest pain Denies shortness of breath Denies nausea vomiting diarrhea Denies fever chills Physical Exam Vital Signs: Vital Signs: Last Vital Signs Temp 98.7 F 06/23/22 15:07 Pulse 62 06/23/22 15:07 Resp 18 06/23/22 15:07 BP 139/67 06/23/22 15:07 Pulse Ox 97 06/23/22 15:07 O2 Del Method 06/23/22 15:07 BMI result Body Mass Index 29.0 Const: Other: Awake alert comfortable Resp: Other: Clear to auscultation bilaterally no rales rhonchi or wheezes Cardio: Other: No S4; positive S1-S2; no S3 murmurs rubs or gallops GI: Other: Soft nontender nondistended normoactive bowel sounds Extrem: Other: See vascular surgery no Objective Data Active Medications Acetaminophen (Acetaminophen 325 Mg Tablet) 650 mg PO Q6H PRN PRN Reason: Pain, Mild (Pain Scale 1-3) Aspirin (Aspirin Enteric Coated 81 Mg Tablet.) 81 mg PO DAILY [facility] Last Admin: 06/23/22 08:00 Dose: 81 mg Documented By: BRANDON Atorvastatin Calcium (Atorvastatin Calcium 80 Mg Tablet) 80 mg PO BEDTIME [facility] Last Admin: 06/22/22 21:33 Dose: 80 mg Documented By: PATIENCE Dextrose (Dextrose 50 % 25 Gm/50 Ml Syringe) 25 gm IVPUSH Q15M PRN; Protocol PRN Reason: per Hypoglycemia Standing Ord. Docusate Sodium (Docusate Sodium 100 Mg Capsule) 100 mg PO DAILY PRN PRN Reason: Constipation Glucose (Glucose Gel 15 Gm Gel..Gram.) 15 gm PO Q15M PRN; Protocol PRN Reason: per Hypoglycemia Standing Ord. Heparin Sodium (Porcine) (Heparin Sodium,Porcine 5,000 Unit/Ml Vial) 4,000 unit 40 unit/kg (4000 unit) IVPUSH PROTOCOL BOLUS PRN; Protocol PRN Reason: 40 unit/kg - Heparin Protocol Last Admin: 06/23/22 08:06 Dose: 4,000 unit Documented By: BRANDON Heparin Sodium (Porcine) (Heparin Sodium,Porcine 5,000 Unit/Ml Vial) 7,900 unit 80 unit/kg (7900 unit) IVPUSH PROTOCOL BOLUS PRN; Protocol PRN Reason: 80 unit/kg - Heparin Protocol Last Admin: 06/22/22 17:18 Dose: 7,900 unit Documented By: JACKIE Piperacillin Sod/Tazobactam (Sod 3.375 gm/ Sodium Chloride) 50 mls @ 100 mls/hr IV Q6H [facility] Last Infusion: 06/23/22 12:47 Dose: 0 mls/hr Documented By: BALTAZAR Vancomycin HCl 1,500 mg/ (Sodium Chloride) 500 mls @ 333.333 mls/hr IV Q24H [facility] Last Infusion: 06/22/22 19:40 Dose: 0 mls/hr Documented By: PATIENCE Lactated Ringer's (Lr) 1,000 mls @ 100 mls/hr IVCONT .Q10H [facility] Last Admin: 06/23/22 12:44 Dose: 100 mls/hr Documented By: BALTAZAR Heparin Sodium/Sodium Chloride (Heparin Sodium,Porcine/1/2ns) 25,000 unit in 250 mls @ 0 mls/hr IVCONT .Q0M [facility]; Protocol Last Titration: 06/23/22 14:21 Dose: 16 units/kg/hr, 15.87 mls/hr Documented By: BALTAZAR Co-signed By: JACKIE Insulin Glargine (Insulin Glargine,Hum.Rec.Anlog 100 Unit/Ml 10 Ml Vial) 25 unit SUBCUT BEDTIME [facility] Last Admin: 06/22/22 21:34 Dose: 25 unit Documented By: PATIENCE Insulin Human Lispro (Insulin Lispro 100 Unit/Ml 3 Ml Vial) 0 unit SUBCUT QIDACHS [facility]; Protocol Last Admin: 06/23/22 11:51 Dose: 4 unit Documented By: BRANDON Morphine Sulfate (Morphine Sulfate 2 Mg/Ml Cartridge) 4 mg IVPUSH Q4H PRN; Protocol PRN Reason: Pain, Severe (Pain Scale 7-10) Ondansetron HCl (Ondansetron Hcl 4 Mg/2 Ml Vial) 4 mg IVPUSH Q8H PRN PRN Reason: Nausea and Vomiting Pharmacy Consult (Consult Rx Perform Med Rec) 1 each MISCELLANE ONCE PRN PRN Reason: Consult order Pharmacy Consult (Consult Rx Perform Med Rec) 1 each MISCELLANE ONCE PRN PRN Reason: Consult order Pharmacy Consult (Consult Rx Vancomycin Dosing) 1 each MISCELLANE DAILY PRN PRN Reason: Consult order Sodium Chloride (0.9 % Sodium Chloride Flush 3 Ml Syringe) 3 ml IVFLUSH QSHIFT [facility] Last Admin: 06/23/22 08:03 Dose: Not Given Documented By: BRANDON Non-Admin Reason: IV Running Verapamil HCl (Verapamil Hcl 40 Mg Tablet) 40 mg PO TID [facility]; Protocol Last Admin: 06/23/22 14:40 Dose: 40 mg Documented By: BALTAZAR Labs CBC & Chem 7: 06/23/22 09:06 06/23/22 05:52 Labs: Laboratory Results - last 24 hr 06/22/22 06/22/22 06/22/22 15:54 16:40 20:10 MCV MCH MCHC RDW Plt Count MPV Absolute Nucleated RBC Nucleated RBC % (auto) aPTT Heparin Protocol 33.7 L D Anion Gap Estim Creat Clear Calc Estimated GFR POC Glucose 206 H 233 H Random Glucose Calcium Total Bilirubin Direct Bilirubin AST ALT Alkaline Phosphatase Total Protein Albumin 06/22/22 06/23/22 06/23/22 23:34 05:44 05:45 MCV Cancelled MCH Cancelled MCHC Cancelled RDW Cancelled Plt Count Cancelled MPV Cancelled Absolute Nucleated RBC Cancelled Nucleated RBC % (auto) Cancelled aPTT Heparin Protocol 57.2 D 45.7 L D Anion Gap Estim Creat Clear Calc Estimated GFR POC Glucose Random Glucose Calcium Total Bilirubin Direct Bilirubin AST ALT Alkaline Phosphatase Total Protein Albumin 06/23/22 06/23/22 06/23/22 05:52 07:12 09:06 MCV 79.3 L MCH 24.9 L MCHC 31.4 RDW 15.7 Plt Count 265 MPV 11.4 Absolute Nucleated RBC 0.000 Nucleated RBC % (auto) 0.0 aPTT Heparin Protocol Anion Gap 12 Estim Creat Clear Calc 83.2 Estimated GFR > 60 POC Glucose 178 H Random Glucose 181 H Calcium 7.5 L D Total Bilirubin 0.4 Direct Bilirubin 0.3 AST 88 H ALT 55 H Alkaline Phosphatase 105 Total Protein 4.9 L D Albumin 2.3 L D 06/23/22 06/23/22 10:59 11:59 MCV MCH MCHC RDW Plt Count MPV Absolute Nucleated RBC Nucleated RBC % (auto) aPTT Heparin Protocol 79.6 H D Anion Gap Estim Creat Clear Calc Estimated GFR POC Glucose 214 H Random Glucose Calcium Total Bilirubin Direct Bilirubin AST ALT Alkaline Phosphatase Total Protein Albumin Microbiology Microbiology Results: Microbiology 06/21/22 16:00 Blood Culture - Preliminary Blood - Venous Enterococcus/Streptococcus sp Gram negative kitty 06/21/22 15:43 Blood Culture - Preliminary Blood - Venous Enterococcus/Streptococcus sp Assessment and Plan (1) Diabetic foot ulcer with osteomyelitis: Status: Acute (2) Non-ST elevation [place] (NSTEMI): Status: Acute (3) Rhabdomyolysis: Status: Acute (4) HTN (hypertension) with goal to be determined: Status: Acute Plan 67-year-old male with past medical history of diabetes and peripheral vascular disease with history of osteomyelitis presents to the hospital with complaints of left lower extremity wound swelling and drainage; seen by ID presentation consistent with osteomyelitis 1.Left foot non healing diabetic ulcer/osteomyelitis -initial blood culture Enterococcus -continue IV vancomycin/Zosyn (will need 6 weeks of IV antibiotics) -discussed with ID...PICC line when BC negative 2.Non ST elevation CO type B -IV heparin/aspirin/statins , -echo LVEF 40-45% with wall motion abnormalities -cath as per cards 3. Rhabdomyolysis -recheck CPK in a.m. 4.Diabetes mellitus II - continue Lantus as ordered -lispro correctional scale -adjust as indicated 5.Hypertension - verapamil 40 mg t.i.d. -add back lisinopril as appropriate DVT prophylaxis:? IV heparin DNR DNI Requires ongoing hospitalization for IV heparin to treat NSTEMI; IV antibiotics for osteomyelitis Quality Stroke Does the patient have a stroke diagnosis?: No VTE Prior VTE?: No VTE Risk Level:: Medical - moderate - high VTE Device Contraindication: Treatment Not Indicated VTE Drug Contraindication: N/A - Med Ordered
[2022-06-23 16:04] LABS: Glucose, Whole Blood 209 mg/dL (60-115)
[2022-06-23] MEDS: 0.9 % Sodium Chloride Flush 3 ML SYRINGE IVFLUSH ×2 (16:34→22:20)
[2022-06-23 16:42] LABS: Vancomycin Random 10.3 mcg/mL (15-20)
--- NOTE | 2022-06-23 17:03 | HE.PHANOTE ---
RE GERMÁN CHANGING DOSE TO 1G Q12H; SUSPECTED AUC 480, TROUGH 15.9. NEXT LEVEL 06/24 @1600 JAN
[2022-06-23] MEDS: vancomycin HCL 1,000 MG in 0.9 % Sodium Chloride 250 ML 270 MG IV (17:30)
[2022-06-23 20:00] VITALS: BP 146/86; PULSE 68; RESP 18; TEMP 37; O2SAT 98
[2022-06-23 20:16] LABS: Glucose, Whole Blood 251 mg/dL (60-115)
[2022-06-23] MEDS: Atorvastatin Calcium 80 MG TABLET PO (22:19)
[2022-06-23] MEDS: Insulin Glargine,Hum.rec.anlog 100 UNIT/ML 10 ML VIAL 25 UNIT SUBCUT (22:20)
[2022-06-23 23:47] VITALS: BP 147/71; PULSE 72; RESP 18; TEMP 37.3; O2SAT 92
[2022-06-24 02:33] LABS: PTT Heparin Drip 52.8 SEC (53-77.9)
[2022-06-24] MEDS: Heparin Sodium,Porcine 5,000 UNIT/ML VIAL 4000 UNIT IVPUSH (03:15)
[2022-06-24] MEDS: Piperacillin Sodium/Tazobactam 3.375 GM in 0.9 % Sodium Chloride 50 ML IV ×4 (03:22→22:12)
[2022-06-24 03:42] VITALS: BP 135/60; PULSE 67; RESP 18; TEMP 36.9; O2SAT 95
[2022-06-24] MEDS: Lactated Ringers 1,000 ML 100 ML IVCONT (04:15)
[2022-06-24 06:00] VITALS: BMI 29.2
[2022-06-24] MEDS: vancomycin HCL 1,000 MG in 0.9 % Sodium Chloride 250 ML 270 MG IV ×2 (06:32→19:31)
[2022-06-24 07:35] VITALS: BP 166/78; PULSE 68; RESP 18; TEMP 36.6; O2SAT 98
[2022-06-24 07:41] LABS: Glucose, Whole Blood 176 mg/dL (60-115)
[2022-06-24] MEDS: VerapamiL HCL 40 MG TABLET PO ×3 (08:30→22:07)
[2022-06-24] MEDS: Aspirin Enteric Coated 81 MG TABLET.DR PO (08:30)
[2022-06-24] MEDS: Insulin Lispro 100 UNIT/ML 3 ML VIAL SUBCUT ×4 (08:30→22:13)
--- NOTE | 2022-06-24 08:33 | P.CDIC_ITS ---
CDI Concurrent Query Documentation Clarification: PHYSICIAN'S DOCUMENTATION REQUEST Date of Query: 06/24/22 0834 Patient Name: Giovanni Harper Admit Date: 06/21/22 Dear Doctor, A review of the medical record indicates additional documentation may be needed. Please review below and update the documentation accordingly. Clinical Indicators: Risk Factors/Clinical Indicators/Treatments Vascular progress note 06/23 - Once patient clears his sepsis and bacteremia he will require cardiac catherization. ED 06/21 - Spoke to Cardiology Dr García who reviewed EKGs. Likely secondary to Sepsis. ID 06/22 -Left foot infection, Gram negative and Gram positive bacteremia. IV Vancomycin, Zosyn, IV fluids HR 110 LA 4.1 BP 97/47 Please clarify the following: Sepsis * [Diagnosis] was present on admission and is now resolved * [Diagnosis] was present on admission and is still being monitored, evaluated, or treated * [Diagnosis] was ruled out * [Diagnosis] is still a likely, suspected, probable diagnosis * Other (please specify) * Unable to determine Use of terms such as suspected, likely, concern for, or probable (associated with a specific diagnosis that is being evaluated, monitored, or treated as if it exists) are acceptable and can be coded in the inpatient setting, when documented at the time of discharge. Thank you, Lisa Graf [facility], CDIS Extension: [phone] Please use your independent medical judgment in providing your response. THIS QUERY IS PART OF THE PERMANENT MEDICAL RECORD Provider Response: Other Other Diagnosis: Sepsis was ruled out
[2022-06-24] MEDS: Heparin Sodium,Porcine/1/2NS 25,000 UNIT/250 ML IV.SOLN 17.86 UNIT IVCONT ×3 (08:39→22:17)
[2022-06-24 10:11] LABS: PTT Heparin Drip 67.2 SEC (53-77.9)
[2022-06-24 10:20] LABS: Alanine Aminotransferase 48 U/L (0-40); Albumin Level 2.2 g/dL (3.5-5.0); Alkaline Phosphatase 142 U/L (39-117); Anion Gap 12 (12-20); Aspartate Amino Transferase 54 U/L (5-37); Bilirubin Total 0.5 mg/dL (0.0-1.0); Blood Urea Nitrogen 13 mg/dL (9-16); Calcium 7.7 mg/dL (8.4-10.2); Carbon Dioxide 24 mmol/L (22-29); Chloride 104 mmol/L (96-108); Creatinine Clr Calc Pharmacy 86.7; Estimated Glomerular Filt Rate > 60; Glucose Random 216 mg/dL (60-115); Potassium 3.5 mmol/L (3.3-5.1); Sodium 136 mmol/L (135-145)
--- NOTE | 2022-06-24 10:53 | PM.PNCARD ---
Subjective Subjective Date of Service: 06/24/22 Interval history: Patient denies any cardiac symptoms. He states he is feeling okay. Review of Systems Review of Systems Yes all other systems are reviewed and are negative Constitutional: Reports as per HPI Eyes: Reports as per HPI Reports as per HPI Cardiovascular: Reports as per HPI, Denies acrocyanosis, Denies cool extremities, Denies chest pain, Denies leg edema, Denies lightheadedness, Denies palpitations and Denies dyspnea Respiratory: Reports as per HPI, Reports no additional respiratory complaints and Denies dyspnea Gastrointestinal: Reports as per HPI and Reports no additional gastrointestinal complaints Genitourinary: Reports no additional male genitourinary complaints and Reports as per HPI Musculoskeletal: Reports no additional musculoskeletal complaints and Reports as per HPI Skin/Breast: Reports system reviewed and no additional complaints, except as docu Reports system reviewed and no additional complaints, except as documented and Reports as per HPI Psychiatric: Reports no additional psychiatric complaints and Reports as per HPI Endocrine: Reports no additional endocrine complaints, Reports as per HPI and Denies palpitations Hematologic/Lymphatic: Reports no additional hematologic/lymphatic complaints and Reports as per HPI Allergic/Immunologic: Reports no additional allergic/immunologic complaints and Reports as per HPI Physical Exam Vital Signs: Last Vital Signs Temp 97.8 F 06/24/22 07:35 Pulse 68 06/24/22 07:35 Resp 18 06/24/22 07:35 BP 166/78 H 06/24/22 07:35 Pulse Ox 98 06/24/22 07:35 O2 Del Method 06/24/22 07:35 BMI result Body Mass Index 29.2 Const General: comfortable and no acute distress Orientation/consciousness: patient oriented x3 HEENT Other: Unremarkable Head: Yes normal to inspection Neck Neck: Yes normal visual inspection Chest Chest palpation & inspection: normal inspection of the chest Resp Auscultation: rhonchi Cardio Other: Heart sounds are distant. No clear murmurs audible. Palpation: normal PMI GI Palpation (GI): Soft to palpation Back/Spine/Pelvis Other: unremarkable Skin General skin exam: no rashes or lesions noted Neuro General: patient oriented x3 Extrem Other: Lower extremities have wounds. Dressing on. Psych Mental Status: mental status grossly normal Objective Labs and Meds Result diagrams: 06/23/22 09:06 06/24/22 09:42 Lab results: Laboratory Results - last 24 hr 06/23/22 06/23/22 06/23/22 10:59 11:59 14:57 aPTT Heparin Protocol 79.6 H D Sodium Potassium Chloride Carbon Dioxide Anion Gap BUN Creatinine Estim Creat Clear Calc Estimated GFR POC Glucose 214 H Random Glucose Fasting Glucose Calcium Total Bilirubin AST ALT Alkaline Phosphatase Total Creatine Kinase Total Protein Albumin Random Vancomycin 10.3 L 06/23/22 06/23/22 06/23/22 16:00 19:57 20:11 aPTT Heparin Protocol 56.0 D Sodium Potassium Chloride Carbon Dioxide Anion Gap BUN Creatinine Estim Creat Clear Calc Estimated GFR POC Glucose 209 H 251 H Random Glucose Fasting Glucose Calcium Total Bilirubin AST ALT Alkaline Phosphatase Total Creatine Kinase Total Protein Albumin Random Vancomycin 06/24/22 06/24/22 06/24/22 02:13 07:37 09:42 aPTT Heparin Protocol 52.8 L Sodium Cancelled Potassium Cancelled Chloride Cancelled Carbon Dioxide Cancelled Anion Gap Cancelled BUN Cancelled Creatinine Cancelled Estim Creat Clear Calc Cancelled Estimated GFR Cancelled POC Glucose 176 H Random Glucose Fasting Glucose Cancelled Calcium Cancelled Total Bilirubin Cancelled AST Cancelled ALT Cancelled Alkaline Phosphatase Cancelled Total Creatine Kinase Total Protein Cancelled Albumin Cancelled Random Vancomycin 06/24/22 06/24/22 09:42 09:42 aPTT Heparin Protocol 67.2 D Sodium 136 Potassium 3.5 Chloride 104 Carbon Dioxide 24 Anion Gap 12 BUN 13 Creatinine 1.03 Estim Creat Clear Calc 86.7 Estimated GFR > 60 POC Glucose Random Glucose 216 H Fasting Glucose Calcium 7.7 L Total Bilirubin 0.5 AST 54 H ALT 48 H Alkaline Phosphatase 142 H Total Creatine Kinase 88 Total Protein 5.0 L Albumin 2.2 L Random Vancomycin Progress Note: A&P Assessment and plan (1) Non-ST elevation [place] (NSTEMI): Status: Acute Plan Overall, high likelihood of underlying coronary disease but he does not have any active chest pain. Received IV heparin for 48 hours. Otherwise, continue aspirin and statins. Continue to treat infection actively. Once there is no bacteremia, we can transfer for cardiac catheterization. Discussed with Dr. Mendoza. Discussed with patient about this and he is agreeable. In the interim, avoid any major procedures that require anesthesia. Local debridement of foot is okay. Time Spent With Patient Time: Total time spent is greater than 50% in coordination of care (as documented) at patient's floor/unit and/or counseling patient: 35min. Progress Note: Quality Stroke Does the patient have a stroke diagnosis?: No Procedures Date of Service Date of Service: 06/24/22
[2022-06-24 11:14] VITALS: BP 152/69; PULSE 65; RESP 18; TEMP 36.7; O2SAT 98
[2022-06-24 11:38] LABS: Glucose, Whole Blood 198 mg/dL (60-115)
--- NOTE | 2022-06-24 14:40 | MHC.CM.PN ---
PER MD ROUNDS, PT NOT MEDICALLY READY FOR DC (BACTEREMIA) PLAN TO TRANSFER TO [facility] FOR CARDIAC CATH ONCE INFECTION IS UNDER CONTROL.CM WILL CONTINUE TO FOLLOW
[2022-06-24 15:23] VITALS: BP 142/65; PULSE 57; RESP 18; TEMP 37; O2SAT 98
[2022-06-24 15:45] LABS: Glucose, Whole Blood 261 mg/dL (60-115)
--- NOTE | 2022-06-24 16:48 | P.PNIM_ITS ---
Subjective Subjective Date of Service: 06/24/22 Interval History: No acute issues overnight; resting comfortably Review of Systems Denies chest pain Denies shortness of breath Denies nausea vomiting diarrhea Denies fever chills Physical Exam Vital Signs: Vital Signs: Last Vital Signs Temp 98.6 F 06/24/22 15:23 Pulse 57 06/24/22 15:23 Resp 18 06/24/22 15:23 BP 142/65 H 06/24/22 15:23 Pulse Ox 98 06/24/22 15:23 O2 Del Method 06/24/22 15:23 BMI result Body Mass Index 29.2 Const: Other: Awake alert comfortable Resp: Other: Clear to auscultation bilaterally no rales rhonchi or wheezes Cardio: Other: No S4; positive S1-S2; no S3 murmurs rubs or gallops GI: Other: Soft nontender nondistended normoactive bowel sounds Extrem: Other: See vascular surgery no Objective Data Active Medications Acetaminophen (Acetaminophen 325 Mg Tablet) 650 mg PO Q6H PRN PRN Reason: Pain, Mild (Pain Scale 1-3) Aspirin (Aspirin Enteric Coated 81 Mg Tablet.) 81 mg PO DAILY [facility] Last Admin: 06/24/22 08:30 Dose: 81 mg Documented By: KATIUSKA Atorvastatin Calcium (Atorvastatin Calcium 80 Mg Tablet) 80 mg PO BEDTIME [facility] Last Admin: 06/23/22 22:19 Dose: 80 mg Documented By: KEKE Dextrose (Dextrose 50 % 25 Gm/50 Ml Syringe) 25 gm IVPUSH Q15M PRN; Protocol PRN Reason: per Hypoglycemia Standing Ord. Docusate Sodium (Docusate Sodium 100 Mg Capsule) 100 mg PO DAILY PRN PRN Reason: Constipation Glucose (Glucose Gel 15 Gm Gel..Gram.) 15 gm PO Q15M PRN; Protocol PRN Reason: per Hypoglycemia Standing Ord. Heparin Sodium (Porcine) (Heparin Sodium,Porcine 5,000 Unit/Ml Vial) 4,000 unit 40 unit/kg (4000 unit) IVPUSH PROTOCOL BOLUS PRN; Protocol PRN Reason: 40 unit/kg - Heparin Protocol Last Admin: 06/24/22 03:15 Dose: 4,000 unit Documented By: KEKE Heparin Sodium (Porcine) (Heparin Sodium,Porcine 5,000 Unit/Ml Vial) 7,900 unit 80 unit/kg (7900 unit) IVPUSH PROTOCOL BOLUS PRN; Protocol PRN Reason: 80 unit/kg - Heparin Protocol Last Admin: 06/22/22 17:18 Dose: 7,900 unit Documented By: JACKIE Piperacillin Sod/Tazobactam (Sod 3.375 gm/ Sodium Chloride) 50 mls @ 100 mls/hr IV Q6H [facility] Last Infusion: 06/24/22 12:11 Dose: 0 mls/hr Documented By: KATIUSKA Heparin Sodium/Sodium Chloride (Heparin Sodium,Porcine/1/2ns) 25,000 unit in 250 mls @ 0 mls/hr IVCONT .Q0M [facility]; Protocol Last Titration: 06/24/22 10:18 Dose: 18 units/kg/hr, 17.86 mls/hr Documented By: KATIUSKA Co-signed By: KO Vancomycin HCl 1,000 mg/ (Sodium Chloride) 270 mls @ 270 mls/hr IV Q12H [facility] Last Infusion: 06/24/22 08:30 Dose: 0 mls/hr Documented By: KATIUSKA Insulin Glargine (Insulin Glargine,Hum.Rec.Anlog 100 Unit/Ml 10 Ml Vial) 25 unit SUBCUT BEDTIME [facility] Last Admin: 06/23/22 22:20 Dose: 25 unit Documented By: KEKE Insulin Human Lispro (Insulin Lispro 100 Unit/Ml 3 Ml Vial) 0 unit SUBCUT QIDACHS [facility]; Protocol Last Admin: 06/24/22 12:09 Dose: 2 unit Documented By: KATIUSKA Morphine Sulfate (Morphine Sulfate 2 Mg/Ml Cartridge) 4 mg IVPUSH Q4H PRN; Protocol PRN Reason: Pain, Severe (Pain Scale 7-10) Ondansetron HCl (Ondansetron Hcl 4 Mg/2 Ml Vial) 4 mg IVPUSH Q8H PRN PRN Reason: Nausea and Vomiting Pharmacy Consult (Consult Rx Perform Med Rec) 1 each MISCELLANE ONCE PRN PRN Reason: Consult order Pharmacy Consult (Consult Rx Perform Med Rec) 1 each MISCELLANE ONCE PRN PRN Reason: Consult order Pharmacy Consult (Consult Rx Vancomycin Dosing) 1 each MISCELLANE DAILY PRN PRN Reason: Consult order Sodium Chloride (0.9 % Sodium Chloride Flush 3 Ml Syringe) 3 ml IVFLUSH QSHIFT [facility] Last Admin: 06/24/22 15:18 Dose: Not Given Documented By: KATIUSKA Non-Admin Reason: IV Running Verapamil HCl (Verapamil Hcl 40 Mg Tablet) 40 mg PO TID [facility]; Protocol Last Admin: 06/24/22 15:04 Dose: 40 mg Documented By: KATIUSKA Labs CBC & Chem 7: 06/23/22 09:06 06/24/22 09:42 Labs: Laboratory Results - last 24 hr 06/23/22 06/23/22 06/24/22 19:57 20:11 02:13 aPTT Heparin Protocol 56.0 D 52.8 L Anion Gap Estim Creat Clear Calc Estimated GFR POC Glucose 251 H Random Glucose Fasting Glucose Calcium Total Bilirubin AST ALT Alkaline Phosphatase Total Creatine Kinase Total Protein Albumin 06/24/22 06/24/22 06/24/22 07:37 09:42 09:42 aPTT Heparin Protocol Anion Gap Cancelled 12 Estim Creat Clear Calc Cancelled 86.7 Estimated GFR Cancelled > 60 POC Glucose 176 H Random Glucose 216 H Fasting Glucose Cancelled Calcium Cancelled 7.7 L Total Bilirubin Cancelled 0.5 AST Cancelled 54 H ALT Cancelled 48 H Alkaline Phosphatase Cancelled 142 H Total Creatine Kinase 88 Total Protein Cancelled 5.0 L Albumin Cancelled 2.2 L 06/24/22 06/24/22 06/24/22 09:42 11:16 15:21 aPTT Heparin Protocol 67.2 D Anion Gap Estim Creat Clear Calc Estimated GFR POC Glucose 198 H 261 H Random Glucose Fasting Glucose Calcium Total Bilirubin AST ALT Alkaline Phosphatase Total Creatine Kinase Total Protein Albumin 06/24/22 15:53 aPTT Heparin Protocol 61.0 Anion Gap Estim Creat Clear Calc Estimated GFR POC Glucose Random Glucose Fasting Glucose Calcium Total Bilirubin AST ALT Alkaline Phosphatase Total Creatine Kinase Total Protein Albumin Microbiology Microbiology Results: Microbiology 06/21/22 16:00 Blood Culture - Preliminary Blood - Venous Enterococcus faecalis Enterobacter cloacae complex 06/21/22 15:43 Blood Culture - Preliminary Blood - Venous Enterococcus faecalis Assessment and Plan (1) Osteomyelitis: Status: Acute (2) Non-ST elevation [place] (NSTEMI): Status: Acute (3) Type 2 diabetes mellitus: Status: Acute (4) HTN (hypertension) with goal to be determined: Status: Acute Plan 67-year-old male with past medical history of diabetes and peripheral vascular disease with history of osteomyelitis presents to the hospital with complaints of left lower extremity wound swelling and drainage; seen by ID presentation consistent with osteomyelitis 1.Left foot non healing diabetic ulcer/osteomyelitis -initial blood culture Enterococcus -continue IV vancomycin/Zosyn (will need 6 weeks of IV antibiotics).... Will discuss with ID -discussed with ID...PICC line when BC negative 2.Non ST elevation [place] type B -IV heparin/aspirin/statins , -echo LVEF 40-45% with wall motion abnormalities -cath as per cards; once blood cultures clear 3. Rhabdomyolysis -CPKs 88. . . Resolved 4.Diabetes mellitus II - continue Lantus as ordered -lispro correctional scale -adjust as indicated 5.Hypertension - verapamil 40 mg t.i.d. -add back lisinopril as appropriate DVT prophylaxis:? IV heparin DNR DNI Requires ongoing hospitalization for IV heparin to treat NSTEMI; IV antibiotics for osteomyelitis Quality Stroke Does the patient have a stroke diagnosis?: No VTE Prior VTE?: No VTE Risk Level:: Medical - moderate - high VTE Device Contraindication: Treatment Not Indicated VTE Drug Contraindication: N/A - Med Ordered
[2022-06-24 17:15] LABS: Vancomycin Random 15.6 mcg/mL (15-20)
[2022-06-24 19:42] VITALS: BP 134/63; PULSE 54; RESP 18; TEMP 36.8; O2SAT 97
[2022-06-24 20:01] LABS: Glucose, Whole Blood 248 mg/dL (60-115)
[2022-06-24] MEDS: Atorvastatin Calcium 80 MG TABLET PO (22:07)
[2022-06-24] MEDS: Insulin Glargine,Hum.rec.anlog 100 UNIT/ML 10 ML VIAL 25 UNIT SUBCUT (22:12)
[2022-06-24] MEDS: 0.9 % Sodium Chloride Flush 3 ML SYRINGE IVFLUSH (22:14)
[2022-06-24 23:52] VITALS: BP 145/83; PULSE 67; RESP 18; TEMP 37.7; O2SAT 96
[2022-06-25 03:50] VITALS: BP 140/66; PULSE 70; RESP 20; TEMP 37; O2SAT 98
[2022-06-25] MEDS: Piperacillin Sodium/Tazobactam 3.375 GM in 0.9 % Sodium Chloride 50 ML IV ×2 (05:04→10:59)
[2022-06-25] MEDS: vancomycin HCL 1,000 MG in 0.9 % Sodium Chloride 250 ML 270 MG IV (05:50)
[2022-06-25 06:00] VITALS: BMI 29.4
[2022-06-25 07:28] LABS: Glucose, Whole Blood 189 mg/dL (60-115)
[2022-06-25 08:00] VITALS: BP 134/59; PULSE 61; RESP 16; TEMP 36.7; O2SAT 96
[2022-06-25 08:07] LABS: PTT Heparin Drip 56.8 SEC (53-77.9)
[2022-06-25] MEDS: Aspirin Enteric Coated 81 MG TABLET.DR PO (08:08)
[2022-06-25] MEDS: VerapamiL HCL 40 MG TABLET PO ×3 (08:08→20:12)
[2022-06-25] MEDS: Insulin Lispro 100 UNIT/ML 3 ML VIAL SUBCUT ×4 (08:09→20:13)
[2022-06-25] MEDS: 0.9 % Sodium Chloride Flush 3 ML SYRINGE IVFLUSH ×3 (08:10→22:44)
[2022-06-25 08:40] LABS: Alanine Aminotransferase 37 U/L (0-40); Albumin Level 2.1 g/dL (3.5-5.0); Alkaline Phosphatase 129 U/L (39-117); Anion Gap 12 (12-20); Aspartate Amino Transferase 28 U/L (5-37); Bilirubin Total 0.5 mg/dL (0.0-1.0); Blood Urea Nitrogen 10 mg/dL (9-16); Calcium 7.4 mg/dL (8.4-10.2); Carbon Dioxide 24 mmol/L (22-29); Chloride 104 mmol/L (96-108); Creatinine Clr Calc Pharmacy 82.2; Estimated Glomerular Filt Rate > 60; Glucose Fasting 189 mg/dL (60-99); Potassium 3.6 mmol/L (3.3-5.1); Sodium 136 mmol/L (135-145); Total Protein 4.9 g/dL (6.5-8.0)
[2022-06-25] MEDS: Heparin Sodium,Porcine/1/2NS 25,000 UNIT/250 ML IV.SOLN 17.86 UNIT IVCONT (10:48)
[2022-06-25 11:49] LABS: Glucose, Whole Blood 314 mg/dL (60-115)
--- NOTE | 2022-06-25 11:57 | HO.PM.IMPN ---
Subjective Subjective Date of Service: 06/25/22 Interval History: No acute issues overnight; resting comfortably Review of Systems Denies chest pain Denies shortness of breath Denies nausea vomiting diarrhea Denies fever chills Physical Exam Vital Signs: Vital Signs: Last Vital Signs Temp 98.0 F 06/25/22 08:00 Pulse 61 06/25/22 08:00 Resp 16 06/25/22 08:00 BP 134/59 L 06/25/22 08:00 Pulse Ox 96 06/25/22 08:00 O2 Del Method 06/25/22 08:00 BMI result Body Mass Index 29.4 Const: Other: Awake alert comfortable Resp: Other: Clear to auscultation bilaterally no rales rhonchi or wheezes Cardio: Other: No S4; positive S1-S2; no S3 murmurs rubs or gallops GI: Other: Soft nontender nondistended normoactive bowel sounds Extrem: Other: See vascular surgery no Objective Data Active Medications Acetaminophen (Acetaminophen 325 Mg Tablet) 650 mg PO Q6H PRN PRN Reason: Pain, Mild (Pain Scale 1-3) Aspirin (Aspirin Enteric Coated 81 Mg Tablet.) 81 mg PO DAILY [facility] Last Admin: 06/25/22 08:08 Dose: 81 mg Documented By: DENISE Atorvastatin Calcium (Atorvastatin Calcium 80 Mg Tablet) 80 mg PO BEDTIME [facility] Last Admin: 06/24/22 22:07 Dose: 80 mg Documented By: ZAY Dextrose (Dextrose 50 % 25 Gm/50 Ml Syringe) 25 gm IVPUSH Q15M PRN; Protocol PRN Reason: per Hypoglycemia Standing Ord. Docusate Sodium (Docusate Sodium 100 Mg Capsule) 100 mg PO DAILY PRN PRN Reason: Constipation Glucose (Glucose Gel 15 Gm Gel..Gram.) 15 gm PO Q15M PRN; Protocol PRN Reason: per Hypoglycemia Standing Ord. Heparin Sodium (Porcine) (Heparin Sodium,Porcine 5,000 Unit/Ml Vial) 4,000 unit 40 unit/kg (4000 unit) IVPUSH PROTOCOL BOLUS PRN; Protocol PRN Reason: 40 unit/kg - Heparin Protocol Last Admin: 06/24/22 03:15 Dose: 4,000 unit Documented By: KEKE Heparin Sodium (Porcine) (Heparin Sodium,Porcine 5,000 Unit/Ml Vial) 7,900 unit 80 unit/kg (7900 unit) IVPUSH PROTOCOL BOLUS PRN; Protocol PRN Reason: 80 unit/kg - Heparin Protocol Last Admin: 06/22/22 17:18 Dose: 7,900 unit Documented By: JACKIE Piperacillin Sod/Tazobactam (Sod 3.375 gm/ Sodium Chloride) 50 mls @ 100 mls/hr IV Q6H [facility] Last Admin: 06/25/22 10:59 Dose: 100 mls/hr Documented By: DENISE Heparin Sodium/Sodium Chloride (Heparin Sodium,Porcine/1/2ns) 25,000 unit in 250 mls @ 0 mls/hr IVCONT .Q0M [facility]; Protocol Last Admin: 06/25/22 10:48 Dose: 18 units/kg/hr, 17.86 mls/hr Documented By: DENISE Co-signed By: LASHAWN Insulin Glargine (Insulin Glargine,Hum.Rec.Anlog 100 Unit/Ml 10 Ml Vial) 25 unit SUBCUT BEDTIME [facility] Last Admin: 06/24/22 22:12 Dose: 25 unit Documented By: ZAY Insulin Human Lispro (Insulin Lispro 100 Unit/Ml 3 Ml Vial) 0 unit SUBCUT QIDACHS [facility]; Protocol Last Admin: 06/25/22 08:09 Dose: 2 unit Documented By: DENISE Morphine Sulfate (Morphine Sulfate 2 Mg/Ml Cartridge) 4 mg IVPUSH Q4H PRN; Protocol PRN Reason: Pain, Severe (Pain Scale 7-10) Ondansetron HCl (Ondansetron Hcl 4 Mg/2 Ml Vial) 4 mg IVPUSH Q8H PRN PRN Reason: Nausea and Vomiting Pharmacy Consult (Consult Rx Perform Med Rec) 1 each MISCELLANE ONCE PRN PRN Reason: Consult order Pharmacy Consult (Consult Rx Perform Med Rec) 1 each MISCELLANE ONCE PRN PRN Reason: Consult order Pharmacy Consult (Consult Rx Vancomycin Dosing) 1 each MISCELLANE DAILY PRN PRN Reason: Consult order Sodium Chloride (0.9 % Sodium Chloride Flush 3 Ml Syringe) 3 ml IVFLUSH QSHIFT [facility] Last Admin: 06/25/22 08:10 Dose: 3 ml Documented By: DENISE Verapamil HCl (Verapamil Hcl 40 Mg Tablet) 40 mg PO TID [facility]; Protocol Last Admin: 06/25/22 08:08 Dose: 40 mg Documented By: DEINSE Labs CBC & Chem 7: 06/23/22 09:06 06/25/22 07:40 Labs: Laboratory Results - last 24 hr 06/24/22 06/24/22 06/24/22 15:21 15:53 15:53 aPTT Heparin Protocol 61.0 Anion Gap Estim Creat Clear Calc Estimated GFR POC Glucose 261 H Fasting Glucose Calcium Total Bilirubin AST ALT Alkaline Phosphatase Total Protein Albumin Random Vancomycin 15.6 06/24/22 06/25/22 06/25/22 19:54 07:04 07:40 aPTT Heparin Protocol Anion Gap 12 Estim Creat Clear Calc 82.2 Estimated GFR > 60 POC Glucose 248 H 189 H Fasting Glucose 189 H Calcium 7.4 L Total Bilirubin 0.5 AST 28 ALT 37 Alkaline Phosphatase 129 H Total Protein 4.9 L Albumin 2.1 L Random Vancomycin 06/25/22 06/25/22 07:40 11:32 aPTT Heparin Protocol 56.8 Anion Gap Estim Creat Clear Calc Estimated GFR POC Glucose 314 H Fasting Glucose Calcium Total Bilirubin AST ALT Alkaline Phosphatase Total Protein Albumin Random Vancomycin Microbiology Microbiology Results: Microbiology 06/21/22 16:00 Blood Culture - Final Blood - Venous Enterococcus faecalis Enterobacter cloacae complex 06/21/22 15:43 Blood Culture - Final Blood - Venous Enterococcus faecalis Assessment and Plan (1) Osteomyelitis: Status: Acute (2) Bacteremia: Status: Acute (3) Type 2 diabetes mellitus: Status: Acute (4) Non-ST elevation [place] (NSTEMI): Status: Acute Plan 67-year-old male with past medical history of diabetes and peripheral vascular disease with history of osteomyelitis presents to the hospital with complaints of left lower extremity wound swelling and drainage; seen by ID presentation consistent with osteomyelitis 1.Osteomyelitis/VRE bacteremia -initial blood culture VRE -DC IV vancomycin;Lenezolid/Zosyn (will need 6 weeks of IV antibiotics).... Will discuss with ID -repeat BC x2 2.Non ST elevation [place] type B -IV heparin/aspirin/statins , -echo LVEF 40-45% with wall motion abnormalities -cath as per cards; once blood cultures clear 3.Diabetes mellitus II - continue Lantus as ordered -lispro correctional scale -adjust as indicated 4.Hypertension - verapamil 40 mg t.i.d. -add back lisinopril as appropriate DVT prophylaxis:? IV heparin DNR DNI Requires ongoing hospitalization for IV heparin to treat NSTEMI; IV antibiotics for osteomyelitis Quality Stroke Does the patient have a stroke diagnosis?: No VTE Prior VTE?: No VTE Risk Level:: Medical - moderate - high VTE Device Contraindication: Treatment Not Indicated VTE Drug Contraindication: N/A - Med Ordered
[2022-06-25 11:59] VITALS: BP 149/61; PULSE 61; RESP 16; TEMP 36.7; O2SAT 98
[2022-06-25 12:19] LABS: MANUAL DIFF FLAG NO
[2022-06-25 12:22] LABS: Basophils Percent Auto 0.4 % (0-2); Eosinophils Absolute Auto 0.3 X10*3/uL (0.0-0.4); Eosinophils Percent Auto 2.6 % (0-4); Hematocrit 29.5 % (42.0-52.0); Hemoglobin 9.3 g/dl (14.0-18.0); Imm Gran Abs Auto 0.45 X10*3/uL (0.00-0.03); Imm Gran Pct Auto 4.3 % (0.0-0.4); Lymphocytes Absolute Auto 1.4 X10*3/uL (1.2-4.9); Lymphocytes Percent Auto 12.9 % (20-40); Mean Corpuscular HGB Conc 31.5 g/dl (31.0-36.0); Mean Corpuscular Hemoglobin 24.5 pg (27.0-33.0); Mean Corpuscular Volume 77.8 fL (80.0-98.0); Mean Platelet Volume 10.7 fL (9.4-12.4); Monocytes Absolute Auto 0.6 X10*3/uL (0.1-1.2); Monocytes Percent Auto 5.7 % (2-11); Neutrophils Absolute Auto 7.8 x10*3/uL (2.0-8.3); Neutrophils Percent Auto 74.1 % (45-73); Platelet Count 299 X10*3/uL (160-400); Red Blood Count 3.79 X10*6/uL (4.60-5.80); Red Cell Distribution Width 15.9 % (11.0-16.0); White Blood Count 10.5 X10*3/uL (4.8-10.8)
[2022-06-25] MEDS: Ampicillin Sodium 2 GM in 0.9 % Sodium Chloride 100 ML IV ×3 (14:46→22:43)
[2022-06-25 15:43] VITALS: BP 149/66; PULSE 89; RESP 18; TEMP 37; O2SAT 97
[2022-06-25 15:47] LABS: Glucose, Whole Blood 267 mg/dL (60-115)
[2022-06-25 16:18] LABS: Vancomycin Random 15.6 mcg/mL (15-20)
[2022-06-25 19:48] LABS: Glucose, Whole Blood 280 mg/dL (60-115)
[2022-06-25 19:50] VITALS: BP 145/78; PULSE 89; RESP 18; TEMP 37; O2SAT 99
[2022-06-25] MEDS: Insulin Glargine,Hum.rec.anlog 100 UNIT/ML 10 ML VIAL 25 UNIT SUBCUT (20:12)
[2022-06-25] MEDS: Atorvastatin Calcium 80 MG TABLET PO (20:12)
[2022-06-25 23:36] VITALS: BP 121/58; PULSE 60; RESP 15; TEMP 37.1; O2SAT 96
[2022-06-26] MEDS: Heparin Sodium,Porcine/1/2NS 25,000 UNIT/250 ML IV.SOLN 17.86 UNIT IVCONT (01:10)
[2022-06-26] MEDS: Ampicillin Sodium 2 GM in 0.9 % Sodium Chloride 100 ML IV ×6 (01:33→21:31)
[2022-06-26 02:51] VITALS: BP 140/72; PULSE 69; RESP 15; TEMP 37.3; O2SAT 93
[2022-06-26 06:23] LABS: MANUAL DIFF FLAG NO
[2022-06-26 06:39] LABS: PTT Heparin Drip 44.2 SEC (53-77.9)
[2022-06-26 06:41] LABS: Basophils Absolute Auto 0.1 X10*3/uL (0.0-0.2); Basophils Percent Auto 0.4 % (0-2); Eosinophils Absolute Auto 0.4 X10*3/uL (0.0-0.4); Eosinophils Percent Auto 3.2 % (0-4); Hematocrit 28.9 % (42.0-52.0); Hemoglobin 9.1 g/dl (14.0-18.0); Imm Gran Abs Auto 0.67 X10*3/uL (0.00-0.03); Lymphocytes Absolute Auto 2.1 X10*3/uL (1.2-4.9); Lymphocytes Percent Auto 15.3 % (20-40); Mean Corpuscular HGB Conc 31.5 g/dl (31.0-36.0); Mean Corpuscular Hemoglobin 24.7 pg (27.0-33.0); Mean Corpuscular Volume 78.3 fL (80.0-98.0); Mean Platelet Volume 11.1 fL (9.4-12.4); Monocytes Absolute Auto 0.9 X10*3/uL (0.1-1.2); Monocytes Percent Auto 6.3 % (2-11); Neutrophils Absolute Auto 9.4 x10*3/uL (2.0-8.3); Neutrophils Percent Auto 69.8 % (45-73); Platelet Count 377 X10*3/uL (160-400); Red Blood Count 3.69 X10*6/uL (4.60-5.80); Red Cell Distribution Width 15.7 % (11.0-16.0); White Blood Count 13.5 X10*3/uL (4.8-10.8)
[2022-06-26 07:44] VITALS: BP 168/75; PULSE 58; RESP 18; TEMP 36.7; O2SAT 96
[2022-06-26 07:48] LABS: Alanine Aminotransferase 31 U/L (0-40); Albumin Level 2.4 g/dL (3.5-5.0); Alkaline Phosphatase 139 U/L (39-117); Anion Gap 15 (12-20); Aspartate Amino Transferase 20 U/L (5-37); Bilirubin Total 0.6 mg/dL (0.0-1.0); Blood Urea Nitrogen 9 mg/dL (9-16); Calcium 7.8 mg/dL (8.4-10.2); Carbon Dioxide 23 mmol/L (22-29); Chloride 104 mmol/L (96-108); Creatinine Clr Calc Pharmacy 89.6; Estimated Glomerular Filt Rate > 60; Glucose Fasting 193 mg/dL (60-99); Potassium 3.6 mmol/L (3.3-5.1); Sodium 138 mmol/L (135-145); Total Protein 5.4 g/dL (6.5-8.0)
[2022-06-26 08:13] LABS: Glucose, Whole Blood 190 mg/dL (60-115)
[2022-06-26] MEDS: VerapamiL HCL 40 MG TABLET PO ×3 (08:13→20:24)
[2022-06-26] MEDS: 0.9 % Sodium Chloride Flush 3 ML SYRINGE IVFLUSH ×2 (08:13→15:45)
[2022-06-26] MEDS: Aspirin Enteric Coated 81 MG TABLET.DR PO (08:13)
[2022-06-26] MEDS: Insulin Lispro 100 UNIT/ML 3 ML VIAL SUBCUT ×4 (08:13→20:23)
[2022-06-26] MEDS: Heparin Sodium,Porcine 5,000 UNIT/ML VIAL 4000 UNIT IVPUSH ×2 (08:29→15:16)
[2022-06-26 11:30] VITALS: BP 147/69; PULSE 54; RESP 16; TEMP 36.2; O2SAT 98
[2022-06-26 11:30] LABS: Glucose, Whole Blood 209 mg/dL (60-115)
[2022-06-26] MEDS: levoFLOXacin 750 MG TABLET PO (14:20)
--- NOTE | 2022-06-26 14:28 | HO.PM.IMPN ---
Subjective Subjective Date of Service: 06/26/22 Interval History: No acute issues overnight; resting comfortably Review of Systems Denies chest pain Denies shortness of breath Denies nausea vomiting diarrhea Denies fever chills Physical Exam Vital Signs: Vital Signs: Last Vital Signs Temp 97.2 F 06/26/22 11:30 Pulse 54 06/26/22 11:30 Resp 16 06/26/22 11:30 BP 147/69 H 06/26/22 11:30 Pulse Ox 98 06/26/22 11:30 O2 Del Method 06/26/22 11:30 BMI result Body Mass Index 29.4 Const: Other: Awake alert comfortable Resp: Other: Clear to auscultation bilaterally no rales rhonchi or wheezes Cardio: Other: No S4; positive S1-S2; no S3 murmurs rubs or gallops GI: Other: Soft nontender nondistended normoactive bowel sounds Extrem: Other: See vascular surgery no Objective Data Active Medications Acetaminophen (Acetaminophen 325 Mg Tablet) 650 mg PO Q6H PRN PRN Reason: Pain, Mild (Pain Scale 1-3) Aspirin (Aspirin Enteric Coated 81 Mg Tablet.) 81 mg PO DAILY [facility] Last Admin: 06/26/22 08:13 Dose: 81 mg Documented By: NICA Atorvastatin Calcium (Atorvastatin Calcium 80 Mg Tablet) 80 mg PO BEDTIME [facility] Last Admin: 06/25/22 20:12 Dose: 80 mg Documented By: AMANDA Dextrose (Dextrose 50 % 25 Gm/50 Ml Syringe) 25 gm IVPUSH Q15M PRN; Protocol PRN Reason: per Hypoglycemia Standing Ord. Docusate Sodium (Docusate Sodium 100 Mg Capsule) 100 mg PO DAILY PRN PRN Reason: Constipation Glucose (Glucose Gel 15 Gm Gel..Gram.) 15 gm PO Q15M PRN; Protocol PRN Reason: per Hypoglycemia Standing Ord. Heparin Sodium (Porcine) (Heparin Sodium,Porcine 5,000 Unit/Ml Vial) 4,000 unit 40 unit/kg (4000 unit) IVPUSH PROTOCOL BOLUS PRN; Protocol PRN Reason: 40 unit/kg - Heparin Protocol Last Admin: 06/26/22 08:29 Dose: 4,000 unit Documented By: NICA Heparin Sodium (Porcine) (Heparin Sodium,Porcine 5,000 Unit/Ml Vial) 7,900 unit 80 unit/kg (7900 unit) IVPUSH PROTOCOL BOLUS PRN; Protocol PRN Reason: 80 unit/kg - Heparin Protocol Last Admin: 06/22/22 17:18 Dose: 7,900 unit Documented By: JACKIE Heparin Sodium/Sodium Chloride (Heparin Sodium,Porcine/1/2ns) 25,000 unit in 250 mls @ 0 mls/hr IVCONT .Q0M [facility]; Protocol Last Titration: 06/26/22 08:29 Dose: 20 units/kg/hr, 19.84 mls/hr Documented By: NICA Co-signed By: BOOGIE Ampicillin Sodium 2 gm/ Sodium (Chloride) 100 mls @ 100 mls/hr IV Q4H [facility] Last Admin: 06/26/22 14:20 Dose: 100 mls/hr Documented By: NICA Insulin Glargine (Insulin Glargine,Hum.Rec.Anlog 100 Unit/Ml 10 Ml Vial) 25 unit SUBCUT BEDTIME [facility] Last Admin: 06/25/22 20:12 Dose: 25 unit Documented By: AMANDA Comments: Insulin Human Lispro (Insulin Lispro 100 Unit/Ml 3 Ml Vial) 0 unit SUBCUT QIDACHS [facility]; Protocol Last Admin: 06/26/22 12:04 Dose: 4 unit Documented By: NICA Levofloxacin (Levofloxacin 750 Mg Tablet) 750 mg PO Q24H [facility] Last Admin: 06/26/22 14:20 Dose: 750 mg Documented By: NICA Morphine Sulfate (Morphine Sulfate 2 Mg/Ml Cartridge) 4 mg IVPUSH Q4H PRN; Protocol PRN Reason: Pain, Severe (Pain Scale 7-10) Ondansetron HCl (Ondansetron Hcl 4 Mg/2 Ml Vial) 4 mg IVPUSH Q8H PRN PRN Reason: Nausea and Vomiting Pharmacy Consult (Consult Rx Perform Med Rec) 1 each MISCELLANE ONCE PRN PRN Reason: Consult order Pharmacy Consult (Consult Rx Perform Med Rec) 1 each MISCELLANE ONCE PRN PRN Reason: Consult order Sodium Chloride (0.9 % Sodium Chloride Flush 3 Ml Syringe) 3 ml IVFLUSH QSHIFT [facility] Last Admin: 06/26/22 08:13 Dose: 3 ml Documented By: NICA Verapamil HCl (Verapamil Hcl 40 Mg Tablet) 40 mg PO TID [facility]; Protocol Last Admin: 06/26/22 14:20 Dose: 40 mg Documented By: NICA Labs CBC & Chem 7: 06/26/22 06:06 06/26/22 06:06 Labs: Laboratory Results - last 24 hr 06/25/22 06/25/22 06/25/22 15:40 15:50 19:44 MCV MCH MCHC RDW Plt Count MPV Immature Gran % (Auto) Neut % (Auto) Lymph % (Auto) [place] % (Auto) Eos % (Auto) Baso % (Auto) Lymph # (Auto) [place] # (Auto) Eos # (Auto) Baso # (Auto) Abs Immat Gran (auto) Absolute Neuts (auto) Absolute Nucleated RBC Nucleated RBC % (auto) aPTT Heparin Protocol Anion Gap Estim Creat Clear Calc Estimated GFR POC Glucose 267 H 280 H Fasting Glucose Calcium Total Bilirubin AST ALT Alkaline Phosphatase Total Protein Albumin Random Vancomycin 15.6 06/26/22 06/26/22 06/26/22 06:06 06:06 06:06 MCV 78.3 L MCH 24.7 L MCHC 31.5 RDW 15.7 Plt Count 377 D MPV 11.1 Immature Gran % (Auto) 5.0 H Neut % (Auto) 69.8 Lymph % (Auto) 15.3 L [place] % (Auto) 6.3 Eos % (Auto) 3.2 Baso % (Auto) 0.4 Lymph # (Auto) 2.1 [place] # (Auto) 0.9 Eos # (Auto) 0.4 Baso # (Auto) 0.1 Abs Immat Gran (auto) 0.67 H Absolute Neuts (auto) 9.4 H Absolute Nucleated RBC 0.000 Nucleated RBC % (auto) 0.0 aPTT Heparin Protocol 44.2 L D Anion Gap 15 Estim Creat Clear Calc 89.6 Estimated GFR > 60 POC Glucose Fasting Glucose 193 H Calcium 7.8 L Total Bilirubin 0.6 AST 20 D ALT 31 Alkaline Phosphatase 139 H D Total Protein 5.4 L Albumin 2.4 L Random Vancomycin 06/26/22 06/26/22 07:44 11:11 MCV MCH MCHC RDW Plt Count MPV Immature Gran % (Auto) Neut % (Auto) Lymph % (Auto) [place] % (Auto) Eos % (Auto) Baso % (Auto) Lymph # (Auto) [place] # (Auto) Eos # (Auto) Baso # (Auto) Abs Immat Gran (auto) Absolute Neuts (auto) Absolute Nucleated RBC Nucleated RBC % (auto) aPTT Heparin Protocol Anion Gap Estim Creat Clear Calc Estimated GFR POC Glucose 190 H 209 H Fasting Glucose Calcium Total Bilirubin AST ALT Alkaline Phosphatase Total Protein Albumin Random Vancomycin Microbiology Microbiology Results: Microbiology 06/25/22 12:08 Blood Culture - Preliminary Blood - Venous No growth after 24 hours. 06/25/22 12:14 Blood Culture - Preliminary Blood - Venous No growth after 24 hours. Assessment and Plan (1) Osteomyelitis: Status: Acute (2) Bacteremia: Status: Acute (3) Non-ST elevation [place] (NSTEMI): Status: Acute Plan 67-year-old male with past medical history of diabetes and peripheral vascular disease with history of osteomyelitis presents to the hospital with complaints of left lower extremity wound swelling and drainage; seen by ID presentation consistent with osteomyelitis 1.Osteomyelitis/VRE bacteremia -initial blood culture VRE -Ampicillin IV/PO levaquin -repeat BC x2 pending 2.Non ST elevation [place] type B -IV heparin/aspirin/statins , -echo LVEF 40-45% with wall motion abnormalities -cath as per cards; once blood cultures clear 3.Diabetes mellitus II -continue Lantus as ordered -lispro correctional scale -adjust as indicated 4.Hypertension - verapamil 40 mg t.i.d. -add back lisinopril as appropriate DVT prophylaxis:? IV heparin DNR DNI Requires ongoing hospitalization for IV heparin to treat NSTEMI; IV antibiotics for osteomyelitis Quality Stroke Does the patient have a stroke diagnosis?: No VTE Prior VTE?: No VTE Risk Level:: Medical - moderate - high VTE Device Contraindication: Treatment Not Indicated VTE Drug Contraindication: N/A - Med Ordered
[2022-06-26 14:57] LABS: PTT Heparin Drip 45.7 SEC (53-77.9)
[2022-06-26 15:11] VITALS: BP 143/70; PULSE 58; RESP 18; TEMP 36.3; O2SAT 97
[2022-06-26 16:08] LABS: Glucose, Whole Blood 212 mg/dL (60-115)
[2022-06-26] MEDS: Heparin Sodium,Porcine/1/2NS 25,000 UNIT/250 ML IV.SOLN 21.82 UNIT IVCONT (18:25)
[2022-06-26 18:51] VITALS: BP 148/60; PULSE 56; RESP 18; TEMP 36.2; O2SAT 98
[2022-06-26 19:34] LABS: Glucose, Whole Blood 246 mg/dL (60-115)
[2022-06-26] MEDS: Insulin Glargine,Hum.rec.anlog 100 UNIT/ML 10 ML VIAL 25 UNIT SUBCUT (20:21)
[2022-06-26] MEDS: Atorvastatin Calcium 80 MG TABLET PO (20:25)
[2022-06-26 21:38] LABS: PTT Heparin Drip 45.5 SEC (53-77.9)
[2022-06-26 23:06] VITALS: BP 138/61; PULSE 78; RESP 18; TEMP 36.7; O2SAT 95
--- NOTE | 2022-06-26 23:23 | PM.IDPN ---
Subjective Subjective Date of Service: 06/26/22 Critical Care Time (minutes): 15 Comment: He feels poorly He has enterobacter and VRE bacteremia Objective Data Labs CBC & Chem 7: 06/26/22 06:06 06/26/22 06:06 Labs: Laboratory Results - last 24 hr 06/26/22 06/26/22 06/26/22 06:06 06:06 06:06 WBC 13.5 H RBC 3.69 L Hgb 9.1 L Hct 28.9 L MCV 78.3 L MCH 24.7 L MCHC 31.5 RDW 15.7 Plt Count 377 D MPV 11.1 Immature Gran % (Auto) 5.0 H Neut % (Auto) 69.8 Lymph % (Auto) 15.3 L [place] % (Auto) 6.3 Eos % (Auto) 3.2 Baso % (Auto) 0.4 Lymph # (Auto) 2.1 [place] # (Auto) 0.9 Eos # (Auto) 0.4 Baso # (Auto) 0.1 Abs Immat Gran (auto) 0.67 H Absolute Neuts (auto) 9.4 H Absolute Nucleated RBC 0.000 Nucleated RBC % (auto) 0.0 aPTT Heparin Protocol 44.2 L D Sodium 138 Potassium 3.6 Chloride 104 Carbon Dioxide 23 Anion Gap 15 BUN 9 D Creatinine 1.00 Estim Creat Clear Calc 89.6 Estimated GFR > 60 POC Glucose Fasting Glucose 193 H Calcium 7.8 L Total Bilirubin 0.6 AST 20 D ALT 31 Alkaline Phosphatase 139 H D Total Protein 5.4 L Albumin 2.4 L 06/26/22 06/26/22 06/26/22 07:44 11:11 14:23 WBC RBC Hgb Hct MCV MCH MCHC RDW Plt Count MPV Immature Gran % (Auto) Neut % (Auto) Lymph % (Auto) [place] % (Auto) Eos % (Auto) Baso % (Auto) Lymph # (Auto) [place] # (Auto) Eos # (Auto) Baso # (Auto) Abs Immat Gran (auto) Absolute Neuts (auto) Absolute Nucleated RBC Nucleated RBC % (auto) aPTT Heparin Protocol 45.7 L Sodium Potassium Chloride Carbon Dioxide Anion Gap BUN Creatinine Estim Creat Clear Calc Estimated GFR POC Glucose 190 H 209 H Fasting Glucose Calcium Total Bilirubin AST ALT Alkaline Phosphatase Total Protein Albumin 06/26/22 06/26/22 06/26/22 16:04 19:27 21:12 WBC RBC Hgb Hct MCV MCH MCHC RDW Plt Count MPV Immature Gran % (Auto) Neut % (Auto) Lymph % (Auto) [place] % (Auto) Eos % (Auto) Baso % (Auto) Lymph # (Auto) [place] # (Auto) Eos # (Auto) Baso # (Auto) Abs Immat Gran (auto) Absolute Neuts (auto) Absolute Nucleated RBC Nucleated RBC % (auto) aPTT Heparin Protocol 45.5 L Sodium Potassium Chloride Carbon Dioxide Anion Gap BUN Creatinine Estim Creat Clear Calc Estimated GFR POC Glucose 212 H 246 H Fasting Glucose Calcium Total Bilirubin AST ALT Alkaline Phosphatase Total Protein Albumin Microbiology Microbiology Results: Microbiology 06/25/22 12:08 Blood - Venous Blood Culture - Preliminary No growth after 24 hours. 06/25/22 12:14 Blood - Venous Blood Culture - Preliminary No growth after 24 hours. 06/21/22 16:00 Blood - Venous Blood Culture - Final Enterococcus faecalis Enterobacter cloacae complex 06/21/22 15:43 Blood - Venous Blood Culture - Final Enterococcus faecalis Physical Exam Vital Signs: Vital Signs: Last Vital Signs Temp 98.1 F 06/26/22 23:06 Pulse 78 06/26/22 23:06 Resp 18 06/26/22 23:06 BP 138/61 06/26/22 23:06 Pulse Ox 95 06/26/22 23:06 O2 Del Method 06/26/22 23:06 BMI result Body Mass Index 29.4 Const: General: cooperative Resp: Effort & Inspection: normal respiratory effort Cardio: Rate: regular rate Rhythm: regular rhythm GI: Palpation (GI): Soft to palpation and nontender Extrem: Other: reddened left leg up to below knee foot MARLYN wrap Assessment and Plan Assessment and plan (1) Bacteremia: Problem details: VRE and Enterobacter bacteremia He has echo pending Status: Acute Assessment and Plan: six weeks IV Ampicillin and check CBC and creatinine and SGOT weekly six weeks po Levaquin for enterobacter Foot salvage still concerning and may need surgical intervention (2) Osteomyelitis: Status: Acute Time Spent With Patient Time: Total time spent is greater than 50% in coordination of care (as documented) at patient's floor/unit and/or counseling patient:
[2022-06-27] MEDS: 0.9 % Sodium Chloride Flush 3 ML SYRINGE IVFLUSH ×4 (00:39→23:25)
[2022-06-27] MEDS: Ampicillin Sodium 2 GM in 0.9 % Sodium Chloride 100 ML IV ×5 (02:05→20:27)
[2022-06-27 04:00] VITALS: BP 160/75; PULSE 65; RESP 18; TEMP 36.6; O2SAT 94
[2022-06-27 05:05] LABS: Basophils Percent Auto 0.3 % (0-2); Eosinophils Absolute Auto 0.4 X10*3/uL (0.0-0.4); Eosinophils Percent Auto 2.8 % (0-4); Hemoglobin 8.6 g/dl (14.0-18.0); Imm Gran Abs Auto 0.83 X10*3/uL (0.00-0.03); Imm Gran Pct Auto 5.6 % (0.0-0.4); Lymphocytes Absolute Auto 2.2 X10*3/uL (1.2-4.9); Lymphocytes Percent Auto 14.5 % (20-40); Mean Corpuscular HGB Conc 31.9 g/dl (31.0-36.0); Mean Corpuscular Hemoglobin 24.5 pg (27.0-33.0); Mean Corpuscular Volume 76.9 fL (80.0-98.0); Mean Platelet Volume 10.1 fL (9.4-12.4); Monocytes Absolute Auto 0.8 X10*3/uL (0.1-1.2); Monocytes Percent Auto 5.5 % (2-11); Neutrophils Absolute Auto 10.7 x10*3/uL (2.0-8.3); Neutrophils Percent Auto 71.3 % (45-73); Platelet Count 378 X10*3/uL (160-400); Red Blood Count 3.51 X10*6/uL (4.60-5.80); SCAN SMEAR FLAG 1; White Blood Count 14.9 X10*3/uL (4.8-10.8)
[2022-06-27 05:22] LABS: PTT Heparin Drip 62.6 SEC (53-77.9)
[2022-06-27 05:42] LABS: MANUAL DIFF FLAG SCAN
[2022-06-27 05:43] LABS: SLIDE REVIEW VERIFIED
[2022-06-27 06:00] VITALS: BMI 29.4
--- NOTE | 2022-06-27 06:06 | PC.NURSE ---
Addendum entered by Roshni Miller 06/27/22 08:01: Next PT/INR @10.50am Original Note: PT/INR at 4.30 is 62.6 . Patient remains therapeutic x1 at this time
[2022-06-27] MEDS: Heparin Sodium,Porcine/1/2NS 25,000 UNIT/250 ML IV.SOLN 23.81 UNIT IVCONT (06:10)
[2022-06-27 07:29] LABS: Glucose, Whole Blood 123 mg/dL (60-115)
[2022-06-27 07:43] VITALS: BP 166/69; PULSE 69; RESP 18; TEMP 36.7; O2SAT 98
[2022-06-27] MEDS: Aspirin Enteric Coated 81 MG TABLET.DR PO (08:13)
[2022-06-27] MEDS: VerapamiL HCL 40 MG TABLET PO ×3 (08:13→20:27)
[2022-06-27 10:40] LABS: PTT Heparin Drip 90.7 SEC (53-77.9)
[2022-06-27 11:26] VITALS: BP 157/73; PULSE 71; RESP 18; TEMP 36.3; O2SAT 98
[2022-06-27 11:52] LABS: Glucose, Whole Blood 172 mg/dL (60-115)
[2022-06-27] MEDS: Insulin Lispro 100 UNIT/ML 3 ML VIAL SUBCUT ×3 (12:32→20:27)
[2022-06-27] MEDS: levoFLOXacin 750 MG TABLET PO (14:40)
--- NOTE | 2022-06-27 14:50 | P.PNIM_ITS ---
Subjective Subjective Date of Service: 06/27/22 Interval History: No acute issues overnight. Review of Systems Denies chest pain Denies shortness of breath Denies nausea vomiting diarrhea Denies fever chills Physical Exam Vital Signs: Vital Signs: Last Vital Signs Temp 97.4 F 06/27/22 11:26 Pulse 71 06/27/22 11:26 Resp 18 06/27/22 11:26 BP 157/73 H 06/27/22 11:26 Pulse Ox 98 06/27/22 11:26 O2 Del Method 06/27/22 11:26 BMI result Body Mass Index 29.4 Const: Other: Awake alert comfortable Resp: Other: Clear to auscultation bilaterally no rales rhonchi or wheezes Cardio: Other: No S4; positive S1-S2; no S3 murmurs rubs or gallops GI: Other: Soft nontender nondistended normoactive bowel sounds Extrem: Other: See vascular surgery no Objective Data Active Medications Acetaminophen (Acetaminophen 325 Mg Tablet) 650 mg PO Q6H PRN PRN Reason: Pain, Mild (Pain Scale 1-3) Aspirin (Aspirin Enteric Coated 81 Mg Tablet.) 81 mg PO DAILY [facility] Last Admin: 06/27/22 08:13 Dose: 81 mg Documented By: RUBINA Atorvastatin Calcium (Atorvastatin Calcium 80 Mg Tablet) 80 mg PO BEDTIME [facility] Last Admin: 06/26/22 20:25 Dose: 80 mg Documented By: SHERRY Dextrose (Dextrose 50 % 25 Gm/50 Ml Syringe) 25 gm IVPUSH Q15M PRN; Protocol PRN Reason: per Hypoglycemia Standing Ord. Docusate Sodium (Docusate Sodium 100 Mg Capsule) 100 mg PO DAILY PRN PRN Reason: Constipation Glucose (Glucose Gel 15 Gm Gel..Gram.) 15 gm PO Q15M PRN; Protocol PRN Reason: per Hypoglycemia Standing Ord. Heparin Sodium (Porcine) (Heparin Sodium,Porcine 5,000 Unit/Ml Vial) 4,000 unit 40 unit/kg (4000 unit) IVPUSH PROTOCOL BOLUS PRN; Protocol PRN Reason: 40 unit/kg - Heparin Protocol Last Admin: 06/26/22 15:16 Dose: 4,000 unit Documented By: NICA Heparin Sodium (Porcine) (Heparin Sodium,Porcine 5,000 Unit/Ml Vial) 7,900 unit 80 unit/kg (7900 unit) IVPUSH PROTOCOL BOLUS PRN; Protocol PRN Reason: 80 unit/kg - Heparin Protocol Last Admin: 06/22/22 17:18 Dose: 7,900 unit Documented By: JACKIE Heparin Sodium/Sodium Chloride (Heparin Sodium,Porcine/1/2ns) 25,000 unit in 250 mls @ 0 mls/hr IVCONT .Q0M CHET; Protocol Last Titration: 06/27/22 11:33 Dose: 22 units/kg/hr, 21.82 mls/hr Documented By: RUBINA Co-signed By: JAYA Ampicillin Sodium 2 gm/ Sodium (Chloride) 100 mls @ 100 mls/hr IV Q4H [facility] Last Infusion: 06/27/22 14:36 Dose: 0 mls/hr Documented By: RUBINA Insulin Glargine (Insulin Glargine,Hum.Rec.Anlog 100 Unit/Ml 10 Ml Vial) 25 u nit SUBCUT BEDTIME [facility] Last Admin: 06/26/22 20:21 Dose: 25 unit Documented By: SHERRY Insulin Human Lispro (Insulin Lispro 100 Unit/Ml 3 Ml Vial) 0 unit SUBCUT QIDACHS [facility]; Protocol Last Admin: 06/27/22 12:32 Dose: 2 unit Documented By: JACKIE Levofloxacin (Levofloxacin 750 Mg Tablet) 750 mg PO Q24H [facility] Last Admin: 06/27/22 14:40 Dose: 750 mg Documented By: RUBINA Ondansetron HCl (Ondansetron Hcl 4 Mg/2 Ml Vial) 4 mg IVPUSH Q8H PRN PRN Reason: Nausea and Vomiting Pharmacy Consult (Consult Rx Perform Med Rec) 1 each MISCELLANE ONCE PRN PRN Reason: Consult order Pharmacy Consult (Consult Rx Perform Med Rec) 1 each MISCELLANE ONCE PRN PRN Reason: Consult order Sodium Chloride (0.9 % Sodium Chloride Flush 3 Ml Syringe) 3 ml IVFLUSH QSHIFT [facility] Last Admin: 06/27/22 14:40 Dose: 3 ml Documented By: RUBINA Verapamil HCl (Verapamil Hcl 40 Mg Tablet) 40 mg PO TID [facility]; Protocol Last Admin: 06/27/22 14:46 Dose: 40 mg Documented By: RUBINA Labs CBC & Chem 7: 06/27/22 04:59 06/26/22 06:06 Labs: Laboratory Results - last 24 hr 06/26/22 06/26/22 06/26/22 14:23 16:04 19:27 MCV MCH MCHC RDW Plt Count MPV Immature Gran % (Auto) Neut % (Auto) Lymph % (Auto) [place] % (Auto) Eos % (Auto) Baso % (Auto) Lymph # (Auto) [place] # (Auto) Eos # (Auto) Baso # (Auto) Abs Immat Gran (auto) Absolute Neuts (auto) Absolute Nucleated RBC Nucleated RBC % (auto) Smear Tech's Comments aPTT Heparin Protocol 45.7 L POC Glucose 212 H 246 H 06/26/22 06/27/22 06/27/22 21:12 04:59 04:59 MCV 76.9 L MCH 24.5 L MCHC 31.9 RDW 16.0 Plt Count 378 MPV 10.1 Immature Gran % (Auto) 5.6 H Neut % (Auto) 71.3 Lymph % (Auto) 14.5 L [place] % (Auto) 5.5 Eos % (Auto) 2.8 Baso % (Auto) 0.3 Lymph # (Auto) 2.2 [place] # (Auto) 0.8 Eos # (Auto) 0.4 Baso # (Auto) 0.0 Abs Immat Gran (auto) 0.83 H Absolute Neuts (auto) 10.7 H Absolute Nucleated RBC 0.000 Nucleated RBC % (auto) 0.0 Smear Tech's Comments VERIFIED aPTT Heparin Protocol 45.5 L 62.6 D POC Glucose 06/27/22 06/27/22 06/27/22 07:25 10:05 11:27 MCV MCH MCHC RDW Plt Count MPV Immature Gran % (Auto) Neut % (Auto) Lymph % (Auto) [place] % (Auto) Eos % (Auto) Baso % (Auto) Lymph # (Auto) [place] # (Auto) Eos # (Auto) Baso # (Auto) Abs Immat Gran (auto) Absolute Neuts (auto) Absolute Nucleated RBC Nucleated RBC % (auto) Smear Tech's Comments aPTT Heparin Protocol 90.7 H D POC Glucose 123 H 172 H Microbiology Microbiology Results: Microbiology 06/25/22 12:08 Blood Culture - Preliminary Blood - Venous No growth after 48 hours. 06/25/22 12:14 Blood Culture - Preliminary Blood - Venous No growth after 48 hours. Assessment and Plan (1) Osteomyelitis: Status: Acute (2) Bacteremia: Status: Acute Plan 67-year-old male with past medical history of diabetes and peripheral vascular disease with history of osteomyelitis presents to the hospital with complaints of left lower extremity wound swelling and drainage; seen by ID presentation con сергей with osteomyelitis 1.Osteomyelitis/VRE bacteremia -initial blood culture VRE -Ampicillin IV/PO levaquin -repeat BC x2 negative times 48 hours -PICC line 06/29/[address] elevation [place] type B -IV heparin/aspirin/statins , -echo LVEF 40-45% with wall motion abnormalities -cath as per cards; once blood cultures clear 3.Diabetes mellitus II -continue Lantus as ordered -lispro correctional scale -adjust as indicated 4.Hypertension - verapamil 40 mg t.i.d. -add back lisinopril as appropriate DVT prophylaxis:? IV heparin DNR DNI Requires ongoing hospitalization for IV heparin to treat NSTEMI; IV antibiotics for osteomyelitis Quality Stroke Does the patient have a stroke diagnosis?: No VTE Prior VTE?: No VTE Risk Level:: Medical - moderate - high VTE Device Contraindication: Treatment Not Indicated VTE Drug Contraindication: N/A - Med Ordered
[2022-06-27 15:42] VITALS: BP 156/74; PULSE 60; RESP 18; TEMP 36.5; O2SAT 95
[2022-06-27 16:21] LABS: Glucose, Whole Blood 227 mg/dL (60-115)
[2022-06-27 17:53] LABS: PTT Heparin Drip 66.9 SEC (53-77.9)
[2022-06-27] MEDS: Heparin Sodium,Porcine/1/2NS 25,000 UNIT/250 ML IV.SOLN 21.82 UNIT IVCONT (18:18)
[2022-06-27 19:10] VITALS: BP 136/56; PULSE 55; RESP 18; TEMP 36.9; O2SAT 94
[2022-06-27 19:40] LABS: Glucose, Whole Blood 227 mg/dL (60-115)
[2022-06-27] MEDS: Atorvastatin Calcium 80 MG TABLET PO (20:27)
[2022-06-27] MEDS: Insulin Glargine,Hum.rec.anlog 100 UNIT/ML 10 ML VIAL 25 UNIT SUBCUT (20:27)
[2022-06-27 23:17] VITALS: BP 149/70; PULSE 60; RESP 20; TEMP 36.6; O2SAT 95
[2022-06-28] MEDS: Ampicillin Sodium 2 GM in 0.9 % Sodium Chloride 100 ML IV ×4 (00:20→11:43)
[2022-06-28 04:00] VITALS: BP 181/76; PULSE 61; RESP 20; TEMP 36.4; O2SAT 96
[2022-06-28] MEDS: Heparin Sodium,Porcine/1/2NS 25,000 UNIT/250 ML IV.SOLN 21.82 UNIT IVCONT (05:21)
[2022-06-28 06:13] VITALS: BMI 29.5
[2022-06-28 06:47] LABS: Hematocrit 27.3 % (42.0-52.0); Hemoglobin 8.7 g/dl (14.0-18.0); Mean Corpuscular HGB Conc 31.9 g/dl (31.0-36.0); Mean Corpuscular Hemoglobin 25.1 pg (27.0-33.0); Mean Corpuscular Volume 78.7 fL (80.0-98.0); Mean Platelet Volume 10.7 fL (9.4-12.4); Platelet Count 408 X10*3/uL (160-400); Red Blood Count 3.47 X10*6/uL (4.60-5.80); Red Cell Distribution Width 15.9 % (11.0-16.0); White Blood Count 14.9 X10*3/uL (4.8-10.8)
[2022-06-28 07:21] LABS: PTT Heparin Drip 87.7 SEC (53-77.9)
[2022-06-28 07:41] LABS: Band Neutrophils Percent 2 % (3-5); Eosinophils Absolute Manual 0.1 X10*3/uL (0.0-0.4); Eosinophils Percent Manual 1 % (0-4); Lymphocytes Absolute Manual 1.6 X10*3/uL (1.2-4.9); Lymphocytes Percent Manual 11 % (20-40); Metamyelocytes Absolute 0.1 X10*3/uL; Metamyelocytes Percent 1 %; Monocytes Absolute Manual 0.4 X10*3/uL (0.1-1.2); Monocytes Percent Manual 3 % (2-11); Neutrophils Absolute Manual 12.5 X10*3/uL (2.0-8.3); Neutrophils Percent Manual 82 % (45-73)
[2022-06-28 07:42] LABS: Burr Cells 3+ (>5) /OIF; Large Platelet PRESENT; Ovalocytes 1+ (5-14) /OIF; Platelet Estimate NORMAL (NORMAL); Platelet Morphology Comment NOTED; RBC Morphology NOTED
[2022-06-28 07:55] VITALS: BP 186/77; PULSE 65; RESP 18; TEMP 36.7; O2SAT 98
[2022-06-28 08:06] LABS: Glucose, Whole Blood 194 mg/dL (60-115)
[2022-06-28] MEDS: Insulin Lispro 100 UNIT/ML 3 ML VIAL SUBCUT ×2 (08:42→11:47)
[2022-06-28] MEDS: 0.9 % Sodium Chloride Flush 3 ML SYRINGE IVFLUSH (08:43)
[2022-06-28] MEDS: VerapamiL HCL 40 MG TABLET PO ×2 (08:43→14:34)
[2022-06-28] MEDS: Aspirin Enteric Coated 81 MG TABLET.DR PO (08:43)
--- NOTE | 2022-06-28 10:55 | P.DS_ITS ---
DS: Providers Provider Date of Service: 06/28/22 Date of admission: 06/21/22 19:56 Date of discharge: 06/28/22 Primary care physician: Noel Cedeno MD Consults: 06/21/22 18:40 Consult to Cardiology Stat Consulting Provider: Ananth García Reason for consultation: elevated troponin 06/21/22 21:27 Consult to Infectious Diseases Routine Consulting Provider: Melissa Florence Reason for consultation: diabetic foot wound Has provider been notified: No 06/22/22 05:58 Consult to General Surgery Routine Consulting Provider: Vance Andrews Reason for consultation: diabetic wound infection 06/22/22 09:55 Consult to Vascular Surgery Routine Consulting Provider: Michel Mc Reason for consultation: foot infection left Has provider been notified: Yes 06/25/22 11:56 Consult to Infectious Diseases Routine Consulting Provider: Melissa Florence Reason for consultation: Osteo DS: Diagnosis Discharge Diagnosis (1) Osteomyelitis: Status: Acute (2) Bacteremia: Status: Acute (3) Non-ST elevation [place] (NSTEMI): Status: Acute (4) Type 2 diabetes mellitus: Status: Acute (5) PAD (peripheral artery disease): Status: Acute DS: Summary Hospital Course Hospital Course: 67-year-old male with past medical history of diabetes, history of 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 Patient reports that he has an ulcer at the base of his foot for many months being followed by wound clinic, was seen about 3 weeks ago was told that he is doing well, so he went on a hunting trip up [place], he reports that he noticed worsening drainage, and the wound appearing to be infected therefore decided to come to the hospital for evaluation.? Patient denies any pain due to neuropathy, he reports clear drainage, reports no fever or chills, no chest pain, no abdominal pain nausea or vomiting, no diarrhea constipation, no urinary symptoms and no lower extremity edema otherwise.? On arrival to the ED patient hemodynamically stable with no significant abnormal vitals Labs are significant for WBC count of 10.6, hemoglobin of 11.2, hematocrit 35.5, ESR 74, sodium of 132, creatinine of 1.75 with a baseline of around 1.17, hyperglycemic, and troponin of more than 3600, CRP of 31.38, influenza COVID and RSV negative.? Patient denies any chest pain.? There is no EKG suggestive of ACS.?X-ray shows deep soft tissue ulcer along with medial plantar specks of the midfoot approximating the underlying bone, marked soft tissue swelling and bubbles of gas along the medial aspect of the midfoot and ankle suspicious for gas-forming infection possible fluid collection/abscess Hospital Course Patient admitted started on empiric vancomycin and Zosyn. Patient's blood cultures on admission ultimately grew out Enterobacter and VRE. Patient was seen by infectious disease who recommended 6 weeks of IV ampicillin along with 6 weeks of p.o. Levaquin. Recommendation were sore weekly CBC and BMP. Repeat blood cultures were done in anticipation of PICC line insertion. As of the time of this discharge, both are negative times 48 hours. As far as an NSTEMI; patient has been maintained on heparin drip since admission. Cardiology was waiting for negative blood cultures prior to catheterization. At no time did EKG show signs of ST elevation. 2D echo was done 06/22/2022 which demonstrates a mildly decreased systolic ejection fraction of 40-45%; hypokinesis of basilar anterior mid anterior basilar inferoseptal and basilar anteroseptal regions. Mr. Harper has been chest pain-free since admission. At the time of this dictation, he is medically acceptable for transfer to [facility] for catheterization when bed available Time Spent with Patient Time attestation: Total time spent providing and/or coordinating discharge services: Discharge coordination time: Greater than 30 minutes Quality: Safe Use of Opioids Does Pt have an Active Cancer Diagnosis on the Problem List?: No Quality: Stroke Does the patient have a stroke diagnosis?: No Physical Exam Vital Signs: Vital Signs: Last Vital Signs Temp 98.0 F 06/28/22 07:55 Pulse 65 06/28/22 07:55 Resp 18 06/28/22 07:55 BP 186/77 H 06/28/22 07:55 Pulse Ox 98 06/28/22 07:55 O2 Del Method 06/28/22 07:55 BMI result Body Mass Index 29.5 Const: Other: Awake alert comfortable Resp: Other: Clear to auscultation bilaterally no rales rhonchi or wheezes Cardio: Other: No S4; positive S1-S2; no S3 murmurs rubs or gallops GI: Other: Soft nontender nondistended normoactive bowel sounds Extrem: Other: See vascular surgery note DS: Data Data Completed and Pending Completed studies during hospitalization [Text1]: Procedures Insertion of Infusion Device into Superior Vena Cava, Percutaneous Approach (02/07/21) Labs on day of discharge: Laboratory Results - last 24 hr 06/27/22 06/27/22 06/27/22 10:05 11:27 16:16 WBC RBC Hgb Hct MCV MCH MCHC RDW Plt Count MPV Immature Gran % (Auto) Neut % (Auto) Lymph % (Auto) [place] % (Auto) Eos % (Auto) Baso % (Auto) Lymph # (Auto) [place] # (Auto) Eos # (Auto) Baso # (Auto) Abs Immat Gran (auto) Absolute Neuts (auto) Absolute Nucleated RBC Nucleated RBC % (auto) Neutrophils % (Manual) Band Neutrophils % Lymphocytes % (Manual) Monocytes % (Manual) Eosinophils % (Manual) Metamyelocytes % Abs Neuts (Manual) Lymphocytes # (Manual) Monocytes # (Manual) Eosinophils # (Manual) Metamyelocytes # Platelet Estimate Large Platelets Plt Morphology Comment RBC Morphology Ovalocytes [place] Cells aPTT Heparin Protocol 90.7 H D POC Glucose 172 H 227 H 06/27/22 06/27/22 06/28/22 17:35 19:34 00:19 WBC RBC Hgb Hct MCV MCH MCHC RDW Plt Count MPV Immature Gran % (Auto) Neut % (Auto) Lymph % (Auto) [place] % (Auto) Eos % (Auto) Baso % (Auto) Lymph # (Auto) [place] # (Auto) Eos # (Auto) Baso # (Auto) Abs Immat Gran (auto) Absolute Neuts (auto) Absolute Nucleated RBC Nucleated RBC % (auto) Neutrophils % (Manual) Band Neutrophils % Lymphocytes % (Manual) Monocytes % (Manual) Eosinophils % (Manual) Metamyelocytes % Abs Neuts (Manual) Lymphocytes # (Manual) Monocytes # (Manual) Eosinophils # (Manual) Metamyelocytes # Platelet Estimate Large Platelets Plt Morphology Comment RBC Morphology Ovalocytes Mu Cells aPTT Heparin Protocol 66.9 D 71.0 POC Glucose 227 H 06/28/22 06/28/22 06/28/22 06:20 07:06 07:57 WBC 14.9 H RBC 3.47 L Hgb 8.7 L Hct 27.3 L MCV 78.7 L MCH 25.1 L MCHC 31.9 RDW 15.9 Plt Count 408 H MPV 10.7 Immature Gran % (Auto) Cancelled Neut % (Auto) Cancelled Lymph % (Auto) Cancelled [place] % (Auto) Cancelled Eos % (Auto) Cancelled Baso % (Auto) Cancelled Lymph # (Auto) Cancelled [place] # (Auto) Cancelled Eos # (Auto) Cancelled Baso # (Auto) Cancelled Abs Immat Gran (auto) Cancelled Absolute Neuts (auto) Cancelled Absolute Nucleated RBC 0.000 Nucleated RBC % (auto) 0.0 Neutrophils % (Manual) 82 H Band Neutrophils % 2 L Lymphocytes % (Manual) 11 L Monocytes % (Manual) 3 Eosinophils % (Manual) 1 Metamyelocytes % 1 Abs Neuts (Manual) 12.5 H Lymphocytes # (Manual) 1.6 Monocytes # (Manual) 0.4 Eosinophils # (Manual) 0.1 Metamyelocytes # 0.1 Platelet Estimate NORMAL Large Platelets PRESENT Plt Morphology Comment NOTED RBC Morphology NOTED Ovalocytes 1+ (5-14) Mu Cells 3+ (>5) aPTT Heparin Protocol 87.7 H D POC Glucose 194 H Preliminary micro results at discharge 06/25/22 12:08 Blood Culture - Preliminary Blood - Venous No growth after 48 hours. 06/25/22 12:14 Blood Culture - Preliminary Blood - Venous No growth after 48 hours. Discharge Plan Discharge Anticipated Discharge Date/Time: 06/28/22 10:17 Patient Disposition: Critical Access Hospital Hospital Discharge Diagnosis: Osteomyelitis/NSTEMI Referrals: Name,MD Noel [Primary Care Provider] - 1 Week Discharge Medications: New insulin glargine [Lantus U-100 Insulin] 100 unit/mL Solution 25 unit subcut BEDTIME Qty: 10 0RF insulin lispro [Humalog U-100 Insulin] 100 unit/mL Solution See Protocol subcut QIDACHS Qty: 10 0RF Protocol: Insulin Correction Scale Less than or equal to 110 ---- Give (units): 0 111 to 150 Give (units): 0 151 to 200 Give (units): 2 201 to 250 Give (units): 4 251 to 300 Give (units): 6 301 to 350 Give (units): 8 Greater than 350 Give (units): 10 Call MD if Blood Glucose > : 350 levofloxacin 750 mg Tablet 750 mg PO Q24H Qty: 42 0RF heparin (porcine) 5,000 unit/mL Solution 7,900 unit IVPUSH PROTOCOL BOLUS PRN (Reason: 80 Unit/Kg - Heparin Protocol) Qty: 25 0RF heparin (porcine) 5,000 unit/mL Solution 4,000 unit IVPUSH PROTOCOL BOLUS PRN (Reason: 40 Unit/Kg - Heparin Protocol) Qty: 25 0RF heparin(porcine) in 0.45% NaCl 25,000 unit/250 mL Parenteral Solution 25,000 unit continuous IV infusion .Q0M Qty: 100 0RF ampicillin sodium 2 gram recon soln 2 g IV Q4H Qty: 10 0RF Continued Novolin 70-30 FlexPen U-100 100 unit/mL (70-30) Insulin Pen 20 unit SUBCUT BEDTIME Novolin 70-30 FlexPen U-100 100 unit/mL (70-30) Insulin Pen 30 unit SUBCUT DAILY aspirin 81 mg Tablet,Delayed Release (Dr/Ec) 81 mg PO DAILY Qty: 1 0RF verapamil 40 mg tablet 1 tab PO TID metformin 500 mg tablet extended release 24 hr 2 tab PO BID atorvastatin 80 mg tablet 80 mg PO BEDTIME lisinopril 40 mg tablet 40 mg PO DAILY Discharge Orders: Discharge Order (Routine); Ordered 06/28/22 Ordered By: James Mendoza Diet: Advance to usual diet Activity on Discharge: As tolerated Stand Alone Forms: Patient Portal Discharge page Care Plan Goals: Transfer to [facility] for cardiac catheterization. Health Concerns: Meds as ordered Plan of Treatment: Based on forthcoming data Assessment: See discharge summary
--- NOTE | 2022-06-28 11:00 | P.PNCA_ITS ---
Subjective Subjective Date of Service: 06/28/22 Interval history: He states he feels okay. No new cardiac complaints. Review of Systems Review of Systems Yes all other systems are reviewed and are negative Constitutional: Reports as per HPI Eyes: Reports as per HPI Reports as per HPI Cardiovascular: Reports as per HPI, Denies acrocyanosis, Denies cool extremities, Denies chest pain, Denies leg edema, Denies lightheadedness, Denies palpitations and Denies dyspnea Respiratory: Reports as per HPI, Reports no additional respiratory complaints and Denies dyspnea Gastrointestinal: Reports as per HPI and Reports no additional gastrointestinal complaints Genitourinary: Reports no additional male genitourinary complaints and Reports as per HPI Musculoskeletal: Reports no additional musculoskeletal complaints and Reports as per HPI Skin/Breast: Reports system reviewed and no additional complaints, except as docu Reports system reviewed and no additional complaints, except as documented and Reports as per HPI Psychiatric: Reports no additional psychiatric complaints and Reports as per HPI Endocrine: Reports no additional endocrine complaints, Reports as per HPI and Denies palpitations Hematologic/Lymphatic: Reports no additional hematologic/lymphatic complaints and Reports as per HPI Allergic/Immunologic: Reports no additional allergic/immunologic complaints and Reports as per HPI Physical Exam Vital Signs: Last Vital Signs Temp 98.0 F 06/28/22 07:55 Pulse 65 06/28/22 07:55 Resp 18 06/28/22 07:55 BP 186/77 H 06/28/22 07:55 Pulse Ox 98 06/28/22 07:55 O2 Del Method 06/28/22 07:55 BMI result Body Mass Index 29.5 Const General: comfortable and no acute distress Orientation/consciousness: patient oriented x3 HEENT Other: Unremarkable Head: Yes normal to inspection Neck Neck: Yes normal visual inspection Chest Chest palpation & inspection: normal inspection of the chest Resp Auscultation: rhonchi Cardio Other: Heart sounds are distant. No clear murmurs audible. Palpation: normal PMI GI Palpation (GI): Soft to palpation Back/Spine/Pelvis Other: unremarkable Skin General skin exam: no rashes or lesions noted Neuro General: patient oriented x3 Extrem Other: Lower extremities have wounds. Dressing on. Psych Mental Status: mental status grossly normal Objective Labs and Meds Result diagrams: 06/28/22 06:20 06/26/22 06:06 Lab results: Laboratory Results - last 24 hr 06/27/22 06/27/22 06/27/22 10:05 11:27 16:16 WBC RBC Hgb Hct MCV MCH MCHC RDW Plt Count MPV Immature Gran % (Auto) Neut % (Auto) Lymph % (Auto) [place] % (Auto) Eos % (Auto) Baso % (Auto) Lymph # (Auto) [place] # (Auto) Eos # (Auto) Baso # (Auto) Abs Immat Gran (auto) Absolute Neuts (auto) Absolute Nucleated RBC Nucleated RBC % (auto) Neutrophils % (Manual) Band Neutrophils % Lymphocytes % (Manual) Monocytes % (Manual) Eosinophils % (Manual) Metamyelocytes % Abs Neuts (Manual) Lymphocytes # (Manual) Monocytes # (Manual) Eosinophils # (Manual) Metamyelocytes # Platelet Estimate Large Platelets Plt Morphology Comment RBC Morphology Ovalocytes Mu Cells aPTT Heparin Protocol 90.7 H D POC Glucose 172 H 227 H 06/27/22 06/27/22 06/28/22 17:35 19:34 00:19 WBC RBC Hgb Hct MCV MCH MCHC RDW Plt Count MPV Immature Gran % (Auto) Neut % (Auto) Lymph % (Auto) [place] % (Auto) Eos % (Auto) Baso % (Auto) Lymph # (Auto) [place] # (Auto) Eos # (Auto) Baso # (Auto) Abs Immat Gran (auto) Absolute Neuts (auto) Absolute Nucleated RBC Nucleated RBC % (auto) Neutrophils % (Manual) Band Neutrophils % Lymphocytes % (Manual) Monocytes % (Manual) Eosinophils % (Manual) Metamyelocytes % Abs Neuts (Manual) Lymphocytes # (Manual) Monocytes # (Manual) Eosinophils # (Manual) Metamyelocytes # Platelet Estimate Large Platelets Plt Morphology Comment RBC Morphology Ovalocytes [place] Cells aPTT Heparin Protocol 66.9 D 71.0 POC Glucose 227 H 06/28/22 06/28/22 06/28/22 06:20 07:06 07:57 WBC 14.9 H RBC 3.47 L Hgb 8.7 L Hct 27.3 L MCV 78.7 L MCH 25.1 L MCHC 31.9 RDW 15.9 Plt Count 408 H MPV 10.7 Immature Gran % (Auto) Cancelled Neut % (Auto) Cancelled Lymph % (Auto) Cancelled [place] % (Auto) Cancelled Eos % (Auto) Cancelled Baso % (Auto) Cancelled Lymph # (Auto) Cancelled [place] # (Auto) Cancelled Eos # (Auto) Cancelled Baso # (Auto) Cancelled Abs Immat Gran (auto) Cancelled Absolute Neuts (auto) Cancelled Absolute Nucleated RBC 0.000 Nucleated RBC % (auto) 0.0 Neutrophils % (Manual) 82 H Band Neutrophils % 2 L Lymphocytes % (Manual) 11 L Monocytes % (Manual) 3 Eosinophils % (Manual) 1 Metamyelocytes % 1 Abs Neuts (Manual) 12.5 H Lymphocytes # (Manual) 1.6 Monocytes # (Manual) 0.4 Eosinophils # (Manual) 0.1 Metamyelocytes # 0.1 Platelet Estimate NORMAL Large Platelets PRESENT Plt Morphology Comment NOTED RBC Morphology NOTED Ovalocytes 1+ (5-14) Mu Cells 3+ (>5) aPTT Heparin Protocol 87.7 H D POC Glucose 194 H Progress Note: A&P Assessment and plan (1) Non-ST elevation [place] (NSTEMI): Status: Acute Plan His troponins are greater than 3600 x3. Echocardiogram with LVEF of 40-45% with wall motion abnormalities. Overall, high likelihood of underlying coronary disease. He has completed IV heparin for 48 hours. Otherwise, continue aspirin and statins. Blood pressure is running high and at home he has listed to be on lisinopril. We can resume that. We will transfer to [facility] for cardiac catheterization. Patient is agreeable. With regard to the infection/bacteremia, cultures are negative at this time. Antibiotic regimen per Dr. Mendoza. Discussed with him in detail. Patient be transferred to [facility] today. Time Spent With Patient Time: Total time spent is greater than 50% in coordination of care (as documented) at patient's floor/unit and/or counseling patient: 38min. Progress Note: Quality Stroke Does the patient have a stroke diagnosis?: No Procedures Date of Service Date of Service: 06/28/22
[2022-06-28] MEDS: lisinopriL 40 MG TABLET PO (11:41)
[2022-06-28 11:43] VITALS: BP 193/77; PULSE 68; RESP 18; TEMP 36.6; O2SAT 95
[2022-06-28 12:16] LABS: Glucose, Whole Blood 210 mg/dL (60-115)
[2022-06-28 13:58] LABS: PTT Heparin Drip 63.4 SEC (53-77.9)
[2022-06-28] MEDS: levoFLOXacin 750 MG TABLET PO (14:34)
== END 2022-06-28 15:58 | disposition short-term general hospital (02) | DRG 637 ==
LOC: HO.ED 18:45 → HO.EDOVER 20:04 → HO.IMC 21:06
PROVIDERS: Hospitalist; Nurse Practitioner Family; Physician Assistant; Student in an Organized Health Care Education/Training Program; Admitting Provider Internal Medicine; Emergency Provider Emergency Medicine Emergency Medical Services; PCP Internal Medicine Geriatric Medicine; Visit Provider Hospitalist
DX: E11.621 Type 2 diabetes mellitus with foot ulcer (principal); I21.A1 Myocardial infarction type 2; M62.82 Rhabdomyolysis; L97.426 Non-pressure chronic ulcer of left heel and midfoot with bone involvement without evidence of necrosis; M86.172 Other acute osteomyelitis, left ankle and foot; R78.81 Bacteremia; Z16.21 Resistance to vancomycin; N17.9 Acute kidney failure, unspecified; I10 Essential (primary) hypertension; E11.65 Type 2 diabetes mellitus with hyperglycemia; E11.69 Type 2 diabetes mellitus with other specified complication; E66.9 Obesity, unspecified; Z66 Do not resuscitate; I45.10 Unspecified right bundle-branch block; E11.610 Type 2 diabetes mellitus with diabetic neuropathic arthropathy; Z68.29 Body mass index [BMI] 29.0-29.9, adult; E78.5 Hyperlipidemia, unspecified; B95.2 Enterococcus as the cause of diseases classified elsewhere; E11.51 Type 2 diabetes mellitus with diabetic peripheral angiopathy without gangrene; F17.210 Nicotine dependence, cigarettes, uncomplicated; Z20.822 Contact with and (suspected) exposure to COVID-19; Z79.82 Long term (current) use of aspirin; Z79.4 Long term (current) use of insulin; Z79.84 Long term (current) use of oral hypoglycemic drugs; Z79.899 Other long term (current) drug therapy
CPT/HCPCS: 0241U; 36415; 70450; 71045; 73620; 80048; 80053; 80076; 80202; 81001; 82009; 82077; 82550; 82947; 83605; 83735; 84484; 85007; 85025; 85027; 85610; 85652; 85730; 86140; 87040; 87077; 87186; 87205; 93005; 93306; 99285; J0290; J2543; J3370; Q9957

== ENCOUNTER → 2022-07-22 08:40 | Outpatient (BNVA) | payer MEDICARE, SELFPAY | PROVIDERS: PCP Internal Medicine Geriatric Medicine; Visit Provider Internal Medicine | DX: I25.10 Atherosclerotic heart disease of native coronary artery without angina pectoris (principal); I21.4 Non-ST elevation (NSTEMI) myocardial infarction; I10 Essential (primary) hypertension; E11.9 Type 2 diabetes mellitus without complications; Z79.82 Long term (current) use of aspirin; Z79.899 Other long term (current) drug therapy | CPT/HCPCS: 99212 ==

== ENCOUNTER → 2022-10-14 08:29 | Outpatient (BNVA) | payer MEDICARE, SELFPAY | PROVIDERS: PCP Internal Medicine Geriatric Medicine; Referring Provider Internal Medicine Geriatric Medicine; Visit Provider Internal Medicine | DX: I21.4 Non-ST elevation (NSTEMI) myocardial infarction (principal); I10 Essential (primary) hypertension; E11.9 Type 2 diabetes mellitus without complications; Z98.890 Other specified postprocedural states; Z95.1 Presence of aortocoronary bypass graft | CPT/HCPCS: 99212 ==

== ENCOUNTER 2022-11-23 09:15 | Outpatient (REF) | payer MEDICARE, SELFPAY ==
--- NOTE | ~2022-11-23 | US_ITS ---
EXAMINATION: ANKLE-BRACHIAL INDICES SINGLE LEVEL PULSE VOLUME RECORDING ARTERIAL DUPLEX BILATERAL LEGS CLINICAL INFORMATION: Peripheral vascular disease. COMPARISON: 11/03/2021. TECHNIQUE: Ankle-brachial indices and PVR at the ankle were obtained. Duplex Doppler of the bilateral lower extremity arterial systems was performed. FINDINGS: RIGHT: Ankle-brachial index: 0.97, previous 0.91. PVR: Mildly abnormal. Diffuse atherosclerotic disease. Common femoral: PSV 166 cm/s. Triphasic waveform. Deep femoral: PSV 210 cm/s. Triphasic waveform. Proximal superficial femoral: PSV 147 cm/s. Triphasic waveform. Mid superficial femoral: PSV 163 cm/s. Triphasic waveform. Distal superficial femoral: PSV 102 cm/s. Triphasic waveform. Popliteal: PSV 94 cm/s. Triphasic waveform. Posterior tibial: PSV 123 cm/s. Triphasic waveform. Peroneal: PSV 95 cm/s. Triphasic waveform. LEFT: Ankle-brachial index: 1.09, previous 0.96. PVR: Normal Diffuse atherosclerotic disease. Common femoral: PSV 196 cm/s. Biphasic waveform. Deep femoral: PSV 250 cm/s. Triphasic waveform. Proximal superficial femoral: PSV 197 cm/s. Biphasic waveform. Mid superficial femoral: PSV 148 cm/s. Triphasic waveform. Distal superficial femoral: PSV 130 cm/s. Triphasic waveform. Popliteal: PSV 149 cm/s. Triphasic waveform. Posterior tibial: PSV 169 cm/s. Triphasic waveform. Peroneal: PSV 60 cm/s. Triphasic waveform. US/US JOSE ROBERTO complete IMPRESSION: Right lower extremity: No evidence of hemodynamically significant peripheral arterial disease. Left lower extremity: No evidence of hemodynamically significant peripheral arterial disease.
--- NOTE | ~2022-11-23 | US_ITS ---
EXAMINATION: ANKLE-BRACHIAL INDICES SINGLE LEVEL PULSE VOLUME RECORDING ARTERIAL DUPLEX BILATERAL LEGS CLINICAL INFORMATION: Peripheral vascular disease. COMPARISON: 11/03/2021. TECHNIQUE: Ankle-brachial indices and PVR at the ankle were obtained. Duplex Doppler of the bilateral lower extremity arterial systems was performed. FINDINGS: RIGHT: Ankle-brachial index: 0.97, previous 0.91. PVR: Mildly abnormal. Diffuse atherosclerotic disease. Common femoral: PSV 166 cm/s. Triphasic waveform. Deep femoral: PSV 210 cm/s. Triphasic waveform. Proximal superficial femoral: PSV 147 cm/s. Triphasic waveform. Mid superficial femoral: PSV 163 cm/s. Triphasic waveform. Distal superficial femoral: PSV 102 cm/s. Triphasic waveform. Popliteal: PSV 94 cm/s. Triphasic waveform. Posterior tibial: PSV 123 cm/s. Triphasic waveform. Peroneal: PSV 95 cm/s. Triphasic waveform. LEFT: Ankle-brachial index: 1.09, previous 0.96. PVR: Normal Diffuse atherosclerotic disease. Common femoral: PSV 196 cm/s. Biphasic waveform. Deep femoral: PSV 250 cm/s. Triphasic waveform. Proximal superficial femoral: PSV 197 cm/s. Biphasic waveform. Mid superficial femoral: PSV 148 cm/s. Triphasic waveform. Distal superficial femoral: PSV 130 cm/s. Triphasic waveform. Popliteal: PSV 149 cm/s. Triphasic waveform. Posterior tibial: PSV 169 cm/s. Triphasic waveform. Peroneal: PSV 60 cm/s. Triphasic waveform. US/US arterial duplex LE BI IMPRESSION: Right lower extremity: No evidence of hemodynamically significant peripheral arterial disease. Left lower extremity: No evidence of hemodynamically significant peripheral arterial disease.
== END 2022-11-23 09:16 | disposition home or self-care (01) ==
LOC: HO.US 09:15
PROVIDERS: Visit Provider Surgery Vascular Surgery
DX: I70.213 Atherosclerosis of native arteries of extremities with intermittent claudication, bilateral legs (principal)
CPT/HCPCS: 93923; 93925

== ENCOUNTER → 2022-12-11 07:43 | Outpatient (REF) | payer MEDICARE, SELFPAY ==
--- NOTE | 2022-12-11 07:45 | CA_ITS ---
Transthoracic Echocardiogram Patient (Last, First, Middle): Giovanni Harper P Gender: Male Date of : 1955 Age: 67 Procedure Date: 12/11/2022 Procedure Type: Transthoracic Echocardiogram Location: OP Height: 187.96 cm Weight: 102.97 kg BSA: 2.29 m2 Heart Rate: 51 bpm BP: 115 / 70 mmHg Commissary Steward: CODY Referring MD: Gab Matamoros MD Symptoms: Z95.1 - Presence of aortocoronary bypass graft Study Quality: Adequate/Contrast ECG Rhythm: Sinus Conclusions: - The left ventricular systolic function is normal. The calculated ejection fraction is 59% by biplane method. - No obvious valvular pathology seen on this study. Findings Procedure Information Contrast agent, definity, is being given per protocol without apparent complications. Left Ventricle Normal left ventricular cavity size. There is mildly increased left ventricular wall thickness. The left ventricular systolic function is normal. The calculated ejection fraction is 59% by biplane method. There is no evidence of regional wall motion abnormalities. Diastolic function is normal for age. Right Ventricle Moderately increased right ventricular cavity size. There is normal right ventricular systolic function. Atria The left atrium is moderately dilated. The right atrium is likely dilated. Aortic Valve There is a normal trileaflet aortic valve. There is mild calcification of the aortic valve. There is no aortic valve stenosis. There is no aortic valve regurgitation. Mitral Valve The mitral valve appears normal. There is no mitral valve regurgitation. There is no mitral valve stenosis. Pulmonic Valve The pulmonic valve is likely normal. Tricuspid Valve There is no tricuspid valve regurgitation. There is no evidence of pulmonary hypertension. Great Vessels The asc aorta is normal in size. Venous The inferior vena cava is normal in size and collapses greater than 50% with inspiration. Pericardium/Pleural There is no evidence of pericardial effusion. Prior Study Comparison Changes noted compared to prior study dated: 06/22/2022. Improved LVEF and wall motion. Recommendations, Care & Conclusions No obvious valvular pathology seen on this study. Measurements 2D Linear Measurements IVSd: 1.28 0.6-0.9/0.6-1.0 cm LVIDd: 3.91 3.9-5.3/4.2-5.9 cm LVIDd Index: 1.71 2.4-3.2/2.2-3.1 cm/m2 LVIDs: 2.58 2.0-3.6 cm LVPWd: 1.38 0.7-1.1 cm LA Diam: 4.20 2.7-3.8/3.0-4.0 cm LAIDs Index: 1.83 1.5-2.3 cm/m2 LV Mass: 232.77 67-162/88-224 g LV Mass Index: 101.65 43-95/49-115 g/m2 LVOT Diam: 2.10 3.0+(-)1.3 cm 2D Systolic Function EF 4C: 58.20 >55% EF 2C: 59.80 >55% EF BiP: 58.80 >55% Mitral Valve MV Pk E: 0.78 MV PK A: 0.59 MV Decel Time: 230.00 E/A: 1.30 E'Lateral: 8.83 E'Medial: 5.54 E/E' Med: 14.00 E/E' Lat: 8.80 PHT: 67.00 MVA PHT: 3.28 Decel [place]: 3.37 Aortic Valve AoV Pk [place]er: 1.46 AoV Mn Kristofer: 1.00 AoV VTI: 0.37 AoV Pk Grad: 9.00 Aov Mn Grad: 5.00 COURT Cont.VTI: 2.43 LVOT LVOT Pk [place]ofer: 1.01 LVOT Mn Kristofer: 0.74 LVOT VTI: 0.26 LVOT Pk Grad: 4.00 LVOT Mn Grad: 2.00 LVOT Diam: 2.10 LVOT Area: 3.46 Diastolic Function MV Pk E: 0.78 MV Pk A: 0.59 E/A: 1.30 E'Medial: 5.54 E/E' Med: 14.00 E' Laterial: 8.83 E/E' Lat: 8.80 Right Ventricle TAPSE (mm): 18.00 TVS' Kristofer: 8.36 Tricuspid Valve RA Press: 3.00 Great Vessels Aorta Sinus of Valsalva: 4.20 2.0-3.5 cm Ao Asc: 3.50 2.1-3.4 cm Pulmonary Valve PV Pk Kristofer: 0.71 Peak PV Grad: 2.00 Updated in Other Vendor System with Status of Final Gab Matamoros MD electronically signed on 12/12/2022 12:46:26 PM with status of Final
== END ==
LOC: HO.CARD 07:43
PROVIDERS: PCP Internal Medicine Geriatric Medicine; Visit Provider Internal Medicine
DX: Z95.1 Presence of aortocoronary bypass graft (principal)
CPT/HCPCS: 93306; Q9957

== ENCOUNTER → 2022-12-29 11:03 | Outpatient (BNVA) | payer MEDICARE, SELFPAY | PROVIDERS: PCP Internal Medicine Geriatric Medicine; Visit Provider Surgery Vascular Surgery | DX: I73.9 Peripheral vascular disease, unspecified (principal); Z89.412 Acquired absence of left great toe; Z89.431 Acquired absence of right foot | CPT/HCPCS: 99212 ==

== ENCOUNTER 2023-04-15 09:13 | Outpatient (AMB) | payer MEDICARE, SELFPAY ==
[2023-04-15 09:28] VITALS: BP 140/62; PULSE 52; BMI 29.0
--- NOTE | 2023-04-15 09:28 | MHC.OFFVIS ---
Intake Vital Signs 04/15/23 09:28 Height 6 ft 2 in Weight 226 lb 3.108 oz BMI 29.0 BP 140/62 H Blood Pressure Location Lt brachial Position Sitting Pulse 52 Pulse Source Pulse Oximeter Intake Visit Reasons: 3 mth fu after echo Intake Note: 3 mth f/u after echo Change Person Required: No Allergies No Known Allergies [No Known Allergies*] Allergy (Verified 04/15/23 09:33) Medication List - Last Reconciled 04/15/23 by Raegan Pemberton NP-C aspirin 81 mg PO DAILY atorvastatin 80 mg PO BEDTIME carvedilol (Coreg) 12.5 mg PO BID 90 days clopidogrel 75 mg PO QAM insulin NPH and regular human 100 unit/mL (70-30) (Novolin 70-30 FlexPen U-100 Insulin) 20 units subcut BEDTIME insulin NPH and regular human 100 unit/mL (70-30) (Novolin 70-30 FlexPen U-100 Insulin) 30 units subcut DAILY lisinopril 40 mg PO DAILY metformin ER 1,000 mg PO BID HPI 3 mth fu after echo HPI Details Giovanni is a 68-year-old male with past medical history of hyperlipidemia, diabetes, coronary artery disease with prior Coronary artery bypass grafting who presents for follow-up. Today he reports he has been feeling very well since his last visit 6 months ago. He has not had any chest discomfort at rest or with activity. He denies shortness of breath, palpitations, presyncope, syncope, falls. No PND, orthopnea or edema. He does only light physical activity. He says he takes his medications as directed. He has completed cardiac rehab. No cardiac questions or concerns today. [facility] Medical History (Updated 04/15/23 @ 11:13 by Raegan Pemberton NP-C) Atherosclerotic cardiovascular disease Cellulitis Hyperlipidemia HTN (hypertension) with goal to be determined Elevated lactic acid level Acute hyperglycemia Leukocytosis Foot ulcer, right Diabetes PAD (peripheral artery disease) Ulcer of left foot Surgical History (Updated 04/15/23 @ 11:12 by ASTRID BenavidezC) Status post debridement (03/04/20) Amputated great toe of left foot (01/09/20) History of transmetatarsal amputation of right foot (~2004) Family History Mother No problems noted. Father No problems noted. Social History Household Members: Family Housing: Apartment Do you presently have visiting nurse or other home services: No Alcohol intake: never Patient Tobacco Use Status: Former Tobacco user Years Smoked: 50 -/+ Second Hand Smoke Exposure: No service: No Current occupational status: retired and disabled Review of Systems ENT Denies dizziness Card Denies chest pain, Denies chest pain at rest, Denies chest pain with activity, Denies rapid heart rate, Denies pedal edema, Denies edema, Denies leg edema, Denies lightheadedness, Denies palpitations, Denies dyspnea, Denies dyspnea on exertion and Denies orthopnea Resp Denies cough, Denies dyspnea and Denies dyspnea on exertion GI Denies hematochezia and Denies change in stool character Musc Denies abnormal gait, Denies limited range of motion, Denies muscle cramps, Denies muscle weakness, Denies numbness, Denies radiating pain into limb, Denies stiffness and Denies tingling Neuro Denies abnormal gait, Denies dizziness, Denies numbness and Denies tingling Endo Denies palpitations Physical Exam Vital Signs: Last Vital Signs Pulse 52 04/15/23 09:28 BP 140/62 H 04/15/23 09:28 BMI result Body Mass Index 29.0 Const General: cooperative, healthy appearing, comfortable and no acute distress Orientation/consciousness: patient oriented x3 Neck Neck: Yes normal visual inspection Resp Effort & Inspection: normal respiratory effort Auscultation: clear to auscultation bilaterally, no crackles, no rales, no rhonchi and no wheezes Cardio Jugular venous distension: no JVD Rate: regular rate Rhythm: regular rhythm Heart sounds: S1 normal heart sound present, S2 normal heart sound present, no murmurs and no rubs Neuro General: patient oriented x3 Extrem General: Yes normal to inspection, No no pedal edema and No calf tenderness Psych Appearance: grossly normal Mental Status: mental status grossly normal Speech and movement: Normal speech and movement present Assessment & Plan Assessment & Plan (1) Atherosclerotic cardiovascular disease: Code(s): I25.10 - Atherosclerotic heart disease of [place] coronary artery without angina pectoris Plan: History of CAD with cardiac catheterization 06/2022 showing severe left main disease. He underwent 2 vessel coronary artery bypass grafting 09/22/2022. He has done well since that time. He completed cardiac rehab. He denies any anginal sounding symptoms. He will continue on aspirin indefinitely. Continue Plavix at this time. No bleeding issues reported. Continue high-dose atorvastatin with ideal LDL goal less than 70. No recently lipid profile in our system. Will reach out to PCP office. Continue carvedilol and lisinopril. Last echocardiogram done 12/11/2022 showed EF 59%, no regional wall motion abnormalities. Reviewed increasing physical activity as tolerated. Cardiology follow-up in 6 months, sooner if needed (2) Status post aorto-coronary artery bypass graft: Comment: 09/22/2022 Brown to LAD, SVG to OM 1 Code(s): Z95.1 - Presence of aortocoronary bypass graft (3) Status post cardiac catheterization: Comment: 06/30/2022, left main 70% stenosis, RCA 50% stenosis Code(s): Z98.890 - Other specified postprocedural states (4) Essential hypertension: Code(s): I10 - Essential (primary) hypertension Plan: Initially mildly elevated, improved on recheck at 132/78 (5) Hyperlipidemia: Code(s): E78.5 - Hyperlipidemia, unspecified Coding Level of Care Code Est Pt Level 4 (64924) Diagnoses Atherosclerotic cardiovascular disease I25.10 Status post aorto-coronary artery bypass graft Z95.1 Status post cardiac catheterization Z98.890 Essential hypertension I10 Hyperlipidemia E78.5
== END 2023-04-15 09:52 | disposition home or self-care (01) ==
PROVIDERS: PCP Internal Medicine Geriatric Medicine; Visit Provider Nurse Practitioner Family
DX: I25.10 Atherosclerotic heart disease of native coronary artery without angina pectoris (principal); Z95.1 Presence of aortocoronary bypass graft; Z98.890 Other specified postprocedural states; I10 Essential (primary) hypertension; E78.5 Hyperlipidemia, unspecified
CPT/HCPCS: 99214

== ENCOUNTER → 2023-04-15 09:13 | Outpatient (BNVA) | payer MEDICARE, SELFPAY | PROVIDERS: PCP Internal Medicine Geriatric Medicine; Visit Provider Nurse Practitioner Family | DX: I25.10 Atherosclerotic heart disease of native coronary artery without angina pectoris (principal); I10 Essential (primary) hypertension; E78.5 Hyperlipidemia, unspecified; Z79.02 Long term (current) use of antithrombotics/antiplatelets; Z79.899 Other long term (current) drug therapy; Z95.1 Presence of aortocoronary bypass graft | CPT/HCPCS: 99212 ==

== ENCOUNTER 2023-08-01 14:03 | Emergency (ER) | payer MEDICARE, SELFPAY ==
[2023-08-01 15:39] VITALS: BP 143/83; PULSE 76; RESP 18; TEMP 37; O2SAT 98; BMI 30.1
--- NOTE | 2023-08-01 15:40 | ED.GENADULT ---
HPI - General Adult General Chief complaint: Wound/Laceration Stated complaint: Blister R foot Time Seen by Provider: 08/01/23 15:46 Source: patient Mode of arrival: ambulatory Limitations: no limitations History of Present Illness HPI narrative: Patient is a 68-year-old male with history of DM and amputation of all toes to right foot presenting to the emergency department with complaint of blister to distal stump of right foot. States he bought new shoes two days ago and noted blister with clear drainage today. Denies fever or purulent drainage. Denies pain. States when he typically develops blisters he is prescribed prophylactic antibiotics. States he will follow up with the wound clinic first thing Wednesday. Does not plan on wearing the new shoes again. States glucose levels have been around 140 recently. complaint: blister Onset (ago): day(s) Location: right and lower extremity Associated symptoms: denies other symptoms Treatments prior to arrival: other (dressing) Related Data Home Medications Medication Instructions Recorded Confirmed atorvastatin 80 mg tablet 80 mg PO BEDTIME 04/27/20 04/15/23 lisinopril 40 mg tablet 40 mg PO DAILY 04/27/20 04/15/23 insulin NPH-regular 70-30 U-100 20 unit subcut BEDTIME 02/07/21 04/15/23 insulin 100 unit/mL subcutaneous pen (Novolin 70-30 FlexPen U-100 Insulin) insulin NPH-regular 70-30 U-100 30 unit subcut DAILY 02/07/21 04/15/23 insulin 100 unit/mL subcutaneous pen (Novolin 70-30 FlexPen U-100 Insulin) metformin 500 mg tablet,extended 1,000 mg PO BID 07/22/22 04/15/23 release 24 hr clopidogrel 75 mg tablet 75 mg PO QAM 10/14/22 04/15/23 Previous Rx's Medication Instructions Recorded aspirin 81 mg tablet,delayed 81 mg PO DAILY #1 tab 02/11/21 release carvedilol 12.5 mg tablet (Coreg) 12.5 mg PO BID 90 days #180 tabs 07/22/22 cephalexin 500 mg capsule 500 mg PO QID 7 days #28 caps 08/01/23 Allergies Allergy/AdvReac Type Severity Reaction Status Date / Time No Known Allergies Allergy Verified 08/01/23 15:38 [No Known Allergies*] Review of Systems Review of Systems: As per HPI. Yes all other systems are reviewed and are negative Constitutional: Constitutional: Reports as per HPI [facility] Past Medical History Medical History (Updated 08/01/23 @ 15:50 by Sofi Owens NP) Atherosclerotic cardiovascular disease Cellulitis Hyperlipidemia HTN (hypertension) with goal to be determined Elevated lactic acid level Acute hyperglycemia Leukocytosis Foot ulcer, right Diabetes PAD (peripheral artery disease) Ulcer of left foot Surgical History (Updated 04/15/23 @ 11:12 by KIMMY Benavidez) Status post debridement (03/04/20) Amputated great toe of left foot (01/09/20) History of transmetatarsal amputation of right foot (~2004) Family History Family History Mother No problems noted. Father No problems noted. Social History Social History Household Members: Family Housing: Apartment Do you presently have visiting nurse or other home services: No Alcohol intake: never Patient Tobacco Use Status: Former Tobacco user Years Smoked: 50 -/+ Second Hand Smoke Exposure: No service: No Current occupational status: retired and disabled Physical Exam ED Vital Signs: Vital Signs - 24 hr 08/01/23 15:39 Temperature 98.6 F Pulse Rate 76 Respiratory Rate 18 Blood Pressure 143/83 H Pulse Oximetry 98 Oxygen Delivery Method Room Air BMI result Body Mass Index 30.1 Vital signs have been reviewed and appear to be correct. Blood pressure mildly elevated. Heart rate normal. Respiratory rate normal. Temperature normal. Oxygen saturation normal. Const General: cooperative, healthy appearing and no acute distress Orientation/consciousness: oriented to person, oriented to place, oriented to time and patient oriented x3 Limitations: no limitations HENMT Head: Yes normocephalic and Yes atraumatic Ears: external ears normal General nose exam: Normal external nose present Face and sinus: Yes face symmetric Mouth: oropharynx normal and moist mucous membranes Throat: Yes uvula midline Eyes Pupils: Equal, round and reactive pupils present Neck Neck: Yes normal visual inspection and Yes supple Resp Effort & Inspection: normal respiratory effort and able to speak in complete sentences Auscultation: clear to auscultation bilaterally Cardio Rate: regular rate Rhythm: regular rhythm Heart sounds: S1 normal heart sound present and S2 normal heart sound present Skin General skin exam: elasticity normal and turgor normal Neuro General: oriented to person, oriented to place, oriented to time, patient oriented x3, moves all extremities, no focal motor deficits and CN's II-XI intact bilaterally Cranial nerves: Yes Equal, round and reactive pupils present Cognition (Neuro): normal cognition Extrem General: Yes full ROM and Yes no calf tenderness Right lower extremity: foot (no erythema, warmth, drainage) Details: no edema and vascular exam Details: dorsalis pedis pulse present and posterior tibial pulse present; abnormal to inspection (amputation of all toes, 2cm blister to distal stump on medial aspect) and no unusual warmth Psych Mental Status: mental status grossly normal Affect: normal affect Thought process: Normal thought process present Medical Decision Making Medical Decision Making MDM Narrative: Patient is a 68-year-old male with history of DM and amputation of all toes to right foot presenting to the emergency department with complaint of blister to distal stump of right foot. On exam patient is awake, A+Ox3, VS WNL, afebrile, normal neurological exam without focal deficits, physical exam findings as above. Given reported symptoms and physical exam findings, initial differential includes blister vs cellulitis. Given history, will cover with cephalexin and instructed patient to follow-up with primary care provider as well as Wound Clinic. Strict return precautions discussed with patient. Instructed patient to assess foot daily or more frequently for signs of infection. First dose of cephalexin administered in the ED. Reminded patient to avoid wearing the shoes which caused this blister. Patient verbalized understanding of and agreement with plan. Differential Diagnosis Differential Diagnoses: The differential diagnosis associated with the presentation includes blister cellulitis diabetic ulcer External Record Review External record reviewed: Inpatient record, Office record and Outpatient record Prescription Management I considered prescription management with: Antibiotic Discharge Plan Discharge Clinical Impression: Blister Patient Disposition: Home, Self-Care Instructions: Blister (ED) Additional Instructions: You were evaluated in the emergency department today for a blister to your right foot. You are being prescribed antibiotics, please complete the full course as prescribed. Follow up with your primary care provider as well as the wound clinic. Return to the emergency department if you develop increasing redness, swelling, thick yellow drainage, redness streaking up your foot towards your leg, fever, or any other concerning symptoms. Prescriptions: New cephalexin 500 mg capsule 500 mg PO QID 7 Days Qty: 28 0RF No Action Novolin 70-30 FlexPen U-100 100 unit/mL (70-30) Insulin Pen 20 unit SUBCUT BEDTIME Novolin 70-30 FlexPen U-100 100 unit/mL (70-30) Insulin Pen 30 unit SUBCUT DAILY aspirin 81 mg Tablet,Delayed Release (Dr/Ec) 81 mg PO DAILY Qty: 1 0RF metformin 500 mg tablet extended release 24 hr 1,000 mg PO BID atorvastatin 80 mg tablet 80 mg PO BEDTIME lisinopril 40 mg tablet 40 mg PO DAILY carvedilol [Coreg] 12.5 mg tablet 12.5 mg PO BID 90 Days Qty: 180 3RF Rx Instructions: must administer with a meal/food clopidogrel 75 mg tablet 75 mg PO QAM Referrals: [facility] [Provider Group]
[2023-08-01] MEDS: cephALEXin 500 MG CAPSULE PO (15:52)
== END 2023-08-01 16:11 | disposition home or self-care (01) ==
PROVIDERS: Emergency Provider Emergency Medicine; PCP Internal Medicine Geriatric Medicine
DX: T87.89 Other complications of amputation stump (principal); S90.821A Blister (nonthermal), right foot, initial encounter; E11.9 Type 2 diabetes mellitus without complications; I10 Essential (primary) hypertension; X58.XXXA Exposure to other specified factors, initial encounter; Y93.9 Activity, unspecified; Y92.9 Unspecified place or not applicable; Y99.9 Unspecified external cause status
CPT/HCPCS: 99282; 99283

== ENCOUNTER 2023-10-14 09:01 | Outpatient (AMB) | payer MEDICARE, SELFPAY ==
--- NOTE | 2023-10-14 09:05 | MHC.OFFVIS ---
Intake Vital Signs 10/14/23 09:06 Height 6 ft 2 in Weight 226 lb 3.108 oz BMI 29.0 BP 160/70 H Blood Pressure Location Rt brachial Position Sitting Pulse 55 Pulse Source Monitor Intake Visit Reasons: 6M follow up Color Receiver Required: No Allergies No Known Allergies [No Known Allergies*] Allergy (Verified 10/14/23 09:08) Medication List - Last Reconciled 10/14/23 by Raegan Pemberton NP-C aspirin 81 mg PO DAILY atorvastatin 80 mg PO BEDTIME carvedilol 6.25 mg PO BID clopidogrel 75 mg PO QAM insulin NPH and regular human 100 unit/mL (70-30) (Novolin 70-30 FlexPen U-100 Insulin) 20 units subcut BEDTIME insulin NPH and regular human 100 unit/mL (70-30) (Novolin 70-30 FlexPen U-100 Insulin) 30 units subcut DAILY lisinopril 40 mg PO DAILY metformin ER 1,000 mg PO BID HPI 6M follow up HPI Details Giovanni is a 68-year-old male past medical history of hypertension, hyperlipidemia, diabetes, CAD, 2 vessel Coronary artery bypass grafting 09/22/22 who presents for follow-up. Today he reports that he has been doing well since his last visit in April. He has not had any chest discomfort at rest or with activity. Denies concerning shortness of breath, palpitations, lightheadedness, no presyncope, syncope, falls. No PND, orthopnea or edema. He continues to do only light physical activity. He tolerates normal ADLs. Takes his meds as directed. Tells me his home blood pressures run 120 over 60s and that his blood pressure is high when he comes to the office. [facility] [place] Medical History Atherosclerotic cardiovascular disease Cellulitis Hyperlipidemia HTN (hypertension) with goal to be determined Elevated lactic acid level Acute hyperglycemia Leukocytosis Foot ulcer, right Diabetes PAD (peripheral artery disease) Ulcer of left foot Surgical History Status post debridement (03/04/20) Amputated great toe of left foot (01/09/20) History of transmetatarsal amputation of right foot (~2004) Family History Mother No problems noted. Father No problems noted. Social History Household Members: Family Housing: Apartment Do you presently have visiting nurse or other home services: No Alcohol intake: never Patient Tobacco Use Status: Former Tobacco user Years Smoked: 50 -/+ Second Hand Smoke Exposure: No service: No Current occupational status: retired and disabled Review of Systems Const All systems reviewed & are unremarkable except as noted in HPI and below ENT Denies dizziness Card Denies chest pain, Denies chest pain at rest, Denies chest pain with activity, Denies rapid heart rate, Denies pedal edema, Denies edema, Denies leg edema, Denies lightheadedness, Denies palpitations, Denies dyspnea, Denies dyspnea on exertion and Denies orthopnea Resp Denies cough, Denies dyspnea and Denies dyspnea on exertion GI Denies hematochezia and Denies change in stool character Musc Denies abnormal gait, Denies limited range of motion, Denies muscle cramps, Denies muscle weakness, Denies numbness, Denies radiating pain into limb, Denies stiffness and Denies tingling Neuro Denies abnormal gait, Denies dizziness, Denies numbness and Denies tingling Endo Denies palpitations Physical Exam Vital Signs: Last Vital Signs Pulse 55 10/14/23 09:06 BP 160/70 H 10/14/23 09:06 BMI result Body Mass Index 29.0 Const General: cooperative, healthy appearing, comfortable and no acute distress Orientation/consciousness: patient oriented x3 Neck Neck: Yes normal visual inspection Resp Effort & Inspection: normal respiratory effort Auscultation: clear to auscultation bilaterally, no crackles, no rales, no rhonchi and no wheezes Cardio Jugular venous distension: no JVD Rate: regular rate Rhythm: regular rhythm Heart sounds: S1 normal heart sound present, S2 normal heart sound present, no murmurs and no rubs Neuro General: patient oriented x3 Extrem General: Yes normal to inspection, No no pedal edema and No calf tenderness Psych Appearance: grossly normal Mental Status: mental status grossly normal Speech and movement: Normal speech and movement present Office Procedures EKG Details: Today, read by me, Sinus bradycardia, RBBB and LAFB - bifascicular block, rate 55, QTc 455ms [id number], Complete Assessment & Plan Assessment & Plan (1) Atherosclerotic cardiovascular disease: Code(s): I25.10 - Atherosclerotic heart disease of [place] coronary artery without angina pectoris Plan: History of CAD with cardiac catheterization 06/2022 showing severe left main disease. He underwent 2 vessel coronary artery bypass grafting 09/22/2022, with CARLTON to LAD VG to OM1. He has done well since that time. He completed cardiac rehab. Last echocardiogram done 12/11/2022 showed EF 59%, no regional wall motion abnormalities. Reviewed increasing physical activity as tolerated. He denies any anginal sounding symptoms. He will continue on aspirin indefinitely. He has been on Plavix for over a year. Will stop at this time. Continue high-dose atorvastatin with ideal LDL goal less than 70. No recently lipid profile in our system. Will reach out to PCP office. Continue carvedilol and lisinopril. Cardiology follow-up in 6 months, sooner if needed (2) Status post aorto-coronary artery bypass graft: Comment: 09/22/2022 Carlton to LAD, SVG to OM 1 Code(s): Z95.1 - Presence of aortocoronary bypass graft Plan: As above (3) Status post cardiac catheterization: Comment: 06/30/2022, left main 70% stenosis, RCA 50% stenosis Code(s): Z98.890 - Other specified postprocedural states Plan: As above (4) Essential hypertension: Code(s): I10 - Essential (primary) hypertension Plan: Elevated on 1st check at 160/70. Recheck done by me 138/52. Heart rate 55. Will continue carvedilol at current dose. Continue lisinopril at 40 mg daily. He has a follow-up with his PCP next week. If blood pressure remains elevated recommend adding amlodipine. Patient does tell me home blood pressures are normal range and that they are only elevated in the office. [place] blood pressure goal will be less than 130 over 85. (5) Hyperlipidemia: Code(s): E78.5 - Hyperlipidemia, unspecified Qualifiers: Hyperlipidemia type: unspecified Qualified Code(s): E78.5 - Hyperlipidemia, unspecified Plan: [place] LDL goal less than 70. Reaching out to PCP to obtain most recent lab work. Continue on atorvastatin 80 mg daily. Plan Time spent on chart review, documentation, interview and assessment Coding Level of Care Code Est Pt Level 4 (08672) Diagnoses Atherosclerotic cardiovascular disease I25.10 Status post aorto-coronary artery bypass graft Z95.1 Status post cardiac catheterization Z98.890 Essential hypertension I10 Hyperlipidemia, unspecified hyperlipidemia type E78.5 Hyperlipidemia type: unspecified CPT Codes EKG - CPT: 92330-[id number], Complete ([id number]) Time Spent (min) 28
[2023-10-14 09:06] VITALS: BP 160/70; PULSE 55; BMI 29.0
== END 2023-10-14 09:41 | disposition home or self-care (01) ==
PROVIDERS: PCP Internal Medicine Geriatric Medicine; Visit Provider Nurse Practitioner Family
DX: I25.10 Atherosclerotic heart disease of native coronary artery without angina pectoris (principal); Z95.1 Presence of aortocoronary bypass graft; Z98.890 Other specified postprocedural states; I10 Essential (primary) hypertension; E78.5 Hyperlipidemia, unspecified
CPT/HCPCS: 93010; 99214

== ENCOUNTER → 2023-10-14 09:01 | Outpatient (BNVA) | payer MEDICARE, SELFPAY | PROVIDERS: PCP Internal Medicine Geriatric Medicine; Visit Provider Nurse Practitioner Family | DX: I25.10 Atherosclerotic heart disease of native coronary artery without angina pectoris (principal); I10 Essential (primary) hypertension; Z98.890 Other specified postprocedural states | CPT/HCPCS: 93005; 99212 ==

== ENCOUNTER 2023-12-13 10:52 | Outpatient (REF) | payer MEDICARE, SELFPAY ==
[2023-12-13 11:28] LABS: MANUAL DIFF FLAG NO
[2023-12-13 11:46] LABS: Basophils Absolute Auto 0.1 X10*3/uL (0.0-0.2); Basophils Percent Auto 0.6 % (0-2); Eosinophils Absolute Auto 0.2 X10*3/uL (0.0-0.4); Eosinophils Percent Auto 1.9 % (0-4); Hematocrit 38.9 % (42.0-52.0); Hemoglobin 12.4 g/dl (14.0-18.0); Imm Gran Abs Auto 0.11 X10*3/uL (0.00-0.03); Imm Gran Pct Auto 1.1 % (0.0-0.4); Lymphocytes Absolute Auto 1.8 X10*3/uL (1.2-4.9); Lymphocytes Percent Auto 17.7 % (20-40); Mean Corpuscular HGB Conc 31.9 g/dl (31.0-36.0); Mean Corpuscular Hemoglobin 25.7 pg (27.0-33.0); Mean Corpuscular Volume 80.5 fL (80.0-98.0); Monocytes Absolute Auto 0.5 X10*3/uL (0.1-1.2); Monocytes Percent Auto 5.4 % (2-11); Neutrophils Absolute Auto 7.3 x10*3/uL (2.0-8.3); Neutrophils Percent Auto 73.3 % (45-73); Platelet Count 253 X10*3/uL (160-400); Red Blood Count 4.83 X10*6/uL (4.60-5.80); Red Cell Distribution Width 14.5 % (11.0-16.0)
[2023-12-13 11:58] LABS: Estimated Average Glucose 309 mg/dL; Hemoglobin A1c % 12.4 % (<6.0)
[2023-12-13 12:16] LABS: Alanine Aminotransferase 21 U/L (0-40); Albumin Level 3.8 g/dL (3.5-5.0); Alkaline Phosphatase 98 U/L (39-117); Anion Gap 15 (12-20); Aspartate Amino Transferase 15 U/L (5-37); Bilirubin Total 1.1 mg/dL (0.0-1.0); Blood Urea Nitrogen 15 mg/dL (9-16); Calcium 8.9 mg/dL (8.4-10.2); Carbon Dioxide 24 mmol/L (22-29); Chloride 103 mmol/L (96-108); Cholesterol 117 mg/dL (<200); Estimated Glomerular Filt Rate 59; Glucose Random 327 mg/dL (60-115); HDL Cholesterol 34 mg/dL (>40); LDL Cholesterol Calculated 63 mg/dL (<100); Potassium 4.4 mmol/L (3.3-5.1); Sodium 138 mmol/L (135-145); Total Protein 6.8 g/dL (6.5-8.0); Triglycerides 101 mg/dL (<150)
[2023-12-13 14:33] LABS: Creatinine Urine 99.56 mg/dL
[2023-12-13 14:45] LABS: Microalbumin Urine > 2000.0 mg/L
== END 2023-12-13 10:53 | disposition home or self-care (01) ==
LOC: HO.HHCL 10:52
PROVIDERS: Visit Provider Internal Medicine Geriatric Medicine
DX: E11.59 Type 2 diabetes mellitus with other circulatory complications (principal); Z79.4 Long term (current) use of insulin; I10 Essential (primary) hypertension
CPT/HCPCS: 36415; 80053; 80061; 82043; 82570; 83036; 85025

== ENCOUNTER 2023-12-22 07:44 | Outpatient (REF) | payer MEDICARE, SELFPAY ==
--- NOTE | ~2023-12-22 | US_ITS ---
EXAMINATION: NONINVASIVE ASSESSMENT OF THE ARTERIES OF BOTH LOWER EXTREMITIES WITH PVR EXAM AND BILATERAL LOWER EXTREMITY DUPLEX Mine Verdin MD CLINICAL INFORMATION: Peripheral vascular disease TECHNIQUE: Ankle pulse volume recordings, ankle pressure measurements and ankle brachial indices were obtained of the lower extremity arterial system bilaterally in addition to duplex Doppler techniques with wave form analysis and measurement of velocities in the common femoral, profunda femoral, superficial femoral, popliteal and tibial arteries. The study was performed only at rest. COMPARISON: Arterial examination on 11/23/2022 FINDINGS: a) AT REST: RIGHT LE. The right ankle-brachial index is: 1.05 * >0.97-1.25 = normal - no significant arterial disease * 0.75-0.96 = mild peripheral arterial disease * 0.5-0.74 = moderate peripheral arterial disease * <0.50 = severe peripheral arterial disease 2. Right ankle pressure: abnormal. 3. Right ankle PVR waveform: abnormal. 4. Right direct duplex Doppler findings: Common femoral artery: 144 cm/s, Multiphasic Profunda femoris artery: 156 cm/s, Multiphasic Superficial femoral artery (proximal): 97 cm/s, Multiphasic Superficial femoral artery (mid): 148 cm/s, Multiphasic Superficial femoral artery (distal): 84 cm/s, Multiphasic Proximal Popliteal artery: 101 cm/s, Multiphasic Mid posterior tibial artery: 71 cm/s, Multiphasic Peroneal artery: 82 cm/s, Multiphasic LEFT LE. The left ankle-brachial index is: 1.0 * >0.97-1.25 = normal - no significant arterial disease * 0.75-0.96 = mild peripheral arterial disease * 0.5-0.74 = moderate peripheral arterial disease * <0.50 = severe peripheral arterial disease 2. Left ankle pressure: abnormal. 3. Left ankle PVR waveform: abnormal. 4. Left direct duplex Doppler findings: Common femoral artery: 144 cm/s, Multiphasic Profunda femoris artery: 222 cm/s, Multiphasic Superficial femoral artery (proximal): 158 cm/s, Multiphasic Superficial femoral artery (mid): 135 cm/s, Multiphasic Superficial femoral artery (distal): 123 cm/s, Multiphasic Proximal Popliteal artery: 82 cm/s, Multiphasic Mid posterior tibial artery: 115 cm/s, Multiphasic Peroneal artery: 57 cm/s, Multiphasic US/US arterial duplex LE BI IMPRESSION: RIGHT LEG: No hemodynamically significant stenosis. There is atherosclerotic disease and abnormal PVR. LEFT LEG: No evidence of hemodynamically significant stenosis. There is atherosclerotic disease and abnormal PVR.
--- NOTE | ~2023-12-22 | US_ITS ---
EXAMINATION: NONINVASIVE ASSESSMENT OF THE ARTERIES OF BOTH LOWER EXTREMITIES WITH PVR EXAM AND BILATERAL LOWER EXTREMITY DUPLEX Mine Verdin MD CLINICAL INFORMATION: Peripheral vascular disease TECHNIQUE: Ankle pulse volume recordings, ankle pressure measurements and ankle brachial indices were obtained of the lower extremity arterial system bilaterally in addition to duplex Doppler techniques with wave form analysis and measurement of velocities in the common femoral, profunda femoral, superficial femoral, popliteal and tibial arteries. The study was performed only at rest. COMPARISON: Arterial examination on 11/23/2022 FINDINGS: a) AT REST: RIGHT LE. The right ankle-brachial index is: 1.05 * >0.97-1.25 = normal - no significant arterial disease * 0.75-0.96 = mild peripheral arterial disease * 0.5-0.74 = moderate peripheral arterial disease * <0.50 = severe peripheral arterial disease 2. Right ankle pressure: abnormal. 3. Right ankle PVR waveform: abnormal. 4. Right direct duplex Doppler findings: Common femoral artery: 144 cm/s, Multiphasic Profunda femoris artery: 156 cm/s, Multiphasic Superficial femoral artery (proximal): 97 cm/s, Multiphasic Superficial femoral artery (mid): 148 cm/s, Multiphasic Superficial femoral artery (distal): 84 cm/s, Multiphasic Proximal Popliteal artery: 101 cm/s, Multiphasic Mid posterior tibial artery: 71 cm/s, Multiphasic Peroneal artery: 82 cm/s, Multiphasic LEFT LE. The left ankle-brachial index is: 1.0 * >0.97-1.25 = normal - no significant arterial disease * 0.75-0.96 = mild peripheral arterial disease * 0.5-0.74 = moderate peripheral arterial disease * <0.50 = severe peripheral arterial disease 2. Left ankle pressure: abnormal. 3. Left ankle PVR waveform: abnormal. 4. Left direct duplex Doppler findings: Common femoral artery: 144 cm/s, Multiphasic Profunda femoris artery: 222 cm/s, Multiphasic Superficial femoral artery (proximal): 158 cm/s, Multiphasic Superficial femoral artery (mid): 135 cm/s, Multiphasic Superficial femoral artery (distal): 123 cm/s, Multiphasic Proximal Popliteal artery: 82 cm/s, Multiphasic Mid posterior tibial artery: 115 cm/s, Multiphasic Peroneal artery: 57 cm/s, Multiphasic US/US JOSE ROBERTO complete IMPRESSION: RIGHT LEG: No hemodynamically significant stenosis. There is atherosclerotic disease and abnormal PVR. LEFT LEG: No evidence of hemodynamically significant stenosis. There is atherosclerotic disease and abnormal PVR.
== END 2023-12-22 07:45 | disposition home or self-care (01) ==
LOC: HO.US 07:44
PROVIDERS: PCP Internal Medicine Geriatric Medicine; Visit Provider Surgery Vascular Surgery
DX: I73.9 Peripheral vascular disease, unspecified (principal)
CPT/HCPCS: 93923; 93925

== ENCOUNTER 2024-02-15 09:50 | Outpatient (AMB) | payer MEDICARE, SELFPAY ==
[2024-02-15 09:54] VITALS: BMI 29.0
--- NOTE | 2024-02-15 09:54 | MHC.OFFVIS ---
Vital Signs 02/15/24 09:54 Height 6 ft 2 in Weight 226 lb BMI 29.0 Intake Visit Reasons: 1y follow up s/p ART US 12/22/23 Intake Note: 1 yr follow up Arterial 12/22/23. Pt states no new issues with his legs. Pt states he had 6 inches of his colon removed and a cardiac bypass surgery since last seen. Accompanied by: Self / Same As Patient Allergies No Known Allergies [No Known Allergies*] Allergy (Verified 02/15/24 09:56) HPI HPI 1y follow up s/p ART US 12/22/23: Details: Very pleasant 68-year-old gentleman presents for routine follow-up regarding peripheral vascular disease. Been doing relatively well but in the interim he did end up at [facility] for what appears to be a small bowel resection. He reports no GI issues at the current time. Ambulating fairly well. He now presents for routine noninvasive testing follow-up. [facility] Medical History (Updated 02/15/24 @ 10:21 by Michel Mc MD) Atherosclerotic cardiovascular disease Cellulitis Hyperlipidemia HTN (hypertension) with goal to be determined Elevated lactic acid level Acute hyperglycemia Leukocytosis Foot ulcer, right Diabetes PAD (peripheral artery disease) Ulcer of left foot Surgical History (Updated 02/15/24 @ 09:59 by ALESIA Guzman) H/O heart bypass surgery (~09/2022) History of colon resection (~09/2023) Status post debridement (03/04/20) Amputated great toe of left foot (01/09/20) History of transmetatarsal amputation of right foot (~2004) Family History Mother No problems noted. Father No problems noted. Social History Household Members: Family Housing: Apartment Do you presently have visiting nurse or other home services: No Alcohol intake: never Patient Tobacco Use Status: Former Tobacco user Years Smoked: 50 -/+ Second Hand Smoke Exposure: No service: No Current occupational status: retired and disabled Review of Systems Const All systems reviewed & are unremarkable except as noted in HPI and below Reports no additional complaints ENT Reports Normal hearing present Card Denies chest pain, Denies chest pain at rest, Denies chest pain with activity and Denies pedal edema Resp Denies cough GI Denies abdominal pain Musc Denies abnormal gait, Denies muscle cramps and Denies radiating pain into limb Skin/Breast Denies skin ulcer and Denies wounds Neuro Reports Normal hearing present and Denies abnormal gait Psych Reports no additional complaints Physical Exam Vital Signs: BMI result Body Mass Index 29.0 Const General: cooperative, healthy appearing and comfortable Orientation/consciousness: oriented to person, oriented to place and oriented to time HEENT Head: Yes normal to inspection Neck Neck: Yes normal visual inspection Carotids: no bruits Chest Chest palpation & inspection: normal inspection of the chest Resp Effort & Inspection: normal respiratory effort and able to speak in complete sentences Auscultation: clear to auscultation bilaterally, no crackles, no rales, no rhonchi and no wheezes Cardio Rate: regular rate Rhythm: regular rhythm Heart sounds: S1 normal heart sound present and S2 normal heart sound present Bruits: no carotid bruits Peripheral pulses: Peripheral pulses 2+ throughout GI Inspection: Yes normal to inspection Skin Wounds: no wounds Hair: normal Neuro General: oriented to person, oriented to place and oriented to time Cranial nerves: Yes CN's II-XII intact bilaterally and Yes Normal hearing present Cognition (Neuro): normal cognition Motor exam (neuro): 5/5 motor strength present throughout Extrem Other: venous exam: No significant superficial varicosities or spider telangiectasias, minimal edema General: No clubbing, No cyanosis and No edema Psych Appearance: grossly normal Mental Status: mental status grossly normal Speech and movement: Normal speech and movement present Results Reviewed Results Reviewed: Noninvasive testing dated 12/22/2023 demonstrates JOSE ROBERTO on the right of 1.05 and on the left of 1.0. Assessment & Plan Assessment & Plan (1) PAD (peripheral artery disease): Comment: 12/2019 -Left great toe amp Right transmetatarsal amputation Code(s): I73.9 - Peripheral vascular disease, unspecified Category: Medical Plan: In short patient is doing well from a peripheral vascular standpoint. We did discuss routine foot care. He may benefit from follow-up with Podiatry as he does develop significant calluses. We also discussed the use of moisturizing cream. Will be scheduled for annual arterial surveillance with us. Thank you for allowing us to assist in his care. If there are any questions or concerns please do not hesitate to contact us Orders: Orders US arterial duplex LE BI 1 Year I73.9 - Peripheral vascular disease, unspecified Coding Level of Care Code Est Pt Level 4 (65633) Diagnoses PAD (peripheral artery disease) I73.9
== END 2024-02-15 10:11 | disposition home or self-care (01) ==
PROVIDERS: PCP Internal Medicine Geriatric Medicine; Visit Provider Surgery Vascular Surgery
DX: I73.9 Peripheral vascular disease, unspecified (principal)
CPT/HCPCS: 99213

== ENCOUNTER → 2024-02-15 09:50 | Outpatient (BNVA) | payer MEDICARE, SELFPAY | PROVIDERS: PCP Internal Medicine Geriatric Medicine; Visit Provider Surgery Vascular Surgery | DX: I73.9 Peripheral vascular disease, unspecified (principal) | CPT/HCPCS: 99212 ==

== ENCOUNTER 2024-07-24 13:31 | Outpatient (REF) | payer MEDICARE, SELFPAY ==
[2024-07-24 16:12] LABS: MANUAL DIFF FLAG NO
[2024-07-24 16:21] LABS: Basophils Absolute Auto 0.1 X10*3/uL (0.0-0.2); Basophils Percent Auto 0.5 % (0-2); Eosinophils Absolute Auto 0.2 X10*3/uL (0.0-0.4); Eosinophils Percent Auto 1.6 % (0-4); Hemoglobin 13.1 g/dl (14.0-18.0); Imm Gran Abs Auto 0.15 X10*3/uL (0.00-0.03); Imm Gran Pct Auto 1.2 % (0.0-0.4); Lymphocytes Absolute Auto 2.4 X10*3/uL (1.2-4.9); Lymphocytes Percent Auto 19.3 % (20-40); Mean Corpuscular Hemoglobin 26.9 pg (27.0-33.0); Mean Corpuscular Volume 84.2 fL (80.0-98.0); Mean Platelet Volume 12.1 fL (9.4-12.4); Monocytes Absolute Auto 0.6 X10*3/uL (0.1-1.2); Monocytes Percent Auto 4.8 % (2-11); Neutrophils Absolute Auto 8.9 x10*3/uL (2.0-8.3); Neutrophils Percent Auto 72.6 % (45-73); Platelet Count 276 X10*3/uL (160-400); Red Blood Count 4.87 X10*6/uL (4.60-5.80); Red Cell Distribution Width 14.2 % (11.0-16.0); White Blood Count 12.2 X10*3/uL (4.8-10.8)
[2024-07-24 16:33] LABS: Estimated Average Glucose 258 mg/dL; Hemoglobin A1C 315.1591 umol/L; Hemoglobin A1c % 10.6 % (<6.0)
[2024-07-24 17:55] LABS: Alanine Aminotransferase 22 U/L (0-40); Albumin Level 3.8 g/dL (3.5-5.0); Alkaline Phosphatase 90 U/L (39-117); Anion Gap 12 (12-20); Aspartate Amino Transferase 27 U/L (5-37); Bilirubin Total 0.8 mg/dL (0.0-1.0); Blood Urea Nitrogen 21 mg/dL (9-16); Carbon Dioxide 24 mmol/L (22-29); Chloride 108 mmol/L (96-108); Cholesterol 106 mg/dL (<200); Estimated Glomerular Filt Rate 52; Glucose Random 180 mg/dL (60-115); HDL Cholesterol 33 mg/dL (>40); LDL Cholesterol Calculated 55 mg/dL (<100); Sodium 139 mmol/L (135-145); Total Protein 7.2 g/dL (6.5-8.0); Triglycerides 94 mg/dL (<150)
== END 2024-07-24 13:32 | disposition home or self-care (01) ==
LOC: HO.HHCL 13:31
PROVIDERS: Visit Provider Internal Medicine Geriatric Medicine
DX: I10 Essential (primary) hypertension (principal); E11.65 Type 2 diabetes mellitus with hyperglycemia
CPT/HCPCS: 36415; 80053; 80061; 83036; 85025

== ENCOUNTER 2024-07-25 10:40 | Outpatient (REF) | payer MEDICARE, SELFPAY ==
--- OUTSIDE RECORDS SUMMARY | 2024-07-25 10:43 | XMS_ITS | Clinical Summary ---
Author Organization Unknown Care Team Providers Care Tail End Rider Name Role Phone NAME SARBJIT PELAEZ Unavailable Unavailable HA MACDONALD RN Unavailable Unavailable Payers Payer Name Policy Type Policy Number Effective Date Expira tion Date MEDICARE.NGS.PDGM [id number] Problems Condition Name Condition Details Condition Category Status Onset Date Resolution Date Last Treatment Date Treating Clinician Comments TYPE 2 DIABETES MELLITUS WITH FOOT ULCER Active 2021-08 00:00: 00 NON-PRS CHRONIC ULCER OTH PRT LEFT FOOT W FAT LAYER EXPOSED Active 2021-08 00:00: 00 TYPE 2 DIABETES MELLITUS WITH OTHER SPECIFIED COMPLICATION Active 2021-08 00:00: 00 OTHER ACUTE OSTEOMYELITI S, LEFT ANKLE AND FOOT Active 2021-08 00:00: 00 BACTEREMIA Active 2021-08 00:00: 00 OTH BACTERIAL AGENTS THE CAUSE OF DISEASES CLASSD ELSWHR Active 2021-08 00:00: 00 TYPE 2 DIABETES MELLITUS WITH HYPERGLYCEMI A Active 2021-08 00:00: 00 NON-ST ELEVATION (NSTEMI) MYOCARDIAL INFARCTION Active 2021-08 00:00: 00 ACUTE KIDNEY FAILURE, UNSPECIFIED Active 2021-08 00:00: 00 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 2021-08 00:00: 00 ESSENTIAL (PRIMARY) HYPERTENSION Active 08-02 00:00: 00 TYPE 2 DIABETES W 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 Active 08-02 00:00: 00 TYPE 2 DIABETES MELLITUS WITH DIABETIC NEUROPATHY, UNSP Active 08-02 00:00: 00 ATHSCL HEART DISEASE OF [place] CORONARY ARTERY W/O ANG PCTRS Active 2021-08 00:00: 00 ANEMIA, UNSPECIFIED Active 2021-08 00:00: 00 NICOTINE DEPENDENCE, CIGARETTES, UNCOMPLICATE D Active 2021-08 00:00: 00 ENCOUNTER FOR ADJUSTMENT AND MANAGEMENT OF VAD Active 2021-08 00:00: 00 CARE HOME (CURRENT) USE OF ANTIBIOTICS Active 2021-08 00:00: 00 HAND HIDE STRETCHER (CURRENT) USE OF ANTITHROMBOT ICS/ANTIPLAT ELETS Active 2021-08 00:00: 00 HAND HIDE STRETCHER (CURRENT) USE OF INSULIN Active 2021-08 00:00: 00 HAND HIDE STRETCHER (CURRENT) USE OF ASPIRIN Active 2021-08 00:00: 00 HAND HIDE STRETCHER (CURRENT) USE OF ORAL HYPOGLYCEMIC DRUGS Active 2021-08 00:00: 00 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 Ordering Clinician Indication Dosage Frequency Signature (SIG) Comments Components aspirin 81 mg tablet,marta yed release 12-12 00:00: 00 02-10 23:59 :00 No [id number] 1 tablet DAILY 1 tablet DAILY (route: oral) Med Classific ation: Hematolog ical Agents atorvastati n 80 mg tablet 09-01 00:00: 00 02-10 23:59 :00 No [id number] 1 tablet AT BEDTIME 1 tablet AT BEDTIME (route: oral) Alternate Route: BY MOUTH. Med Classific ation: Cardiovas cular Therapy Agents cefazolin 2 gram/100 mL in dextrose 5 % intravenous solution 01-11 00:00: 00 04-10 00:00 :00 No [id number] 2 g EVERY 8 HOURS 2 g EVERY 8 HOURS (route: intravenou s) Med Classific ation: Anti-Infe ctive Agents lisinopril 40 mg tablet 12-06 00:00: 00 02-10 23:59 :00 No [id number] 1 tablet ONCE DAILY 1 tablet ONCE DAILY (route: oral) Alternate Route: BY MOUTH. Med Classific ation: Cardiovas cular Therapy Agents metformin 500 mg tablet 4-10 00:00: 00 02-10 23:59 :00 No [id number] 2 tablet 2 TIMES DAILY 2 tablet 2 TIMES DAILY (route: oral) Alternate Route: BY MOUTH. Med Classific ation: Endocrine Novolog Mix 70-30 U-100 Insulin 100 unit/mL subcutaneou s solution 13 00:00: 00 02-10 23:59 :00 No [id number] 20 unit EVERY PM 20 unit EVERY PM (route: subcutaneo us) Alternate Route: SUBCUTANE OUS. Med Classific ation: Endocrine Novolog Mix 70-30 U-100 Insulin 100 unit/mL subcutaneou s solution 12-12 00:00: 00 02-10 23:59 :00 No [id number] 30 unit EVERY AM 30 unit EVERY AM (route: subcutaneo us) Alternate Route: SUBCUTANE OUS. Med Classific ation: Endocrine sodium chloride 0.9 % intravenous solution 01-11 00:00: 00 04-10 00:00 :00 No [id number] 0.9 DIRECTED 0.9 % DIRECTED (route: intravenou s) Med Classific ation: Electroly te Balance-N utritiona l Products Aspirin Low Dose 81 mg tablet,marta yed release 02-12 00:00: 00 04-26 23:59 :00 No [id number] BLOOD THINNER 1 tablet DAILY 1 tablet DAILY (route: oral) Med Classific ation: Hematolog ical Agents atorvastati n 80 mg tablet 02-12 00:00: 00 04-26 23:59 :00 No [id number] CHOLESTEROL 1 tablet DAILY 1 tablet DAILY (route: oral) Med Classific ation: Cardiovas cular Therapy Agents hydrochloro thiazide 25 mg tablet 02-12 00:00: 00 03-21 00:00 :00 No [id number] HTN 1 tablet DAILY 1 tablet DAILY (route: oral) Med Classific ation: Cardiovas cular Therapy Agents lisinopril 40 mg tablet 02-12 00:00: 00 04-26 23:59 :00 No [id number] HTN 1 tablet DAILY 1 tablet DAILY (route: oral) Med Classific ation: Cardiovas cular Therapy Agents metformin 1,000 mg tablet 02-12 00:00: 00 04-26 23:59 :00 No [id number] DM Per instruc tions EVERY 12 HOURS Per instructio ns EVERY 12 HOURS (route: oral) Med Classific ation: Endocrine Novolin 70/30 U-100 Insulin 100 unit/mL subcutaneou s suspension 02-12 00:00: 00 04-26 23:59 :00 No [id number] DM Per instruc tions DIRECTED Per instructio ns DIRECTED (route: subcutaneo us) Med Classific ation: Endocrine sodium chloride 0.9 % (flush) injection syringe 02-12 00:00: 00 04-09 00:00 :00 No [id number] IV MEDS Per instruc tions DIRECTED Per instructio ns DIRECTED (route: injection) Med Classific ation: Electroly te Balance-N utritiona l Products vancomycin 750 mg/250 mL in 0.9 % sodium chloride intravenous solution 02-12 00:00: 00 04-09 00:00 :00 No [id number] OSTEOMYLITI S Per instruc tions DIRECTED Per instructio ns DIRECTED (route: intravenou s) Med Classific ation: Anti-Infe ctive Agents amlodipine 5 mg tablet 03-21 00:00: 00 04-26 23:59 :00 No [id number] HTN 1 tablet DAILY 1 tablet DAILY (route: oral) Med Classific ation: Cardiovas cular Therapy Agents doxycycline hyclate 100 mg capsule 03-21 00:00: 00 04-26 23:59 :00 No [id number] OSTEOMYLITI S 1 capsule 2 TIMES DAILY 1 capsule 2 TIMES DAILY (route: oral) Med Classific ation: Anti-Infe ctive Agents verapamil 40 mg tablet 04-08 00:00: 00 07-03 23:59 :00 No [id number] HTN 1 tablet 2 TIMES DAILY 1 tablet 2 TIMES DAILY (route: oral) Med Classific ation: Cardiovas cular Therapy Agents atorvastati n 80 mg tablet 04-28 00:00: 00 Yes [id number] CHOLESTEROL 1 tablet DAILY 1 tablet DAILY (route: oral) Med Classific ation: Cardiovas cular Therapy Agents cefazolin 2 gram solution for injection 04-28 00:00: 00 07-02 23:59 :00 No [id number] SEPSIS 2 g EVERY 8 HOURS 2 g EVERY 8 HOURS (route: injection) Med Classific ation: Anti-Infe ctive Agents hydrochloro thiazide 25 mg tablet 04-28 00:00: 00 07-02 23:59 :00 No [id number] HTN/FLUID 1 tablet DAILY 1 tablet DAILY (route: oral) Med Classific ation: Cardiovas cular Therapy Agents lisinopril 40 mg tablet 04-28 00:00: 00 Yes [id number] HTN 1 tablet DAILY 1 tablet DAILY (route: oral) Med Classific ation: Cardiovas cular Therapy Agents metformin 500 mg tablet 04-28 00:00: 00 Yes [id number] DIABETES 2 tablet 2 TIMES DAILY 2 tablet 2 TIMES DAILY (route: oral) Med Classific ation: Endocrine Novolog Mix 70-30 FlexPen U-100 Insulin 100 unit/mL subcutaneou s pen 04-28 00:00: 00 Yes [id number] DIABETES 20-30 unit 2 TIMES DAILY 20-30 unit 2 TIMES DAILY (route: subcutaneo us) Med Classific ation: Endocrine Normal Saline Flush 0.9 % injection syringe 04-28 00:00: 00 Yes [id number] FLUSH 10 mL DIRECTED 10 mL DIRECTED (route: injection) Med Classific ation: Electroly te Balance-N utritiona l Products Heparin Lock Flush (Porcine) (PF) 10 unit/mL intravenous syringe 04-28 00:00: 00 Yes [id number] LOCK FLUSH 5 mL DIRECTED 5 mL DIRECTED (route: intravenou s) Med Classific ation: Hematolog ical Agents terazosin 5 mg capsule 9- 00:00: 00 07-02 23:59 :00 No [id number] HTN 1 capsule DAILY 1 capsule DAILY (route: oral) Med Classific ation: Cardiovas cular Therapy Agents ampicillin 2 gram intravenous solution 2021-08 00:00: 00 08-21 23:59 :00 No [id number] OSTEOMYELIT IS 2 g EVERY 4 HOURS 2 g EVERY 4 HOURS (route: intravenou s) Med Classific ation: Anti-Infe ctive Agents aspirin 81 mg tablet,marta yed release 2021-08 00:00: 00 Yes [id number] MAINTENANCE 1 tablet DAILY 1 tablet DAILY (route: oral) Med Classific ation: Hematolog ical Agents carvedilol 6.25 mg tablet 2021-08 00:00: 00 Yes [id number] CARDIAC 1 tablet 2 TIMES DAILY 1 tablet 2 TIMES DAILY (route: oral) Med Classific ation: Cardiovas cular Therapy Agents levofloxaci n 750 mg tablet 2021-08 00:00: 00 08-12 23:59 :00 No [id number] INFECTION 1 tablet DAILY 1 tablet DAILY (route: oral) Med Classific ation: Anti-Infe ctive Agents Plavix 75 mg tablet 2021-08 00:00: 00 Yes [id number] MAINTENANCE 1 tablet DAILY 1 tablet DAILY (route: oral) Med Classific ation: Hematolog ical Agents Vital Signs Vital Name Observation Time Observation Value Commen ts Temperature 2022-08-28 09:17:00.000 98.3 [degF] Temperature 2022-08-24 07:39:00.000 98.1 [degF] Temperature 2022-08-19 10:28:00.000 98.4 [degF] Temperature 2022-08-12 09:06:00.000 98.4 [degF] Temperature 2022-08-10 07:38:00.000 98.2 [degF] Temperature 2022-08-07 10:32:00.000 98.4 [degF] Temperature 2022-08-04 07:36:00.000 98 [degF] Temperature 2022-07-31 09:40:00.000 98.4 [degF] Temperature 2022-07-29 13:49:00.000 98.4 [degF] Temperature 2022-07-28 07:32:00.000 98 [degF] Temperature 2022-07-21 09:07:00.000 98.4 [degF] Temperature 2022-07-20 07:38:00.000 98.2 [degF] Temperature 2022-07-17 14:34:00.000 98.4 [degF] Temperature 2022-07-14 11:24:00.000 98.6 [degF] Temperature 2022-07-13 07:33:00.000 98.2 [degF] Temperature 2022-07-10 16:59:00.000 98.4 [degF] Temperature 2022-07-10 07:41:00.000 98.2 [degF] Temperature 2022-07-07 11:36:00.000 98.4 [degF] Temperature 2022-07-02 14:17:00.000 98.4 [degF] BMI (%) 2022-07-02 22:49:07.000 23 kg/m2 Height 2022-07-02 22:49:02.000 75 [in_us] Pulse 2022-08-28 09:17:00.000 84 /min Pulse 2022-08-24 07:39:00.000 79 /min Pulse 2022-08-19 10:28:00.000 82 /min Pulse 2022-08-12 09:06:00.000 84 /min Pulse 2022-08-10 07:38:00.000 77 /min Pulse 2022-08-07 10:32:00.000 82 /min Pulse 2022-08-04 07:36:00.000 82 /min Pulse 2022-07-31 09:40:00.000 84 /min Pulse 2022-07-29 13:49:00.000 88 /min Pulse 2022-07-28 07:32:00.000 78 /min Pulse 2022-07-21 09:07:00.000 82 /min Pulse 2022-07-20 07:38:00.000 79 /min Pulse 2022-07-17 14:34:00.000 84 /min Pulse 2022-07-14 11:24:00.000 78 /min Pulse 2022-07-13 07:33:00.000 78 /min Pulse 2022-07-10 16:59:00.000 78 /min Pulse 2022-07-10 07:41:00.000 80 /min Pulse 2022-07-07 11:36:00.000 84 /min Pulse 2022-07-02 14:17:00.000 84 /min O2 Saturation (%) 2022-08-28 09:17:00.000 99 % O2 Saturation (%) 2022-08-19 10:28:00.000 99 % O2 Saturation (%) 2022-08-12 09:06:00.000 99 % O2 Saturation (%) 2022-08-07 10:32:00.000 98 % O2 Saturation (%) 2022-07-31 09:40:00.000 98 % O2 Saturation (%) 2022-07-29 13:49:00.000 98 % O2 Saturation (%) 2022-07-21 09:07:00.000 99 % O2 Saturation (%) 2022-07-17 14:34:00.000 98 % O2 Saturation (%) 2022-07-14 11:24:00.000 99 % O2 Saturation (%) 2022-07-10 16:59:00.000 98 % O2 Saturation (%) 2022-07-07 11:36:00.000 99 % O2 Saturation (%) 2022-07-02 14:17:00.000 99 % Respirations 2022-08-28 09:17:00.000 17 /min Respirations 2022-08-24 07:39:00.000 16 /min Respirations 2022-08-19 10:28:00.000 17 /min Respirations 2022-08-12 09:06:00.000 17 /min Respirations 2022-08-10 07:38:00.000 16 /min Respirations 2022-08-07 10:32:00.000 17 /min Respirations 2022-08-04 07:36:00.000 16 /min Respirations 2022-07-31 09:40:00.000 17 /min Respirations 2022-07-29 13:49:00.000 17 /min Respirations 2022-07-28 07:32:00.000 18 /min Respirations 2022-07-21 09:07:00.000 17 /min Respirations 2022-07-20 07:38:00.000 18 /min Respirations 2022-07-17 14:34:00.000 17 /min Respirations 2022-07-14 11:24:00.000 18 /min Respirations 2022-07-13 07:33:00.000 16 /min Respirations 2022-07-10 16:59:00.000 17 /min Respirations 2022-07-10 07:41:00.000 18 /min Respirations 2022-07-07 11:36:00.000 18 /min Respirations 2022-07-02 14:17:00.000 17 /min Weight (lbs) 2022-07-02 22:49:07.000 186 [lb_av] Systolic Blood Pressure 2022-08-28 09:17:00.000 126 mm [Hg] Systolic Blood Pressure 2022-08-24 07:39:00.000 118 mm [Hg] Systolic Blood Pressure 2022-08-19 10:28:00.000 122 mm [Hg] Systolic Blood Pressure 2022-08-12 09:06:00.000 123 mm [Hg] Systolic Blood Pressure 2022-08-10 07:38:00.000 118 mm [Hg] Systolic Blood Pressure 2022-08-07 10:32:00.000 126 mm [Hg] Systolic Blood Pressure 2022-08-04 07:36:00.000 124 mm [Hg] Systolic Blood Pressure 2022-07-31 09:40:00.000 126 mm [Hg] Systolic Blood Pressure 2022-07-29 13:49:00.000 126 mm [Hg] Systolic Blood Pressure 2022-07-28 07:32:00.000 134 mm [Hg] Systolic Blood Pressure 2022-07-21 09:07:00.000 132 mm [Hg] Systolic Blood Pressure 2022-07-20 07:38:00.000 130 mm [Hg] Systolic Blood Pressure 2022-07-17 14:34:00.000 126 mm [Hg] Systolic Blood Pressure 2022-07-14 11:24:00.000 124 mm [Hg] Systolic Blood Pressure 2022-07-13 07:33:00.000 138 mm [Hg] Systolic Blood Pressure 2022-07-10 16:59:00.000 128 mm [Hg] Systolic Blood Pressure 2022-07-10 07:41:00.000 124 mm [Hg] Systolic Blood Pressure 2022-07-07 11:36:00.000 126 mm [Hg] Systolic Blood Pressure 2022-07-02 14:17:00.000 126 mm [Hg] Diastolic Blood Pressure 2022-08-28 09:17:00.000 84 mm [Hg] Diastolic Blood Pressure 2022-08-24 07:39:00.000 80 mm [Hg] Diastolic Blood Pressure 2022-08-19 10:28:00.000 82 mm [Hg] Diastolic Blood Pressure 2022-08-12 09:06:00.000 84 mm [Hg] Diastolic Blood Pressure 2022-08-10 07:38:00.000 68 mm [Hg] Diastolic Blood Pressure 2022-08-07 10:32:00.000 84 mm [Hg] Diastolic Blood Pressure 2022-08-04 07:36:00.000 78 mm [Hg] Diastolic Blood Pressure 2022-07-31 09:40:00.000 80 mm [Hg] Diastolic Blood Pressure 2022-07-29 13:49:00.000 80 mm [Hg] Diastolic Blood Pressure 2022-07-28 07:32:00.000 80 mm [Hg] Diastolic Blood Pressure 2022-07-21 09:07:00.000 86 mm [Hg] Diastolic Blood Pressure 2022-07-20 07:38:00.000 74 mm [Hg] Diastolic Blood Pressure 2022-07-17 14:34:00.000 84 mm [Hg] Diastolic Blood Pressure 2022-07-14 11:24:00.000 84 mm [Hg] Diastolic Blood Pressure 2022-07-13 07:33:00.000 76 mm [Hg] Diastolic Blood Pressure 2022-07-10 16:59:00.000 84 mm [Hg] Diastolic Blood Pressure 2022-07-10 07:41:00.000 78 mm [Hg] Diastolic Blood Pressure 2022-07-07 11:36:00.000 81 mm [Hg] Diastolic Blood Pressure 2022-07-02 14:17:00.000 84 mm [Hg] Plan of Treatment Planned Activity Planned Date Details Comments Future Scheduled Test SKILLED NU RSE TO ASSESS, EVALUATE, AND DEVELOP AN INDIVIDUALIZED PLAN OF CARE. AGENCY MAY ACCEPT ORDERS FROM CONSULTING PHYSICIANS SN TO OBSERVE/ASSESS RISK FOR FALLS AND INSTRUCT IN FALL PREVENTION, HOME SAFETY, MEDICATION MANAGEMENT, INFECTION PREVENTION, AND NUTRITION MANAGEMENT. SN MAY PERFORM O2 SATURATION LEVEL ON ADMISSION AND PRN FOR DISCIPLINES ASSESS PATIENT, WITH NOTIFICATION TO THE PHYSICIAN IF SATURATION IS 90% IN THE ABSENCE OF MORE SPECIFIC PARAMETERS FROM THE PHYSICIAN. AGENCY MAY PERFORM A RESUMPTION OF CARE VISIT FOLLOWING ANY HOSPITAL ADMISSION. SKILLED NURSE TO ASSESS/EVALUATE CO-MORBID CONDITIONS AND ANY NEW CONDITIONS THAT PRESENT THEMSELVES DURING THIS EPISODE TO IDENTIFY CHANGES AND INTERVENE TO MINIMIZE COMPLICATIONS. [code = SKILLED NURSE TO ASSESS, EVALUATE, AND DEVELOP AN INDIVIDUALIZED PLAN OF CARE. AGENCY MAY ACCEPT ORDERS FROM CONSULTING PHYSICIANS SN TO OBSERVE/ASSESS RISK FOR FALLS AND INSTRUCT IN FALL PREVENTION, HOME SAFETY, MEDICATION MANAGEMENT, INFECTION PREVENTION, AND NUTRITION MANAGEMENT. SN MAY PERFORM O2 SATURATION LEVEL ON ADMISSION AND PRN FOR DISCIPLINES ASSESS PATIENT, WITH NOTIFICATION TO THE PHYSICIAN IF SATURATION IS 90% IN THE ABSENCE OF MORE SPECIFIC PARAMETERS FROM THE PHYSICIAN. AGENCY MAY PERFORM A RESUMPTION OF CARE VISIT FOLLOWING ANY HOSPITAL ADMISSION. SKILLED NURSE TO ASSESS/EVALUATE CO-MORBID CONDITIONS AND ANY NEW CONDITIONS THAT PRESENT THEMSELVES DURING THIS EPISODE TO IDENTIFY CHANGES AND INTERVENE TO MINIMIZE COMPLICATIONS.] Future Scheduled Test RISK FOR H OSPITALIZATION; SKILLED NURSE TO INSTRUCT PATIENT/CAREGIVER ON RISK FOR HOSPITALIZATION, TEACH SIGNS AND SYMPTOMS THAT PUT PATIENT AT RISK, WHEN TO NOTIFY NURSE OF COMPLICATIONS/DECLINE, AND WHEN TO CALL 911. SKILLED NURSE TO INSTRUCT PATIENT/CAREGIVER ON: SIGNS AND SYMPTOMS TO BE ON ALERT FOR EARLY INTERVENTION, PRIOR TO NEEDING EMERGENCY SERVICES CALL [facility] NURSE TO KEEP WHEEL ALIGNER SYMPTOM REPORT FOR VISIBLE REFERENCE NOTIFY SKILLED NURSE/PHYSICIAN FOR DECLINE IN STATUS WHEN AND HOW TO CALL HOME HEALTH [facility]ENC[facility] FACILITATE PHYSICIAN FOLLOW UP APPOINTMENT IDENTIFY SOCIOECONOMIC CONCERNS AND MAKE APPROPRIATE REFERRAL NEEDED [code = RISK FOR HOSPITALIZATION; SKILLED NURSE TO INSTRUCT PATIENT/CAREGIVER ON RISK FOR HOSPITALIZATION, TEACH SIGNS AND SYMPTOMS THAT PUT PATIENT AT RISK, WHEN TO NOTIFY NURSE OF COMPLICATIONS/DECLINE, AND WHEN TO CALL 911. SKILLED NURSE TO INSTRUCT PATIENT/CAREGIVER ON: SIGNS AND SYMPTOMS TO BE ON ALERT FOR EARLY INTERVENTION, PRIOR TO NEEDING EMERGENCY SERVICES CALL [facility] NURSE TO KEEP WHEEL ALIGNER SYMPTOM REPORT FOR VISIBLE REFERENCE NOTIFY SKILLED NURSE/PHYSICIAN FOR DECLINE IN STATUS WHEN AND HOW TO CALL HOME HEALTH AGENCY FACILITATE PHYSICIAN FOLLOW UP APPOINTMENT IDENTIFY SOCIOECONOMIC CONCERNS AND MAKE APPROPRIATE REFERRAL NEEDED] Future Scheduled Test MEDICATION MANAGEMENT; SKILLED NURSE TO REVIEW MEDICATIONS FOR INTERACTIONS, EFFECTIVENESS OF DRUG THERAPY, AND SIGNS/SYMPTOMS OF ADVERSE REACTIONS. MAY INSTRUCT AND REINFORCE MEDICATION TEACHING RELATED TO THE USE OF MEDICATIONS, DOSAGE, FREQUENCY, PURPOSE, SIDE EFFECTS, AND TO REPORT COMPLICATIONS. [code = MEDICATION MANAGEMENT; SKILLED NURSE TO REVIEW MEDICATIONS FOR INTERACTIONS, EFFECTIVENESS OF DRUG THERAPY, AND SIGNS/SYMPTOMS OF ADVERSE REACTIONS. MAY INSTRUCT AND REINFORCE MEDICATION TEACHING RELATED TO THE USE OF MEDICATIONS, DOSAGE, FREQUENCY, PURPOSE, SIDE EFFECTS, AND TO REPORT COMPLICATIONS.] Future Scheduled Test CARDIOVASC ULAR SYSTEM; SKILLED NURSE TO ASSESS AND TEACH RELATED TO ALTERED CARDIOVASCULAR STATUS TO MINIMIZE COMPLICATIONS AND REDUCE HOSPITALIZATION. [code = CARDIOVASCULAR SYSTEM; SKILLED NURSE TO ASSESS AND TEACH RELATED TO ALTERED CARDIOVASCULAR STATUS TO MINIMIZE COMPLICATIONS AND REDUCE HOSPITALIZATION.] Future Scheduled Test PAIN MANAG EMENT; SKILLED NURSE TO OBSERVE, ASSESS, AND PROVIDE EDUCATION ON PAIN MANAGEMENT TECHNIQUES. [code = PAIN MANAGEMENT; SKILLED NURSE TO OBSERVE, ASSESS, AND PROVIDE EDUCATION ON PAIN MANAGEMENT TECHNIQUES.] Future Scheduled Test SN TO PERF ORM/TEACH DIABETIC ULCER - NEUROPATHIC CARE TO LEFT FOOT DIABETIC ULCER IRRIGATE/CLEANSE WITH WOUND CLEANSER APPLY ALGINATE AG COVER WITH CLEAN DRY DRESSING, WRAP WITH CLING SECURE WITH TAPE WRAP WITH MARLYN BANDAGE IF AVAILABLE CHANGE DRESSING EVERY 2 DAYS AND PRN FOR DISLODGED DRESSING.PT HAS CAREGIVERS TO DO IN NURSING ABSENCE AND IS PROFICIENT HIMSELF [code = SN TO PERFORM/TEACH DIABETIC ULCER - NEUROPATHIC CARE TO LEFT FOOT DIABETIC ULCER IRRIGATE/CLEANSE WITH WOUND CLEANSER APPLY ALGINATE AG COVER WITH CLEAN DRY DRESSING, WRAP WITH CLING SECURE WITH TAPE WRAP WITH MARLYN BANDAGE IF AVAILABLE CHANGE DRESSING EVERY 2 DAYS AND PRN FOR DISLODGED DRESSING.PT HAS CAREGIVERS TO DO IN NURSING ABSENCE AND IS PROFICIENT HIMSELF] Future Scheduled Test DIABETES M ANAGEMENT; SKILLED NURSE FOR INSTRUCTIONS OF DIABETIC CARE TO INCLUDE: DIABETIC DIET SKIN CARE, SIGNS AND SYMPTOMS OF HYPO/HYPERGLYCEMIA, PROPER ADMINISTRATION OF DIABETIC MEDICATION. SKILLED NURSE TO INSTRUCT ON DIABETIC FOOT CARE AND MONITOR FOR SKIN LESIONS ON LOWER EXTREMITIES. BLOOD GLUCOSE TESTING 3 TIMES DAILY SKILLED NURSE TO ASSESS PATIENT/CAREGIVER ABILITY TO PERFORM AND RECORD BLOOD GLUCOSE TESTING ORDERED AND TO REPORT ABNORMAL FINDINGS TO PHYSICIAN. SKILLED NURSE MAY PERFORM BLOOD GLUCOSE TEST NEEDED. SKILLED NURSE TO REPORT TO PHYSICIAN BLOOD GLUCOSE READINGS GREATER THAN 400 OR LESS THAN 60 SKILLED NURSE TO INSTRUCT PATIENT ON IMPORTANCE OF HGBA1C MONITORING, KIDNEY FUNCTION TEST, EYE AND FOOT EXAMS. [code = DIABETES MANAGEMENT; SKILLED NURSE FOR INSTRUCTIONS OF DIABETIC CARE TO INCLUDE: DIABETIC DIET SKIN CARE, SIGNS AND SYMPTOMS OF HYPO/HYPERGLYCEMIA, PROPER ADMINISTRATION OF DIABETIC MEDICATION. SKILLED NURSE TO INSTRUCT ON DIABETIC FOOT CARE AND MONITOR FOR SKIN LESIONS ON LOWER EXTREMITIES. BLOOD GLUCOSE TESTING 3 TIMES DAILY SKILLED NURSE TO ASSESS PATIENT/CAREGIVER ABILITY TO PERFORM AND RECORD BLOOD GLUCOSE TESTING ORDERED AND TO REPORT ABNORMAL FINDINGS TO PHYSICIAN. SKILLED NURSE MAY PERFORM BLOOD GLUCOSE TEST NEEDED. SKILLED NURSE TO REPORT TO PHYSICIAN BLOOD GLUCOSE READINGS GREATER THAN 400 OR LESS THAN 60 SKILLED NURSE TO INSTRUCT PATIENT ON IMPORTANCE OF HGBA1C MONITORING, KIDNEY FUNCTION TEST, EYE AND FOOT EXAMS.] Future Scheduled Test IV THERAPY MANAGEMENT; SKILLED NURSE FOR OBSERVATION / ASSESSMENT OF IV ACCESS SITE LEFT ARM PICC LINE, RESPONSE TO MEDICATION. SN FOR SKILLED TEACHING REGARDING INFUSION PROCEDURE, CARE OF ACCESS DEVICE, SIGNS AND SYMPTOMS OF ACCESS DEVICE COMPLICATIONS AND, CARE AND USE OF INFUSION EQUIPMENT. [code = IV THERAPY MANAGEMENT; SKILLED NURSE FOR OBSERVATION / ASSESSMENT OF IV ACCESS SITE LEFT ARM PICC LINE, RESPONSE TO MEDICATION. SN FOR SKILLED TEACHING REGARDING INFUSION PROCEDURE, CARE OF ACCESS DEVICE, SIGNS AND SYMPTOMS OF ACCESS DEVICE COMPLICATIONS AND, CARE AND USE OF INFUSION EQUIPMENT. ] Future Scheduled Test IV THERAPY ADMINISTRATION; SKILLED NURSE TO OBTAIN IV ACCESS VIA PICC LINE LEFT ARM SKILLED NURSE TO INFUSE AND/OR TEACH PATIENT/CAREGIVER INFUSION OF AMPICILLIN AT 2 GRAMS EVERY 4 HOURS VIA CAD TYPE PUMP CHANGE PRN FOR LOOSE OR SOILED DRESSINGS. INJECTION CAP CHANGE WITH EVERY BLOOD DRAW AND WEEKLY AND PRN FOR CONTAMINATION OR MALFUNCTION. EXTENSION TUBING TO BE CHANGED WEEKLY AND WITH EACH LAB DRAW AND PRN FOR PROBLEMS. SKIN PREP PRN; SECUREMENT DEVICE PRN. BIOPATCH PRN FOR REDNESS OR NEUTROPENIA. SN TO PERFORM/INSTRUCT PATIENT/CAREGIVER TO FLUSH IV ACCESS WITH 10 ML SALINE AND 5 ML HEPARIN FLUSH ORDERED SN TO PERFORM SITE CARE FOR INFUSION ACCESS DEVICE WITH DRESSING CHANGE TO INCLUDE CHANGE WEEKLYAND PRN SN TO CLEANSE ACCESS SITE WITH CHLORAPPREP ALLOW TO AIR DRY AND THEN APPLY DRESSING APPLY STAT LOCK COVER WITH TRANSPARENT DRESSING FREQUENCY WEEKLY [code = IV THERAPY ADMINISTRATION; SKILLED NURSE TO OBTAIN IV ACCESS VIA PICC LINE LEFT ARM SKILLED NURSE TO INFUSE AND/OR TEACH PATIENT/CAREGIVER INFUSION OF AMPICILLIN AT 2 GRAMS EVERY 4 HOURS VIA CAD TYPE PUMP CHANGE PRN FOR LOOSE OR SOILED DRESSINGS. INJECTION CAP CHANGE WITH EVERY BLOOD DRAW AND WEEKLY AND PRN FOR CONTAMINATION OR MALFUNCTION. EXTENSION TUBING TO BE CHANGED WEEKLY AND WITH EACH LAB DRAW AND PRN FOR PROBLEMS. SKIN PREP PRN; SECUREMENT DEVICE PRN. BIOPATCH PRN FOR REDNESS OR NEUTROPENIA. SN TO PERFORM/INSTRUCT PATIENT/CAREGIVER TO FLUSH IV ACCESS WITH 10 ML SALINE AND 5 ML HEPARIN FLUSH ORDERED SN TO PERFORM SITE CARE FOR INFUSION ACCESS DEVICE WITH DRESSING CHANGE TO INCLUDE CHANGE WEEKLYAND PRN SN TO CLEANSE ACCESS SITE WITH CHLORAPPREP ALLOW TO AIR DRY AND THEN APPLY DRESSING APPLY STAT LOCK COVER WITH TRANSPARENT DRESSING FREQUENCY WEEKLY] Future Scheduled Test LAB DRAW V IA VASCULAR ACCESS DEVICE; SKILLED NURSE TO PERFORM LAB DRAW FROM ACCESS DEVICE. DRAW CBC W/DIFF, LFT, CHEM 7, ESR, AND CRP EVERY WEEK STARTING 07/08/2022.. SKILLED NURSE TO DRAW LABS VIA VENIPUNCTURE PRN IF UNABLE TO DRAW VIA VASCULAR ACCESS DEVICE. [code = LAB DRAW VIA VASCULAR ACCESS DEVICE; SKILLED NURSE TO PERFORM LAB DRAW FROM ACCESS DEVICE. DRAW CBC W/DIFF, LFT, CHEM 7, ESR, AND CRP EVERY WEEK STARTING 07/08/2022.. SKILLED NURSE TO DRAW LABS VIA VENIPUNCTURE PRN IF UNABLE TO DRAW VIA VASCULAR ACCESS DEVICE. ] Future Scheduled Test PICC LINE REMOVAL; SKILLED NURSE TO REMOVE PICC LINE WHEN ORDERED [code = PICC LINE REMOVAL; SKILLED NURSE TO REMOVE PICC LINE WHEN ORDERED] Future Scheduled Test FALL REDUC TION MANAGEMENT; NURSING TO PROVIDE SKILLED ASSESSMENT, EDUCATION, AND INTERVENTION TO IDENTIFY FALL RISK FACTORS SUCH MEDICATIONS THAT MAY CAUSE DIZZINESS, CHRONIC DISEASES, PSYCHOLOGICAL FACTORS, AND EMPOWER/EDUCATE PATIENT/CAREGIVER TO MINIMIZE FALL RISK. [code = FALL REDUCTION MANAGEMENT; NURSING TO PROVIDE SKILLED ASSESSMENT, EDUCATION, AND INTERVENTION TO IDENTIFY FALL RISK FACTORS SUCH MEDICATIONS THAT MAY CAUSE DIZZINESS, CHRONIC DISEASES, PSYCHOLOGICAL FACTORS, AND EMPOWER/EDUCATE PATIENT/CAREGIVER TO MINIMIZE FALL RISK.] Future Scheduled Test PRN VISITS ; PATIENT REQUIRES 3 PRN SENIOR CARE VISITS FOR COMPLICATIONS RELATED TO INFUSION THERAPY [code = PRN VISITS; PATIENT REQUIRES 3 PRN SENIOR CARE VISITS FOR COMPLICATIONS RELATED TO INFUSION THERAPY ] Goal 2022-08-28 Patient Goal - T O HAVE MY FOOT HEAL AND REMAIN OUT OF THE HOSPITAL Goal Provider Goal - A PLAN OF CARE WILL BE ESTABLISHED THAT MEETS THE PATIENTS NEEDS. PATIENT WILL DEMONSTRATE OXYGEN SATURATION WITHIN NORMAL LIMITS OR PATIENTS OPTIMAL LEVEL ESTABLISHED BY THE PHYSICIAN THROUGHOUT CARE. CHANGES TO CO-MORBID CONDITIONS AND ANY NEW CONDITIONS WILL BE IDENTIFIED AND REPORTED TO THE PHYSICIAN. Goal Provider Goal - PATIENT/CAREGIVER WILL VERBALIZE UNDERSTANDING OF SIGNS AND SYMPTOMS THAT PUT THE PATIENT AT RISK FOR HOSPITALIZATION, WHEN TO NOTIFY SN OF COMPLICATIONS/DECLINE AND WHEN TO CALL 911. Goal Provider Goal - PATIENT / CAREGIVER WILL VERBALIZE/DEMONSTRATE UNDERSTANDING OF MEASURES TO MANAGE ALTERED CARDIOVASCULAR STATUS BY 08/30/2022. Goal Provider Goal - PATIENT/CAREGIVER TO VERBALIZE, AND CONSISTENTLY DEMONSTRATE EFFECTIVE, SAFE MANAGEMENT OF MEDICATION INCLUDING KNOWLEDGE OF EFFECTIVENESS, POTENTIAL SIDE EFFECTS AND DRUG REACTIONS AND WHEN TO CONTACT THE APPROPRIATE CARE PROVIDER. PATIENT/CAREGIVER WILL BE ABLE TO VERBALIZE UNDERSTANDING OF MEDICATION REGIMEN AND ACCURATELY TAKE MEDICATIONS PRESCRIBED WITHOUT ADVERSE EFFECTS BY 08/30/2022. Goal Provider Goal - PATIENT / CAREGIVER WILL VERBALIZE / DEMONSTRATE UNDERSTANDING OF PAIN CONTROL MEASURES BY 08/30/2022. Goal Provider Goal - PATIENT / CAREGIVER WILL VERBALIZE UNDERSTANDING OF DIABETIC ULCER - NEUROPATHIC CARE INCLUDING BUT NOT LIMITED TO DEFINITION, SIGNS AND SYMPTOMS OF COMPLICATIONS AND PRESCRIBED TREATMENT REGIME BY 08/30/2022. Goal Provider Goal - PATIENT / CAREGIVER WILL VERBALIZE / DEMONSTRATE AN ABILITY TO ADHERE TO SELF-MANAGEMENT OF DIABETES MANAGEMENT BY 08/30/2022. Goal Provider Goal - PATIENT / CAREGIVER WILL VERBALIZE/DEMONSTRATE ABILITY TO CARE FOR IV ADEQUATELY BY PATIENT AND FAMILY TO HAVE A CLEAR UNDERSTANDING OF ALL MEDICATIONS AND USES AND INTERVENTIONS BY THE END OF THE 2ND VISIT AND MAINTAINED THROUGHOUT EPISODE Goal Provider Goal - PATIENT WILL VERBALIZE/DEMONSTRATE TOLERANCE TO INFUSION PROCEDURE BY 08/06/2022. Goal Provider Goal - PATIENT WILL VERBALIZE TOLERANCE TO LAB DRAW FROM VASCULAR ACCESS DEVICE BY 08/06/2022. Goal Provider Goal - PICC LINE WILL BE REMOVED WITHOUT COMPLICATIONS Goal Provider Goal - PATIENT/CAREGIVER ABLE TO IDENTIFY FALL RISK FACTORS AND IMPLEMENT STRATEGIES TO MINIMIZE FALL RISK. PATIENT/CAREGIVER WILL VERBALIZE/DEMONSTRATE AN ABILITY TO ADHERE TO FALL REDUCTION SELF MANAGEMENT AND LIFE-STYLE CHANGES AT DISCHARGE. PERSONAL GOAL(S) STATED BY PATIENT/CAREGIVER WILL BE MET BY 08/30/2022. Reason for Visit INDEPENDENT IN THE HOME Encounters Start Date/Time End Date/Time Encounter Type Admission Type Attending [facility] Care Department Encounter ID Discharge Date Discharge Status Discharge Condition Discharge Reason Percent Goals Met 2022-07-02 00:00:00 2022-08-28 00:00:00 Outpatient HA ALBERT [facility] [id number] 2022-08-28 00:00:00 DISCHARGE TO HOME OR SELF CARE INDEPENDEN T IN THE HOME HH OR PAL- GOALS MET 97.67
--- OUTSIDE RECORDS SUMMARY | 2024-07-25 10:43 | XMS_ITS | Clinical Summary ---
Author Organization Unknown Care Team Providers Care Hoop Maker Name Role Phone NAME SARBJIT PELAEZ Unavailable Unavailable HA MACDONALD RN Unavailable Unavailable Payers Payer Name Policy Type Policy Number Effective Date Expira tion Date MEDICARE.NGS.PDGM [id number] Problems Condition Name Condition Details Condition Category [...] 08-02 00:00: 00 ATHSCL HEART DISEASE OF [place] CORONARY ARTERY W/O ANG PCTRS Active 2021-08 00:00: 00 ANEMIA, UNSPECIFIED Active 2021-08 00:00: 00 NICOTINE DEPENDENCE, CIGARETTES, UNCOMPLICATE D Active 2021-08 00:00: 00 ENCOUNTER FOR ADJUSTMENT AND MANAGEMENT OF VAD Active 2021-08 00:00: 00 CORRECTION (CURRENT) USE OF ANTIBIOTICS Active 2021-08 00:00: 00 FINGER LIFT OPERATOR (CURRENT) USE OF ANTITHROMBOT ICS/ANTIPLAT ELETS Active 2021-08 00:00: 00 FINGER LIFT OPERATOR (CURRENT) USE OF INSULIN Active 2021-08 00:00: 00 FINGER LIFT OPERATOR (CURRENT) USE OF ASPIRIN Active 2021-08 00:00: 00 FINGER LIFT OPERATOR (CURRENT) USE OF ORAL HYPOGLYCEMIC DRUGS Active [...] 12-12 00:00: 00 02-10 23:59 :00 No [id number] 1 tablet DAILY 1 tablet DAILY (route: oral) Med Classific ation: Hematolog ical Agents atorvastati n 80 mg tablet 09-01 00:00: 00 02-10 23:59 :00 No [id number] 1 tablet AT BEDTIME 1 tablet AT BEDTIME (route: oral) Alternate Route: BY MOUTH. Med Classific ation: Cardiovas cular Therapy Agents cefazolin 2 gram/100 mL in dextrose 5 % intravenous solution 01-11 00:00: 00 04-10 00:00 :00 No [id number] 2 g EVERY 8 HOURS 2 g EVERY 8 HOURS (route: intravenou s) Med Classific ation: Anti-Infe ctive Agents lisinopril 40 mg tablet 12-06 00:00: 00 02-10 23:59 :00 No [id number] 1 tablet ONCE DAILY 1 tablet ONCE DAILY (route: oral) Alternate Route: BY MOUTH. Med Classific ation: Cardiovas cular Therapy Agents metformin 500 mg tablet 4-10 00:00: 00 02-10 23:59 :00 No [id number] 2 tablet 2 TIMES DAILY 2 tablet 2 TIMES DAILY (route: oral) Alternate Route: BY MOUTH. Med Classific ation: Endocrine Novolog Mix 70-30 U-100 Insulin 100 unit/mL subcutaneou s solution 13 00:00: 00 02-10 23:59 :00 No [id number] 20 unit EVERY PM 20 unit EVERY PM (route: subcutaneo us) Alternate Route: SUBCUTANE OUS. Med Classific ation: Endocrine Novolog Mix 70-30 U-100 Insulin 100 unit/mL subcutaneou s solution 12-12 00:00: 00 02-10 23:59 :00 No [id number] 30 unit EVERY AM 30 unit EVERY AM (route: subcutaneo us) Alternate Route: SUBCUTANE OUS. Med Classific ation: Endocrine sodium chloride 0.9 % intravenous solution 01-11 00:00: 00 04-10 00:00 :00 No [id number] 0.9 DIRECTED 0.9 % DIRECTED (route: intravenou s) Med Classific ation: Electroly te Balance-N utritiona l Products Aspirin Low Dose 81 mg tablet,marta yed release 02-12 00:00: 00 04-26 23:59 :00 No [id number] BLOOD THINNER 1 tablet DAILY 1 tablet DAILY (route: oral) Med Classific ation: Hematolog ical Agents atorvastati n 80 mg tablet 02-12 00:00: 00 04-26 23:59 :00 No [id number] CHOLESTEROL 1 tablet DAILY 1 tablet DAILY (route: oral) Med Classific ation: Cardiovas cular Therapy Agents hydrochloro thiazide 25 mg tablet 02-12 00:00: 00 03-21 00:00 :00 No [id number] HTN 1 tablet DAILY 1 tablet DAILY (route: oral) Med Classific ation: Cardiovas cular Therapy Agents lisinopril 40 mg tablet 02-12 00:00: 00 04-26 23:59 :00 No [id number] HTN 1 tablet DAILY 1 tablet DAILY (route: oral) Med Classific ation: Cardiovas cular Therapy Agents metformin 1,000 mg tablet 02-12 00:00: 00 04-26 23:59 :00 No [id number] DM Per instruc tions EVERY 12 HOURS Per instructio ns EVERY 12 HOURS (route: oral) Med Classific ation: Endocrine Novolin 70/30 U-100 Insulin 100 unit/mL subcutaneou s suspension 02-12 00:00: 00 04-26 23:59 :00 No [id number] DM Per instruc tions DIRECTED Per instructio ns DIRECTED (route: subcutaneo us) Med Classific ation: Endocrine sodium chloride 0.9 % (flush) injection syringe 02-12 00:00: 00 04-09 00:00 :00 No [id number] IV MEDS Per instruc tions DIRECTED Per instructio ns DIRECTED (route: injection) Med Classific ation: Electroly te Balance-N utritiona l Products vancomycin 750 mg/250 mL in 0.9 % sodium chloride intravenous solution 02-12 00:00: 00 04-09 00:00 :00 No [id number] OSTEOMYLITI S Per instruc tions DIRECTED Per instructio ns DIRECTED (route: intravenou s) Med Classific ation: Anti-Infe ctive Agents amlodipine 5 mg tablet 03-21 00:00: 00 04-26 23:59 :00 No [id number] HTN 1 tablet DAILY 1 tablet DAILY (route: oral) Med Classific ation: Cardiovas cular Therapy Agents doxycycline hyclate 100 mg capsule 03-21 00:00: 00 04-26 23:59 :00 No [id number] OSTEOMYLITI S 1 capsule 2 TIMES DAILY 1 capsule 2 TIMES DAILY (route: oral) Med Classific ation: Anti-Infe ctive Agents verapamil 40 mg tablet 04-08 00:00: 00 07-03 23:59 :00 No [id number] HTN 1 tablet 2 TIMES DAILY 1 tablet 2 TIMES DAILY (route: oral) Med Classific ation: Cardiovas cular Therapy Agents atorvastati n 80 mg tablet 04-28 00:00: 00 Yes [id number] CHOLESTEROL 1 tablet DAILY 1 tablet DAILY (route: oral) Med Classific ation: Cardiovas cular Therapy Agents cefazolin 2 gram solution for injection 04-28 00:00: 00 07-02 23:59 :00 No [id number] SEPSIS 2 g EVERY 8 HOURS 2 g EVERY 8 HOURS (route: injection) Med Classific ation: Anti-Infe ctive Agents hydrochloro thiazide 25 mg tablet 04-28 00:00: 00 07-02 23:59 :00 No [id number] HTN/FLUID 1 tablet DAILY 1 tablet DAILY (route: oral) Med Classific ation: Cardiovas cular Therapy Agents lisinopril 40 mg tablet 04-28 00:00: 00 Yes [id number] HTN 1 tablet DAILY 1 tablet DAILY (route: oral) Med Classific ation: Cardiovas cular Therapy Agents metformin 500 mg tablet 04-28 00:00: 00 Yes [id number] DIABETES 2 tablet 2 TIMES DAILY 2 tablet 2 TIMES DAILY (route: oral) Med Classific ation: Endocrine Novolog Mix 70-30 FlexPen U-100 Insulin 100 unit/mL subcutaneou s pen 04-28 00:00: 00 Yes [id number] DIABETES 20-30 unit 2 TIMES DAILY 20-30 unit 2 TIMES DAILY (route: subcutaneo us) Med Classific ation: Endocrine Normal Saline Flush 0.9 % injection syringe 04-28 00:00: 00 Yes [id number] FLUSH 10 mL DIRECTED 10 mL DIRECTED (route: injection) Med Classific ation: Electroly te Balance-N utritiona l Products Heparin Lock Flush (Porcine) (PF) 10 unit/mL intravenous syringe 04-28 00:00: 00 Yes [id number] LOCK FLUSH 5 mL DIRECTED 5 mL DIRECTED (route: intravenou s) Med Classific ation: Hematolog ical Agents terazosin 5 mg capsule 9- 00:00: 00 07-02 23:59 :00 No [id number] HTN 1 capsule DAILY 1 capsule DAILY (route: oral) Med Classific ation: Cardiovas cular Therapy Agents ampicillin 2 gram intravenous solution 2021-08 00:00: 00 08-21 23:59 :00 No [id number] OSTEOMYELIT IS 2 g EVERY 4 HOURS 2 g EVERY 4 HOURS (route: intravenou s) Med Classific ation: Anti-Infe ctive Agents aspirin 81 mg tablet,marta yed release 2021-08 00:00: 00 Yes [id number] MAINTENANCE 1 tablet DAILY 1 tablet DAILY (route: oral) Med Classific ation: Hematolog ical Agents carvedilol 6.25 mg tablet 2021-08 00:00: 00 Yes [id number] CARDIAC 1 tablet 2 TIMES DAILY 1 tablet 2 TIMES DAILY (route: oral) Med Classific ation: Cardiovas cular Therapy Agents levofloxaci n 750 mg tablet 2021-08 00:00: 00 08-12 23:59 :00 No [id number] INFECTION 1 tablet DAILY 1 tablet DAILY (route: oral) Med Classific ation: Anti-Infe ctive Agents Plavix 75 mg tablet 2021-08 00:00: 00 Yes [id number] MAINTENANCE 1 tablet DAILY 1 tablet DAILY [...] EMERGENCY SERVICES CALL [facility] NURSE TO [facility]EEP GAS ANALYST SYMPTOM REPORT FOR VISIBLE REFERENCE NOTIFY SKILLED [...] EMERGENCY SERVICES CALL [facility] NURSE TO KEEP GAS ANALYST SYMPTOM REPORT FOR VISIBLE REFERENCE NOTIFY SKILLED [...] PRN VISITS ; PATIENT REQUIRES 3 PRN ASSISTED VISITS FOR COMPLICATIONS RELATED TO INFUSION THERAPY [code = PRN VISITS; PATIENT REQUIRES 3 PRN ASSISTED VISITS FOR COMPLICATIONS RELATED TO INFUSION THERAPY [...] End Date/Time Encounter Type Admission Type Attending [facility] Care Department Encounter ID Discharge Date Discharge Status Discharge Condition Discharge Reason Percent Goals Met 2022-07-02 00:00:00 2022-08-28 00:00:00 Outpatient HA ALBERT [facility] [id number] 2022-08-28 00:00:00 DISCHARGE TO HOME OR SELF CARE INDEPENDEN T IN THE HOME HH OR PAL- GOALS MET 97.67
[2024-07-25 14:04] LABS: Creatinine Urine 91.13 mg/dL
[2024-07-25 14:26] LABS: Microalbum/Creatinine Ratio Ur 2194.6 ug/mg cr (<30); Microalbumin Urine > 2000.0 mg/L
== END 2024-07-25 10:41 | disposition home or self-care (01) ==
LOC: HO.HHCL 10:40
PROVIDERS: Visit Provider Internal Medicine Geriatric Medicine
DX: E11.65 Type 2 diabetes mellitus with hyperglycemia (principal); I10 Essential (primary) hypertension
CPT/HCPCS: 82043; 82570

== ENCOUNTER 2025-03-21 10:29 | Outpatient (REF) | payer MEDICARE, SELFPAY ==
--- OUTSIDE RECORDS SUMMARY | 2025-03-21 11:45 | XMS_ITS ---
Author Organization [facility] Care Team Providers Care Delivery Route Driver Name Role Phone Juan Anaya Unavailable Unavailable Allergies and adverse reactions No Known Allergies Care Team Name Role Address Phone Organization Dates Juan Anaya PCP [address] [facility] [address], [place], [address], [place] (Office): : [facility] 08/10/2017 - 09/15/2017 Immunizations Immunization Status Vaccine Details Vaccine Code CodeSystem Date Notes Influenza cancelled Influenza, high-dose, split virus, quadrivalent, injectable, preservative free 197 CVX created date: 08/11/2017 consent date: 08/10/2017 Does not want it. Pneumovax Dose 1 cancelled cre ated date: 08/11/2017 consent date: 08/10/2017 Stated that he did not want it. Mental Status Section Date Assessment Total Score Description 09/15/2017 BIMS 15 cognitively int act CAM 0 No delirium ind icated PHQ-9 00 09/08/2017 BIMS 15 cognitively int act CAM 0 No delirium ind icated PHQ-9 00 Problems Problem # Description Date of onset Resolved Date Code CodeSystem Concern Status 1 ESSENTIAL (PRIMARY) HYPERTENSION 08/10/[address] active 2 HYPERLIPIDEMIA, UNSPECIFIED 08/10/[address] active 3 RESIDENTIAL (CURRENT) USE OF INSULIN 08/10/[address] active 4 NICOTINE DEPENDENCE, UNSPECIFIED, UNCOMPLICATED 08/10/[address] active 5 OTHER ACUTE OSTEOMYELITIS, RIGHT ANKLE AND FOOT 08/10/[address] active 6 TYPE 2 DIABETES MELLITUS WITH DIABETIC NEPHROPATHY 08/10/[address] active 7 TYPE 2 DIABETES MELLITUS WITHOUT COMPLICATIONS 08/10/2017 08/23/[address] completed 8 UNSPECIFIED OPEN WOUND, RIGHT FOOT, SUBSEQUENT ENCOUNTER 08/10/[address] active 9 WEAKNESS 08/10/[address] active Reason for Referral No Reasons for Referral Entered Social History Social History Observation Description Start Date End Date Code Code System Current Smoking Status Tobacco smoking consumption unknown 380426680 SNOMED CT Sex Assigned At Male 1955 23190-7 [facility] Gender Identity Vital Signs Code Code System Vitals Name Values and Units Timing Information 65302-3 [facility] Weight Pkonm=572.2 Units=Lbs 9279-1 [facility] Respiratory Rate Value=18.0 Units=/m in 09/14/2017 8462-4 [facility] Blood Pressure-Diastolic Value=62 Un its=mmHg 09/14/2017 8480-6 [facility] Blood Pressure-Systolic Jydok=948 Un its=mmHg 09/14/2017 8310-5 [facility] Body Temperature Value=97.2 Units= F 09/14/2017 8867-4 [facility] Heart rate Value=64.0 Units=/min 88779-3 [facility] O2 % dC Oximetry Value=97.0 Units= % 09/14/2017 92121-6 [facility] Pain Level Value=0.0 09/14/2017 2339-0 [facility] Blood Sugar Fyewn=273.0 Units=mg/dL 08/24/2017 8302-2 [facility] Height Value=74.0 Units=Inches 08/12/2017
--- OUTSIDE RECORDS SUMMARY | 2025-03-21 11:45 | XMS_ITS | Encounter Summary ---
Author Organization [employer] Address [address] [place] [address] Care Team Providers Care Senior Interactive Developer Name Role Phone Name, Noel PELAEZ Primary Care Provider [phone] Reason for Visit * Reason Onset Date Comments Med Refill 03/19/2025 Encounter Details Date Type Department Care Team ([facility] st Contact Info) Description 03/19/2025 Refill [facility] MED[facility]INE [address], [place] [id number] Name, MD Noel [address] [place] [address] Social History Tobacco Use Types Packs/Day Years Used Date Smoking Tobacco: Former Cigarettes Passive Smoke Exposure: Past Smokeless Tobacco: Never Alcohol Use Standard Drinks/Week Comments Never 0 (1 standard drink = 0.6 oz pur e alcohol) Depression Answer Date Recorded Patient Health Questionnaire-9 Score 3 09/20/2024 Patient Health Questionnaire-9 Score 3 09/20/2024 Last PHQ-9: Questionnaire Data Not on file 0 09/20/2024 Housing Stability Answer Date Recorded What is your housing situation today? I have jay kaplan 09/20/[address] you li ve. Do you have problems with any of the following? None of the above 09/20/2024 Food Insecurity Answer Date Recorded Within the past 12 months, y ou worried that your food would run out before you got money to buy more: Never True 09/20/2024 Within the past 12 months,th e food you bought just didn't last and you didn't have enough money to get more: Never True Transportation Answer Date Recorded In the past 12 months, has l ack of transportation kept you from medical appts, meetings, work or from getting things needed for daily living? No 09/20/2024 Utilities Answer Date Recorded In the past 12 months, has t he electric, gas, oil or water company threatened to shut off services in your home? I am not sure 09/20/2024 Depression Answer Date Recorded Patient Health Questionnaire-2 Score 3 09/20/2024 Internet Access Answer Date Recorded Internet Access Q1 Yes 09/20/2024 Internet Access Q2 Not on file 09/20/2024 Sex and Gender Information Value Date Recorded Sex Assigned at Male 06/01/2022 10:19 AM EDT Legal Sex Male 10:19 AM EDT Gender Identity Male 06/01/2022 10:19 AM EDT Sexual Orientation Straight 06/01/2022 10 :19 AM EDT documented as of this encounter Miscellaneous Notes * Telephone Encounter - Julissa Adams LPN - 03/19/2025 12:44 PM EDT Last seen 12/07/24. * Telephone Encounter - Sania Dias - 03/19/2025 12:40 PM EDT TC from pt requesting medication refill. Medications needing refill : - carvedilol (Coreg) 12.5 MG tablet To be sent to: - [facility] [address] [place] [address] documented in this encounter Plan of Treatment Upcoming Encounters Date Type Department Care Team (Late st Contact Info) Description 03/30/2025 10:15 AM EDT Office Visit [facility] MED[facility] [address] [place] [address] Name, MD Noel [address] [place] [address] documented as of this encounter Visit Diagnoses Not on filedocumented in this encounter Additional Health Concerns Assessment Noted Time PHQ-9 Depression Total Score: 3 09/20/19 25 11:15 AM EST documented as of this encounter Care Teams Senior Interactive Developer Relationship Specialty Start Date End Date NameNoel MD [address] [place] [address] PCP - General Family Medicine 03/11/17 documented as of this encounter
--- OUTSIDE RECORDS SUMMARY | 2025-03-21 11:45 | XMS_ITS | Clinical Summary ---
Author Organization [facility] Address [address] [place] [address] Care Team Providers Care Card Mounter Name Role Phone Unavailable Primary Care Provider Unavailabl e Medications aspirin (ST MARTY) 81 MG EC tablet Take 1 tablet by mouth 1 (one) time each day Active atorvastatin (Lipitor) 80 MG tablet Take 1 tablet by mouth 1 (one) time each day Active ergocalciferol (VITAMIN D-2) 1.25 MG (90509 UT) capsule Take 1 capsule by mouth every 14 (fourteen) days 08/21/2019 Active niacin (Niaspan) 500 MG CR tablet Take 1 tablet by mouth 2 (two) times a day Active metFORMIN (GLUCOPHAGE) 500 MG tablet Take 1 tablet by mouth 2 (two) times a day Active lisinopril (PRINIVIL,ZESTR IL) 40 MG tablet Take 1 tablet by mouth 1 (one) time each day Active insulin NPH-insulin regular (NovoLIN 70/30) (70-30) 100 UNIT/ML injection Inject Comments: Patient Notes: 15 units am, 10units pm Active hydroCHLOROthia zide (HYDRODIURIL) 25 MG tablet Take 1 tablet by mouth 1 (one) time each day Active Active Problems Problem Noted Date Diagnosed Date Chronic kidney disease stage 3 11/26/2020 Chronic kidney disease stage 1 11/26/2020 Hypertensive renal disease 11/26/2020 Hypertensive renal disease 11/26/2020 Proteinuria 11/26/2020 Renal disorder due to type 2 diabetes mellitus 0 11/26/2020 Tobacco dependence syndrome 11/26/2020 Immunizations Immunization Administration Dates Next Due Pneumococcal Polysaccharide 03/19/2014 Family History Medical History Relation Comments Cancer Child ovarian. dgtr - Diabetes Mother Relation Status Comments Child Father Mother Social History Tobacco Use Types Packs/Day Years Used Date Smoking Tobacco: Every Day Cigarettes Alcohol Use Standard Drinks/Week Comments Yes 0 (1 standard drink = 0.6 oz pure alcohol) Alcoholic Drinks/day: Occasional social drink Sex and Gender Information Value Date Recorded Sex Assigned at Not on file Legal Sex Male 4:59 PM EST Gender Identity Not on file Sexual Orientation Not on file Last Filed Vital Signs Vital Sign Reading Time Taken Comments Blood Pressure 146/78 08/21/2019 12:00 PM EST Pulse 73 08/21/2019 12:00 PM EST Temperature - - Respiratory Rate - - Oxygen Saturation 99% 08/21/2019 12:00 PM EST Inhaled Oxygen Concentration - - Weight 105 kg (231 lb) 08/21/2019 12:00 PM EST Height 188 cm (6' 2 ) 08/21/2019 12:00 PM EST Body Mass Index 29.66 08/21/2019 12:00 PM EST Plan of Treatment Health Maintenance Due Date Last Done Comments Colorectal Cancer Screening: Annual FOBT 2002 Colorectal Cancer Screening: Colonoscopy 2002 Colorectal Cancer Screening: Sigmoidoscopy 2002 Pneumococcal Vaccine: 50+ Ye ars (2 of 2 - PCV) 03/19/2015 03/19/2014 Diabetes: Ophthalmology Exam 09/01/2020 Diabetes: Pedal Pulse Checked 09/01/2020 Diabetes: Sensory Foot Exam 09/01/2020 Diabetes: Visual Foot Exam 09/01/2020 Diabetes: Hemoglobin A1C 12/18/2024 09/20/2024 Influenza Vaccine (#1) 2025 Pneumococcal Vaccine: Peds ( 0 to 5 Years) and At-Risk Patients (6 to 49 Years) Discontinued 03/19/2014 Hepatitis B Vaccine Aged Out No longe r eligible based on patient's age to complete this topic Insurance Medicare Medicare JAMES JOYA [id number]
[2025-03-21 13:02] LABS: Anion Gap 15 (12-20); Blood Urea Nitrogen 25 mg/dL (9-16); Calcium 8.6 mg/dL (8.4-10.2); Carbon Dioxide 22 mmol/L (22-29); Chloride 107 mmol/L (96-108); Estimated Glomerular Filt Rate 54; Potassium 4.5 mmol/L (3.3-5.1); Sodium 139 mmol/L (135-145)
[2025-03-21 13:32] LABS: Microalbum/Creatinine Ratio Ur 2436.3 ug/mg cr (<30)
== END 2025-03-21 10:30 | disposition home or self-care (01) ==
LOC: HO.HHCL 10:29
PROVIDERS: PCP Internal Medicine Geriatric Medicine; Visit Provider Internal Medicine Geriatric Medicine
DX: E11.59 Type 2 diabetes mellitus with other circulatory complications (principal); I10 Essential (primary) hypertension; I73.9 Peripheral vascular disease, unspecified; Z79.4 Long term (current) use of insulin
CPT/HCPCS: 36415; 80048; 82043; 82570

== ENCOUNTER 2025-04-06 08:27 | Outpatient (AMB) | payer MEDICARE, SELFPAY ==
[2025-04-06 08:40] VITALS: BP 136/52; PULSE 52; BMI 28.3
--- NOTE | 2025-04-06 08:40 | A.OFFVIS_ITS ---
Vital Signs 04/06/25 08:40 Height 6 ft 2 in Weight 220 lb 7.396 oz BMI 28.3 BP 136/52 L Blood Pressure Location Rt brachial Position Sitting Pulse 52 Pulse Source Monitor Intake Visit Reasons: 6mo followup Dental Laboratory Technician Required: No Allergies No Known Allergies (No Known Allergies*) Allergy (Verified 04/06/25 08:41) Medication List - Last Reconciled 04/06/25 by Raegan Pemberton NP-C aspirin 81 mg PO DAILY atorvastatin 80 mg PO BEDTIME carvedilol 12.5 mg PO BID empagliflozin (Jardiance) 25 mg PO DAILY insulin NPH and regular human 100 unit/mL (70-30) (Novolin 70-30 FlexPen U-100 Insulin) 20 units subcut BEDTIME insulin NPH and regular human 100 unit/mL (70-30) (Novolin 70-30 FlexPen U-100 Insulin) 30 units subcut DAILY lisinopril 40 mg PO DAILY metformin ER 1,000 mg PO BID HPI HPI 6mo followup: Details: Giovanni is a 70-year-old male past medical history of hypertension, hyp erlipidemia, diabetes, CAD, 2 vessel Coronary artery bypass grafting 09/22/22 who presents for follow-up. His last prior visit to our office was 10/14/2023. Today he reports that he has been doing well since his last visit. He has not had any chest discomfort at rest or with activity. Denies concerning shortness of breath, palpitations, lightheadedness, no presyncope, syncope, falls. No PND, orthopnea or edema. He continues to do only light physical activity. He tolerates normal ADLs. Takes his meds as directed. [facility] Medical History Atherosclerotic cardiovascular disease Cellulitis Hyperlipidemia HTN (hypertension) with goal to be determined Elevated lactic acid level Acute hyperglycemia Leukocytosis Foot ulcer, right Diabetes PAD (peripheral artery disease) Ulcer of left foot Surgical History H/O heart bypass surgery (~09/2022) History of colon resection (~09/2023) Status post debridement (03/04/20) Amputated great toe of left foot (01/09/20) History of transmetatarsal amputation of right foot (~2004) Family History Mother No problems noted. Father No problems noted. Social History Household Members: Family Housing: Apartment Do you presently have visiting nurse or other home services: No Alcohol intake: never Patient Tobacco Use Status: Former Tobacco user Years Smoked: 50 -/+ Second Hand Smoke Exposure: No service: No Current occupational status: retired and disabled Review of Systems Const All systems reviewed & are unremarkable except as noted in HPI and below ENT Denies dizziness Card Denies chest pain, Denies chest pain at rest, Denies chest pain with activity, Denies rapid heart rate, Denies pedal edema, Denies edema, Denies leg edema, Denies lightheadedness, Denies palpitations, Denies dyspnea, Denies dyspnea on exertion and Denies orthopnea Resp Denies cough, Denies dyspnea and Denies dyspnea on exertion GI Denies hematochezia and Denies change in stool character Musc Denies abnormal gait, Denies limited range of motion, Denies muscle cramps, Denies muscle weakness, Denies numbness, Denies radiating pain into limb, Denies stiffness and Denies tingling Neuro Denies abnormal gait, Denies dizziness, Denies numbness and Denies tingling Endo Denies palpitations Physical Exam Vital Signs: Last Vital Signs Pulse 52 04/06/25 08:40 BP 136/52 L 04/06/25 08:40 BMI result Body Mass Index 28.3 Const General: cooperative, healthy appearing, comfortable and no acute distress Orientation/consciousness: patient oriented x3 Neck Neck: Yes normal visual inspection and Yes no JVD Resp Effort & Inspection: normal respiratory effort Auscultation: clear to auscultation bilaterally, no crackles, no rales, no rhonchi and no wheezes Cardio Rate: regular rate Rhythm: regular rhythm Heart sounds: S1 normal heart sound present, S2 normal heart sound present, no gallops, no murmurs and no rubs Neuro General: patient oriented x3 Extrem General: Yes normal to inspection, No no pedal edema and No calf tenderness Psych Appearance: grossly normal Mental Status: mental status grossly normal Speech and movement: Normal speech and movement present Office Procedures EKG Details: Today, read by me, sinus bradycardia, right bundle branch block, left anterior fascicular block, rate 52, QTC 437 milliseconds, overall no significant change from last EKG 10/14/2023 [id number], Complete Assessment & Plan Assessment & Plan (1) Atherosclerotic cardiovascular disease: Code(s): I25.10 - Atherosclerotic heart disease of [place] coronary artery without angina pectoris Category: Medical Plan: History of CAD with cardiac catheterization 06/2022 showing severe left main disease. He underwent 2 vessel coronary artery bypass grafting 09/22/2022, with CARLTON to LAD, SVG to OM1. He has done well since that time. Last echocardiogram done 12/11/2022 showed EF 59%, no regional wall motion abnormalities. EKG today showing sinus bradycardia with bifascicular block rate 52, unchanged from last EKG 10/2023. Continue aspirin indefinitely. Continue high-dose atorvastatin with ideal LDL goal less than 70. Continue carvedilol and lisinopril. Signs and symptoms of angina reviewed with him. Cardiology follow-up in 1 year, sooner if needed (2) Status post aorto-coronary artery bypass graft: Comment: 09/22/2022 Carlton to LAD, SVG to OM 1 Code(s): Z95.1 - Presence of aortocoronary bypass graft Category: Surgical Plan: As above (3) Status post cardiac catheterization: Comment: 06/30/2022, left main 70% stenosis, RCA 50% stenosis Code(s): Z98.890 - Other specified postprocedural states Category: Surgical Plan: As above (4) Essential hypertension: Code(s): I10 - Essential (primary) hypertension Category: Medical Plan: Blood pressure goal less than 130/80. Near goal today. No med changes made, continue carvedilol and lisinopril. Low-salt diet reviewed. (5) Hyperlipidemia: Code(s): E78.5 - Hyperlipidemia, unspecified Category: Medical Qualifiers: Hyperlipidemia type: unspecified Qualified Code(s): E78.5 - Hyperlip idemia, unspecified Plan: [place] LDL goal less than 70. Labs done 07/24/2024 showed LDL 55. Continue on atorvastatin 80 mg daily. Plan Time spent on chart review, documentation, interview and assessment Coding Level of Care Code Est Pt Level 4 (20874) Complex EM visit Add On G2211 Diagnoses Atherosclerotic cardiovascular disease I25.10 Status post aorto-coronary artery bypass graft Z95.1 Status post cardiac catheterization Z98.890 Essential hypertension I10 Hyperlipidemia, unspecified hyperlipidemia type E78.5 Hyperlipidemia type: unspecified CPT Codes EKG - CPT: 04205-[id number], Complete ([id number]) Time Spent (min) 28
--- OUTSIDE RECORDS SUMMARY | 2025-04-06 08:52 | XMS_ITS | Clinical Summary ---
Author Organization [employer] Address [address] [place] [address] Care Team Providers Care Basketball Player Name Role Phone Name, Noel PELAEZ Primary Care Provider [phone] Allergies No known active allergies Medications aspirin 81 MG EC tablet Take 1 tablet by mouth 1 (one) time each day. OTC?? 12/19/19 14 Active Insulin Syringe-Needle U-100 29G X 1/2 0.5 ML misc Use 1 syringe twice a day 09/18/19 15 Active nicotine (Nicoderm, Step 1) 21 MG/24HR patch Apply 1 patch topically. 11/03/19 23 Active nicotine polacrilex (Nicorette) 4 MG lozenge Take 4 mg by mouth. 11/03/19 23 Active tamsulosin (Flomax) 0.4 MG 24 hr capsule Take 0.4 mg by mouth in the morning. 09/10/19 24 Active insulin NPH-insulin regular (NovoLIN) (70-30) 100 UNIT/ML injection Inject 35 units under the skin every morning and 20 units every evening 10 mL 11 09/20/19 25 Active empagliflozin (Jardiance) 25 MG Take 1 tablet (25 mg) by mouth Once per day. 30 tablet 11 12/08/19 25 026 Active atorvastatin (Lipitor) 80 MG tabletIndications :NSTEMI (non-ST elevated myocardial infarction) (CMS/HCC) TAKE 1 TABLET BY MOUTH AT BEDTIME 90 tablet 1 02/17/20 25 Active metFORMIN XR (Glucophage-XR) 500 MG 24 hr tabletIndications :Uncontrolled type 2 diabetes mellitus with hyperglycemia (CMS/HCC) TAKE 2 TABLETS BY MOUTH IN THE MORNING AND TAKE 2 TABLETS WITH EVENING MEAL 360 tablet 03/08/20 25 Active carvedilol (Coreg) 12.5 MG tablet TAKE 1 TABLET BY MOUTH TWICE DAILY WITH A MEAL OR FOOD 180 tablet 03/19/20 25 Active lisinopril-hydroC HLOROthiazide 20-12.5 MG tablet Take 2 tablets by mouth Once per day. 60 tablet 11 03/30/20 25 026 Active metFORMIN XR (Glucophage-XR) 500 MG 24 hr tabletIndications :Uncontrolled type 2 diabetes mellitus with hyperglycemia (CMS/HCC) TAKE 2 TABLETS BY MOUTH IN THE MORNING AND TAKE 2 TABLETS WITH EVENING MEAL 360 tablet 1 09/08/19 25 025 Discontinued carvedilol (Coreg) 12.5 MG tablet TAKE 1 TABLET BY MOUTH TWICE DAILY WITH A MEAL OR FOOD 05/12/20 24 025 Discontinued(Re order (will not trigger notification to Pharmacy)) lisinopril 40 MG tablet TAKE 1 TABLET BY MOUTH EVERY DAY 90 tablet 01/12/20 25 025 Discontinued(In effective) Active Problems Problem Noted Date Diagnosed Date Class 1 obesity 09/16/2023 H/O partial resection of colon 09/16/2023 Overview (10/20/2023): Right partial colectomy and 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 History of colonoscopy 09/16/2023 Overview (10/20/2023): Hospitalized 09/2023 at [facility] [place] for severe abdominal pain due to large bowel obstruction due cecal volvulus. Colonoscopy in hospital was normal. Patient was cleared for surgery and he had right partial colectomy and ileocecectomy 09/07/2023 History of coronary artery bypass graft x 2 10/01 Overview (10/23/2022): 09/2022 at [facility] [place] Charcot's joint of foot 08/08/2022 Anemia 08/08/2022 Absence of toe 08/08/2022 Uncontrolled type 2 diabetes mellitus with hyper glycemia 07/02/2022 Type 2 diabetes mellitus with hyperglycemia 08/2021 Presence of coronary angioplasty implant and gra ft 06/30/2022 Non-ST elevation (NSTEMI) myocardial infarction 06/28/2022 Nicotine dependence, cigarettes, uncomplicated 1 08/28/2021 Stage 3 chronic kidney disease 11/26/2020 snf current use of insulin 08/10/2017 Essential hypertension 08/10/2017 History of amputation of right foot 07/06/2017 Overview (09/20/2024): S/p Right transmetatarsal and L 1st metatarsal amputation Diabetic nephropathy with proteinuria 02/07/2012 Nonproliferative diabetic retinopathy 02/07/2012 Peripheral vascular disease 02/07/2012 Hypertension 02/07/2012 Hypercholesterolemia 02/07/2012 Diabetic polyneuropathy 02/07/2012 Chronic obstructive lung disease 02/07/2012 Resolved Problems Problem Noted Date Diagnosed Date Resolved Date Foot callus 08/08/2022 10/20/2023 Diabetic foot ulcer 08/08/2022 10/20/19 24 Other acute osteomyelitis, l eft ankle and foot 07/02/2022 09/20/2024 Hypertensive renal disease 11/26/2020 0 12/07/2024 Asthenia 08/10/2017 12/07/2024 Nicotine dependence 08/10/2017 12/08/19 25 Open wound of foot 08/10/2017 Hyperlipidemia 08/10/2017 12/07/2024 Acute osteomyelitis of ankle or foot 08/10/2017 12/07/2024 Encounters Date Type Department Care Team Description 03/30/2025 10:15 AM EDT Office Visit [facility] [address] [place] [address] Name, MD Noel Type 2 diabetes mellitus with other circulatory complication, with long-term current use of insulin ([facility]) (Primary Dx); Medication nonadherence due to psychosocial problem; Hypertension, unspecified type; Diabetic nephropathy with proteinuria ([facility]); Vaccination refused by patient 03/30/2025 Travel 03/29/2025 Telephone [facility] [address] [place] [address] Donna Ponce MA CHARTPREP 03/19/2025 Refill [facility] [address] [place] [address] Name, MD Noel 03/08/2025 Refill [facility] [address] [place] [address] Name, MD Noel Uncontrolled type 2 diabetes mellitus with hyperglycemia ([facility]) 02/15/2025 Refill [facility] [address] [place] [address] Name, MD Noel NSTEMI (non-ST elevated myocardial infarction) ([facility]) 01/10/2025 Refill [facility] [address] [place] [address] Bekah Lee NP from Last 3 Months Immunizations Immunization Administration Dates Next Due Moderna Covid-19 Vaccine 12+ 08/27/2021,01/08/20 21,12/10/2020 Pneumococcal Polysaccharide PPSV23 03/19/2014 Td (adult), unspecified 07/06/2017 Social History Tobacco Use Types Packs/Day Years [...] Orientation Straight 06/01/2022 10 :19 AM EDT Last Filed Vital Signs Vital Sign Reading Time Taken Comments Blood Pressure 175/85 03/30/2025 10:56 AM EDT Pulse 59 03/30/2025 10:43 AM EDT Temperature 36 C (96.8 F) 03/30/2025 10:43 AM EDT Respiratory Rate 12 03/30/2025 10:43 AM EDT Oxygen Saturation 94% 03/30/2025 10:43 AM EDT Inhaled Oxygen Concentration - - Weight 101 kg (221 lb 9.6 oz) 03/30/2025 10:43 A M EDT Height 188 cm (6' 2 ) 03/30/2025 10:43 AM EDT Body Mass Index 28.45 03/30/2025 10:43 AM EDT Plan of Treatment Upcoming Encounters Date Type Department Care Team (Late st Contact Info) Description 04/06/2025 11:30 AM EDT Telemedicine [facility] [address] [place] [phone] 06/26/2025 10:45 AM EST Office Visit [facility] [address] [place] [phone] Name, MD Noel [address] [place] [id number] Health Maintenance Due Date Last Done Comments CT Colonography 1953 FIT DNA/Cologuard 1955 FIT 1955 FOBT 1955 Sigmoidoscopy 1955 Hepatitis C Screening 1971 Zoster Vaccines (1 of 2) 2003 RSV Patients and Patients Aged 60 years or older (1 - Risk 60-74 years 1-dose series) 2013 Pneumococcal Vaccine: 50+ Years (2 of 2 - PCV) 03/19/2015 03/19/2014 DTaP/Tdap/Td Vaccines (1 - Tdap) 07/07/2017 07/06/2017 Diabetes: Foot Exam 08/24/2024 08/24/2023, COVID-19 Vaccine ( season) 2025 08/27/2021, 01/07/2021, 12/10/2020 Influenza Vaccine (#1) 2025 Diabetes: Hemoglobin A1C 06/30/2025 025, 12/07/2024, 09/20/2024, Additional history exists Lipid Panel 07/24/2025 07/24/2024, 11/30, 12/02/2022, Additional history exists Eye Exam 08/31/2025 08/31/2024, 08/04, 08/31/2024, Additional history exists Alcohol/Substance Use Screening 09/20/2025 09/20/2024 Depression Screening 09/20/2025 09/20/2024, 09/20/19 25 SDOH Screening 09/20/2025 09/20/2024 Tobacco Screening 03/30/2026 03/30/2025 Colonoscopy 09/02/2033 09/02/2023 Colorectal Cancer Screening 09/02/2033 HIB Vaccines Aged Out No longer eligi ble based on patient's age to complete this topic HPV Vaccines Aged Out No longer eligi ble based on patient's age to complete this topic Hepatitis A Vaccines Aged Out No long er eligible based on patient's age to complete this topic Hepatitis B Vaccines Aged Out No long er eligible based on patient's age to complete this topic IPV Vaccines Aged Out No longer eligi ble based on patient's age to complete this topic Meningococcal B Vaccine Aged Out No l onger eligible based on patient's age to complete this topic Meningococcal Vaccine Aged Out No ck cory eligible based on patient's age to complete this topic RSV under 20 months Aged Out No longe r eligible based on patient's age to complete this topic Rotavirus Vaccines Aged Out No longer eligible based on patient's age to complete this topic Procedures Procedure Name Priority Date/Time Associated Diagnosis Comments POCT GLYCATED HEMOGLOBIN, TOTAL Routine 03/30/2025 10:49 AM EDT Type 2 diabetes mellitus with other circulatory complication, with long-term current use of insulin ([facility]) POCT GLUCOSE Routine 03/30/2025 10:45 AM EDT Type 2 diabetes mellitus with other circulatory complication, with long-term current use of insulin (CMS/HCC) ALBUMIN, RANDOM URINE W/CREATININE Routine 03/21/2025 10:46 AM EDT Type 2 diabetes mellitus with other circulatory complication, with long-term current use of insulin ([facility]) Hypertension, unspecified type Peripheral vascular disease (CMS/HCC) BASIC METABOLIC PANEL Routine 03/21/2025 10:46 AM EDT Type 2 diabetes mellitus with other circulatory complication, with long-term current use of insulin (CMS/HCC) Hypertension, unspecified type Peripheral vascular disease (CMS/HCC) LIPID PANEL, STANDARD Routine 07/24/2024 1:35 PM EST Uncontrolled type 2 diabetes mellitus with hyperglycemia ([facility]) Hypertension, unspecified type HM COLONOSCOPY Routine 09/02/2023 from Last 3 Months or Most Recently Relevant to Health Maintenance Results * (ABNORMAL) POCT HGB A1C (03/30/2025 10:49 AM EDT) Pathologist [facility] Hemoglobin A1C 10.2(A) 4.0 - 5.7 % QC Media Lot # [id number] Lot# Expiration Date 41,627 Blood 03/30/2025 10:4 9 AM EDT Noel Cedeno MD POINT OF CARE TEST ENTER/EDIT OR DERABLES Final Result * (ABNORMAL) POCT Glucose (03/30/2025 10:45 AM EDT) Pathologist [facility] Glucose Blood, POC 228(A) 60 - 200 mg/dL QC Media Lot # [id number] Lot# Expiration Date 22,726 Blood Capillary blood specimen / Unknown 03/30/2025 10:45 AM EDT us Noel Name MD POINT OF CARE TEST ENTER/EDIT OR DERABLES Final Result * (ABNORMAL) Albumin, Random Urine W/Creatinine (03/21/2025 10:46 AM EDT) Creatinine, Urine 82.09 mg/dL [facility] Microalbumin Urine >2,000.0 mg/L H [facility] Microalbum Creatinine Ratio Ur 2,436.3(H ) <30 ug/mg cr [facility] Comment:Albumin/Creatinine R atio Reference Ranges: Normal: < 30 ug/mg creatinine Microalbuminuria: 30 - 300 ug/mg creatinineClinical Albuminuria: > 300 ug/mg creatinine Urine (Urine, Random) 03/21/2025 10:46 AM EDT 03/21/2025 11:45 AM EDT us Noel Cedeno MD LAB URINE ORDERABLES Final Resul t Performing Organization Address City/State/[facility] Co de Phone Number [facility] [address] [place] [phone] * (ABNORMAL) Basic Metabolic Panel (03/21/2025 10:46 AM EDT) Sodium 139 135 - 145 mmol/L [facility] Potassium 4.5 3.3 - 5.1 mmol/L [facility] Chloride 107 96 - 108 mmol/L [facility] Carbon Dioxide 22 22 - 29 mmol/L [facility] Anion Gap 15 12 - 20 [facility] Urea Nitrogen (BUN) 25(H) 9 - 16 mg/dL [facility] Creatinine, Serum 1.31 0.5 - 1.4 mg/dL [facility] Estimated Glomerular Filt Rate 54 [facility] Comment:Chronic Kidney Disea se: Estimated GFR < 60 mL/min/1.43u1Rloyca Kidney Disease: Estimated GFR < 15 mL/min/1.73m2 Glucose 196(H) 60 - 115 mg/dL [facility] Calcium 8.6 8.4 - 10.2 mg/dL [facility] Blood Venous blood specimen / Unknown 03/21/2025 10:46 AM EDT 03/21/2025 12:29 PM EDT us Noel Cedeno MD LAB BLOOD ORDERABLES Final Resul t Performing Organization Address [facility] Co de Phone Number [facility] [address] [place] [phone] * (ABNORMAL) Lipid Panel, Standard (07/24/2024 1:35 PM EST) Triglycerides 94 <150 mg/dL [facility] Comment:Desirable Triglyceri de: less than 150 mg/dLBorderline High Triglyceride 150-199 mg/dLHigh Triglyceride: 200-499 mg/dLVery High Triglyceride: greater than or equal to 5OO mg/dL Cholesterol 106 <200 mg/dL [facility] Comment:Desirable Cholestero l: less than 200 mg/dLBorderline High Cholesterol: 200-239 mg/dLHigh Cholesterol: greater than 239 mg/dL LDL Cholesterol Calculated 55 <100 mg/dL [facility] Comment:Desirable LDL: less than 100 mg/dLNear Optimal/Above Optimal LDL: 110- 129 mg/dLBorderline High LDL: 130-159 mg/dLHigh LDL: 160-189 mg/dLVery High LDL: greater than or equal to 190 mg/dL HDL Cholesterol 33(L) >40 mg/dL [facility] Comment:Desirable HDL: great er than 40 mg/dL Note: This HDL assay may give artificially low results in patients with liver disease. Blood Venous blood specimen / Unknown 07/24/2024 1:35 PM EST 07/24/2024 4:01 PM EST us Noel Cedeno MD LAB BLOOD ORDERABLES Final Resul t Performing Organization Address City/[facility] Co de Phone Number [facility] [address] [place] [address] [phone] * Hm Colonoscopy (09/02/2023) Colonoscopy Normal Normal us Noel Cedeno MD HEALTH MAINTENANCE Final Result from Last 3 Months or Most Recently Relevant to Health Maintenance Insurance [place] [address] [place] [id number] Care Teams Basketball Player Relationship Specialty Start Date End Date Name, MD Noel [address] [place] [phone] PCP - General Family Medicine 03/11/17
--- OUTSIDE RECORDS SUMMARY | 2025-04-06 08:52 | XMS_ITS | Clinical Summary ---
Author Organization [facility] Facility Address [address] [place] [id number] Care Team Providers Care Collar Runner Name Role Phone Unavailable Primary Care Provider Unavailabl e Medications aspirin (ST MARTY) 81 MG EC tablet Take 1 tablet by mouth 1 (one) time each day Active atorvastatin (Lipitor) 80 MG tablet Take 1 tablet by mouth 1 (one) time each day Active ergocalciferol (VITAMIN D-2) 1.25 MG (22545 UT) capsule Take 1 capsule by mouth [...] this topic Insurance Medicare Medicare JAMES JOYA [id number]
== END 2025-04-06 09:23 | disposition home or self-care (01) ==
LOC: HO.HCS 08:27
PROVIDERS: PCP Internal Medicine Geriatric Medicine; Visit Provider Nurse Practitioner Family
DX: I25.10 Atherosclerotic heart disease of native coronary artery without angina pectoris (principal); Z95.1 Presence of aortocoronary bypass graft; Z98.890 Other specified postprocedural states; I10 Essential (primary) hypertension; E78.5 Hyperlipidemia, unspecified
CPT/HCPCS: 93010; 99214; G2211

== ENCOUNTER → 2025-04-06 08:27 | Outpatient (BNVA) | payer MEDICARE, SELFPAY | PROVIDERS: PCP Internal Medicine Geriatric Medicine; Visit Provider Nurse Practitioner Family | DX: I25.10 Atherosclerotic heart disease of native coronary artery without angina pectoris (principal); I10 Essential (primary) hypertension; E78.5 Hyperlipidemia, unspecified; Z95.1 Presence of aortocoronary bypass graft; Z98.890 Other specified postprocedural states; R00.1 Bradycardia, unspecified; I45.2 Bifascicular block; R94.31 Abnormal electrocardiogram [ECG] [EKG] | CPT/HCPCS: 93005; 99212 ==

== ENCOUNTER 2025-04-17 10:04 | Outpatient (AMB) | payer MEDICARE, SELFPAY ==
--- NOTE | 2025-04-17 10:12 | HO.NEPHOV_ITS ---
Vital Signs 04/17/25 10:15 Height 6 ft 2 in Weight 223 lb 4 oz BMI 28.7 BP 116/70 Blood Pressure Location Lt brachial Position Sitting Intake Visit Reasons: ENP: Diabetic nephropathy w/proteinuria Medical Administrative Required: No Accompanied by: Self / Same As Patient Allergies No Known Allergies (No Known Allergies*) Allergy (Verified 04/17/25 10:15) HPI Comments Details: I had the pleasure of seeing Giovanni in consultation for CKD and proteinuria. He is 70 years of age and has diabetes for a very long time. His diabetes has been poorly controlled. He does not check his blood sugar regularly. He denies retinopathy but has neuropathy. He had coronary artery disease needing CABG. He also has peripheral arterial disease and had undergone toe amputations and TMA. His proteinuria has been getting worse. He does not have any new bone or back pain. He denies smoking. He has been started Jardiance recently. He denies edema, hematuria, ankle swelling, dizziness, sensorineural deafness, epistaxis, recurrent sinusitis, sore throat, skin rashes, excessive amounts of nonsteroidal anti-inflammatory medication intake, new bone or back pain. He has over 2 g of protein in the urine with CKD. He has no history of malignancy. He had no new systemic complaints at the time of this office visit. [facility] Medical History (Updated 04/17/25 @ 10:46 by Juan Jose MD) Diabetic nephropathy with proteinuria Atherosclerotic cardiovascular disease Cellulitis Hyperlipidemia HTN (hypertension) with goal to be determined Elevated lactic acid level Acute hyperglycemia Leukocytosis Foot ulcer, right Diabetes PAD (peripheral artery disease) Ulcer of left foot Surgical History H/O heart bypass surgery (~09/2022) History of colon resection (~09/2023) Status post debridement (03/04/20) Amputated great toe of left foot (01/09/20) History of transmetatarsal amputation of right foot (~2004) Family History Mother No problems noted. Father No problems noted. Social History Household Members: Family Housing: Apartment Do you presently have visiting nurse or other home services: No Alcohol intake: never Patient Tobacco Use Status: Former Tobacco user Years Smoked: 50 -/+ Second Hand Smoke Exposure: No service: No Current occupational status: retired and disabled Review of Systems Const All systems reviewed & are unremarkable except as noted in HPI and below Physical Exam Vital Signs: Last Vital Signs BP 116/70 04/17/25 10:15 BMI result Body Mass Index 28.7 Const General: comfortable and no acute distress Orientation/consciousness: patient oriented x3 HEENT Head: Yes normocephalic Mouth: Normal oral and palatal mucosa present Eyes EOM: EOMs intact bilaterally Neck Neck: Yes supple Resp Auscultation: clear to auscultation bilaterally Cardio Jugular venous distension: no JVD Rate: regular rate GI Palpation (GI): Soft to palpation Auscultation: normal bowel sounds General: Yes no CVA tenderness Back/Spine/Pelvis Back: no CVA tenderness Skin General skin exam: no rashes or lesions noted Neuro General: patient oriented x3 and moves all extremities Extrem General: Yes no pedal edema Results Reviewed Nephrology Results: Hgb, (14.0-18.0) 13.1 g/dl L 07/24/24 WBC, (4.8-10.8) 12.2 X10*3/uL H 07/24/24 Plt Count, (160-400) 276 X10*3/uL 07/24/24 Sodium, (135-145) 139 mmol/L 03/21/25 Potassium, (3.3-5.1) 4.5 mmol/L 03/21/25 Chloride, (96-108) 107 mmol/L 03/21/25 Carbon Dioxide, (22-29) 22 mmol/L 03/21/25 BUN, (9-16) 25 mg/dL H 03/21/25 Creatinine, (0.5-1.4) 1.31 mg/dL 03/21/25 Calcium, (8.4-10.2) 8.6 mg/dL 03/21/25 Urine Creatinine 82.09 mg/dL 03/21/25 Assessment & Plan Assessment & Plan (1) Essential hypertension: Code(s): I10 - Essential (primary) hypertension Category: Medical (2) Diabetic nephropathy: Code(s): E11.21 - Type 2 diabetes mellitus with diabetic nephropathy Category: Medical Qualifiers: Diabetes mellitus type: type 2 Qualified Code(s): E11.21 - Type 2 diabetes mellitus with diabetic nephropathy Plan Giovanni has diabetic nephropathy. He is on MARLYN-inhibitor as well as Jardiance. Jardiance had been initiated only recently. His hemoglobin A1c is very high. He does not get any urinary infections. He claims to be compliant with his medications. He avoids nonsteroidal anti-inflammatories and maintains good hydration. I ordered further workup including imaging studies. He may need a renal biopsy. I did not make any medication changes at this visit but shall continue to optimize his regimen based on evolving data. Answered all questions and follow-up was given Orders: Orders US renal BI 6 Weeks E11.21 - Type 2 diabetes mellitus with diabetic nephropathy, I10 - Essential (primary) hypertension Protein Creatinine Ratio, Ur 3 Months E11.21 - Type 2 diabetes mellitus with diabetic nephropathy, I10 - Essential (primary) hypertension Hepatitis B Core Antibody 3 Months E11.21 - Type 2 diabetes mellitus with diabetic nephropathy, I10 - Essential (primary) hypertension Hepatitis B Surface Antigen 3 Months E11. - Type 2 diabetes mellitus with diabetic nephropathy, I10 - Essential (primary) hypertension Anti DNA DS Antibody 3 Months E11.21 - Type 2 diabetes mellitus with diabetic nephropathy, I10 - Essential (primary) hypertension Proteinase 3 PR3 Antibodies 3 Months E11.21 - Type 2 diabetes mellitus with diabetic nephropathy, I10 - Essential (primary) hypertension Anti Glomerular Basement Memb 3 Months E11.21 - Type 2 diabetes mellitus with diabetic nephropathy, I10 - Essential (primary) hypertension Complement C3 3 Months E11.21 - Type 2 diabetes mellitus with diabetic nephropathy, I10 - Essential (primary) hypertension Complement C4 3 Months E11.21 - Type 2 diabetes mellitus with diabetic nephropathy, I10 - Essential (primary) hypertension Phospholipase A2 Receptor Pnl 3 Months E11.21 - Type 2 diabetes mellitus with diabetic nephropathy, I10 - Essential (primary) hypertension Creatinine 3 Months E11.21 - Type 2 diabetes mellitus with diabetic nephropathy, I10 - Essential (primary) hypertension Blood Urea Nitrogen 3 Months E11.21 - Type 2 diabetes mellitus with diabetic nephropathy, I10 - Essential (primary) hypertension Calcium 3 Months E11.21 - Type 2 diabetes mellitus with diabetic nephropathy, I10 - Essential (primary) hypertension Myeloperoxidase Antibody 3 Months E11.21 - Type 2 diabetes mellitus with diabetic nephropathy, I10 - Essential (primary) hypertension Immunofixation Pnl, Serum 3 Months E11.21 - Type 2 diabetes mellitus with diabetic nephropathy, I10 - Essential (primary) hypertension Electrolytes 3 Months E11. - Type 2 diabetes mellitus with diabetic nephropathy, I10 - Essential (primary) hypertension Immunofixation, Random Urine 3 Months E11. - Type 2 diabetes mellitus with diabetic nephropathy, I10 - Essential (primary) hypertension Hemoglobin A1c 3 Months E11. - Type 2 diabetes mellitus with diabetic nephropathy, I10 - Essential (primary) hypertension Coding Level of Care Code New Pt Level 4 (17577) Diagnoses Essential hypertension I10 Diabetic nephropathy associated with type 2 diabetes mellitus Diabetes mellitus type: type 2
[2025-04-17 10:15] VITALS: BP 116/70; BMI 28.7
--- OUTSIDE RECORDS SUMMARY | 2025-04-17 13:10 | XMS_ITS | Clinical Summary ---
Author Organization [employer] Address [address] [place] [address] Care Team Providers Care Healthcare Management Name Role Phone Name, Noel PELAEZ Primary Care Provider Allergies No known active allergies Medications aspirin [...] 60 tablet 11 03/30/20 25 026 Active carvedilol (Coreg) 12.5 MG tablet TAKE [...] 09/07 for treatment of cecal volvulus at [facility]. History of colonoscopy 09/16/2023 Overview (10/20/2023): Hospitalized 09/2023 at [facility] for severe abdominal pain due to large bowel obstruction due cecal volvulus. Colonoscopy in hospital was normal. Patient was cleared for surgery and he had right partial colectomy and ileocecectomy 09/07/2023 History of coronary artery bypass graft x 2 10/01 Overview (10/23/2022): 09/2022 at [facility] Charcot's joint of foot 08/08/2022 Anemia 08/08/2022 Absence of toe 08/08/2022 Uncontrolled type 2 diabetes mellitus with hyper glycemia 07/02/2022 Type 2 diabetes mellitus with hyperglycemia 08/2021 Presence of coronary angioplasty implant and gra ft 06/30/2022 Non-ST elevation (NSTEMI) myocardial infarction 06/28/2022 Nicotine dependence, cigarettes, uncomplicated 1 08/28/2021 Stage 3 chronic kidney disease 11/26/2020 [facility] current use of insulin 08/10/2017 Essential hypertension [...] Encounters Date Type Department Care Team Description 04/06/2025 11:30 AM EDT Telemedicine [facility] [address] [place] [address] [phone] Dolly Mckeon RN Hypertension, unspecified type 04/06/2025 Travel 03/30/2025 10:15 AM EDT Office Visit [facility] [address] [place] [address] [phone] Noel Cedeno MD Type 2 diabetes mellitus with other circulatory complication, with long-term current use of insulin ([facility]) (Primary Dx); Medication nonadherence due to psychosocial problem; Hypertension, unspecified type; Diabetic nephropathy with proteinuria ([facility]); Vaccination refused by patient 03/30/2025 Travel 03/29/2025 Telephone [facility] [address] [place], [place] [phone] Donna Ponce MA CHARTPREP 03/19/2025 Refill [facility] [address] [place], [place] [phone] Noel Cedeno MD 03/08/2025 Refill [facility] [address] [place], [place] [phone] Noel Cedeno MD Uncontrolled type 2 diabetes mellitus with hyperglycemia ([facility]) 02/15/2025 Refill [facility] [address] [place] [phone] NameNoel MD NSTEMI (non-ST elevated myocardial infarction) ([facility]) from Last 3 Months Immunizations Immunization Administration [...] Care Team (Late st Contact Info) Description 06/26/2025 10:45 AM EST Office Visit [facility] [address] [place] [phone] Name, MD Noel [address] [place] [address] Health Maintenance Due Date Last Done Comments [...] complication, with long-term current use of insulin ([facility]) POCT GLUCOSE Routine 03/30/2025 10:45 AM EDT Type 2 diabetes mellitus with other circulatory complication, with long-term current use of insulin ([facility]) ALBUMIN, RANDOM URINE W/CREATININE Routine 03/21/2025 10:46 [...] Uncontrolled type 2 diabetes mellitus with hyperglycemia (CMS/HCC) Hypertension, unspecified type HM COLONOSCOPY Routine 09/02/2023 from Last 3 Months or Most Recently Relevant to Health Maintenance Results * (ABNORMAL) POCT HGB A1C (03/30/2025 10:49 AM EDT) Hemoglobin A1C 10.2(A) 4.0 - 5.7 % QC Media Lot # [id number] Lot# Expiration Date [id number] Blood 03/30/2025 10:4 9 AM EDT us Noel Cedeno MD POINT OF CARE TEST ENTER/EDIT OR DERABLES Final Result * (ABNORMAL) POCT Glucose (03/30/2025 10:45 AM EDT) Glucose Blood, POC 228(A) 60 - 200 mg/dL QC Media Lot # [id number] Lot# Expiration Date 22,726 Blood Capillary blood specimen / Unknown 03/30/2025 10:45 AM EDT us Noel Cedeno MD POINT OF CARE TEST ENTER/EDIT OR DERABLES Final Result * (ABNORMAL) Albumin, Random Urine W/Creatinine (03/21/2025 10:46 AM EDT) Creatinine, Urine 82.09 mg/dL [facility] Microalbumin Urine >2,000.0 mg/L H [facility] Microalbum Creatinine Ratio Ur 2,436.3(H ) <30 ug/mg cr [facility] Comment:Albumin/Creatinine R at Reference Ranges: Normal: < 30 ug/mg creatinine Microalbuminuria: 30 - 300 ug/mg creatinineClinical Albuminuria: > 300 ug/mg creatinine Urine (Urine, Random) 03/21/2025 10:46 AM EDT 03/21/2025 11:45 AM EDT us Noel Cedeno MD LAB URINE ORDERABLES Final Resul t Performing Organization Address [facility] de Phone Number [facility] [address] [place] [phone] * (ABNORMAL) Basic Metabolic Panel (03/21/2025 10:46 AM EDT) Sodium 139 135 - 145 mmol/L [facility] Potassium 4.5 3.3 - 5.1 mmol/L [facility] Chloride 107 96 - 108 mmol/L [facility] Carbon Dioxide 22 22 - 29 mmol/L [facility] Anion Gap 15 12 - 20 [facility] Urea Nitrogen (BUN) 25(H) 9 - 16 mg/dL [facility] Creatinine, Serum 1.31 0.5 - 1.4 mg/dL [facility] Estimated Glomerular Filt Rate 54 [facility] Comment:Chronic Kidney Disea se: Estimated GFR < 60 mL/min/1.33l2Lmmelo Kidney Disease: Estimated GFR < 15 mL/min/1.73m2 Glucose 196(H) 60 - 115 mg/dL [facility] Calcium 8.6 8.4 - 10.2 mg/dL [facility] Blood Venous blood specimen / Unknown 03/21/2025 10:46 AM EDT 03/21/2025 12:29 PM EDT us Noel Cedeno MD LAB BLOOD ORDERABLES Final Resul t Performing Organization Address [facility] de Phone Number [facility] [address] [place] [phone] * (ABNORMAL) Lipid Panel, Standard (07/24/2024 1:35 PM EST) Triglycerides 94 <150 mg/dL [facility] Comment:Desirable Triglyceri de: less than 150 mg/dLBorderline High Triglyceride 150-199 mg/dLHigh Triglyceride: 200-499 mg/dLVery High Triglyceride: greater than or equal to 5OO mg/dL Cholesterol 106 <200 mg/dL [facility] Comment:Desirable Cholestero l: less than 200 mg/dLBorderline High Cholesterol: 200-239 mg/dLHigh Cholesterol: greater than 239 mg/dL LDL Cholesterol Calculated 55 <100 mg/dL [facility] Comment:Desirable LDL: less than 100 mg/dLNear Optimal/Above Optimal LDL: 110- 129 mg/dLBorderline High LDL: 130-159 mg/dLHigh LDL: 160-189 mg/dLVery High LDL: greater than or equal to 190 mg/dL HDL Cholesterol 33(L) >40 mg/dL [facility] Comment:Desirable HDL: great er than 40 mg/dL Note: This HDL assay may give artificially low results in patients with liver disease. Blood Venous blood specimen / Unknown 07/24/2024 1:35 PM EST 07/24/2024 4:01 PM EST us Noel Cedeno MD LAB BLOOD ORDERABLES Final Resul t [facility] [address] [place] [phone] * Hm Colonoscopy (09/02/2023) Colonoscopy Normal Normal us Noel Cedeno MD HEALTH MAINTENANCE Final Result from Last 3 Months or Most Recently Relevant to Health Maintenance Insurance MEDICARE Care Teams Healthcare Management Relationship Specialty Start Date End Date Name, MD Noel [address] [place] [phone] PCP - General Family Medicine 03/11/17
--- OUTSIDE RECORDS SUMMARY | 2025-04-17 13:10 | XMS_ITS | Clinical Summary ---
Author Organization [facility] Facility Address [address] [place] [phone] Care Team Providers Care Research Management Associate Name Role Phone Unavailable Primary Care Provider Unavailabl e Medications aspirin (ST MARTY) 81 MG EC tablet Take 1 tablet by mouth 1 (one) time each day Active atorvastatin (Lipitor) 80 MG tablet Take 1 tablet by mouth 1 (one) time each day Active ergocalciferol (VITAMIN D-2) 1.25 MG (46243 UT) capsule Take 1 capsule by mouth [...] this topic Insurance Medicare Medicare JAMES JOYA [id number]
== END 2025-04-17 10:45 | disposition home or self-care (01) ==
LOC: HO.HKAS 10:05
PROVIDERS: PCP Internal Medicine Geriatric Medicine; Referring Provider Internal Medicine Geriatric Medicine; Visit Provider Internal Medicine Nephrology
DX: I10 Essential (primary) hypertension (principal); E11.21 Type 2 diabetes mellitus with diabetic nephropathy
CPT/HCPCS: 99204

== ENCOUNTER → 2025-04-17 10:04 | Outpatient (BNVA) | payer MEDICARE, SELFPAY | PROVIDERS: PCP Internal Medicine Geriatric Medicine; Referring Provider Internal Medicine Geriatric Medicine; Visit Provider Internal Medicine Nephrology | DX: E11.21 Type 2 diabetes mellitus with diabetic nephropathy (principal); I10 Essential (primary) hypertension | CPT/HCPCS: 99202 ==